=== PATIENT | female | born 1965 | race African-American/Black ===

== ENCOUNTER 2016-06-12 20:24 | Inpatient (IN) | payer MEDICARE, OTHER ==
[~2016-06-12] VITALS: Ht 162.6 cm; Wt 74.3 kg
[~2016-06-12 20:24] MED LIST: APIX5TAB PO; Aspirin Chew PO; CARV6.252 PO; DIGO0.12 PO; FERR325T PO; FOLI1TAB4 PO; FURO1TAB62 PO; LACO100 PO; LIPI80TA PO; NOVORP2 SQ; PANT40TA3 PO; PHEN-414 PO; SPIR25TA PO; THERTAB15 PO
--- NOTE | 2016-06-12 20:38 | PD ---
HPI Chief Complaint: difficulty speaking Time Seen by Provider: 20:29 Travel History International Travel<30 days: No Contact w/Intl Traveler<30days: No Traveled to known affect area: No History of Present Illness HPI The patient is 51 year old female who presents to the [facility] emergency department with a history of mentation that began sometime earlier today, suspected to be around 7 AM with difficulty talkin and slurred speech at her long term. Ambulance services were not called regarding the patient until in the evening. The patient is currently a resident at [facility] for rehabilitation related to a recent cerebrovascular accident with residual weakness of the left upper and left lower extremity. According to the record, the patient is on a baby aspirin daily. The patient on examination has difficulty providing history. The patient has slurred speech and difficulty finding words. The patient denies having any fevers, cough or congestion, chest pain, chest pressure, shortness of breath, vomiting, abdominal pain, or diarrhea. According to the patient's long term record, the patient is currently on a baby aspirin daily as well as Apixaban. [facility] Past Medical History Narrative Medical The patient's past medical history is significant for a cardiomyopathy, generalized muscle weakness, history of atrial fibrillation, hypertension, cerebrovascular accident with residual left upper and left lower extremity weakness, insomnia, history of prior TIAs, history of diabetes mellitus, history of seizure disorder, anemia, dysphagia, history of a right bundle branch block. Hx Anticoagulant Therapy: Yes (ELIQUIS) Asthma: No Anxiety: Yes Depression: Yes (complicated grief) Heart Rhythm Problems: Yes (DEFIBRILLATOR PLACED 2 YRS AGO) Cancer: No Cardiovascular Problems: Yes (CHF, A-FIB) High Cholesterol: No Chemotherapy: No Chest Pain: No Congestive Heart Failure: Yes COPD: No Cerebrovascular Accident: Yes Diabetes: Yes Diminished Hearing: No Endocrine: Yes (BORDERLINE DIABETIC, DIET CONTROLLED) Gastrointestinal Disorders: Yes (ACID REFLUX) GERD: Yes Genitourinary: No Hepatitis: No Hypertension: Yes Immune Disorder: No Implanted Vascular Access Dvce: Yes Neurologic: Yes Psychiatric: Yes (ANXIETY ) Reproductive: No Respiratory: Yes Immunizations Current: Yes Radiation Therapy: No Seizures: Yes Thyroid Disease: Yes : 1 Para: 1 Past Surgical History Narrative Surgical The patient's past surgical history is significant for a defibrillator placement , history of craniotomy, history of . AICD: Yes ([employer]) Body Medical Devices: DEBRILLATOR, MARKER IN BILATERAL BREAST Cardiac Surgery: Yes (DEFIBRILATOR 2002, DEFIBRILATOR REPLACED 03/2010) Section: Yes (1984) Gynecologic Surgery: Yes (C SECTION ) Neurologic Surgery: Yes (CRANIOTOMY) Thoracic Surgery: Yes (MARKERS PLACED BILATERAL BREAST) Other Surgery: Yes Social History Alcohol Use: No Tobacco Use: No Substance Use: No Allergies-Medications (Allergen,Severity, Reaction): Coded Allergies: Dilantin (Verified Allergy, Severe, 06/12/16) Lemon (Verified Allergy, Severe, EDEMA, 06/12/16) Sulfa (Verified Allergy, Severe, ANYYHING WITH IT IN IT AND I FALL OUT AND GET THE SHAKES, 06/12/16) AMARIS Inhibitors (Verified Allergy, Intermediate, ANGIOEDEMA, 06/12/16) CONFIRMED OF 01/03/2010 MRI PRECAUTION (Verified Adverse Reaction, Severe, AICD PRESENT, 06/12/16) AICD PRESENT 11/23/13 JLA *MDRO Multi-Drug Resistant Organism (Verified Adverse Reaction, Unknown, ) MRSA (urine & sputum) - 2013 MRSA PCR Screen POSITIVE - 04/08/16 Uncoded Allergies: MUCINEX (Allergy, Severe, CARDIAC INCIDENT, 09/18/13) Reported Meds & Prescriptions Reported Meds & Active Scripts Active Digoxin 0.125 Mg Tab 0.125 Mg PO DAILY 30 Days [Aspirin Chew] 81 MG Chew 81 Mg PO DAILY 30 Days Novolin R Inj (Insulin Human Regular) 1,000 Unit/10 Ml Vial 1 Units SQ ACHS 30 Days accu-check AC/HS with regular insulin coverage; 150-200 one unit 201-250 three units 251-300 five units 301-350 seven units 351-400 nine units inform PCP if < 70 or > 400. Phenobarbital 32.4 Mg Tab 32.4 Mg PO Q12HR 30 Days Thera/Beta-Carotene (Multiple Vitamin) 1 Tab Tab 1 Tab PO DAILY 30 Days Vimpat (Lacosamide) 100 Mg Tab 200 Mg PO BID 30 Days Reported Lasix (Furosemide) 20 Mg Tab 20 Mg PO HS Duloxetine DR (Duloxetine HCl) 60 Mg Capdr 60 Mg PO DAILY Dulcolax Supp (Bisacodyl) 10 Mg Supp 10 Mg RECTAL DAILY PRN Milk of Magnesia Liq (Magnesium Hydroxide) 400 Mg/5 Ml Susp 30 Ml PO DAILY PRN Lipitor (Atorvastatin Calcium) 80 Mg Tab 80 Mg PO HS Eliquis (Apixaban) 5 Mg Tab 5 Mg PO BID Folate (Folic Acid) 1 Mg Tab 1 Mg PO DAILY Ferrous Sulfate 325 Mg Tab 325 Mg PO BID Pantoprazole (Pantoprazole Sodium) 40 Mg Tab 40 Mg PO DAILY Carvedilol 6.25 Mg Tab 6.25 Mg PO BID Lasix (Furosemide) 20 Mg Tab 40 Mg PO DAILY Spironolactone 25 Mg Tab 25 Mg PO DAILY Review of Systems Except as stated in HPI: all other systems reviewed are Neg General / Constitutional: No: Fever Eyes: No: Visual changes HENT: No: Headaches Cardiovascular: No: Chest Pain or Discomfort Respiratory: No: Shortness of Breath Gastrointestinal: No: Abdominal Pain Genitourinary: No: Dysuria Musculoskeletal: No: Pain Skin: No Rash Neurologic: Positive: Focal Abnormalities (left upper and left lower extremity weakness), Change in Mentation, Slurred Speech, Other (difficulty with word finding ability), No: Weakness, Headache Psychiatric: No: Depression Endocrine: No: Polydipsia Hematologic/Lymphatic: No: Easy Bruising Physical Exam Narrative General: The patient is a well-developed, well-nourished female who arrives by ambulance services with a reported blood sugar prior to arrival of 125. Head and Neck exam: Head is normocephalic atraumatic. Eyes: Pupils are equal round and reactive to light. Nose: Midline septum with pink mucous membranes Mouth: Dentition unremarkable. Moist mucus membranes. Posterior oropharynx is not erythematous. No tonsillar hypertrophy. Uvula midline. Airway patent. Neck: No palpable lymphadenopathy. No nuchal rigidity. No thyromegaly. Cardiovascular: Regular rate and rhythm without murmurs, gallops, or rubs. No pulse deficit to the extremities and simultaneous auscultation and palpation of her radial artery. Lungs: Clear to auscultation bilaterally. No wheezes, rhonchi, or rales. Abdomen: Soft, without tenderness to palpation in all 4 quadrants of the abdomen. No guarding, rebound, or rigidity. Normal bowel sounds are audible. Extremities: No clubbing, cyanosis, or edema. 2+ pulses in all 4 extremities. Neurologic Exam: The patient is oriented to person, however not place, time, or situation. The patient is able to follow commands. The patient has a very subtle left facial droop with flattening of the nasolabial fold. Otherwise cranial nerves II through XII are intact. The patient's strength in the left upper and left lower extremity are decreased at 4 over 5 in the left upper extremity, 5 over 5 in the left lower extremity with contracture of the left hand noted related to her prior cerebrovascular accident. The patient reports having diminished sensation on the left side of her body on sensory testing. The patient has 5 over 5 strength in the right upper extremity. The patient has 4 over 5 strength in the right lower extremity. Skin Exam: No rash noted. Intact skin that is warm and dry. Data Data Last Documented VS Vital Signs Date Time Temp Pulse Resp B/P Pulse Ox O2 Delivery O2 Flow Rate FiO2 06/12/16 22:00 81 16 120/78 99 Room Air 06/12/16 20:41 98.4 Orders Electrocardiogram (06/12/16 20:35) Complete Blood Count With Diff (06/12/16 20:35) Comprehensive Metabolic Panel (06/12/16 20:35) Creatine Kinase (Cpk) (06/12/16 20:35) Ckmb (Isoenzyme) Profile (06/12/16 20:35) Troponin I (06/12/16 20:35) B-Type Natriuretic Peptide (06/12/16 20:35) Prothrombin Time / Inr (Pt) (06/12/16 20:35) Act Partial Throm Time (Ptt) (06/12/16 20:35) Lipase (06/12/16 20:35) Urinalysis - C+S If Indicated (06/12/16 20:35) Magnesium (Mg) (06/12/16 20:35) Alcohol (Ethanol) (06/12/16 20:35) Drug Screen, Random Urine (06/12/16 20:35) Salicylates (Aspirin) (06/12/16 20:35) Tylenol (Acetaminophen) (06/12/16 20:35) Ammonia (06/12/16 20:35) Chest, Single Ap (06/12/16 20:35) Ct Brain W/O Iv Contrast(Rout) (06/12/16 20:35) Iv Access Insert/Monitor (06/12/16 20:35) Ecg Monitoring (06/12/16 20:35) Oximetry (06/12/16 20:35) Ed Urine Pregnancytest Poc (06/12/16 20:35) Cath For Specimen (06/12/16 20:35) Sodium Chlor 0.9% 250 Ml Inj (Ns 250 Ml (06/12/16 21:00) Sodium Chlor 0.9% 1000 Ml Inj (Ns 1000 M (06/12/16 21:00) [place] (06/12/16 20:49) Phenobarbital (06/12/16 20:35) Admit Order (Ed Use Only) (06/12/16 22:05) Labs Laboratory Tests Test 06/12/16 06/12/16 06/12/16 20:35 20:50 20:55 White Blood Count 4.9 TH/MM3 Red Blood Count 4.49 MIL/MM3 Hemoglobin 11.3 GM/DL Hematocrit 34.8 % Mean Corpuscular Volume 77.5 FL Mean Corpuscular Hemoglobin 25.1 PG Mean Corpuscular Hemoglobin 32.4 % Concent Red Cell Distribution Width 19.7 % Platelet Count 188 TH/MM3 Mean Platelet Volume 9.2 FL Neutrophils (%) (Auto) 57.6 % Lymphocytes (%) (Auto) 29.2 % Monocytes (%) (Auto) 10.0 % Eosinophils (%) (Auto) 2.3 % Basophils (%) (Auto) 0.9 % Neutrophils # (Auto) 2.8 TH/MM3 Lymphocytes # (Auto) 1.4 TH/MM3 Monocytes # (Auto) 0.5 TH/MM3 Eosinophils # (Auto) 0.1 TH/MM3 Basophils # (Auto) 0.0 TH/MM3 CBC Comment AUTO DIFF Differential Comment AUTO DIFF CONFIRMED Platelet Estimate NORMAL Platelet Morphology Comment NORMAL Ovalocytes 1+ Prothrombin Time 18.8 SEC Prothromb Time International 1.7 RATIO Ratio Activated Partial 29.9 SEC Thromboplast Time Sodium Level 139 MEQ/L Potassium Level 4.3 MEQ/L Chloride Level 104 MEQ/L Carbon Dioxide Level 27.0 MEQ/L Anion Gap 8 MEQ/L Blood Urea Nitrogen 20 MG/DL Creatinine 0.55 MG/DL Estimat Glomerular Filtration 142 ML/MIN Rate Random Glucose 117 MG/DL Calcium Level 7.9 MG/DL Magnesium Level 1.6 MG/DL Total Bilirubin 0.4 MG/DL Aspartate Amino Transf 48 U/L (AST/SGOT) Alanine Aminotransferase 47 U/L (ALT/SGPT) Alkaline Phosphatase 202 U/L Total Creatine Kinase 83 U/L Troponin I 0.08 NG/ML B-Type Natriuretic Peptide 1863 PG/ML Total Protein 6.6 GM/DL Albumin 2.3 GM/DL Lipase 385 U/L Salicylates Level LESS THAN 1.7 MG/DL Acetaminophen Level LESS THAN 2.0 MCG/ML Phenobarbital Level 15.3 MCG/ML Ethyl Alcohol Level LESS THAN 3 MG/DL Urine Color YELLOW Urine Turbidity CLEAR Urine pH 5.5 Urine Specific [place] 1.020 Urine Protein 30 mg/dL Urine Glucose (UA) NEG mg/dL Urine Ketones NEG mg/dL Urine Occult Blood NEG Urine Nitrite NEG Urine Bilirubin NEG Urine Urobilinogen 2.0 MG/DL Urine Leukocyte Esterase SMALL Urine RBC LESS THAN 1 /hpf Urine WBC 3 /hpf Urine Squamous Epithelial <1 /hpf Cells Urine Bacteria OCC /hpf Urine Mucus FEW /lpf Microscopic Urinalysis Comment CULT NOT INDICATED Urine Opiates Screen NEG Urine Barbiturates Screen POS Urine Amphetamines Screen NEG Urine Benzodiazepines Screen NEG Urine Cocaine Screen NEG Urine Cannabinoids Screen NEG Ammonia 49 MCMOL/L MDM Medical Decision Making Medical Screen Exam Complete: Yes Emergency Medical Condition: Yes Medical Record Reviewed: Yes Interpretation(s) Last Impressions Head CT 06/12/162034 Signed Impressions: Service Date/Time: Sunday, June 12, 2016 21:09 - CONCLUSION: Stable appearance as described. Angel Cuevas MD Chest X-Ray 06/12/162034 Signed Impressions: Service Date/Time: Sunday, June 12, 2016 20:36 - CONCLUSION: 1. Interval removal of nasogastric tube. 2. Mildly rotated study with abnormal opacity remaining at the left lung base. Angel Cuevas MD Differential Diagnosis Cerebrovascular accident, versus TIA, versus encephalopathy, versus electrolyte abnormality, versus weakness related to an acute coronary syndrome, versus infectious processes just pneumonia or urinary tract infection Narrative Course During the course of the patients emergency department visit, the patients history, examination, and differential diagnosis were reviewed with the patient. The patient had IV access obtained and blood work sent for analysis. The patient was placed on a signal tester with oximetry and blood pressure monitoring. An EKG was done on arrival. The patient's EKG shows a sinus rhythm with what appears to be a first-degree AV block, marked right axis deviation, intraventricular conduction delay with a QRS duration of 166 ms. This will be compared to prior EKGs on record for this patient. The patient's initial blood pressure on arrival is a systolic in the 1 teens. After reviewing the patient's long term record and electronic medical record , the patient has a history of a right bundle branch block noted on her prior EKG, somewhat similar appearance her EKG compared to today's ECG. The patient was provided normal saline at 250 mL bolus 1 due to suspected poor by mouth intake today. The patient was given normal saline 75 mL/h to follow. The patient was placed with the head of the bed flat due to his suspicion for TIA versus CVA. The patient is seen to be out of the window for administration of thrombolytics due to the timeframe of onset of symptoms, as well as the fact that the patient is on blood thinners, baby aspirin and Apixaban daily. The patients laboratory studies were reviewed and remarkable for a white count of 4.9, hemoglobin 11.3, platelets 188 with monocytes at 10, CMP is remarkable for BUN of 20, glucose 117, calcium 7.9, AST 48, alkaline phosphatase 202, CPK 83, troponin I 0.08, BNP 1863, lipase 385, PT 18.8, INR 1.7, urine drug screen was positive for barbiturates, salicylate less than 1.7, acetaminophen less than 2, phenobarbital level XV.3, alcohol less than 3. The patient's ammonia level is noted to be 49. Radiology studies were reviewed and remarkable for a CT scan of the brain that showed a stable brain, no acute abnormality. Chest x-ray shows an interval removal of nasogastric tube, mildly rotated study with abnormal opacity remaining at the left lung base that was seen previously. The patient will be admitted to the hospital for continued evaluation and treatment. The patient's symptoms could be related to a hepatic encephalopathy. The patients results were discussed with the patient, including the plan of care. I explained that further testing and/ or monitoring is indicated based on the patients history, examination, and/ or laboratory findings. Therefore, I recommended admission for additional evaluation. The patient expressed understanding and was agreeable with this plan. The patient was admitted to the hospital in stable condition and sent to a bed under the care of Dr. Martines. Physician Communication Physician Communication I spoke to Dr. Glez regarding this patient's case. He did agree to admit the patient for further evaluation and treatment at this time. Diagnosis Primary Impression: Slurred speech Additional Impressions: Mild aphasia Altered mental status Qualified Code: R41.0 - Disorientation Hepatic encephalopathy Admitting Information Admitting Physician Requests: Admit Emma Rios MD Jun 12, 2016 20:38
[2016-06-12 20:40] VITALS: O2SAT 98
[2016-06-12 20:41] VITALS: BP 116/80; PULSE 83; RESP 16; TEMP 98.4; O2SAT 98
[2016-06-12] MEDS ORDERED: SODIUM CHLOR 0.9% 250 ML INJ 250 ML IV ONE (21:00)
--- NOTE | 2016-06-12 21:01 | RADRPT ---
EXAM DATE/TIME: 06/12/2016 20:36 [facility] COMPARISON: CHEST SINGLE AP, April 27, 2016, 3:59. INDICATIONS : Short of breath. MEDICAL HISTORY : Stroke. SURGICAL HISTORY : Defibrillator. ENCOUNTER: Initial ACUITY: 1 day PAIN SCORE: Non-responsive. LOCATION: Bilateral chest FINDINGS: A single AP semierect view of the chest was obtained and demonstrates interval removal of the previou sly noted nasogastric tube. The left subclavian AV sequential transvenous pacer remains in place ther e is moderate cardiomegaly. Patient is rotated to the left. There is mild hazy opacity at the left daryl ng base. The left costophrenic angle appears blunted. The bony thorax is intact. There are multiple o verlying electrocardiogram leads. CONCLUSION: 1. Interval removal of nasogastric tube. 2. Mildly rotated study with abnormal opacity remaining at the left lung base. Angel Cuevas MD on June 12, 2016 at 20:59 Board Certified Radiologist. This report was verified electronically.
[2016-06-12 21:10] LABS: AUTOMATED NEUTROPHIL # 2.8 TH/MM3 (1.8-7.7); BASOPHIL % 0.9 % (0.0-2.0); EOSINOPHIL # 0.1 TH/MM3 (0-0.4); EOSINOPHIL % 2.3 % (0.0-4.0); HEMATOCRIT 34.8 % (35.0-46.0); LYMPH % 29.2 % (9.0-44.0); LYMPHOCYTE # 1.4 TH/MM3 (1.0-4.8); MEAN CELL VOLUME 77.5 FL (80.0-100.0); MEAN CORPUSCULAR HEMOGLOBIN 25.1 PG (27.0-34.0); MEAN CORPUSCULAR HGB CONC 32.4 % (32.0-36.0); NEUT % 57.6 % (16.0-70.0); PLATELET COUNT 188 TH/MM3 (150-450); RED BLOOD COUNT 4.49 MIL/MM3 (4.00-5.30); RED CELL DISTRIBUTION WIDTH 19.7 % (11.6-17.2); WHITE BLOOD COUNT 4.9 TH/MM3 (4.0-11.0)
[2016-06-12 21:17] LABS: BACTERIA, URINE OCC /hpf; BLOOD, URINE NEG (NEG); COMMENT (UR) CULT NOT INDICATED; CULTURE IF INDICATED CULT NOT INDICATED; GLUCOSE,URINE NEG (NEG); KETONE, URINE NEG (NEG); MUCUS URINE FEW /lpf (OCC); NITRITE,URINE NEG (NEG); PH, URINE 5.5 (5.0-8.5); SQUAMOUS EPITHELIAL CELL URINE <1 /hpf (0-5); URINE COLOR YELLOW (YELLW/STRAW)
--- NOTE | 2016-06-12 21:20 | RADRPT ---
EXAM DATE/TIME: 06/12/2016 21:09 [facility] COMPARISON: CT BRAIN W/O CONTRAST, April 22, 2016, 11:03. INDICATIONS : Altered mental status today. RADIATION DOSE: 43.02 CTDIvol (mGy) MEDICAL HISTORY : Stroke. Seizures. SURGICAL HISTORY : Craniotomy. ENCOUNTER: Initial ACUITY: 1 day PAIN SCALE: Non-responsive LOCATION: Bilateral head TECHNIQUE: Multiple contiguous axial images were obtained of the head. Using automated exposure control and adj ustment of the mA and/or kV according to patient size, radiation dose was kept as low as reasonably a chievable to obtain optimal diagnostic quality images. FINDINGS: The patient is status post remote right frontoparietal craniotomy with encephalomalacia and ex v acuo change involving the right lateral ventricle. There is no acute hemorrhage, mass effect or midli ne shift. No extra-axial fluid collections are identified. The posterior fossa and brainstem remain i ntact. There is no evidence of acute infarction. Partial visualization of the previously noted retent ion cyst is noted in the right maxillary sinus. CONCLUSION: Stable appearance as described. Angel Cuevas MD on June 12, 2016 at 21:16 Board Certified Radiologist. This report was verified electronically.
[2016-06-12 21:22] LABS: AMPHETAMINE, URINE NEG (NEG); BARBITURATES, URINE POS (NEG); COCAINE, URINE NEG (NEG)
[2016-06-12 21:23] LABS: HEMO FLAGS AUTO DIFF
[2016-06-12 21:24] LABS: APTT (PATIENT) 29.9 SEC (24.3-30.1); INTERNATIONAL NORMALIZED RATIO 1.7 RATIO; PROTHROMBIN TIME - PATIENT 18.8 SEC (9.8-11.6)
[2016-06-12 21:37] LABS: ANION GAP 8 MEQ/L (5-15)
[2016-06-12 21:40] LABS: ACETAMINOPHEN LESS THAN 2.0 MCG/ML (10.0-30.0); ALKALINE PHOSPHATASE 202 U/L (45-117); ALT (GPT) 47 U/L (10-53); AST (GOT) 48 U/L (15-37); BLOOD UREA NITROGEN 20 MG/DL (7-18); CHLORIDE 104 MEQ/L (98-107); GLOMERULAR FILTRATION RATE 142 ML/MIN (>89); MAGNESIUM 1.6 MG/DL (1.5-2.5); PHENOBARBITAL 15.3 MCG/ML (15.0-40.0); POTASSIUM 4.3 MEQ/L (3.5-5.1); SODIUM (NA) 139 MEQ/L (136-145); TOTAL BILIRUBIN ADULT 0.4 MG/DL (0.2-1.0)
[2016-06-12 21:47] LABS: CREATINE KINASE 83 U/L (26-192)
[2016-06-12 22:00] VITALS: BP 120/78; PULSE 81; RESP 16; O2SAT 99
[2016-06-12 22:07] LABS: OVALOCYTES 1+ (NORMAL); PLATELET ESTIMATE SMEAR NORMAL (NORMAL); PLATELET MORPHOLOGY NORMAL (NORMAL); SCAN/DIFF AUTO DIFF CONFIRMED
[2016-06-12] MEDS: SODIUM CHLOR 0.9% 1000 ML INJ 1,000 ML IV SCH (22:12)
[2016-06-12] MEDS ORDERED: FURO1TAB62 PO (22:43)
[2016-06-12] MEDS ORDERED: MILKSUS PO (22:43)
[2016-06-12] MEDS ORDERED: DULO1CAP3 PO (22:43)
[2016-06-12] MEDS ORDERED: DULC10SU3 RECTAL (22:43)
[2016-06-12 23:00] VITALS: BP 123/80; PULSE 80; RESP 16; O2SAT 98
[2016-06-12] MEDS ORDERED: NALOXONE HCL 0.4 MG/ML AMP IV PRN (23:00)
[2016-06-12] MEDS ORDERED: SODIUM CHLORIDE 0.9% FLUSH 5 ML FLUSH FLUSH PRN (23:00)
[2016-06-13] VITALS (12 sets, daily range): BP systolic 108–133; BP diastolic 70–87; PULSE 75–93; RESP 16–20; TEMP 95.6–97.1; O2SAT 94–98
[2016-06-13 04:07] LABS: AUTOMATED NEUTROPHIL # 2.3 TH/MM3 (1.8-7.7); BASOPHIL # 0.1 TH/MM3 (0-0.2); BASOPHIL % 1.3 % (0.0-2.0); EOSINOPHIL # 0.1 TH/MM3 (0-0.4); EOSINOPHIL % 1.8 % (0.0-4.0); HEMATOCRIT 34.8 % (35.0-46.0); LYMPH % 33.5 % (9.0-44.0); LYMPHOCYTE # 1.4 TH/MM3 (1.0-4.8); MEAN CELL VOLUME 77.9 FL (80.0-100.0); MEAN CORPUSCULAR HEMOGLOBIN 24.6 PG (27.0-34.0); MEAN CORPUSCULAR HGB CONC 31.5 % (32.0-36.0); MONO % 9.9 % (0.0-8.0); NEUT % 53.5 % (16.0-70.0); PLATELET COUNT 169 TH/MM3 (150-450); RED BLOOD COUNT 4.47 MIL/MM3 (4.00-5.30); RED CELL DISTRIBUTION WIDTH 19.5 % (11.6-17.2); WHITE BLOOD COUNT 4.2 TH/MM3 (4.0-11.0)
[2016-06-13 04:09] LABS: HEMO FLAGS AUTO DIFF
[2016-06-13 04:35] LABS: ALT (GPT) 45 U/L (10-53); ANION GAP 8 MEQ/L (5-15); AST (GOT) 42 U/L (15-37); BICARBONATE 27.7 MEQ/L (21.0-32.0); BLOOD UREA NITROGEN 19 MG/DL (7-18); CHLORIDE 104 MEQ/L (98-107); GLOMERULAR FILTRATION RATE 142 ML/MIN (>89); POTASSIUM 3.8 MEQ/L (3.5-5.1); SODIUM (NA) 140 MEQ/L (136-145)
[2016-06-13 04:37] LABS: ALKALINE PHOSPHATASE 176 U/L (45-117); TOTAL BILIRUBIN ADULT 0.5 MG/DL (0.2-1.0)
[2016-06-13 04:57] LABS: OVALOCYTES 2+ (NORMAL); TEARDROP RBCS 1+ (NORMAL)
[2016-06-13 04:58] LABS: SCAN/DIFF AUTO DIFF CONFIRMED
[2016-06-13] MEDS: SODIUM CHLORIDE 0.9% FLUSH 5 ML FLUSH FLUSH SCH ×2 (07:12→10:08)
[2016-06-13] MEDS: SODIUM CHLOR 0.9% 1000 ML INJ 1,000 ML IV SCH ×2 (10:17→23:40)
[2016-06-13] MEDS ORDERED: BISACODYL 10 MG SUPP RECTAL PRN (12:00)
[2016-06-13] MEDS ORDERED: MAGNESIUM HYDROXIDE SUSP 30 ML CUP PO PRN (12:00)
--- NOTE | 2016-06-13 12:17 | HHI.HP ---
History of Present Illness Service Family practice Primary Care Physician Dr Martines Admission Diagnosis AMS, elevated ammonia level, dysphasia Diagnoses: History of Present Illness The patient is 51 year old female who is admitted to hospital for changes in mentation. She is a patient of [facility] and is followed by Dr. Martines while there. Yesterday morning she had difficulty taking and slurred speech. Ambulance services were not called regarding the patient until in the evening. The patient has had recent cerebrovascular accident with residual weakness of the left upper and left lower extremity. According to the record, the patient is on a baby aspirin and apixaban. Patient is alert and oriented on exam but has trouble choosing words. The patient denies having any fevers, cough or congestion, chest pain, chest pressure, shortness of breath, vomiting, abdominal pain, or diarrhea. Review of Systems Constitutional: COMPLAINS OF: Fatigue Ears, nose, mouth, throat: DENIES: Throat pain, Sinus Pain Respiratory: DENIES: Cough, Sputum production, Shortness of breath Cardiovascular: DENIES: Chest pain, Palpitations Gastrointestinal: DENIES: Bloody stools, Constipation, Diarrhea, Nausea Genitourinary: DENIES: Dysuria Musculoskeletal: DENIES: Muscle aches, Stiffness Integumentary: DENIES: Rash Neurologic: COMPLAINS OF: Speech Problems Psychiatric: DENIES: Anxiety, Confusion, Depression Past Family Social History Allergies: Coded Allergies: Dilantin (Verified Allergy, Severe, 06/12/16) Lemon (Verified Allergy, Severe, EDEMA, 06/12/16) Sulfa (Verified Allergy, Severe, ANYYHING WITH IT IN IT AND I FALL OUT AND GET THE SHAKES, 06/12/16) AMARIS Inhibitors (Verified Allergy, Intermediate, ANGIOEDEMA, 06/12/16) CONFIRMED OF 01/03/2010 MRI PRECAUTION (Verified Adverse Reaction, Severe, AICD PRESENT, 06/12/16) AICD PRESENT 11/23/13 JLA *MDRO Multi-Drug Resistant Organism (Verified Adverse Reaction, Unknown, ) MRSA (urine & sputum) - 2013 MRSA PCR Screen POSITIVE - 04/08/16 Uncoded Allergies: MUCINEX (Allergy, Severe, CARDIAC INCIDENT, 09/18/13) Past Medical History The patient's past medical history is significant for a cardiomyopathy, generalized muscle weakness, history of atrial fibrillation, hypertension, cerebrovascular accident with residual left upper and left lower extremity weakness, insomnia, history of prior TIAs, history of seizure disorder, anemia, dysphagia, history of a right bundle branch block Past Surgical History The patient's past surgical history is significant for a defibrillator placement , history of craniotomy, history of . AICD: Yes ([employer]) Body Medical Devices: DEBRILLATOR, MARKER IN BILATERAL BREAST Cardiac Surgery: Yes (DEFIBRILATOR 2002, DEFIBRILATOR REPLACED 03/2010) Section: Yes (1984) Gynecologic Surgery: Yes (C SECTION ) Neurologic Surgery: Yes (CRANIOTOMY) Thoracic Surgery: Yes (MARKERS PLACED BILATERAL BREAST) Reported Medications Reported Meds & Active Scripts Active Digoxin 0.125 Mg Tab 0.125 Mg PO DAILY 30 Days [Aspirin Chew] 81 MG Chew 81 Mg PO DAILY 30 Days Novolin R Inj (Insulin Human Regular) 1,000 Unit/10 Ml Vial 1 Units SQ ACHS 30 Days accu-check AC/HS with regular insulin coverage; 150-200 one unit 201-250 three units 251-300 five units 301-350 seven units 351-400 nine units inform PCP if < 70 or > 400. Phenobarbital 32.4 Mg Tab 32.4 Mg PO Q12HR 30 Days Thera/Beta-Carotene (Multiple Vitamin) 1 Tab Tab 1 Tab PO DAILY 30 Days Vimpat (Lacosamide) 100 Mg Tab 200 Mg PO BID 30 Days Reported Lasix (Furosemide) 20 Mg Tab 20 Mg PO HS Dul[address] (Duloxetine HCl) 60 Mg Capdr 60 Mg PO DAILY Dulcolax Supp (Bisacodyl) 10 Mg Supp 10 Mg RECTAL DAILY PRN Milk of Magnesia Liq (Magnesium Hydroxide) 400 Mg/5 Ml Susp 30 Ml PO DAILY PRN Lipitor (Atorvastatin Calcium) 80 Mg Tab 80 Mg PO HS Eliquis (Apixaban) 5 Mg Tab 5 Mg PO BID Folate (Folic Acid) 1 Mg Tab 1 Mg PO DAILY Ferrous Sulfate 325 Mg Tab 325 Mg PO BID Pantoprazole (Pantoprazole Sodium) 40 Mg Tab 40 Mg PO DAILY Carvedilol 6.25 Mg Tab 6.25 Mg PO BID Lasix (Furosemide) 20 Mg Tab 40 Mg PO DAILY Spironolactone 25 Mg Tab 25 Mg PO DAILY Active Ordered Medications Current Medications Medications (Trade) Dose Ordered Sig/Curtis Route Start Time Stop Time Status Last Admin (NS 1000 ml Inj) 1,000 ml @ 75 mls/hr [id number] IV 06/12/16 21:00 06/13/16 10:17 (NS Flush) 2 ml UNSCH PRN FLUSH 06/12/16 23:00 (NS Flush) 2 ml BID FLUSH 06/13/16 09:00 (Narcan Inj) 0.4 mg UNSCH PRN IV 06/12/16 23:00 Family History Mother at 40 throat cancer Social History Denies and smoking or ETOH use Currently at [facility] and has also lived with daughter Physical Exam Vital Signs Vital Signs Date Time Temp Pulse Resp B/P Pulse Ox O2 Delivery O2 Flow Rate FiO2 06/13/16 10:00 87 20 119/79 95 Room Air 06/13/16 09:00 93 19 133/87 96 Room Air 06/13/16 08:00 89 18 130/82 96 Room Air 06/13/16 07:45 96 Room Air 06/13/16 06:00 90 16 123/82 96 Room Air 06/13/16 05:00 83 16 108/75 96 Room Air 06/13/16 04:00 83 16 108/75 96 Room Air 06/13/16 03:00 84 16 119/80 96 Room Air 06/13/16 02:00 78 16 128/81 96 Room Air 06/13/16 01:00 79 16 126/85 96 Room Air 06/13/16 00:00 75 16 111/70 98 Room Air 06/12/16 23:00 80 16 123/80 98 Room Air 06/12/16 22:00 81 16 120/78 99 Room Air 06/12/16 20:41 98.4 83 16 116/80 98 06/12/16 20:40 98 Room Air Physical Exam GENERAL: This is a well-nourished, well-developed patient, in no apparent distress. SKIN: No rashes, ecchymoses. Cool and dry. Stage 2 on buttocks HEAD: Atraumatic. Normocephalic. No temporal or scalp tenderness. EYES: Pupils equal round and reactive.. NECK: Trachea midline. . Supple and nontender. CARDIOVASCULAR: Regular rate and rhythm without murmurs, gallops, or rubs. RESPIRATORY: Clear to auscultation. Breath sounds equal bilaterally. No wheezes , rales, or rhonchi. GASTROINTESTINAL: Abdomen soft, non-tender, nondistended. No guarding. MUSCULOSKELETAL: Extremities without clubbing or cyanosis. 2 + edema in lower extremity. No joint tenderness, effusion, or edema noted. No calf tenderness. Negative Homans sign bilaterally. Left sided weakness NEUROLOGICAL: Awake and alert. Speech delayed. Laboratory Laboratory Tests Test 06/12/16 06/12/16 06/12/16 06/13/16 20:35 20:50 20:55 03:54 White Blood Count 4.9 4.2 Red Blood Count 4.49 4.47 Hemoglobin 11.3 11.0 Hematocrit 34.8 34.8 Mean Corpuscular Volume 77.5 77.9 Mean Corpuscular Hemoglobin 25.1 24.6 Mean Corpuscular Hemoglobin 32.4 31.5 Concent Red Cell Distribution Width 19.7 19.5 Platelet Count 188 169 Mean Platelet Volume 9.2 8.7 Neutrophils (%) (Auto) 57.6 53.5 Lymphocytes (%) (Auto) 29.2 33.5 Monocytes (%) (Auto) 10.0 9.9 Eosinophils (%) (Auto) 2.3 1.8 Basophils (%) (Auto) 0.9 1.3 Neutrophils # (Auto) 2.8 2.3 Lymphocytes # (Auto) 1.4 1.4 Monocytes # (Auto) 0.5 0.4 Eosinophils # (Auto) 0.1 0.1 Basophils # (Auto) 0.0 0.1 CBC Comment AUTO DIFF AUTO DIFF Differential Comment AUTO DIFF AUTO DIFF CONFIRMED CONFIRMED Platelet Estimate NORMAL Platelet Morphology Comment NORMAL Ovalocytes 1+ 2+ Prothrombin Time 18.8 Prothromb Time International 1.7 Ratio Activated Partial 29.9 Thromboplast Time Sodium Level 139 140 Potassium Level 4.3 3.8 Chloride Level 104 104 Carbon Dioxide Level 27.0 27.7 Anion Gap 8 8 Blood Urea Nitrogen 20 19 Creatinine 0.55 0.55 Estimat Glomerular Filtration 142 142 Rate Random Glucose 117 101 Calcium Level 7.9 8.1 Magnesium Level 1.6 Total Bilirubin 0.4 0.5 Aspartate Amino Transf 48 42 (AST/SGOT) Alanine Aminotransferase 47 45 (ALT/SGPT) Alkaline Phosphatase 202 176 Total Creatine Kinase 83 Troponin I 0.08 B-Type Natriuretic Peptide 1863 Total Protein 6.6 6.1 Albumin 2.3 2.2 Lipase 385 Salicylates Level LESS THAN 1.7 Acetaminophen Level LESS THAN 2.0 Phenobarbital Level 15.3 Ethyl Alcohol Level LESS THAN 3 Urine Color YELLOW Urine Turbidity CLEAR Urine pH 5.5 Urine Specific Deport 1.020 Urine Protein 30 Urine Glucose (UA) NEG Urine Ketones NEG Urine Occult Blood NEG Urine Nitrite NEG Urine Bilirubin NEG Urine Urobilinogen 2.0 Urine Leukocyte Esterase SMALL Urine RBC LESS THAN 1 Urine WBC 3 Urine Squamous Epithelial <1 Cells Urine Bacteria OCC Urine Mucus FEW Microscopic Urinalysis Comment CULT NOT INDICATED Urine Opiates Screen NEG Urine Barbiturates Screen POS Urine Amphetamines Screen NEG Urine Benzodiazepines Screen NEG Urine Cocaine Screen NEG Urine Cannabinoids Screen NEG Ammonia 49 43 Tear Drop Cells 1+ Result Diagram: 06/13/1635306/13/16353 Imaging Last [address] 06/12/162034 Signed Impressions: Service Date/Time: Sunday, June 12, 2016 21:09 - CONCLUSION: Stable appearance as described. Angel Cuevas MD Chest X-Ray 06/12/162034 Signed Impressions: Service Date/Time: Sunday, June 12, 2016 20:36 - CONCLUSION: 1. Interval removal of nasogastric tube. 2. Mildly rotated study with abnormal opacity remaining at the left lung base. Angel Cuevas MD Assessment and Plan Problem List: (1) Hyperlipidemia Status: Chronic Plan: Statin on hold (2) Atrial fibrillation Status: Chronic Plan: On telemetry. Continue ASA and Eliquis (3) Seizure disorder Status: Chronic Plan: Patient takes Vimpat and phenobarbital will need to be ordered. Discussed with Dr. Martines (4) Nutrition, metabolism, and development symptoms Status: Acute Plan: Speech consulted and nutrition consult. (5) Diabetes Status: Chronic Plan: HAIC ordered. Continue insulin and monitor (6) Altered mental status Status: Acute Plan: Patient with history of CVA with craniotomy. Patient admitted with AMS and speech alteration. Alert and oriented at visit. Speech delayed. Neuro consulted. (7) elevated ammonia Status: Acute Plan: Ammonia level 45. 1 dose of lactulose ordered. Repeat ordered in AM (8) CHF (congestive heart failure) Status: Chronic Plan: Patient with 2+ lower extremity edema. Furosemide and spirolactone resumed Discussed Condition With Assessment and plan discussed with Dr. Martines. Discharge Planning Plan to discharge to SNF Problem Qualifiers (1) Altered mental status: Qualified Code: R41.0 - Disorientation Domitila Odell Jun 13, 2016 12:17
[2016-06-13] MEDS: MULTIVITAMIN TAB PO SCH (13:33)
[2016-06-13] MEDS: FUROSEMIDE 40 MG TAB PO SCH (13:33)
[2016-06-13] MEDS: ASPIRIN 81 MG CHEW TAB PO SCH (13:34)
[2016-06-13 13:49] LABS: ANION GAP 5 MEQ/L (5-15); BICARBONATE 26.3 MEQ/L (21.0-32.0); BLOOD UREA NITROGEN 19 MG/DL (7-18); CHLORIDE 107 MEQ/L (98-107); GLOMERULAR FILTRATION RATE 154 ML/MIN (>89); POTASSIUM 4.1 MEQ/L (3.5-5.1); SODIUM (NA) 138 MEQ/L (136-145)
[2016-06-13 13:51] LABS: HDL CHOLESTEROL 50.2 MG/DL (40.0-60.0); LDL CHOLESTEROL 69 MG/DL (0-99)
[2016-06-13 14:15] LABS: DIGOXIN 0.7 NG/ML (0.8-2.0)
--- NOTE | 2016-06-13 17:17 | EKG ---
Date Performed: 06/12/2016 Time Performed: 20:28:25 PTAGE: 51 years EKG: Sinus rhythm WITH FIRST DEGREE AV BLOCK POSSIBLE LEFT ATRIAL ENLARGEMENT MARKED RIGHT AXIS DEVIATION INTRAVENTRIC ULAR CONDUCTION DELAY Poor R wave progression. When compared to previous tracing, patient is now in s inus Rhythm. Prolonged corrected QT interval ABNORMAL ECG PREVIOUS TRACING : 04/29/2016 08.52 DOCTOR: Herminio Gautam Interpretating Date/Time 06/13/2016 17:16:38
[2016-06-13 17:36] LABS: HEMOGLOBIN A1a 1.2 %; HEMOGLOBIN A1b 0.9 %; HEMOGLOBIN Ao 83.3 %; HEMOGLOBIN F 1.3 %; HEMOGLOBIN LA1C 2.6 %; HEMOGLOBIN P3 5.6 %
--- NOTE | 2016-06-13 17:41 | MB ---
cc: JAYDEN ROSE M.D. DATE OF CONSULTATION 06/13/16 She is a 51-year-old with a chief complaint of neurologic change. She is a resident of the nursing facility [facility]. Yesterday, she developed neurologic change characterized by decreased responsiveness. It appeared that it took hours before she was brought to the hospital. She had improved significantly. According to be report I was able to gather, she is about 75-80% improved. Her daughter was in the hospital before I came to see her. She has a history of prior stroke. The patient tells me that she had a minor stroke and then last year she had a major one. She had surgery. I saw the CT scan which shows a large area of encephalomalacia involving the right middle cerebral artery distribution and she had a craniotomy. PAST MEDICAL HISTORY She has a history of atrial fibrillation, defibrillator, cardiomyopathy, diabetes, hypertension and seizures. MEDICATIONS She apparently takes aspirin and Eliquis. She takes phenobarbital and Vimpat as well. PHYSICAL EXAMINATION The exam the patient to be alert, pleasant and partially oriented. She has aphasia, predominantly expressive. She answered and insisted that she is 49 years old. She has some orientation and insight to the medical problems and was able to provide some history. She expressed herself somewhat slowly and with simple words. She follows commands and moves the right-sided limbs well. She has much difficulty moving the left-sided limbs which is about 1/5. There is some contracture and spasticity on the left, especially involving the left hand. Reflexes were diminished throughout, nearly absent. Plantar extensor response on the left and plantar flexor response on the right. LABORATORY DATA WBC today 4.2, hemoglobin 11.0, platelets 169. Sodium and potassium normal. Glucose 190, calcium 7.9, BUN 19, creatinine 0.51, LDL 69. Phenobarbital level yesterday 15.3 and today 16.0. ASSESSMENT TIA versus seizures. Continue phenobarbital 32.4 b.i.d., continue Vimpat 200 mg b.i.d. Eliquis 5 mg twice a day. Baby aspirin. I am going to request carotid ultrasound if not done yet. We will request an EEG. She is nearly back to baseline. I will follow the neurological course. Thank you for asking us to assist in her care. MD JONES Thompson /3:07 PM /5:10 PM
[2016-06-13] MEDS: APIXABAN 5 MG TABLET PO SCH ×2 (17:48→22:19)
[2016-06-13] MEDS: INSULIN HUMAN REGULAR 1,000 UNITS/10 ML VIAL SQ SCH ×2 (17:58→21:00)
[2016-06-13] MEDS: PHENobarbital 32.4 MG TAB PO SCH (22:18)
[2016-06-13] MEDS: LACOSAMIDE 100 MG TAB PO SCH (22:18)
[2016-06-13] MEDS: CARVEDILOL 6.25 MG TAB PO SCH (22:18)
[2016-06-14] VITALS (8 sets, daily range): BP systolic 104–127; BP diastolic 75–84; PULSE 68–89; RESP 16–20; TEMP 95.3–98.3; O2SAT 96–100
[2016-06-14] MEDS: INSULIN HUMAN REGULAR 1,000 UNITS/10 ML VIAL SQ SCH ×4 (06:37→22:40)
[2016-06-14 06:50] LABS: AUTOMATED NEUTROPHIL # 2.4 TH/MM3 (1.8-7.7); BASOPHIL % 0.7 % (0.0-2.0); EOSINOPHIL # 0.1 TH/MM3 (0-0.4); EOSINOPHIL % 1.8 % (0.0-4.0); HEMATOCRIT 35.2 % (35.0-46.0); LYMPH % 27.9 % (9.0-44.0); LYMPHOCYTE # 1.1 TH/MM3 (1.0-4.8); MEAN CELL VOLUME 78.4 FL (80.0-100.0); MEAN CORPUSCULAR HEMOGLOBIN 24.6 PG (27.0-34.0); MEAN CORPUSCULAR HGB CONC 31.4 % (32.0-36.0); MONO % 9.9 % (0.0-8.0); NEUT % 59.7 % (16.0-70.0); PLATELET COUNT 162 TH/MM3 (150-450); RED BLOOD COUNT 4.49 MIL/MM3 (4.00-5.30); WHITE BLOOD COUNT 3.9 TH/MM3 (4.0-11.0)
[2016-06-14 07:21] LABS: HEMO FLAGS AUTO DIFF
[2016-06-14 07:25] LABS: ANION GAP 7 MEQ/L (5-15); BICARBONATE 24.6 MEQ/L (21.0-32.0); BLOOD UREA NITROGEN 16 MG/DL (7-18); CHLORIDE 107 MEQ/L (98-107); GLOMERULAR FILTRATION RATE 170 ML/MIN (>89); POTASSIUM 3.8 MEQ/L (3.5-5.1); SODIUM (NA) 139 MEQ/L (136-145)
[2016-06-14] MEDS: SODIUM CHLORIDE 0.9% FLUSH 5 ML FLUSH FLUSH SCH ×2 (09:00→22:40)
[2016-06-14] MEDS: FUROSEMIDE 40 MG TAB PO SCH (09:46)
[2016-06-14] MEDS: PHENobarbital 32.4 MG TAB PO SCH ×2 (09:46→22:39)
[2016-06-14] MEDS: PANTOPRAZOLE SOD 40 MG DELAYED RELEASE TAB PO SCH (09:46)
[2016-06-14] MEDS: ASPIRIN 81 MG CHEW TAB PO SCH (09:46)
[2016-06-14] MEDS: MULTIVITAMIN TAB PO SCH (09:46)
[2016-06-14] MEDS: DULoxetine HCl DR 60 MG CAP PO SCH (09:46)
[2016-06-14] MEDS: CARVEDILOL 6.25 MG TAB PO SCH ×2 (09:46→22:39)
[2016-06-14] MEDS: LACOSAMIDE 100 MG TAB PO SCH ×2 (09:46→22:40)
[2016-06-14] MEDS: FOLIC ACID 1 MG TAB PO SCH (09:47)
[2016-06-14] MEDS: APIXABAN 5 MG TABLET PO SCH ×2 (09:47→22:40)
[2016-06-14] MEDS: DIGOXIN 0.125 MG TAB PO SCH (09:47)
[2016-06-14] MEDS: SPIRONOLACTONE 25 MG TAB PO SCH (09:47)
[2016-06-14 10:05] LABS: OVALOCYTES 2+ (NORMAL)
[2016-06-14 10:06] LABS: BURR CELLS 1+ (NORMAL); SCAN/DIFF AUTO DIFF CONFIRMED
[2016-06-14] MEDS: SODIUM CHLOR 0.9% 1000 ML INJ 1,000 ML IV SCH (12:18)
--- NOTE | 2016-06-14 12:20 | HHI.PR ---
Subjective Remarks Patient seen at bedside. Alert to self and time. Denies and SOB or Chest pain. In good spirits. Objective Vital Signs Date Time Temp Pulse Resp B/P Pulse Ox O2 Delivery O2 Flow Rate FiO2 06/14/16 08:25 95.3 68 16 109/75 96 06/14/16 04:03 96.3 80 18 104/75 100 06/14/16 00:03 96.6 72 18 106/77 98 06/13/16 20:03 97.1 86 20 118/73 98 06/13/16 14:20 95.6 89 18 116/84 94 I/O 06/13/16 06/13/16 06/13/16 06/14/16 06/14/16 06/14/16 07:00 15:00 23:00 07:00 15:00 23:00 Intake Total 240 ml 800 ml Output Total 300 ml Balance -300 ml 240 ml 800 ml Intake Oral 240 ml IV Total 800 ml Output Urine Total 300 ml # Voids 1 2 # Bowel Movements 1 2 Result Diagram: 06/14/1662606/14/16626 Other Results GENERAL: This is a well-nourished, well-developed patient, in no apparent distress. SKIN: No rashes, ecchymoses. Cool and dry. Stage 2 on buttocks HEAD: Atraumatic. Normocephalic. No temporal or scalp tenderness. EYES: Pupils equal round and reactive.. NECK: Trachea midline. . Supple and nontender. CARDIOVASCULAR: Regular rate and rhythm without murmurs, gallops, or rubs. RESPIRATORY: Clear to auscultation. Breath sounds equal bilaterally. No wheezes , rales, or rhonchi. GASTROINTESTINAL: Abdomen soft, non-tender, nondistended. No guarding. MUSCULOSKELETAL: Extremities without clubbing or cyanosis. 2 + edema in lower extremity. No joint tenderness, effusion, or edema noted. No calf tenderness. Negative Homans sign bilaterally. Left sided weakness NEUROLOGICAL: Awake and alert. Speech delayed. Objective Remarks Last [address] 06/12/162034 Signed Impressions: Service Date/Time: Sunday, June 12, 2016 21:09 - CONCLUSION: Stable appearance as described. Angel Cuevas MD Chest X-Ray 06/12/162034 Signed Impressions: Service Date/Time: Sunday, June 12, 2016 20:36 - CONCLUSION: 1. Interval removal of nasogastric tube. 2. Mildly rotated study with abnormal opacity remaining at the left lung base. Angel Cuevas MD Medications and IVs Current Medications Medications (Trade) Dose Ordered Sig/Curtis Route Start Time Stop Time Status Last Admin (NS 1000 ml Inj) 1,000 ml @ 75 mls/hr [id number] IV 06/12/16 21:00 06/13/16 23:40 (NS Flush) 2 ml UNSCH PRN FLUSH 06/12/16 23:00 (NS Flush) 2 ml BID FLUSH 06/13/16 09:00 (Narcan Inj) 0.4 mg UNSCH PRN IV 06/12/16 23:00 (Eliquis) 5 mg BID PO 06/13/16 12:00 06/14/16 09:47 (Dulcolax Supp) 10 mg DAILY PRN RECTAL 06/13/16 12:00 (Coreg) 6.25 mg BID PO 06/13/16 21:00 06/14/16 09:46 (Lanoxin) 0.125 mg DAILY PO 06/14/16 09:00 06/14/16 09:47 (Cymbalta Dr) 60 mg DAILY PO 06/14/16 09:00 06/14/16 09:46 (Folate) 1 mg DAILY PO 06/14/16 09:00 06/14/16 09:47 (Lasix) 40 mg DAILY PO 06/13/16 12:00 06/14/16 09:46 (NovoLIN R INJ) 1 units ACHS SQ 06/13/16 16:00 06/14/16 06:37 (Milk Of Magnesia Liq) 30 ml DAILY PRN PO 06/13/16 12:00 (Theragran) 1 tab DAILY PO 06/13/16 12:00 06/14/16 09:46 (Protonix) 40 mg DAILY PO 06/14/16 09:00 06/14/16 09:46 (Aldactone) 25 mg DAILY PO 06/14/16 09:00 06/14/16 09:47 (Aspirin Chew) 81 mg DAILY PO 06/13/16 12:00 06/14/16 09:46 (Vimpat) 200 mg BID PO 06/13/16 21:00 06/14/16 09:46 (PHENobarbital) 32.4 mg Q12HR PO 06/13/16 21:00 06/14/16 09:46 Assessment and Plan Problem List: (1) Hyperlipidemia Status: Chronic Plan: Statin on hold (2) Atrial fibrillation Status: Chronic Plan: On telemetry. Continue ASA and Eliquis (3) Seizure disorder Status: Acute Plan: Patient takes Vimpat and phenobarbital will need to be ordered. Discussed with Dr. Martines. EEG ordered (4) Nutrition, metabolism, and development symptoms Status: Acute Plan: Speech consulted and nutrition consult. No dysphagia noted. (5) Diabetes Status: Chronic Plan: [facility] 6.1. Continue insulin and monitor (6) Altered mental status Status: Acute Plan: Patient with history of CVA with craniotomy. Patient admitted with AMS and speech alteration. Improving. Alert and oriented to self and time. Speech delayed. Neuro following EEG and carotid ultrasound ordered. (7) elevated ammonia Status: Acute Plan: Ammonia level increased. lactulose ordered. Repeat ordered in AM (8) CHF (congestive heart failure) Status: Chronic Plan: Patient with 2+ lower extremity edema. Furosemide and spirolactone resumed. IVF discontinue Discussed Condition With Assessment and plan discussed with Dr. Martines Discharge Planning Discharge to SNF Problem Qualifiers (1) Altered mental status: Qualified Code: R41.0 - Disorientation Domitila Odell Jun 14, 2016 12:20
[2016-06-14] MEDS ORDERED: LACTULOSE SYRUP 20 GM/30 ML CUP PO ONE (12:30)
--- NOTE | 2016-06-14 12:51 | MG ---
cc: FIDENCIO BROOKE M.D. Lab No: 17-48 Date: 06/14/2016 Age: 51 Sex: F Race: [address] Chino. Room 1513 with photic stimulation. EEG is awake, drowsy. CT shows stability, does not describe what stability is. EEG 04/22/16 showed phase reversal sharp waves mid temporal right side, admitted with slurred speech, difficulty finding words. History of CHF, defibrillator, seizures, on anticoagulation currently on Lanoxin, Vimpat Coreg, phenobarbital, Theragran, Aspirin. DESCRIPTION OF RECORD There appears to be some mild slowing predominately of 5 Hz, 20-40 microvolts. Some phase reversals are noted over the right hemisphere, F8-T4, T4-T6 frontotemporal region. EKG looks fairly sinus, some occasional PVCs. Phase reversals continue as stated in F8-T4, T4-T6, paroxysmally. Photic stimulation shows a driving response. IMPRESSION Abnormal EEG due to phase reversals over the right frontal temporal region, likely focus for epileptogenicity in this patient. Clinical correlation. MD VERN Johnson/SEAMUS /12:31 PM /12:37 PM
[2016-06-14 16:45] LABS: HEMOGLOBIN A1a 1.1 %; HEMOGLOBIN A1b 0.9 %; HEMOGLOBIN Ao 83.9 %; HEMOGLOBIN F 1.4 %; HEMOGLOBIN P3 5.6 %
--- NOTE | 2016-06-14 19:25 | HHI.PR ---
Review/Management Daily Summary she had carotid us and ct angio a couple of months ago/unremarkable eeg right frontal epileptiform per dr Alvarado continue anticonvulsants and blood thinners as is appears back to baseline if stable in am, back to nursing facility Subjective Subjective Comments No acute events reported No headache No chest pain No dyspnea Active Medications Current Medications Medications (Trade) Dose Ordered Sig/Curtis Route Start Time Stop Time Status Last Admin (NS Flush) 2 ml UNSCH PRN FLUSH 06/12/16 23:00 (NS Flush) 2 ml BID FLUSH 06/13/16 09:00 (Narcan Inj) 0.4 mg UNSCH PRN IV 06/12/16 23:00 (Eliquis) 5 mg BID PO 06/13/16 12:00 06/14/16 09:47 (Dulcolax Supp) 10 mg DAILY PRN RECTAL 06/13/16 12:00 (Coreg) 6.25 mg BID PO 06/13/16 21:00 06/14/16 09:46 (Lanoxin) 0.125 mg DAILY PO 06/14/16 09:00 06/14/16 09:47 (Cymbalta Dr) 60 mg DAILY PO 06/14/16 09:00 06/14/16 09:46 (Folate) 1 mg DAILY PO 06/14/16 09:00 06/14/16 09:47 (Lasix) 40 mg DAILY PO 06/13/16 12:00 06/14/16 09:46 (NovoLIN R INJ) 1 units ACHS SQ 06/13/16 16:00 06/14/16 18:18 (Milk Of Magnesia Liq) 30 ml DAILY PRN PO 06/13/16 12:00 (Theragran) 1 tab DAILY PO 06/13/16 12:00 06/14/16 09:46 (Protonix) 40 mg DAILY PO 06/14/16 09:00 06/14/16 09:46 (Aldactone) 25 mg DAILY PO 06/14/16 09:00 06/14/16 09:47 (Aspirin Chew) 81 mg DAILY PO 06/13/16 12:00 06/14/16 09:46 (Vimpat) 200 mg BID PO 06/13/16 21:00 06/14/16 09:46 (PHENobarbital) 32.4 mg Q12HR PO 06/13/16 21:00 06/14/16 09:46 Allergies Allergies Coded Allergies Dilantin (Verified Allergy, Severe, 06/12/16) Lemon (Verified Allergy, Severe, EDEMA, 06/12/16) Sulfa (Verified Allergy, Severe, ANYYHING WITH IT IN IT AND I FALL OUT AND GET THE SHAKES, 06/12/16) AMARIS Inhibitors (Verified Allergy, Intermediate, ANGIOEDEMA, 06/12/16) MRI PRECAUTION (Verified Adverse Reaction, Severe, AICD PRESENT, 06/12/16) *MDRO Multi-Drug Resistant Organism (Verified Adverse Reaction, Unknown, ) Uncoded Allergies MUCINEX ( Allergy, Severe, CARDIAC INCIDENT, 09/18/13) Review of Systems All other ROS: ROS reviewed as documented in chart Exam I&O / VS 06/13/16 06/13/16 06/14/16 15:00 23:00 07:00 Intake Total 240 ml 800 ml Balance 240 ml 800 ml Intake Oral 240 ml IV Total 800 ml # Voids 1 2 # Bowel Movements 1 2 Vital Signs Date Time Temp Pulse Resp B/P Pulse Ox O2 Delivery O2 Flow Rate FiO2 06/14/16 16:23 96.7 89 16 127/84 98 06/14/16 12:00 95.3 88 17 109/79 97 06/14/16 08:25 95.3 68 16 109/75 96 06/14/16 04:03 96.3 80 18 104/75 100 06/14/16 00:03 96.6 72 18 106/77 98 06/13/16 20:03 97.1 86 20 118/73 98 General: Alert and Oriented, No acute distress Eye: PERRL, EOMI Respiratory: Lungs CTA, BS equal, Symmetrical expansion Cardiology: Normal rate, Regular Rhythm Neurologic: Alert, Oriented Psychiatric: Cooperative, Appropriate mood & affect Objective Micro and Labs Laboratory Tests Test 06/14/16 06:27 White Blood Count 3.9 Red Blood Count 4.49 Hemoglobin 11.1 Hematocrit 35.2 Mean Corpuscular Volume 78.4 Mean Corpuscular Hemoglobin 24.6 Mean Corpuscular Hemoglobin 31.4 Concent Red Cell Distribution Width 20.0 Platelet Count 162 Mean Platelet Volume 8.9 Neutrophils (%) (Auto) 59.7 Lymphocytes (%) (Auto) 27.9 Monocytes (%) (Auto) 9.9 Eosinophils (%) (Auto) 1.8 Basophils (%) (Auto) 0.7 Neutrophils # (Auto) 2.4 Lymphocytes # (Auto) 1.1 Monocytes # (Auto) 0.4 Eosinophils # (Auto) 0.1 Basophils # (Auto) 0.0 CBC Comment AUTO DIFF Differential Comment AUTO DIFF CONFIRMED Ovalocytes 2+ Stomatocytes [place] Cells 1+ Sodium Level 139 Potassium Level 3.8 Chloride Level 107 Carbon Dioxide Level 24.6 Anion Gap 7 Blood Urea Nitrogen 16 Creatinine 0.47 Estimat Glomerular Filtration 170 Rate Random Glucose 119 Hemoglobin A1c 6.2 Calcium Level 7.8 Ammonia 53 Natacha Chino MD Jun 14, 2016 19:25
[2016-06-15] VITALS: BP 115/79; PULSE 90; RESP 20; TEMP 97.1; O2SAT 99
[2016-06-15 04:00] VITALS: BP 109/72; PULSE 82; RESP 20; TEMP 96.2; O2SAT 95
[2016-06-15] MEDS: INSULIN HUMAN REGULAR 1,000 UNITS/10 ML VIAL SQ SCH ×2 (05:34→12:17)
[2016-06-15 06:27] LABS: HEMATOCRIT 34.8 % (35.0-46.0); MEAN CELL VOLUME 78.2 FL (80.0-100.0); PLATELET COUNT 157 TH/MM3 (150-450); RED BLOOD COUNT 4.45 MIL/MM3 (4.00-5.30); RED CELL DISTRIBUTION WIDTH 19.6 % (11.6-17.2); REVIEW FLAG FINAL; WHITE BLOOD COUNT 4.8 TH/MM3 (4.0-11.0)
[2016-06-15 06:51] LABS: BICARBONATE 26.7 MEQ/L (21.0-32.0); POTASSIUM 3.9 MEQ/L (3.5-5.1)
[2016-06-15 06:52] LABS: CALCIUM-PROTEIN CORRECTED 8.6 MG/DL (8.5-10.1)
[2016-06-15 07:05] VITALS: BP 118/82; PULSE 85; RESP 20; TEMP 97.7; O2SAT 98
[2016-06-15] MEDS: SODIUM CHLORIDE 0.9% FLUSH 5 ML FLUSH FLUSH SCH (08:23)
[2016-06-15] MEDS: CARVEDILOL 6.25 MG TAB PO SCH (08:24)
[2016-06-15] MEDS: DULoxetine HCl DR 60 MG CAP PO SCH (08:24)
[2016-06-15] MEDS: DIGOXIN 0.125 MG TAB PO SCH (08:24)
[2016-06-15] MEDS: PANTOPRAZOLE SOD 40 MG DELAYED RELEASE TAB PO SCH (08:24)
[2016-06-15] MEDS: MULTIVITAMIN TAB PO SCH (08:24)
[2016-06-15] MEDS: PHENobarbital 32.4 MG TAB PO SCH (08:24)
[2016-06-15] MEDS: LACOSAMIDE 100 MG TAB PO SCH (08:24)
[2016-06-15] MEDS: SPIRONOLACTONE 25 MG TAB PO SCH (08:25)
[2016-06-15] MEDS: APIXABAN 5 MG TABLET PO SCH (08:25)
[2016-06-15] MEDS: FUROSEMIDE 40 MG TAB PO SCH (08:25)
[2016-06-15] MEDS: ASPIRIN 81 MG CHEW TAB PO SCH (08:25)
[2016-06-15] MEDS: FOLIC ACID 1 MG TAB PO SCH (08:25)
[2016-06-15 10:09] VITALS: PULSE 87
[2016-06-15 11:15] VITALS: BP 116/82; PULSE 85; RESP 20; TEMP 96.8; O2SAT 96
[2016-06-15] MEDS ORDERED: LACT10SO PO (11:58)
--- NOTE | 2016-06-15 12:04 | HHI.DS ---
Discharge Summary Admission Date Jun 12, 2016 at 22:07 Admitting Diagnosis AMS, elevated ammonia level, dysphasia Brief History The patient is 51 year old female who is admitted to hospital for changes in mentation. She is a patient of [facility] and is followed by Dr. Martines while there. Yesterday morning she had difficulty taking and slurred speech. Ambulance services were not called regarding the patient until in the evening. The patient has had recent cerebrovascular accident with residual weakness of the left upper and left lower extremity. According to the record, the patient is on a baby aspirin and apixaban. Patient is alert and oriented on exam but has trouble choosing words. The patient denies having any fevers, cough or congestion, chest pain, chest pressure, shortness of breath, vomiting, abdominal pain, or diarrhea. CBC/BMP: 06/15/16 0614 06/15/16 0614 Significant Findings Laboratory Tests Test 06/12/16 06/12/16 06/12/16 06/13/16 20:35 20:50 20:55 03:54 Hemoglobin 11.3 GM/DL 11.0 GM/DL (11.6-15.3) (11.6-15.3) Hematocrit 34.8 % 34.8 % (35.0-46.0) (35.0-46.0) Mean Corpuscular Volume 77.5 FL 77.9 FL (80.0-100.0) (80.0-100.0) Mean Corpuscular Hemoglobin 25.1 PG 24.6 PG (27.0-34.0) (27.0-34.0) Red Cell Distribution Width 19.7 % 19.5 % (11.6-17.2) (11.6-17.2) Monocytes (%) (Auto) 10.0 % 9.9 % (0.0-8.0) (0.0-8.0) Ovalocytes 1+ (NORMAL) 2+ (NORMAL) Prothrombin Time 18.8 SEC (9.8-11.6) Blood Urea Nitrogen 20 MG/DL (7-18) 19 MG/DL (7-18) Random Glucose 117 MG/DL (74-106) Calcium Level 7.9 MG/DL 8.1 MG/DL (8.5-10.1) (8.5-10.1) Aspartate Amino Transf 48 U/L (15-37) 42 U/L (15-37) (AST/SGOT) Alkaline Phosphatase 202 U/L 176 U/L (45-117) (45-117) Troponin I 0.08 NG/ML (0.02-0.05) B-Type Natriuretic Peptide 1863 PG/ML (0-100) Albumin 2.3 GM/DL 2.2 GM/DL (3.4-5.0) (3.4-5.0) Salicylates Level LESS THAN 1.7 MG/DL (2.8-20.0) Acetaminophen Level LESS THAN 2.0 MCG/ML (10.0-30.0) Urine Protein 30 mg/dL (NEG-TRACE) Urine Leukocyte Esterase SMALL (NEG) Urine Bacteria OCC /hpf (NONE) Urine Mucus FEW /lpf (OCC) Urine Barbiturates Screen POS (NEG) Ammonia 49 MCMOL/L 43 MCMOL/L (11-32) (11-32) Mean Corpuscular Hemoglobin 31.5 % Concent (32.0-36.0) Tear Drop Cells 1+ (NORMAL) Total Protein 6.1 GM/DL (6.4-8.2) Test 06/13/16 06/14/16 06/15/16 12:57 06:27 06:14 Blood Urea Nitrogen 19 MG/DL (7-18) Random Glucose 190 MG/DL 119 MG/DL 130 MG/DL (74-106) (74-106) (74-106) Hemoglobin A1c 6.1 % (4.3-6.0) 6.2 % (4.3-6.0) Calcium Level 7.9 MG/DL 7.8 MG/DL 8.0 MG/DL (8.5-10.1) (8.5-10.1) (8.5-10.1) Digoxin Level 0.7 NG/ML (0.8-2.0) Carbamazepine (Tegretol) Level LESS THAN 0.5 MCG/ML (4.0-12.0) White Blood Count 3.9 TH/MM3 (4.0-11.0) Hemoglobin 11.1 GM/DL 11.1 GM/DL (11.6-15.3) (11.6-15.3) Mean Corpuscular Volume 78.4 FL 78.2 FL (80.0-100.0) (80.0-100.0) Mean Corpuscular Hemoglobin 24.6 PG 25.0 PG (27.0-34.0) (27.0-34.0) Mean Corpuscular Hemoglobin 31.4 % Concent (32.0-36.0) Red Cell Distribution Width 20.0 % 19.6 % (11.6-17.2) (11.6-17.2) Monocytes (%) (Auto) 9.9 % (0.0-8.0) Ovalocytes 2+ (NORMAL) Jennifer Cells 1+ (NORMAL) Creatinine 0.47 MG/DL 0.47 MG/DL (0.50-1.00) (0.50-1.00) Ammonia 53 MCMOL/L 57 MCMOL/L (11-32) (11-32) Hematocrit 34.8 % (35.0-46.0) Total Protein 6.0 GM/DL (6.4-8.2) PE at Discharge Last [address] 06/12/162034 Signed Impressions: Service Date/Time: Sunday, June 12, 2016 21:09 - CONCLUSION: Stable appearance as described. Angel Cuevas MD Chest X-Ray 06/12/162034 Signed Impressions: Service Date/Time: Sunday, June 12, 2016 20:36 - CONCLUSION: 1. Interval removal of nasogastric tube. 2. Mildly rotated study with abnormal opacity remaining at the left lung base. Angel Cuevas MD Transfer Summary The patient is 51 year old female who is admitted to hospital for changes in mentation. She is a patient of [facility] and is followed by Dr. Martines while there. Yesterday morning she had difficulty taking and slurred speech. Ambulance services were not called regarding the patient until in the evening. The patient has had recent cerebrovascular accident with residual weakness of the left upper and left lower extremity. According to the record, the patient is on a baby aspirin and apixaban. Patient is alert and oriented on exam but had trouble choosing words. The patient denies having any fevers, cough or congestion, chest pain, chest pressure, shortness of breath, vomiting, abdominal pain, or diarrhea. Patient was followed by neurology and was cleared for discharge. EEG done which did show activity. Patient has also had PT while she was here. Plan is to discharge to SNF. Pt Condition on Discharge: Fair Discharge Disposition: Discharge to SNF Discharge Instructions DIET: Follow Instructions for: Heart Healthy Diet Speech Therapy-Diet Recommenda: Regular Activities you can perform: See Additionl Instruction Additional Activity Instructio: Activity with assistance only. Additional Information Patient will be followed by Dr. Martines at [facility]. A ammonia level will need to drawn weekly and patient will need to be on a no branch chain diet. Domitila Odell Jun 15, 2016 12:04
[2016-06-15] MEDS ORDERED: LACTULOSE SYRUP 20 GM/30 ML CUP PO SCH (13:00)
[2016-06-15 15:15] VITALS: BP 123/81; PULSE 83; RESP 20; TEMP 95.9; O2SAT 97
[2016-08-02] MEDS ORDERED: DULO1CAP3 PO (10:53)
[2016-08-02] MEDS ORDERED: VIMP200T PO (10:53)
[2016-08-02] MEDS ORDERED: ASPI1TAB69 PO (10:58)
[2016-08-02] MEDS ORDERED: FURO1TAB60 PO (10:58)
[2016-08-02] MEDS ORDERED: NAME5TAB2 PO (10:58)
[2016-08-02] MEDS ORDERED: LIPI80TA PO (10:58)
[2016-08-02] MEDS ORDERED: FERR325T PO (10:58)
[2016-08-02] MEDS ORDERED: DIGO0.12 PO (10:58)
[2016-08-02] MEDS ORDERED: PHEN-414 PO (10:58)
[2016-08-02] MEDS ORDERED: CARV6.25 PO (10:58)
[2016-08-02] MEDS ORDERED: SPIR25TA PO (10:58)
[2016-08-02] MEDS ORDERED: IPRASOL INH (10:58)
[2016-08-02] MEDS ORDERED: FOLI1TAB4 PO (10:58)
[2016-08-02] MEDS ORDERED: APIX5TAB PO (10:58)
[2016-08-23] MEDS ORDERED: METF500T PO (10:24)
[2016-08-23] MEDS ORDERED: MEMA1TAB2 PO (10:34)
[2016-08-30] MEDS ORDERED: PANT40TA3 PO (08:58)
== END 2016-06-15 17:07 | DRG 948 ==
LOC: NEPC 20:24 → NEDA 22:07 → NEDH 06-13 02:07 → N05B 06-13 14:05
PROVIDERS: ADMIT Family Medicine; ATTEND Family Medicine
DX: R41.82 Altered mental status, unspecified (principal); I42.9 Cardiomyopathy, unspecified; I50.9 Heart failure, unspecified; G93.89 Other specified disorders of brain; R13.10 Dysphagia, unspecified; R47.01 Aphasia; I48.91 Unspecified atrial fibrillation; I10 Essential (primary) hypertension; I69.354 Hemiplegia and hemiparesis following cerebral infarction affecting left non-dominant side; G40.909 Epilepsy, unspecified, not intractable, without status epilepticus; E11.9 Type 2 diabetes mellitus without complications; G47.00 Insomnia, unspecified; M62.81 Muscle weakness (generalized); I45.10 Unspecified right bundle-branch block; D64.9 Anemia, unspecified; F41.9 Anxiety disorder, unspecified; K21.9 Gastro-esophageal reflux disease without esophagitis; Z95.810 Presence of automatic (implantable) cardiac defibrillator; R47.02 Dysphasia; E78.5 Hyperlipidemia, unspecified
CPT/HCPCS: 70450; 71010; 80048; 80053; 80061; 80156; 80162; 80184; 80307; 80320; 80329; 81001; 82140; 82550; 83036; 83690; 83735; 83880; 84155; 84484; 85025; 85027; 85610; 85730; 93005; 95819; 96360; G0480; G0481; J1815; J7030; J7050; P9612

== ENCOUNTER 2016-06-19 20:13 | Inpatient (IN) | payer MEDICARE, OTHER ==
[~2016-06-19] VITALS: Ht 160 cm; Wt 55.2 kg
[~2016-06-19 20:13] MED LIST changes: +DULC10SU3 RECTAL; +DULO1CAP3 PO; +LACT10SO PO; +MILKSUS PO
[2016-06-19] MEDS ORDERED: AZITHROMYCIN INJ 500 MG in SODIUM CHLOR 0.9% 250 ML INJ 250 ML IV STA (20:17)
[2016-06-19] MEDS ORDERED: SODIUM CHLOR 0.9% 1000 ML INJ 1,000 ML IV ONE ×2 (20:17)
[2016-06-19] MEDS ORDERED: PIPERACIL-TAZO 4.5 GM PREMIX 100 ML IV STA (20:17)
[2016-06-19 20:20] VITALS: O2SAT 100
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
[2016-06-19 20:25] VITALS: BP 114/81; PULSE 89; RESP 14; TEMP 95.5; O2SAT 99
[2016-06-19] MEDS ORDERED: methylPREDNISolone SOD SUCC 125 MG/2 ML VIAL IV ONE (20:30)
[2016-06-19] MEDS ORDERED: FUROSEMIDE 40 MG/4 ML VIAL IV PUSH ONE (20:30)
[2016-06-19 21:05] VITALS: O2SAT 94
[2016-06-19 21:11] LABS: BACTERIA, URINE OCC /hpf; BLOOD, URINE MOD (NEG); GLUCOSE,URINE TRACE mg/dL (NEG); HYALINE CAST, URINE 6 /lpf (RARE); KETONE, URINE NEG (NEG); MUCUS URINE MANY /lpf (OCC); NITRITE,URINE NEG (NEG); SQUAMOUS EPITHELIAL CELL URINE 4 /hpf (0-5); URINE COLOR DARK-YELLOW (YELLW/STRAW)
--- NOTE | 2016-06-19 21:11 | RADRPT ---
EXAM DATE/TIME: 06/19/2016 20:48 [place] COMPARISON: No previous studies available for comparison. INDICATIONS : Short of breath. MEDICAL HISTORY : None. SURGICAL HISTORY : None. ENCOUNTER: Initial ACUITY: 1 day PAIN SCORE: Non-responsive. LOCATION: Bilateral chest FINDINGS: Mild cardiomegaly is unchanged. A small left pleural effusion and mild left base consolidation. No in filtrate on the right. No pneumothorax on either side. Left subclavian transvenous cardiac pacer/defibrillator again noted. CONCLUSION: Consolidation and small pleural fluid of the left lung base. Mild cardiomegaly unchanged. Stevan English MD on June 19, 2016 at 21:09 Board Certified Radiologist. This report was verified electronically.
[2016-06-19 21:12] LABS: AUTOMATED NEUTROPHIL # 5.7 TH/MM3 (1.8-7.7); BASOPHIL # 0.1 TH/MM3 (0-0.2); EOSINOPHIL % 0.4 % (0.0-4.0); HEMATOCRIT 41.5 % (35.0-46.0); LYMPH % 14.1 % (9.0-44.0); LYMPHOCYTE # 1.1 TH/MM3 (1.0-4.8); MEAN CELL VOLUME 80.9 FL (80.0-100.0); MEAN CORPUSCULAR HEMOGLOBIN 25.2 PG (27.0-34.0); MEAN CORPUSCULAR HGB CONC 31.1 % (32.0-36.0); MONO % 7.6 % (0.0-8.0); NEUT % 76.9 % (16.0-70.0); PLATELET COUNT 228 TH/MM3 (150-450); RED BLOOD COUNT 5.13 MIL/MM3 (4.00-5.30); RED CELL DISTRIBUTION WIDTH 18.8 % (11.6-17.2); WHITE BLOOD COUNT 7.5 TH/MM3 (4.0-11.0)
[2016-06-19 21:17] LABS: COMMENT (UR) CATH-CULTURE IND; CULTURE IF INDICATED CATH CULTURE IND
[2016-06-19 21:22] VITALS: BP 119/89; PULSE 67; RESP 14; TEMP 96.1; TEMP 97.9; O2SAT 98; O2SAT 99
[2016-06-19 21:26] LABS: HEMO FLAGS AUTO DIFF
[2016-06-19 21:28] LABS: BLOOD GAS BASE EXCESS -4.9 mmol/L (-2-2); BLOOD GAS CARBOXYHEMOGLOBIN 2.9 % (0-4); BLOOD GAS HCO3 19 mmol/L (22-26); BLOOD GAS METHEMOGLOBIN 1.8 % (0-2); BLOOD GAS O2 HGB SATURATION 94 % (90-100); BLOOD GAS OXYGEN CONTENT 17.3 Vol % (12.0-20.0); BLOOD GAS PCO2 32 mmHg (38-42); BLOOD GAS PO2 127 mmHG (61-120); TEMP CORR TO 98.6
[2016-06-19 21:29] VITALS: TEMP 98.5
[2016-06-19 21:29] LABS: CRITICAL VALUE NO; DRAW SITE RT RADIAL; FIO2 28 %; NUMBER OF ARTERIAL PUNCTURES 1; STAT NO; ULNAR PULSE PRESENT; VENT SETTINGS NPPV 10PS/5PEEP
[2016-06-19 21:29] LABS: APTT (PATIENT) 27.6 SEC (24.3-30.1); INTERNATIONAL NORMALIZED RATIO 2.1 RATIO; PROTHROMBIN TIME - PATIENT 23.5 SEC (9.8-11.6)
[2016-06-19 21:34] LABS: ANION GAP 15 MEQ/L (5-15); AST (GOT) 50 U/L (15-37); BICARBONATE 20.4 MEQ/L (21.0-32.0); BLOOD UREA NITROGEN 19 MG/DL (7-18); CHLORIDE 102 MEQ/L (98-107); GLOMERULAR FILTRATION RATE 64 ML/MIN (>89); MAGNESIUM 1.7 MG/DL (1.5-2.5); POTASSIUM 4.6 MEQ/L (3.5-5.1); SODIUM (NA) 137 MEQ/L (136-145)
[2016-06-19 21:41] LABS: ALKALINE PHOSPHATASE 209 U/L (45-117); ALT (GPT) 48 U/L (10-53); TOTAL BILIRUBIN ADULT 0.9 MG/DL (0.2-1.0)
[2016-06-19 21:42] LABS: CREATINE KINASE 92 U/L (26-192)
[2016-06-19 22:08] LABS: BASOPHILS 2 % (0-2); CORRECTED NUCLEATED RBC 4 /100 WBC (0-0); NEUTROPHIL # MANUAL DIFF 5.4 TH/MM3 (1.8-7.7); POLYS (SEG NEUTROPHILS) 72 % (16-70); WBC DIFF SAMPLE 100
[2016-06-19 22:09] LABS: ACANTHOCYTES 1+ (NORMAL); BURR CELLS 1+ (NORMAL); OVALOCYTES 2+ (NORMAL); PLATELET ESTIMATE SMEAR NORMAL (NORMAL); PLATELET MORPHOLOGY NORMAL (NORMAL); SCAN/DIFF FINAL DIFF MANUAL
[2016-06-19] MEDS ORDERED: ASPI1TAB69 PO (22:18)
[2016-06-19] MEDS ORDERED: CARV6.25 PO (22:19)
[2016-06-19] MEDS ORDERED: VIMP200T PO (22:21)
[2016-06-19] MEDS ORDERED: SPIR25 PO (22:23)
[2016-06-19] MEDS ORDERED: LACT10SO PO (22:25)
[2016-06-19] MEDS ORDERED: APLI5INJ2 (22:25)
[2016-06-19] MEDS ORDERED: IPRASOL INH (22:26)
--- NOTE | 2016-06-19 22:26 | PD ---
Data Data Last Documented VS Vital Signs Date Time Temp Pulse Resp B/P Pulse Ox O2 Delivery O2 Flow Rate FiO2 06/19/16 21:29 98.5 06/19/16 21:22 67 14 119/89 99 BiPAP 35 Orders Electrocardiogram (06/19/16 20:17) Complete Blood Count With Diff (06/19/16 20:17) Comprehensive Metabolic Panel (06/19/16 20:17) Prothrombin Time / Inr (Pt) (06/19/16 20:17) Act Partial Throm Time (Ptt) (06/19/16 20:17) Lactic Acid Sepsis Protocol (06/19/16 20:17) Magnesium (Mg) (06/19/16 20:17) Lipase (06/19/16 20:17) Ckmb (Isoenzyme) Profile (06/19/16 20:17) Troponin I (06/19/16 20:17) Urinalysis - C+S If Indicated (06/19/16 20:17) Influenzae A/B Antigen (06/19/16 20:17) Blood Culture (06/19/16 20:17) Chest, Single Ap (06/19/16 20:17) Blood Glucose (06/19/16 20:17) Ecg Monitoring (06/19/16 20:17) Iv Access Insert/Monitor (06/19/16 20:17) Oximetry (06/19/16 20:17) Oxygen Administration (06/19/16 20:17) Urinary Catheter Insert/Apply (06/19/16 20:17) Piperacil-Tazo 4.5 Gm Premix (Zosyn 4.5 (06/19/16 20:17) Azithromycin Inj (Zithromax Inj) (06/19/16 20:17) Methylprednisolone So Succ Inj (Solumedr (06/19/16 20:30) Sodium Chlor 0.9% 1000 Ml Inj (Ns 1000 M (06/19/16 20:17) Sodium Chlor 0.9% 1000 Ml Inj (Ns 1000 M (06/19/16 20:17) Resp Bipap / Cpap Non Invas Vt (06/19/16 ) Ammonia (06/19/16 20:24) Furosemide Inj (Lasix Inj) (06/19/16 20:30) Arterial Blood Gas (Abg) (06/19/16 ) B-Type Natriuretic Peptide (06/19/16 20:40) Warming [place] / Warming Syst PRN (06/19/16 20:41) Urine Culture (06/19/16 20:40) Labs Laboratory Tests Test 06/19/16 06/19/16 06/19/16 20:40 20:45 21:17 White Blood Count 7.5 TH/MM3 Red Blood Count 5.13 MIL/MM3 Hemoglobin 12.9 GM/DL Hematocrit 41.5 % Mean Corpuscular Volume 80.9 FL Mean Corpuscular Hemoglobin 25.2 PG Mean Corpuscular Hemoglobin 31.1 % Concent Red Cell Distribution Width 18.8 % Platelet Count 228 TH/MM3 Mean Platelet Volume 9.3 FL Neutrophils (%) (Auto) 76.9 % Lymphocytes (%) (Auto) 14.1 % Monocytes (%) (Auto) 7.6 % Eosinophils (%) (Auto) 0.4 % Basophils (%) (Auto) 1.0 % Neutrophils # (Auto) 5.7 TH/MM3 Lymphocytes # (Auto) 1.1 TH/MM3 Monocytes # (Auto) 0.6 TH/MM3 Eosinophils # (Auto) 0.0 TH/MM3 Basophils # (Auto) 0.1 TH/MM3 CBC Comment AUTO DIFF Differential Total Cells 100 Counted Neutrophils % (Manual) 72 % Lymphocytes % 19 % Monocytes % 7 % Basophils % 2 % Neutrophils # (Manual) 5.4 TH/MM3 Nucleated Red Blood Cells 4 /100 WBC Differential Comment FINAL DIFF MANUAL Platelet Estimate NORMAL Platelet Morphology Comment NORMAL Ovalocytes 2+ [place] Cells 1+ Acanthocytes 1+ Prothrombin Time 23.5 SEC Prothromb Time International 2.1 RATIO Ratio Activated Partial 27.6 SEC Thromboplast Time Urine Color DARK-YELLOW Urine Turbidity HAZY Urine pH 6.0 Urine Specific [place] 1.030 Urine Protein 300 mg/dL Urine Glucose (UA) TRACE mg/dL Urine Ketones NEG mg/dL Urine Occult Blood MOD Urine Nitrite NEG Urine Bilirubin NEG Urine Urobilinogen 4.0 MG/DL Urine Leukocyte Esterase SMALL Urine RBC 4 /hpf Urine WBC 24 /hpf Urine Squamous Epithelial 4 /hpf Cells Urine Bacteria OCC /hpf Urine Hyaline Casts 6 /lpf Urine Mucus MANY /lpf Microscopic Urinalysis Comment CATH-CULTURE IND Sodium Level 137 MEQ/L Potassium Level 4.6 MEQ/L Chloride Level 102 MEQ/L Carbon Dioxide Level 20.4 MEQ/L Anion Gap 15 MEQ/L Blood Urea Nitrogen 19 MG/DL Creatinine 1.10 MG/DL Estimat Glomerular Filtration 64 ML/MIN Rate Random Glucose 176 MG/DL Lactic Acid Level 7.1 mmol/L Calcium Level 8.3 MG/DL Magnesium Level 1.7 MG/DL Total Bilirubin 0.9 MG/DL Aspartate Amino Transf 50 U/L (AST/SGOT) Alanine Aminotransferase 48 U/L (ALT/SGPT) Alkaline Phosphatase 209 U/L Ammonia 42 MCMOL/L Total Creatine Kinase 92 U/L Troponin I 0.03 NG/ML Total Protein 7.3 GM/DL Albumin 2.4 GM/DL Lipase 50 U/L B-Type Natriuretic Peptide 1980 PG/ML Blood Gas Puncture Site RT RADIAL Blood Gas Patient Temperature 98.6 Blood Gas HCO3 19 mmol/L Blood Gas Base Excess -4.9 mmol/L Blood Gas Oxygen Saturation 94 % Arterial Blood pH 7.40 Arterial Blood Partial 32 mmHg Pressure CO2 Arterial Blood Partial 127 mmHG Pressure O2 Arterial Blood Oxygen Content 17.3 Vol % Arterial Blood 2.9 % Carboxyhemoglobin Arterial Blood Methemoglobin 1.8 % Blood Gas Hemoglobin 13.0 G/DL Oxygen Delivery Device VENTILATOR Blood Gas Ventilator Setting NPPV 10PS/5PEEP Blood Gas Inspired Oxygen 28 % MDM Medical Record Reviewed: Yes Supervised Visit with ARTUR: Yes Narrative Course I, Dr. Bunch, have reviewed the advance practice practitioner's documentation and am in agreement, met with the patient face to face, made the diagnosis, and the medical decision making was done by me. *My assessment and Findings: Patient will be admitted for management of multiple medical problems including septic shock. BiPAP started along with Zosyn and azithromycin in the ER. Active rewarming initiated with the bear hugger blanket. Case d/w Dr Doyle for data compiler service. CBC & BMP Diagram 06/19/16 20:40 Lactic acid 7.1 Ammonia 42 BNP 1980 Alk phos 209 AST 50 Lipase 50 Albumin 2.4 CXR: L lung PNA Sepsis Criteria SIRS Criteria (2 or more): Temp > 100.9 or < 96.8, RR > 20 or PaCO2 < 32 Sepsis Criteria (SIRS+source): Infect source susp/known Severe Sepsis (+one): Lactate >2 Septic Shock Criteria: Lactic acid >=4 Diagnosis Primary Impression: Septic shock Additional Impressions: Hypoxemia UTI (urinary tract infection) Qualified Code: N30.00 - Acute cystitis without hematuria CHF exacerbation Qualified Code: I50.9 - Acute on chronic congestive heart failure, unspecified congestive heart failure type Admitting Information Admitting Physician Requests: Admit Condition: Warner De La Vega MD Jun 19, 2016 22:26
[2016-06-19] MEDS ORDERED: CEFT500T3 PO (22:27)
[2016-06-19] MEDS ORDERED: ZITH250T PO (22:28)
--- NOTE | 2016-06-19 22:44 | HHI.HP ---
HPI Service Critical Care Medicine Primary Care Physician Unknown Admission Diagnosis Septic Shock (PNA), CHF, AMS Diagnosis: Chief Complaint: altered mental status Travel History International Travel<30 Days: No Contact w/Intl Traveler <30 Da: No Traveled to Known Affected Are: No History of Present Illness This is a 51-year-old female who is very well-known to the critical care team who was initially admitted months ago for seizure like activity, likely diagnosis of pseudoseizures at that time, with known severe biventricular dysfunction and EF around 10%, who has multiple prior admissions for heart failure exacerbations including hepatic failure secondary to CHF, as well as a number of cardiac arrest secondary to CHF exacerbation. She was in her nursing facility when she was noted to be less responsive and altered. At that time she was noted to be hypoxic with SPO2 on room air of 70%. She was transferred to the [place] emergency department. She was placed on BiPAP at that time. Initial laboratory values were notable for a BNP of 1980, lactate of 7.1, ammonia of 42. Chest x-ray demonstrated a possible left lower lobe consolidation. Critical Care medicine has been consulted for evaluation and management of her altered mental status and shock state. Review of Systems ROS Limitations: Clinical Condition, Altered Mental Status Past Family Social History Allergies: Coded Allergies: Dilantin (Verified Allergy, Severe, 06/19/16) Lemon (Verified Allergy, Severe, EDEMA, 06/19/16) Sulfa (Verified Allergy, Severe, ANYYHING WITH IT IN IT AND I FALL OUT AND GET THE SHAKES, 06/19/16) AMARIS Inhibitors (Verified Allergy, Intermediate, ANGIOEDEMA, 06/19/16) CONFIRMED OF 01/03/2010 MRI PRECAUTION (Verified Adverse Reaction, Severe, AICD PRESENT, 06/19/16) AICD PRESENT 11/23/13 JLA *MDRO Multi-Drug Resistant Organism (Verified Adverse Reaction, Unknown, ) MRSA (urine & sputum) - 2013 MRSA PCR Screen POSITIVE - 04/08/16 Uncoded Allergies: MUCINEX (Allergy, Severe, CARDIAC INCIDENT, 09/18/13) Past Medical History Patient cannot provide this history. Per chart review: Echo regulation with Elocon as Atrial fibrillation Anxiety Depression Pseudoseizures AICD placement Severe biventricular systolic failure, baseline EF around 10% CVA with residual weakness Type 2 diabetes GERD Hypertension Past Surgical History Patient cannot provide an accurate past surgical history. Per chart review: [facility] delivery 1984 Reported Medications Digoxin 0.125 Mg Tab 0.125 Mg PO DAILY 30 Days Zithromax (Azithromycin) 250 Mg Tab 250 Mg PO DAILY Ceftin (Cefuroxime Axetil) 500 Mg Tab 500 Mg PO BID Duoneb (Ipratropium-Albuterol Neb) 0.5-2.5 Mg/3 Ml Neb 1 Nebule INH Q4HR NEB Aplisol (Tuberculin Ppd) 5 Unit/0.1 Ml Inj Lactulose Liq (Lactulose) 10 Gm/15 Ml Soln 15 Ml PO Q6H PRN Aldactone (Spironolactone) 25 Mg Tab 25 Mg PO DAILY Vimpat (Lacosamide) 200 Mg Tab 200 Mg PO BID Coreg (Carvedilol) 6.25 Mg Tab 6.25 Mg PO BID Aspirin 81 Mg Tabdr 81 Mg PO DAILY Duloxetine DR (Duloxetine HCl) 60 Mg Capdr 60 Mg PO DAILY Dulcolax Supp (Bisacodyl) 10 Mg Supp 10 Mg RECTAL DAILY PRN Milk of Magnesia Liq (Magnesium Hydroxide) 400 Mg/5 Ml Susp 30 Ml PO DAILY PRN Lipitor (Atorvastatin Calcium) 80 Mg Tab 80 Mg PO HS Eliquis (Apixaban) 5 Mg Tab 5 Mg PO BID Folate (Folic Acid) 1 Mg Tab 1 Mg PO DAILY Ferrous Sulfate 325 Mg Tab 325 Mg PO BID Pantoprazole (Pantoprazole Sodium) 40 Mg Tab 40 Mg PO DAILY Lasix (Furosemide) 20 Mg Tab 40 Mg PO DAILY Spironolactone 25 Mg Tab 25 Mg PO DAILY Active Ordered Medications See MAR Family History Unobtainable secondary to patient's clinical condition, however it is unlikely that it is contributory to her acute illness. Social History Patient cannot provide this history. Per chart review: Denied EtOH, tobacco, drugs of abuse Physical Exam Vital Signs Vital Signs Date Time Temp Pulse Resp B/P Pulse Ox O2 Delivery O2 Flow Rate FiO2 06/19/16 21:29 98.5 06/19/16 21:22 97.9 67 14 119/89 99 BiPAP 35 06/19/16 21:22 96.1 06/19/16 21:22 98 BiPAP 35 06/19/16 21:05 94 28 06/19/16 20:31 98 BiPAP 25 06/19/16 20:25 95.5 89 14 114/81 99 Physical Exam GENERAL: Middle-aged female, lying in bed, critically ill, moderate distress due to dyspnea HEENT: Pupils equal, round, reactive, conjugate. Mucous membranes are moist. NECK: Trachea is midline. JVD difficult to assess secondary to body habitus CHEST: BiPAP in place. Equal chest rise. Diminished bilaterally. Scant wheezes. CARDIOVASCULAR: Normal rate, irregularly irregular rhythm. No appreciable murmurs. ABDOMEN: Obese, soft, nontender, nondistended. No guarding. MUSCULOSKELETAL: 3+ pitting edema up above the level of the knee to the mid thigh. Distal pulses 1+. Extremities are cool to touch. NEUROLOGICAL: RASS -2. Somnolent but arousable. Protecting her airway. Follows commands. Laboratory Laboratory Tests Test 06/19/16 06/19/16 06/19/16 20:40 20:45 21:17 White Blood Count 7.5 Red Blood Count 5.13 Hemoglobin 12.9 Hematocrit 41.5 Mean Corpuscular Volume 80.9 Mean Corpuscular Hemoglobin 25.2 Mean Corpuscular Hemoglobin 31.1 Concent Red Cell Distribution Width 18.8 Platelet Count 228 Mean Platelet Volume 9.3 Neutrophils (%) (Auto) 76.9 Lymphocytes (%) (Auto) 14.1 Monocytes (%) (Auto) 7.6 Eosinophils (%) (Auto) 0.4 Basophils (%) (Auto) 1.0 Neutrophils # (Auto) 5.7 Lymphocytes # (Auto) 1.1 Monocytes # (Auto) 0.6 Eosinophils # (Auto) 0.0 Basophils # (Auto) 0.1 CBC Comment AUTO DIFF Differential Total Cells 100 Counted Neutrophils % (Manual) 72 Lymphocytes % 19 Monocytes % 7 Basophils % 2 Neutrophils # (Manual) 5.4 Nucleated Red Blood Cells 4 Differential Comment FINAL DIFF MANUAL Platelet Estimate NORMAL Platelet Morphology Comment NORMAL Ovalocytes 2+ [place] Cells 1+ Acanthocytes 1+ Prothrombin Time 23.5 Prothromb Time International 2.1 Ratio Activated Partial 27.6 Thromboplast Time Urine Color DARK-YELLOW Urine Turbidity HAZY Urine pH 6.0 Urine Specific [place] 1.030 Urine Protein 300 Urine Glucose (UA) TRACE Urine Ketones NEG Urine Occult Blood MOD Urine Nitrite NEG Urine Bilirubin NEG Urine Urobilinogen 4.0 Urine Leukocyte Esterase SMALL Urine RBC 4 Urine WBC 24 Urine Squamous Epithelial 4 Cells Urine Bacteria OCC Urine Hyaline Casts 6 Urine Mucus MANY Microscopic Urinalysis Comment CATH-CULTURE IND Sodium Level 137 Potassium Level 4.6 Chloride Level 102 Carbon Dioxide Level 20.4 Anion Gap 15 Blood Urea Nitrogen 19 Creatinine 1.10 Estimat Glomerular Filtration 64 Rate Random Glucose 176 Lactic Acid Level 7.1 Calcium Level 8.3 Magnesium Level 1.7 Total Bilirubin 0.9 Aspartate Amino Transf 50 (AST/SGOT) Alanine Aminotransferase 48 (ALT/SGPT) Alkaline Phosphatase 209 Ammonia 42 Total Creatine Kinase 92 Troponin I 0.03 Total Protein 7.3 Albumin 2.4 Lipase 50 B-Type Natriuretic Peptide 1980 Blood Gas Puncture Site RT RADIAL Blood Gas Patient Temperature 98.6 Blood Gas HCO3 19 Blood Gas Base Excess -4.9 Blood Gas Oxygen Saturation 94 Arterial Blood pH 7.40 Arterial Blood Partial 32 Pressure CO2 Arterial Blood Partial 127 Pressure O2 Arterial Blood Oxygen Content 17.3 Arterial Blood 2.9 Carboxyhemoglobin Arterial Blood Methemoglobin 1.8 Blood Gas Hemoglobin 13.0 Oxygen Delivery Device VENTILATOR Blood Gas Ventilator Setting NPPV 10PS/5PEEP Blood Gas Inspired Oxygen 28 Date/Time Procedure Status Source Growth 06/19/16 20:45 Aerobic Blood Culture Received Blood Peripheral Pending 06/19/16 20:45 Anaerobic Blood Culture Received Blood Peripheral Pending 06/19/16 20:40 Urine Culture Received Urine Catheterized Urine Pending Result Diagram: 06/19/16203906/19/162039 Imaging Critical care bedside ultrasound 06/19: Severe biventricular failure, stable when compared to prior echoes. RVSP estimated the 50s. Dilated IVC at 2.5 cm without any respiratory variation. Assessment and Plan Assessment and Plan Assessment: This is a 51-year-old female with a complex past medical history and recently along history of critical illnesses, which include severe biventricular dysfunction and severe congestive heart failure, both LV systolic dysfunction as well as RV failure. She presents with altered mental status, lactic acidosis, cardiogenic shock, severe RV failure with cor pulmonale and volume overload. Certainly there could be a component of healthcare associated versus aspiration pneumonia given her decreased mentation. Her decrease in mentation is likely due to elevated ammonia from her congestive hepatopathy, although septic shock related liver failure or encephalopathy cannot be ruled out at this point. She needs to be admitted to the ICU and observed. I agree with BiPAP. Despite sepsis being a consideration, I think overwhelmingly the largest problem she has to overcome is her heart failure exacerbation and congestive biventricular failure. We will start patient on Lasix 100 mg IV every 6 hours. We will trend her lactic acidosis. She is very critically ill, and she has a history of cardiac arrest when she goes into congestive heart failure. Active problems: Metabolic encephalopathy Hepatic encephalopathy Acute hypoxic respiratory failure Right ventricular failure Cor pulmonale Left ventricular systolic congestive heart failure Congestive hepatopathy Acute intravascular volume overload Plan: Admit to the ICU Continue BiPAP Nothing by mouth Wean FiO2 for goal SPO2 greater than 90% Lasix 100 mg IV every [address] Hinson. Goal diuresis 2-3 L of the next 24 hours Every hour urine output Strict I's and O's Total fluid restriction 500 mL's Trend LFTs daily, BMP daily, CBC daily Recheck lactate. Follow-up AM lactate. She is recently been admitted to the ICU with multiple echoes. I do not see a reason at this point to repeat her echocardiogram. Her biventricular function is terrible and appears to be unchanged. Lactulose every 6 hours for elevated ammonia level May need nasogastric tube given altered mental status to administer lactulose Heparin 5000 every 8, SCDs Follow-up blood, urine, sputum cultures Vancomycin and Zosyn with pharmacy dosing empirically for possible left lower lobe healthcare associated versus aspiration pneumonia I have had a discussion with her daughter, with whom I'm very well acquainted given her prior ICU admissions. I discussed the fact that her heart failure will never get better, and will likely continue to worsen in the future. At some point I urged the daughter to consider the fact that may be her quality of life is poor at this point and we should consider at some point a transition to hospice care, given the fact that the patient has been in the ICU multiple times in the last 6 months, and it appears that her overall health continues to decline and not improved. For now, our goals remain aggressive, and she does not want to consider hospice. This patient remains critically ill with one or more organ systems which are or may become a threat to life. I have spent in excess of 39 minutes discontinuously in the care and management of this patient. This time is exclusive of procedures, and includes, but is not limited to, evaluation of the patient, review of the medical record, discussions with family, consultants, nursing staff, or respiratory therapy, and documentation in the medical record. Code Status Full Code Discussed Condition With daughter at bedside, RN, ER physician. Ramesh Castorena MD Jun 19, 2016 22:43
[2016-06-19] MEDS ORDERED: ONDANSETRON HCL 4 MG/2 ML VIAL IV PRN (22:45)
[2016-06-19] MEDS ORDERED: SODIUM PHOSPHATE INJ 30 MMOL in SODIUM CHLOR 0.9% 250 ML INJ 240 ML IV PRN (22:45)
[2016-06-19] MEDS ORDERED: POTASSIUM PHOSPHATE MONOBASIC 500 MG TAB PO/TUBE PRN (22:45)
[2016-06-19] MEDS ORDERED: Vancomycin Consult Pharmacy 1 EA OTHER SCH (22:45)
[2016-06-19] MEDS ORDERED: MAGNESIUM SULFATE INJ 2 GM in SODIUM CHLORIDE 0.9% INJ 96 ML IV PRN (22:45)
[2016-06-19] MEDS ORDERED: POTASSIUM PHOSPHATE MONOBASIC 500 MG TAB PO PRN (22:45)
[2016-06-19] MEDS ORDERED: MISCELLANEOUS NURSING INFORMATION XX SCH (22:45)
[2016-06-19] MEDS ORDERED: SODIUM CHLORIDE 0.9% FLUSH 5 ML FLUSH IV FLUSH PRN (22:45)
[2016-06-19] MEDS ORDERED: POTASSIUM PHOSPHATE INJ 30 MMOL in SODIUM CHLOR 0.9% 250 ML INJ 250 ML IV PRN (22:45)
[2016-06-19] MEDS ORDERED: POTASSIUM CHLOR 20 MEQ PREMIX 100 ML IV PRN ×2 (22:45)
[2016-06-19] MEDS ORDERED: POTASSIUM CL 40 MEQ/30 ML LIQ UDC PO/TUBE PRN (22:45)
[2016-06-19] MEDS ORDERED: DEXTROSE 50% IN WATER 50 ML VIAL(D50) IV PUSH PRN (22:45)
[2016-06-19] MEDS ORDERED: MAGNESIUM OXIDE 400 MG TAB PO PRN (22:45)
[2016-06-19] MEDS ORDERED: RESP: ALBUTEROL 2.5 MG/IPRATROPIUM 0.5 MG NEB (PRN) INH (22:45)
[2016-06-19] MEDS ORDERED: MAGNESIUM SULFATE INJ 4 GM in SODIUM CHLORIDE 0.9% INJ 92 ML IV PRN (22:45)
[2016-06-19] MEDS ORDERED: CHLORHEXIDINE GLUCONATE 2 % 1 PACK (2 CLOTHS) TOP PRN (22:45)
[2016-06-19] MEDS ORDERED: POTASSIUM CHLOR 40 MEQ PREMIX 100 ML IV PRN ×2 (22:45)
[2016-06-19 22:57] LABS: LACTIC ACID GHOST NOT REPORTABLE
[2016-06-19 23:00] VITALS: BP 115/85; PULSE 90; RESP 14; O2SAT 97
[2016-06-19] MEDS ORDERED: VANCOMYCIN INJ 1,750 MG in SODIUM CHLORID 0.9% 500 ML INJ 500 ML IV ONE (23:00)
[2016-06-19 23:17] LABS: OXYGEN DEVICE BIPAP
[2016-06-20] VITALS (17 sets, daily range): BP systolic 104–118; BP diastolic 64–88; PULSE 80–96; RESP 16–22; TEMP 97.2–98.2; O2SAT 97–100
[2016-06-20] MEDS: HEPARIN SODIUM - SQ 10,000 UNITS/ML VIAL SQ SCH ×4 (00:45→23:38)
[2016-06-20] MEDS: FUROSEMIDE 100 MG/10 ML VIAL IV PUSH SCH ×5 (00:45→23:39)
[2016-06-20] MEDS: RESP: ALBUTEROL 2.5 MG/IPRATROPIUM 0.5 MG NEB (SCH) INH ×4 (03:42→20:53)
[2016-06-20] MEDS: CHLORHEXIDINE GLUCONATE 2 % 1 PACK (2 CLOTHS) TOP SCH (04:00)
[2016-06-20 04:15] LABS: HEMATOCRIT 41.4 % (35.0-46.0); MEAN CELL VOLUME 79.1 FL (80.0-100.0); MEAN CORPUSCULAR HEMOGLOBIN 25.5 PG (27.0-34.0); MEAN CORPUSCULAR HGB CONC 32.2 % (32.0-36.0); PLATELET COUNT 187 TH/MM3 (150-450); RED BLOOD COUNT 5.24 MIL/MM3 (4.00-5.30); REVIEW FLAG FINAL; WHITE BLOOD COUNT 4.7 TH/MM3 (4.0-11.0)
[2016-06-20 04:21] LABS: BICARBONATE 24.3 MEQ/L (21.0-32.0); POTASSIUM 4.2 MEQ/L (3.5-5.1)
[2016-06-20 04:23] LABS: INDIRECT BILIRUBIN 0.3 MG/DL (0.0-0.8); TOTAL BILIRUBIN ADULT 0.8 MG/DL (0.2-1.0)
[2016-06-20] MEDS: PIPERACIL-TAZO 4.5 GM PREMIX 100 ML IV SCH ×4 (05:07→20:55)
[2016-06-20] MEDS: LACTULOSE SYRUP 20 GM/30 ML CUP PO SCH ×5 (05:07→23:38)
[2016-06-20] MEDS: INSULIN NovoLIN REGULAR SUPPLEMENTAL SCALE SQ SCH ×4 (06:30→17:47)
--- NOTE | 2016-06-20 06:57 | HHI.CCPN ---
Subjective Remarks/Hospital Course This is a 51-year-old female who is very well-known to the critical care team who was initially admitted months ago for seizure like activity, likely diagnosis of pseudoseizures at that time, with known severe biventricular dysfunction and EF around 10%, who has multiple prior admissions for heart failure exacerbations including hepatic failure secondary to CHF, as well as a number of cardiac arrest secondary to CHF exacerbation. She was in her nursing facility when she was noted to be less responsive and altered. At that time she was noted to be hypoxic with SPO2 on room air of 70%. She was transferred to the [place] emergency department. She was placed on BiPAP at that time. Initial laboratory values were notable for a BNP of 1980, lactate of 7.1, ammonia of 42. Chest x-ray demonstrated a possible left lower lobe consolidation. Critical Care medicine has been consulted for evaluation and management of her altered mental status and shock state. 06/20: End-stage systolic heart failure. Will attempt diuresis first, try to avoid inotrope. Fluid mostly backing up pre-cardiac, biventricular failure. Objective Vital Signs Date Time Temp Pulse Resp B/P Pulse Ox O2 Delivery O2 Flow Rate FiO2 06/20/16 04:00 97.2 82 22 118/65 100 06/20/16 01:25 4.00 06/20/16 01:00 28 06/20/16 00:57 BiPAP Result Diagram: 06/20/16 0334 06/20/16 0334 Other Results Laboratory Tests Test 06/19/16 21:17 Blood Gas Puncture Site RT RADIAL Blood Gas Patient Temperature 98.6 Blood Gas HCO3 19 mmol/L (22-26) Blood Gas Base Excess -4.9 mmol/L (-2-2) Blood Gas Oxygen Saturation 94 % (90-100) Arterial Blood pH 7.40 (7.380-7.420) Arterial Blood Partial 32 mmHg (38-42) Pressure CO2 Arterial Blood Partial 127 mmHG Pressure O2 (61-120) Arterial Blood Oxygen Content 17.3 Vol % (12.0-20.0) Arterial Blood 2.9 % (0-4) Carboxyhemoglobin Arterial Blood Methemoglobin 1.8 % (0-2) Blood Gas Hemoglobin 13.0 G/DL (12.0-16.0) Oxygen Delivery Device BIPAP Blood Gas Ventilator Setting NPPV 10PS/5PEEP Blood Gas Inspired Oxygen 28 % Imaging Critical care bedside ultrasound 06/19: Severe biventricular failure, stable when compared to prior echoes. RVSP estimated the 50s. Dilated IVC at 2.5 cm without any respiratory variation. Objective Remarks GENERAL: Middle-aged female, lying in bed, critically ill, remains moderate distress due to dyspnea HEENT: Normal. Mucous membranes are moist. NECK: Trachea is midline. JVD difficult to assess secondary to body habitus CHEST: BiPAP in place. Equal chest rise. Diminished bases bilaterally. Few wheezes. CARDIOVASCULAR: Normal rate, irregularly irregular rhythm. No appreciable murmurs. ++JVD. ABDOMEN: Obese, soft, nontender, nondistended. No guarding. BS active. MUSCULOSKELETAL: 3+ pitting edema up above the level of the mid thigh. Distal pulses 1+. Extremities are cool, poorly perfused. NEUROLOGICAL: Somnolent but arousable. Protecting airway. Follows commands. Moves 4 limbs. A/P Assessment and Plan Active problems: Metabolic encephalopathy Hepatic encephalopathy Acute hypoxic respiratory failure Right ventricular failure Cor pulmonale Left ventricular systolic congestive heart failure Congestive hepatopathy Acute intravascular volume overload Plan: Continue BiPAP Nothing by mouth Wean FiO2 for goal SPO2 greater than 90% Lasix 100 mg IV every 6 hours Hinson to CBD. Every hour urine output Strict I's and O's Total fluid restriction 500 mL's Trend LFTs daily, BMP daily, CBC daily Recheck lactate. Follow-up AM lactate. She is recently been admitted to the ICU with multiple echoes. I do not see a reason at this point to repeat her echocardiogram. Her biventricular function is terrible and appears to be unchanged. Lactulose every 6 hours for elevated ammonia level May need nasogastric tube given altered mental status to administer lactulose Heparin 5000 every 8, SCDs Follow-up blood, urine, sputum cultures Vancomycin and Zosyn with pharmacy dosing empirically for possible left lower lobe healthcare associated versus aspiration pneumonia Overall impression: Critically ill woman with end-stage systolic heart failure; terminal pump failure. She continues to deteriorate despite maximum medical therapy. Critically Care 35 mins Harish Mora MD Jun 20, 2016 06:57
[2016-06-20] MEDS: SODIUM CHLORIDE 0.9% FLUSH 5 ML FLUSH IV FLUSH SCH ×2 (08:34→20:55)
[2016-06-20] MEDS: PANTOPRAZOLE SODIUM 40 MG VIAL IV SCH (08:36)
--- NOTE | 2016-06-20 10:44 | EKG ---
Date Performed: 06/19/2016 Time Performed: 20:27:06 PTAGE: 51 years EKG: Sinus rhythm WITH FIRST DEGREE AV BLOCK LEFT ATRIAL ENLARGEMENT INDETERMINATE AXIS INTRAVENTRICULAR CONDUCTION DE LAY ABNORMAL ECG Compared to prior tracing no significant change PREVIOUS TRACING : 06/12/2016 20.28 DOCTOR: Espinoza Rios Interpretating Date/Time 06/20/2016 10:42:04
[2016-06-20 22:14] LABS: POTASSIUM 3.6 MEQ/L (3.5-5.1)
[2016-06-20 22:39] LABS: MAGNESIUM 1.4 MG/DL (1.5-2.5)
[2016-06-20] MEDS: POTASSIUM CL 40 MEQ/30 ML LIQ UDC PO/TUBE PRN (23:39)
[2016-06-21] VITALS (14 sets, daily range): BP systolic 98–112; BP diastolic 60–78; PULSE 80–92; RESP 16–27; TEMP 97.7–99; O2SAT 96–100
[2016-06-21 03:32] LABS: HEMATOCRIT 38.6 % (35.0-46.0); MEAN CELL VOLUME 77.3 FL (80.0-100.0); MEAN CORPUSCULAR HEMOGLOBIN 25.3 PG (27.0-34.0); MEAN CORPUSCULAR HGB CONC 32.7 % (32.0-36.0); PLATELET COUNT 199 TH/MM3 (150-450); RED BLOOD COUNT 4.99 MIL/MM3 (4.00-5.30); RED CELL DISTRIBUTION WIDTH 18.6 % (11.6-17.2); REVIEW FLAG FINAL; WHITE BLOOD COUNT 6.3 TH/MM3 (4.0-11.0)
[2016-06-21] MEDS: RESP: ALBUTEROL 2.5 MG/IPRATROPIUM 0.5 MG NEB (SCH) INH ×4 (03:34→22:23)
[2016-06-21 03:44] LABS: BICARBONATE 31.1 MEQ/L (21.0-32.0); POTASSIUM 3.7 MEQ/L (3.5-5.1)
[2016-06-21 03:47] LABS: INDIRECT BILIRUBIN 0.4 MG/DL (0.0-0.8); TOTAL BILIRUBIN ADULT 0.8 MG/DL (0.2-1.0)
[2016-06-21] MEDS: PIPERACIL-TAZO 4.5 GM PREMIX 100 ML IV SCH ×4 (04:41→22:51)
[2016-06-21] MEDS: FUROSEMIDE 100 MG/10 ML VIAL IV PUSH SCH ×3 (04:41→21:36)
[2016-06-21] MEDS: CHLORHEXIDINE GLUCONATE 2 % 1 PACK (2 CLOTHS) TOP SCH (04:55)
[2016-06-21] MEDS: LACTULOSE SYRUP 20 GM/30 ML CUP PO SCH ×3 (05:52→17:27)
[2016-06-21] MEDS: HEPARIN SODIUM - SQ 10,000 UNITS/ML VIAL SQ SCH ×3 (05:53→23:14)
[2016-06-21] MEDS: POTASSIUM CL 40 MEQ/30 ML LIQ UDC PO/TUBE PRN (05:53)
[2016-06-21] MEDS: INSULIN NovoLIN REGULAR SUPPLEMENTAL SCALE SQ SCH ×4 (06:00→17:26)
--- NOTE | 2016-06-21 07:05 | HHI.CCPN ---
Subjective Remarks/Hospital Course This is a 51-year-old female who is very well-known to the critical care team who was initially admitted months ago for seizure like activity, likely diagnosis of pseudoseizures at that time, with known severe biventricular dysfunction and EF around 10%, who has multiple prior admissions for heart failure exacerbations including hepatic failure secondary to CHF, as well as a number of cardiac arrest secondary to CHF exacerbation. She was in her nursing facility when she was noted to be less responsive and altered. At that time she was noted to be hypoxic with SPO2 on room air of 70%. She was transferred to the [place] emergency department. She was placed on BiPAP at that time. Initial laboratory values were notable for a BNP of 1980, lactate of 7.1, ammonia of 42. Chest x-ray demonstrated a possible left lower lobe consolidation. Critical Care medicine has been consulted for evaluation and management of her altered mental status and shock state. 06/20: End-stage systolic heart failure. Will attempt diuresis first, try to avoid inotrope. Fluid mostly backing up pre-cardiac, biventricular failure. 06/21: Four liter diuresis, breathing improved. Reduce lasix to 60 tid for a few days. Replace lytes. Objective Vital Signs Date Time Temp Pulse Resp B/P Pulse Ox O2 Delivery O2 Flow Rate FiO2 06/21/16 04:00 89 06/21/16 04:00 97.7 20 100/60 98 06/20/16 20:46 21 06/20/16 19:00 Room Air 06/20/16 08:00 2.00 Intake and Output 06/20/16 06/20/16 06/21/16 08:00 16:00 00:00 Intake Total 602 ml 125 ml 333 ml Output Total 2550 ml 2325 ml 2100 ml Balance -1948 ml -2200 ml -1767 ml Result Diagram: 06/21/167 06/21/16316 Imaging Critical care bedside ultrasound 06/19: Severe biventricular failure, stable when compared to prior echoes. RVSP estimated the 50s. Dilated IVC at 2.5 cm without any respiratory variation. Objective Remarks GENERAL: Middle-aged female, lying in bed HEENT: Normal. Mucous membranes are moist. NECK: Trachea is midline. Airway patent, no obstruction. CHEST: Diminished bases bilaterally. Few crackles. Good air movement. CARDIOVASCULAR: Normal rate, irregularly irregular rhythm. No appreciable murmurs. ++JVD. ABDOMEN: Obese, soft, nontender, nondistended. No guarding. BS active. MUSCULOSKELETAL: 3+ pitting edema up above the level of the mid thigh. Distal pulses 1+. Extremities are tepid, marginally perfused. NEUROLOGICAL: Somnolent but arousable. Protecting airway. Follows commands. Moves 4 limbs. A/P Assessment and Plan Active problems: Metabolic encephalopathy Hepatic encephalopathy Acute hypoxic respiratory failure Right ventricular failure Cor pulmonale Left ventricular systolic congestive heart failure Congestive hepatopathy Acute intravascular volume overload Plan: Continue BiPAP/NRBM Nothing by mouth Wean FiO2 for goal SPO2 greater than 90% Lasix 60 mg IV every 8 hours Hinson to CBD. Every hour urine output Strict I's and O's Total fluid restriction 500 mL's Trend LFTs daily, BMP daily, CBC daily Recheck lactate. She is recently been admitted to the ICU with multiple echoes. I do not see a reason at this point to repeat her echocardiogram. Her biventricular function is terrible and appears to be unchanged. Lactulose every 6 hours for elevated ammonia level May need nasogastric tube given altered mental status to administer lactulose Heparin 5000 every 8, SCDs Follow-up blood, urine, sputum cultures Vancomycin and Zosyn with pharmacy dosing empirically for possible left lower lobe healthcare associated versus aspiration pneumonia Overall impression: Critically ill woman with end-stage systolic heart failure; terminal pump failure. Response to lasix is encouraging; long-term prognosis is poor. Critically Care 35 mins Harish Mora MD Jun 21, 2016 07:04
[2016-06-21 07:35] LABS: MAGNESIUM 1.9 MG/DL (1.5-2.5)
[2016-06-21] MEDS: PANTOPRAZOLE SODIUM 40 MG VIAL IV SCH (09:22)
[2016-06-21] MEDS: SODIUM CHLORIDE 0.9% FLUSH 5 ML FLUSH IV FLUSH SCH ×2 (09:22→21:00)
[2016-06-21] MEDS ORDERED: LORazepam 0.5 MG TAB PO PRN (19:00)
[2016-06-21] MEDS: risperiDONE 0.25 MG TAB PO SCH ×2 (21:00→21:36)
[2016-06-21] MEDS: VANCOMYCIN 1,000 MG/NS 250 ML IV SCH ×2 (21:39)
[2016-06-22] VITALS (7 sets, daily range): BP systolic 101–107; BP diastolic 68–72; PULSE 84–91; RESP 17–18; TEMP 96.1–98.4; O2SAT 94–100
--- NOTE | 2016-06-22 00:07 | PD.CONS ---
History of Present Illness Consult Requested By icu intensivest dr disla Reason for Consult primary care Primary Care Physician maria eugenia martines DO Diagnoses: History of Present Illness long hx CHF and EF 10% with dementia Review of Systems Constitutional: COMPLAINS OF: Fatigue Cardiovascular: COMPLAINS OF: Dyspnea on Exertion Psychiatric: COMPLAINS OF: Confusion Past Family Social History Allergies: Coded Allergies: Dilantin (Verified Allergy, Severe, 06/19/16) Lemon (Verified Allergy, Severe, EDEMA, 06/19/16) Sulfa (Verified Allergy, Severe, ANYYHING WITH IT IN IT AND I FALL OUT AND GET THE SHAKES, 06/19/16) AMARIS Inhibitors (Verified Allergy, Intermediate, ANGIOEDEMA, 06/19/16) CONFIRMED OF 01/03/2010 MRI PRECAUTION (Verified Adverse Reaction, Severe, AICD PRESENT, 06/19/16) AICD PRESENT 11/23/13 JLA *MDRO Multi-Drug Resistant Organism (Verified Adverse Reaction, Unknown, ) MRSA (urine & sputum) - 2013 MRSA PCR Screen POSITIVE - 04/08/16 Uncoded Allergies: MUCINEX (Allergy, Severe, CARDIAC INCIDENT, 09/18/13) Past Medical History chf biventricular failure sepsis confusion Active Ordered Medications Current Medications Medications (Trade) Dose Ordered Sig/Curtis Route PRN Reason Start Time Stop Time Status Last Admin Dose Admin Magnesium Oxide 800 mg 800 mg UNSCH PRN PO For Magnesium 1.2 - 1.6 mg/dL 06/19/16 22:45 Magnesium Sulfate 4 gm/Sodium Chloride 100 ml @ 50 mls/hr UNSCH PRN IV For Magnesium 0.9 - 1.1 mg/dL 06/19/16 22:45 Magnesium Sulfate 2 gm/Sodium Chloride 100 ml @ 50 mls/hr UNSCH PRN IV For Magnesium 1.2 - 1.6 mg/dL 06/19/16 22:45 06/20/16 23:38 Potassium Chloride 100 ml @ 50 mls/hr Q2H PRN IV For Potassium 2.8 - 3.2 mEq/L 06/19/16 22:45 Potassium Chloride 100 ml @ 50 mls/hr Q2H PRN IV For Potassium 3.3 - 3.5 mEq/L 06/19/16 22:45 Potassium Chloride 100 ml @ 50 mls/hr Q2H PRN IV For Potassium 2.8 - 3.2 mEq/L 06/19/16 22:45 Potassium Chloride (KCl 40 Meq Premix Inj) 100 ml @ 25 mls/hr UNSCH PRN IV For Potassium 3.3 - 3.5 mEq/L 06/19/16 22:45 Potassium Chloride (KCl 40 Meq/30 ml Liq) 40 meq UNSCH PRN PO/TUBE For Potassium 3.3 - 3.5 mEq/L 06/19/16 22:45 06/20/16 23:39 Potassium Chloride (KCl 40 Meq/30 ml Liq) 40 meq UNSCH PRN PO/TUBE SEE LABEL COMMENTS 06/19/16 22:45 Potassium Phosphate (K-Phos) 2,000 mg Q4H PRN PO For Phosphorus < 2.5 mg/dL 06/19/16 22:45 Potassium Phosphate 2000 mg 2,000 mg UNSCH PRN PO/TUBE SEE LABEL COMMENTS 06/19/16 22:45 Potassium Phosphate 30 mmol/ Sodium Chloride 260 ml @ 42 mls/hr UNSCH PRN IV SEE LABEL COMMENTS 06/19/16 22:45 Sodium Phosphate/ Sodium Chloride (Sodium Phosphate Inj/NS 250 ml Inj) 250 ml @ 42 mls/hr UNSCH PRN IV For Phosphorus < 2.5 mg/dL 06/19/16 22:45 Dextrose (D50w (Vial) Inj) 25 ml UNSCH PRN IV PUSH HYPOGLYCEMIA-SEE COMMENTS 06/19/16 22:45 Insulin Human Regular (NovoLIN R SUPPLEMENTAL SCALE) 1 Q6HR SQ 06/20/16 00:00 06/20/16 12:12 IV Flush (NS Flush) 2 ml UNSCH PRN IV FLUSH FLUSH AFTER USING IV ACCESS 06/19/16 22:45 IV Flush (NS Flush) 2 ml BID IV FLUSH 06/20/16 09:00 06/21/16 21:00 Pantoprazole Sodium (Protonix Inj) 40 mg DAILY IV 06/20/16 09:00 06/21/16 09:22 Ondansetron HCl (Zofran Inj) 4 mg Q6H PRN IV NAUSEA OR VOMITING 06/19/16 22:45 Lactulose (Lactulose Liq) 30 ml Q6HR PO 06/20/16 00:00 06/21/16 17:27 Heparin Sodium (Porcine) (Heparin Inj) 5,000 units Q8H SQ 06/19/16 23:00 06/21/16 23:14 Miscellaneous Information 1 Q361D XX 06/19/16 22:45 Chlorhexidine Gluconate (Chlorhexidine 2% Cloth) 3 pack Taper DAILY@04 TOP 06/20/16 04:00 06/16/17 03:59 06/21/16 04:55 Chlorhexidine Gluconate 3 pack 3 pack UNSCH PRN TOP HYGIENIC CARE 06/19/16 22:45 Pharmacy Profile Note 0 ml @ 0 mls/hr UNSCH OTHER 06/19/16 22:45 Piperacillin Sod/ Tazobactam Sod (Zosyn 4.5 Gm Premix) 100 ml @ 200 mls/hr Q6H IV 06/20/16 04:00 06/21/16 22:51 Miscellaneous Information SPECIFIC LAB TO BE DRAWN:VANCO TROUGH DATE TO BE DRMarvin.. ONCE ONCE XX 06/23/16 08:45 06/23/16 08:46 Furosemide 60 mg 60 mg Q8H IV PUSH 06/21/16 13:00 06/21/16 21:36 Vancomycin HCl/ Sodium Chloride (Vancomycin Inj/ NS 250 ml Inj) 250 ml @ 250 mls/hr Q12H IV 06/21/16 21:00 06/21/16 21:39 Risperidone (risperDAL) 0.25 mg Q12HR PO 06/21/16 21:00 Lorazepam (Ativan) 0.5 mg Q6H PRN PO AGITATION 06/21/16 19:00 Social History non smoker non drinker Physical Exam Vital Signs Vital Signs Date Time Temp Pulse Resp B/P Pulse Ox O2 Delivery O2 Flow Rate FiO2 06/21/16 22:24 96 21 06/21/16 22:00 87 06/21/16 20:00 98.8 90 16 98/63 100 06/21/16 20:00 90 06/21/16 19:00 99 Room Air 06/21/16 18:00 85 06/21/16 16:00 85 06/21/16 16:00 99.0 88 27 112/74 100 06/21/16 14:00 90 06/21/16 12:00 98.4 84 19 105/63 100 06/21/16 12:00 84 06/21/16 10:00 80 06/21/16 08:00 90 06/21/16 08:00 98.4 90 22 101/75 100 06/21/16 07:24 100 21 06/21/16 07:00 99 Room Air 06/21/16 06:00 92 06/21/16 04:00 89 06/21/16 04:00 97.7 89 20 100/60 98 06/21/16 02:00 88 06/21/16 00:00 97.7 89 19 110/78 98 06/21/16 00:00 89 Physical Exam GENERAL: This is a frail black female in no apparent distress. SKIN: No rashes, ecchymoses or lesions. Cool and dry. HEAD: Atraumatic. Normocephalic. No temporal or scalp tenderness. EYES: Pupils equal round and reactive. Extraocular motions intact. No scleral icterus. No injection or drainage. ENT: Nose without bleeding, purulent drainage or septal hematoma. Throat without erythema, tonsillar hypertrophy or exudate. Uvula midline. Airway patent. NECK: Trachea midline. No JVD or lymphadenopathy. Supple, nontender, no meningeal signs. CARDIOVASCULAR: Regular rate and rhythm without murmurs, gallops, or rubs. RESPIRATORY: diminished sounds left lower lobe GASTROINTESTINAL: Abdomen soft, non-tender, nondistended. No hepato-splenomegaly , or palpable masses. No guarding. MUSCULOSKELETAL: Extremities without clubbing, cyanosis, or edema. No joint tenderness, effusion, or edema noted. No calf tenderness. Negative Homans sign bilaterally. NEUROLOGICAL: Awake and alert. Cranial nerves II through XII intact. generalized weakness present Normal speech. Laboratory Laboratory Tests Test 06/21/16 03:17 White Blood Count 6.3 Red Blood Count 4.99 Hemoglobin 12.6 Hematocrit 38.6 Mean Corpuscular Volume 77.3 Mean Corpuscular Hemoglobin 25.3 Mean Corpuscular Hemoglobin 32.7 Concent Red Cell Distribution Width 18.6 Platelet Count 199 Mean Platelet Volume 8.5 Sodium Level 142 Potassium Level 3.7 Chloride Level 103 Carbon Dioxide Level 31.1 Anion Gap 8 Blood Urea Nitrogen 12 Creatinine 0.81 Estimat Glomerular Filtration 91 Rate Random Glucose 108 Calcium Level 8.2 Phosphorus Level 4.0 Magnesium Level 1.9 Total Bilirubin 0.8 Direct Bilirubin 0.4 Indirect Bilirubin 0.4 Aspartate Amino Transf 37 (AST/SGOT) Alanine Aminotransferase 39 (ALT/SGPT) Alkaline Phosphatase 156 Ammonia 36 Total Protein 6.5 Albumin 2.3 Date/Time Procedure Status Source Growth 06/19/16 20:45 Aerobic Blood Culture - Preliminary Resulted Blood Peripheral NO GROWTH IN 2 DAYS 06/19/16 20:45 Anaerobic Blood Culture - Preliminary Resulted Blood Peripheral NO GROWTH IN 2 DAYS 06/19/16 20:40 Urine Culture - Final Complete Urine Catheterized Urine Staphylococcus Simulans 06/19/16 07:56 Influenza Types A,B Antigen ([facility]) - Final Complete Nasal Washing NEGATIVE FOR FLU A AND B ANTIGEN.... Result Diagram: 06/21/1631606/21/16316 Imaging Last Impressions Chest X-Ray 06/19/162016 Signed Impressions: Service Date/Time: Sunday, June 19, 2016 20:48 - CONCLUSION: Consolidation and small pleural fluid of the left lung base. Mild cardiomegaly unchanged. Stevan English MD Assessment and Plan Problem List: (1) Hypotension Status: Acute (2) Neurological deficit present Status: Acute (3) Generalized weakness Status: Acute (4) Slurred speech Status: Acute (5) Altered mental status Status: Acute Assessment and Plan cxr shows probable LLLpneumoniae will continue abx and nebulizers Roberto Martines DO Jun 22, 2016 00:07
[2016-06-22] MEDS: RESP: ALBUTEROL 2.5 MG/IPRATROPIUM 0.5 MG NEB (SCH) INH ×5 (03:57→21:08)
[2016-06-22] MEDS: PIPERACIL-TAZO 4.5 GM PREMIX 100 ML IV SCH ×4 (05:14→23:07)
[2016-06-22] MEDS: FUROSEMIDE 100 MG/10 ML VIAL IV PUSH SCH ×2 (05:15→16:33)
[2016-06-22 07:07] LABS: HEMATOCRIT 44.3 % (35.0-46.0); MEAN CORPUSCULAR HEMOGLOBIN 25.1 PG (27.0-34.0); MEAN CORPUSCULAR HGB CONC 31.8 % (32.0-36.0); PLATELET COUNT 176 TH/MM3 (150-450); RED BLOOD COUNT 5.61 MIL/MM3 (4.00-5.30); RED CELL DISTRIBUTION WIDTH 18.4 % (11.6-17.2); REVIEW FLAG FINAL; WHITE BLOOD COUNT 6.1 TH/MM3 (4.0-11.0)
[2016-06-22 07:51] LABS: BICARBONATE 29.5 MEQ/L (21.0-32.0); INDIRECT BILIRUBIN 0.6 MG/DL (0.0-0.8); POTASSIUM 3.2 MEQ/L (3.5-5.1); TOTAL BILIRUBIN ADULT 0.9 MG/DL (0.2-1.0)
[2016-06-22] MEDS: SODIUM CHLORIDE 0.9% FLUSH 5 ML FLUSH IV FLUSH SCH ×2 (09:00→23:04)
[2016-06-22] MEDS: risperiDONE 0.25 MG TAB PO SCH ×3 (09:00→23:03)
[2016-06-22] MEDS: PANTOPRAZOLE SODIUM 40 MG VIAL IV SCH (10:01)
[2016-06-22] MEDS: VANCOMYCIN 1,000 MG/NS 250 ML IV SCH ×4 (10:01→23:06)
[2016-06-22] MEDS: LACTULOSE SYRUP 20 GM/30 ML CUP PO SCH ×4 (12:00→23:05)
[2016-06-22] MEDS: INSULIN NovoLIN REGULAR SUPPLEMENTAL SCALE SQ SCH ×4 (12:00→23:53)
--- NOTE | 2016-06-22 12:34 | HHI.PR ---
Subjective Remarks Patient seen at bedside. Speech is delayed but answering questions. Denies any CP or SOB. Patient agitated yesterday and needed to be restrained. Also refusing medication. Objective Vital Signs Date Time Temp Pulse Resp B/P Pulse Ox O2 Delivery O2 Flow Rate FiO2 06/22/16 08:14 96.1 88 18 101/69 99 06/22/16 05:22 Room Air 06/22/16 04:54 98.4 87 18 107/68 100 06/22/16 00:02 98.2 91 18 104/70 100 06/21/16 22:24 96 21 06/21/16 22:00 87 06/21/16 20:00 98.8 90 16 98/63 100 06/21/16 20:00 90 06/21/16 19:00 99 Room Air 06/21/16 18:00 85 06/21/16 16:00 85 06/21/16 16:00 99.0 88 27 112/74 100 06/21/16 14:00 90 I/O 06/21/16 06/21/16 06/21/16 06/22/16 06/22/16 06/22/16 07:00 15:00 23:00 07:00 15:00 23:00 Intake Total 320 ml 220 ml 186 ml Output Total 3950 ml 3800 ml 1900 ml 2000 ml Balance -3630 ml -3580 ml -1714 ml -2000 ml Intake Oral 120 ml 120 ml IV Total 200 ml 100 ml 186 ml Output Urine Total 3950 ml 3800 ml 1900 ml 2000 ml # Bowel Movements 1 0 Result Diagram: 06/22/16 0640 06/22/16 0640 Other Results GENERAL: This is a frail black female in no apparent distress. SKIN: No rashes, ecchymoses or lesions. Cool and dry. HEAD: Atraumatic. Normocephalic. No temporal or scalp tenderness. EYES: Pupils equal round and reactive. Extraocular motions intact. No scleral icterus. No injection or drainage. ENT: Nose without bleeding, purulent drainage or septal hematoma. Throat without erythema, tonsillar hypertrophy or exudate. Uvula midline. Airway patent. NECK: Trachea midline. No JVD or lymphadenopathy. Supple, nontender, no meningeal signs. CARDIOVASCULAR: Regular rate and rhythm without murmurs, gallops, or rubs. RESPIRATORY: diminished sounds left lower lobe GASTROINTESTINAL: Abdomen soft, non-tender, nondistended. No guarding. MUSCULOSKELETAL: Extremities without clubbing, cyanosis, or edema. No calf tenderness. Negative Homans sign bilaterally. NEUROLOGICAL: Awake and alert. generalized weakness present Normal speech Medications and IVs Current Medications Medications (Trade) Dose Ordered Sig/Curtis Route Start Time Stop Time Status Last Admin (D50w (Vial) Inj) 25 ml UNSCH PRN IV PUSH 06/19/16 22:45 (NovoLIN R SUPPLEMENTAL SCALE) 1 Q6HR SQ 06/20/16 00:00 06/20/16 12:12 (NS Flush) 2 ml UNSCH PRN IV FLUSH 06/19/16 22:45 (NS Flush) 2 ml BID IV FLUSH 06/20/16 09:00 06/21/16 21:00 (Protonix Inj) 40 mg DAILY IV 06/20/16 09:00 06/22/16 10:01 (Zofran Inj) 4 mg Q6H PRN IV 06/19/16 22:45 (Lactulose Liq) 30 ml Q6HR PO 06/20/16 00:00 06/21/16 17:27 (Heparin Inj) 5,000 units Q8H SQ 06/19/16 23:00 06/21/16 23:14 Miscellaneous Information 1 Q361D XX 06/19/16 22:45 (Chlorhexidine 2% Cloth) 3 pack Taper DAILY@04 TOP 06/20/16 04:00 06/16/17 03:59 06/21/16 04:55 Chlorhexidine Gluconate 3 pack 3 pack UNSCH PRN TOP 06/19/16 22:45 Pharmacy Profile Note 0 ml @ 0 mls/hr UNSCH OTHER 06/19/16 22:45 (Zosyn 4.5 Gm Premix) 100 ml @ 200 mls/hr Q6H IV 06/20/16 04:00 06/22/16 11:25 Miscellaneous Information SPECIFIC LAB TO BE DRAWN:VANCO TROUGH DATE TO BE DRMarvin.. ONCE ONCE XX 06/23/16 08:45 06/23/16 08:46 Furosemide 60 mg 60 mg Q8H IV PUSH 06/21/16 13:00 06/22/16 05:15 (Vancomycin Inj/ NS 250 ml Inj) 250 ml @ 250 mls/hr Q12H IV 06/21/16 21:00 06/22/16 10:01 (risperDAL) 0.25 mg Q12HR PO 06/21/16 21:00 (Ativan) 0.5 mg Q6H PRN PO 06/21/16 19:00 Assessment and Plan Problem List: (1) CHF (congestive heart failure) Status: Acute Plan: Patient on RA. Usually takes coreg on hold with blood pressure being low at 100/59. Lasix 60 mg PO TID. Good urine output (2) Seizure disorder Status: Acute Plan: Seizure medication on hold will discuss with Dr. Martines about ordering (3) Pneumonia Status: Acute Plan: On room air. On vancomycin and Zosyn. Nebs (4) Altered mental status Status: Acute Plan: Patient very agitated yesterday. Needed to be restrained. On Risperdal and lorazepam. Will order Head CT (5) UTI (lower urinary tract infection) Status: Acute Plan: Cultures sensitive to vancomycin. Discussed Condition With Assessment and plan discussed with Dr. Martines Discharge Planning Plan to discharge [facility] Domitila Odell Jun 22, 2016 12:34
[2016-06-22] MEDS ORDERED: POTASSIUM CL 40 MEQ/30 ML LIQ UDC PO ONE (12:45)
[2016-06-22] MEDS: HEPARIN SODIUM - SQ 10,000 UNITS/ML VIAL SQ SCH ×3 (15:05→23:03)
[2016-06-22] MEDS: POTASSIUM CHLOR 20 MEQ PREMIX 100 ML IV SCH ×2 (18:43→19:30)
--- NOTE | 2016-06-22 20:49 | RADRPT ---
EXAM DATE/TIME: 06/22/2016 19:55 [place] COMPARISON: CT BRAIN W/O CONTRAST, June 12, 2016, 21:09. INDICATIONS : Patient became agitated yesterday had to be restrained,altered mental status. RADIATION DOSE: 56.35 CTDIvol (mGy) MEDICAL HISTORY : Cerebrovascular disease. Seizures. SURGICAL HISTORY : Craniotomy. ENCOUNTER: Initial ACUITY: 1 day PAIN SCALE: 0/10 LOCATION: cranial TECHNIQUE: Multiple contiguous axial images were obtained of the head. Using automated exposure control and adj ustment of the mA and/or kV according to patient size, radiation dose was kept as low as reasonably a chievable to obtain optimal diagnostic quality images. FINDINGS: CEREBRUM: No evidence of midline shift, mass lesion, hemorrhage or acute infarction. No extra-axial fluid odessa ections are seen. Large, old infarct again seen of the right frontal, parietal and temporal lobes and with associated extraocular dilatation of the right lateral ventricle. POSTERIOR FOSSA: The cerebellum and brainstem are intact. The 4th ventricle is midline. The cerebellopontine angle i s unremarkable. EXTRACRANIAL: The visualized portion of the orbits is intact. SKULL: Right craniotomy changes are again noted. No acute skull fracture. CONCLUSION: No acute intracranial abnormality demonstrated. Large, old right middle cerebral artery distribution infarct. Stevan English MD on June 22, 2016 at 20:45 Board Certified Radiologist. This report was verified electronically.
[2016-06-23] VITALS (11 sets, daily range): BP systolic 99–115; BP diastolic 67–77; PULSE 80–108; RESP 17–18; TEMP 96.4–98.2; O2SAT 90–100
[2016-06-23] MEDS ORDERED: POTASSIUM CHLOR 20 MEQ PREMIX 100 ML IV SCH (03:00)
[2016-06-23] MEDS: CHLORHEXIDINE GLUCONATE 2 % 1 PACK (2 CLOTHS) TOP SCH (03:14)
[2016-06-23] MEDS: PIPERACIL-TAZO 4.5 GM PREMIX 100 ML IV SCH ×4 (04:55→22:38)
[2016-06-23] MEDS ORDERED: FUROSEMIDE 100 MG/10 ML VIAL IV PUSH SCH (05:00)
[2016-06-23] MEDS: RESP: ALBUTEROL 2.5 MG/IPRATROPIUM 0.5 MG NEB (SCH) INH ×4 (05:20→20:40)
[2016-06-23 05:59] LABS: AUTOMATED NEUTROPHIL # 4.3 TH/MM3 (1.8-7.7); BASOPHIL # 0.1 TH/MM3 (0-0.2); BASOPHIL % 1.3 % (0.0-2.0); EOSINOPHIL # 0.1 TH/MM3 (0-0.4); EOSINOPHIL % 1.9 % (0.0-4.0); HEMATOCRIT 43.7 % (35.0-46.0); HEMO FLAGS DIFF FINAL; LYMPH % 17.5 % (9.0-44.0); LYMPHOCYTE # 1.1 TH/MM3 (1.0-4.8); MEAN CELL VOLUME 78.7 FL (80.0-100.0); MEAN CORPUSCULAR HEMOGLOBIN 25.4 PG (27.0-34.0); MEAN CORPUSCULAR HGB CONC 32.3 % (32.0-36.0); NEUT % 69.3 % (16.0-70.0); PLATELET COUNT 218 TH/MM3 (150-450); RED BLOOD COUNT 5.55 MIL/MM3 (4.00-5.30); RED CELL DISTRIBUTION WIDTH 17.9 % (11.6-17.2); WHITE BLOOD COUNT 6.2 TH/MM3 (4.0-11.0)
[2016-06-23] MEDS: INSULIN NovoLIN REGULAR SUPPLEMENTAL SCALE SQ SCH ×4 (06:00→17:19)
[2016-06-23] MEDS: LACTULOSE SYRUP 20 GM/30 ML CUP PO SCH ×4 (06:22→22:39)
[2016-06-23] MEDS: HEPARIN SODIUM - SQ 10,000 UNITS/ML VIAL SQ SCH ×3 (06:22→22:38)
[2016-06-23 06:31] LABS: ALKALINE PHOSPHATASE 155 U/L (45-117); ALT (GPT) 32 U/L (10-53); ANION GAP 6 MEQ/L (5-15); AST (GOT) 28 U/L (15-37); BLOOD UREA NITROGEN 9 MG/DL (7-18); CHLORIDE 100 MEQ/L (98-107); GLOMERULAR FILTRATION RATE 136 ML/MIN (>89); POTASSIUM 4.3 MEQ/L (3.5-5.1); SODIUM (NA) 136 MEQ/L (136-145); TOTAL BILIRUBIN ADULT 0.9 MG/DL (0.2-1.0)
[2016-06-23] MEDS ORDERED: PHARMACY ORDERED LAB XX ONE (08:45)
[2016-06-23] MEDS: SODIUM CHLORIDE 0.9% FLUSH 5 ML FLUSH IV FLUSH SCH ×2 (09:39→20:20)
[2016-06-23] MEDS: risperiDONE 0.25 MG TAB PO SCH ×2 (09:39→20:19)
[2016-06-23] MEDS: PANTOPRAZOLE SODIUM 40 MG VIAL IV SCH (09:39)
[2016-06-23] MEDS: VANCOMYCIN 1,000 MG/NS 250 ML IV SCH ×4 (09:40→20:20)
--- NOTE | 2016-06-23 12:08 | HHI.PR ---
Subjective Remarks Patient seen at bedside. Speech is delayed but answering questions. Patient is more lethargic this am. Denies any CP or SOB. Patient agitated yesterday and needed to be restrained. Also refusing medication. Objective Vital Signs Date Time Temp Pulse Resp B/P Pulse Ox O2 Delivery O2 Flow Rate FiO2 06/23/16 09:20 98 21 06/23/16 09:00 96.4 90 18 110/77 90 06/23/16 08:00 93 06/23/16 05:30 98.1 80 17 106/67 95 06/23/16 05:21 98 Nasal Cannula 06/23/16 04:40 98.1 80 17 106/67 95 06/23/16 01:00 97.7 88 17 105/69 94 06/22/16 23:00 98.0 84 17 105/69 94 06/22/16 16:00 98.2 88 18 106/72 100 06/22/16 12:52 96.7 87 18 104/70 98 I/O 06/22/16 06/22/16 06/22/16 06/23/16 06/23/16 06/23/16 07:00 15:00 23:00 07:00 15:00 23:00 Intake Total 240 ml 400 ml 565 ml Output Total 2000 ml 1350 ml 600 ml 1350 ml Balance -2000 ml -1110 ml -200 ml -785 ml Intake Oral 240 ml 400 ml 300 ml IV Total 265 ml Output Urine Total 2000 ml 1350 ml 600 ml 1350 ml # Bowel Movements 0 0 Result Diagram: 06/23/16 0532 06/23/16 0532 Other Results GENERAL: This is a frail black female in no apparent distress. SKIN: No rashes, ecchymoses or lesions. Cool and dry. HEAD: Atraumatic. Normocephalic. No temporal or scalp tenderness. EYES: Pupils equal round and reactive. Extraocular motions intact. No scleral icterus. No injection or drainage. ENT: Nose without bleeding, purulent drainage or septal hematoma. Throat without erythema, tonsillar hypertrophy or exudate. Uvula midline. Airway patent. NECK: Trachea midline. No JVD or lymphadenopathy. Supple, nontender, no meningeal signs. CARDIOVASCULAR: Regular rate and rhythm without murmurs, gallops, or rubs. RESPIRATORY: diminished sounds left lower lobe GASTROINTESTINAL: Abdomen soft, non-tender, nondistended. No guarding. MUSCULOSKELETAL: Extremities without clubbing, cyanosis, or edema. No calf tenderness. Negative Homans sign bilaterally. NEUROLOGICAL: Awake and alert. generalized weakness present Normal speech Objective Remarks Current Medications Medications (Trade) Dose Ordered Sig/Curtis Route Start Time Stop Time Status Last Admin (D50w (Vial) Inj) 25 ml UNSCH PRN IV PUSH 06/19/16 22:45 (NovoLIN R SUPPLEMENTAL SCALE) 1 Q6HR SQ 06/20/16 00:00 06/22/16 23:53 (NS Flush) 2 ml UNSCH PRN IV FLUSH 06/19/16 22:45 (NS Flush) 2 ml BID IV FLUSH 06/20/16 09:00 06/23/16 09:39 (Protonix Inj) 40 mg DAILY IV 06/20/16 09:00 06/23/16 09:39 (Zofran Inj) 4 mg Q6H PRN IV 06/19/16 22:45 (Lactulose Liq) 30 ml Q6HR PO 06/20/16 00:00 06/23/16 06:22 (Heparin Inj) 5,000 units Q8H SQ 06/19/16 23:00 06/23/16 06:22 Miscellaneous Information 1 Q361D XX 06/19/16 22:45 (Chlorhexidine 2% Cloth) 3 pack Taper DAILY@04 TOP 06/20/16 04:00 06/16/17 03:59 06/21/16 04:55 Chlorhexidine Gluconate 3 pack 3 pack UNSCH PRN TOP 06/19/16 22:45 Pharmacy Profile Note 0 ml @ 0 mls/hr UNSCH OTHER 06/19/16 22:45 Piperacillin Sod/ Tazobactam Sod 100 ml @ 200 mls/hr Q6H IV 06/20/16 04:00 06/23/16 04:55 (Vancomycin Inj/ NS 250 ml Inj) 250 ml @ 250 mls/hr Q12H IV 06/21/16 21:00 06/23/16 09:40 (risperDAL) 0.25 mg Q12HR PO 06/21/16 21:00 06/23/16 09:39 (Ativan) 0.5 mg Q6H PRN PO 06/21/16 19:00 06/22/16 23:03 (Lasix Inj) 60 mg Q12H IV PUSH 06/23/16 05:00 06/23/16 11:25 Medications and IVs Current Medications Medications (Trade) Dose Ordered Sig/Curtis Route Start Time Stop Time Status Last Admin (D50w (Vial) Inj) 25 ml UNSCH PRN IV PUSH 06/19/16 22:45 (NovoLIN R SUPPLEMENTAL SCALE) 1 Q6HR SQ 06/20/16 00:00 06/22/16 23:53 (NS Flush) 2 ml UNSCH PRN IV FLUSH 06/19/16 22:45 (NS Flush) 2 ml BID IV FLUSH 06/20/16 09:00 06/23/16 09:39 (Protonix Inj) 40 mg DAILY IV 06/20/16 09:00 06/23/16 09:39 (Zofran Inj) 4 mg Q6H PRN IV 06/19/16 22:45 (Lactulose Liq) 30 ml Q6HR PO 06/20/16 00:00 06/23/16 06:22 (Heparin Inj) 5,000 units Q8H SQ 06/19/16 23:00 06/23/16 06:22 Miscellaneous Information 1 Q361D XX 06/19/16 22:45 (Chlorhexidine 2% Cloth) 3 pack Taper DAILY@04 TOP 06/20/16 04:00 06/16/17 03:59 06/21/16 04:55 Chlorhexidine Gluconate 3 pack 3 pack UNSCH PRN TOP 06/19/16 22:45 Pharmacy Profile Note 0 ml @ 0 mls/hr UNSCH OTHER 06/19/16 22:45 Piperacillin Sod/ Tazobactam Sod 100 ml @ 200 mls/hr Q6H IV 06/20/16 04:00 06/23/16 04:55 (Vancomycin Inj/ NS 250 ml Inj) 250 ml @ 250 mls/hr Q12H IV 06/21/16 21:00 06/23/16 09:40 (risperDAL) 0.25 mg Q12HR PO 06/21/16 21:00 06/23/16 09:39 (Ativan) 0.5 mg Q6H PRN PO 06/21/16 19:00 1/19/17 23:03 (Lasix Inj) 60 mg Q12H IV PUSH 06/23/16 05:00 06/23/16 11:25 Assessment and Plan Problem List: (1) CHF (congestive heart failure) Status: Acute Plan: Patient on RA. Usually takes coreg on hold with blood pressure being low at 106/57 Lasix 60 mg PO decreased to BID. Good urine output (2) Seizure disorder Status: Acute Plan: Seizure medication on hold will discuss with Dr. Martines about ordering (3) Pneumonia Status: Acute Plan: On room air. On vancomycin and Zosyn. Nebs (4) Altered mental status Status: Acute Plan: Patient agitated yesterday. Needed to be restrained. On Risperdal and lorazepam. Refusing most medications. Head CT with no acute findings. Neurology consulted (5) UTI (lower urinary tract infection) Status: Acute Plan: Cultures sensitive to vancomycin. Discussed Condition With Assessment and plan discussed with Dr. Martines Discharge Planning Plan to [facility] Domitila Odell Jun 23, 2016 12:08
[2016-06-23] MEDS: FUROSEMIDE 100 MG/10 ML VIAL IV PUSH SCH (22:38)
[2016-06-24] VITALS (8 sets, daily range): BP systolic 105–120; BP diastolic 69–76; PULSE 90–126; RESP 16–18; TEMP 95.8–98.1; O2SAT 97–100
[2016-06-24] MEDS: INSULIN NovoLIN REGULAR SUPPLEMENTAL SCALE SQ SCH ×5 (00:06→23:46)
[2016-06-24] MEDS: PIPERACIL-TAZO 4.5 GM PREMIX 100 ML IV SCH ×4 (03:58→23:42)
[2016-06-24] MEDS: CHLORHEXIDINE GLUCONATE 2 % 1 PACK (2 CLOTHS) TOP SCH (03:59)
[2016-06-24] MEDS: LACTULOSE SYRUP 20 GM/30 ML CUP PO SCH ×4 (04:47→23:37)
[2016-06-24] MEDS: HEPARIN SODIUM - SQ 10,000 UNITS/ML VIAL SQ SCH ×3 (06:03→23:36)
[2016-06-24 07:07] LABS: AUTOMATED NEUTROPHIL # 4.5 TH/MM3 (1.8-7.7); BASOPHIL # 0.1 TH/MM3 (0-0.2); BASOPHIL % 1.2 % (0.0-2.0); EOSINOPHIL # 0.2 TH/MM3 (0-0.4); EOSINOPHIL % 2.4 % (0.0-4.0); HEMATOCRIT 42.4 % (35.0-46.0); LYMPHOCYTE # 1.3 TH/MM3 (1.0-4.8); MEAN CELL VOLUME 78.4 FL (80.0-100.0); MEAN CORPUSCULAR HEMOGLOBIN 25.4 PG (27.0-34.0); MEAN CORPUSCULAR HGB CONC 32.4 % (32.0-36.0); NEUT % 66.4 % (16.0-70.0); PLATELET COUNT 201 TH/MM3 (150-450); WHITE BLOOD COUNT 6.8 TH/MM3 (4.0-11.0)
[2016-06-24 07:34] LABS: HEMO FLAGS AUTO DIFF
[2016-06-24 07:42] LABS: ALKALINE PHOSPHATASE 161 U/L (45-117); ALT (GPT) 32 U/L (10-53); ANION GAP 8 MEQ/L (5-15); AST (GOT) 31 U/L (15-37); BICARBONATE 30.2 MEQ/L (21.0-32.0); BLOOD UREA NITROGEN 13 MG/DL (7-18); CHLORIDE 101 MEQ/L (98-107); GLOMERULAR FILTRATION RATE 123 ML/MIN (>89); SODIUM (NA) 139 MEQ/L (136-145); TOTAL BILIRUBIN ADULT 1.1 MG/DL (0.2-1.0)
[2016-06-24] MEDS ORDERED: PHARMACY ORDERED LAB XX ONE (08:45)
[2016-06-24 09:15] LABS: KERATOCYTES OCC (NORMAL)
[2016-06-24 09:16] LABS: OVALOCYTES 1+ (NORMAL); PLATELET ESTIMATE SMEAR NORMAL (NORMAL); PLATELET MORPHOLOGY NORMAL (NORMAL); SCAN/DIFF AUTO DIFF CONFIRMED
[2016-06-24] MEDS: PANTOPRAZOLE SODIUM 40 MG VIAL IV SCH (09:44)
[2016-06-24] MEDS: VANCOMYCIN 1,000 MG/NS 250 ML IV SCH ×4 (09:45→23:35)
[2016-06-24] MEDS: risperiDONE 0.25 MG TAB PO SCH ×2 (09:45→23:36)
[2016-06-24] MEDS: SODIUM CHLORIDE 0.9% FLUSH 5 ML FLUSH IV FLUSH SCH ×2 (09:46→23:35)
--- NOTE | 2016-06-24 10:15 | PD.CONS ---
History of Present Illness Service Neurology Consult Requested By medical Reason for Consult stroke Primary Care Physician Unknown History of Present Illness 50 year old AA female admitted for confusion, dyspnea. seen by critical care and dx'd with heart failure, metabolic encephalopathy. she states "i feel fine now". hx of rt hemispheric sz's in the past. is supposed to be on phb. had breakthrough sz's on keppra. chronic left ue paresis. hx of previous rt mca stroke. on eliquis and aspirin. followed by neuro in [facility]. Past Family Social History Allergies: Coded Allergies: Dilantin (Verified Allergy, Severe, 07/20/15) Lemon (Verified Allergy, Severe, EDEMA, 07/20/15) Sulfa (Verified Allergy, Severe, ANYYHING WITH IT IN IT AND I FALL OUT AND GET THE SHAKES, 07/20/15) AMARIS Inhibitors (Verified Allergy, Intermediate, ANGIOEDEMA, 07/20/15) CONFIRMED OF 01/03/2010 *MDRO Multi-Drug Resistant Organism (Verified Allergy, Unknown, 07/20/15) MRSA MRSA PCR Screen negative 10/12/14. MRI PRECAUTION (Verified Adverse Reaction, Severe, AICD PRESENT, 07/20/15) AICD PRESENT 11/23/13 JLA Uncoded Allergies: MUCINEX (Allergy, Severe, CARDIAC INCIDENT, 09/18/13) Social History tobaco: denies etoh: denies illicit: denies Review of Systems All other ROS: ROS reviewed as documented in chart Review of Systems All other ROS: ROS reviewed as documented in chart Past Family Social History Allergies: Coded Allergies: Dilantin (Verified Allergy, Severe, 06/19/16) Lemon (Verified Allergy, Severe, EDEMA, 06/19/16) Sulfa (Verified Allergy, Severe, ANYYHING WITH IT IN IT AND I FALL OUT AND GET THE SHAKES, 06/19/16) AMARIS Inhibitors (Verified Allergy, Intermediate, ANGIOEDEMA, 06/19/16) CONFIRMED OF 01/03/2010 MRI PRECAUTION (Verified Adverse Reaction, Severe, AICD PRESENT, 06/19/16) AICD PRESENT 11/23/13 JLA *MDRO Multi-Drug Resistant Organism (Verified Adverse Reaction, Unknown, ) MRSA (urine & sputum) - 2013 MRSA PCR Screen POSITIVE - 04/08/16 Uncoded Allergies: MUCINEX (Allergy, Severe, CARDIAC INCIDENT, 09/18/13) Active Ordered Medications Current Medications Medications (Trade) Dose Ordered Sig/Curtis Route Start Time Stop Time Status Last Admin (D50w (Vial) Inj) 25 ml UNSCH PRN IV PUSH 06/19/16 22:45 (NovoLIN R SUPPLEMENTAL SCALE) 1 Q6HR SQ 06/20/16 00:00 06/24/16 00:06 (NS Flush) 2 ml UNSCH PRN IV FLUSH 06/19/16 22:45 (NS Flush) 2 ml BID IV FLUSH 06/20/16 09:00 06/24/16 09:46 (Protonix Inj) 40 mg DAILY IV 06/20/16 09:00 06/24/16 09:44 (Zofran Inj) 4 mg Q6H PRN IV 06/19/16 22:45 (Lactulose Liq) 30 ml Q6HR PO 06/20/16 00:00 06/23/16 22:39 (Heparin Inj) 5,000 units Q8H SQ 06/19/16 23:00 06/24/16 06:03 Miscellaneous Information 1 Q361D XX 06/19/16 22:45 (Chlorhexidine 2% Cloth) 3 pack Taper DAILY@04 TOP 06/20/16 04:00 06/16/17 03:59 06/21/16 04:55 Chlorhexidine Gluconate 3 pack 3 pack UNSCH PRN TOP 06/19/16 22:45 Pharmacy Profile Note 0 ml @ 0 mls/hr UNSCH OTHER 06/19/16 22:45 Piperacillin Sod/ Tazobactam Sod 100 ml @ 200 mls/hr Q6H IV 06/20/16 04:00 06/24/16 03:58 (Vancomycin Inj/ NS 250 ml Inj) 250 ml @ 250 mls/hr Q12H IV 06/21/16 21:00 06/24/16 09:45 (Ativan) 0.5 mg Q6H PRN PO 06/21/16 19:00 06/22/16 23:03 (Lasix Inj) 60 mg Q12H IV PUSH 06/23/16 23:00 06/23/16 22:38 (risperDAL) 0.5 mg Q12HR PO 06/23/16 21:00 06/24/16 09:45 Exam I&O / VS 06/23/16 06/23/16 06/24/16 15:00 23:00 07:00 Intake Total 240 ml 600 ml 600 ml Output Total 1100 ml 500 ml 2000 ml Balance -860 ml 100 ml -1400 ml Intake Oral 240 ml 600 ml 600 ml Output Urine Total 1100 ml 500 ml 2000 ml # Bowel Movements 0 0 Vital Signs Date Time Temp Pulse Resp B/P Pulse Ox O2 Delivery O2 Flow Rate FiO2 06/24/16 07:20 96.2 90 18 105/71 98 06/24/16 04:50 97.9 101 18 110/70 100 06/24/16 00:45 98.1 100 18 106/69 99 06/23/16 21:30 98.1 108 17 115/72 100 06/23/16 20:22 98 21 06/23/16 16:04 98.2 95 18 99/73 99 06/23/16 12:33 98.2 90 18 112/75 97 General: Alert and Oriented, No acute distress Eye: PERRL, EOMI Respiratory: Lungs CTA, BS equal, Symmetrical expansion Cardiology: Normal rate, Regular Rhythm Neurologic: Alert, Oriented Psychiatric: Cooperative, Appropriate mood & affect Exam Comments ox 2. pres: Trump, follows, eating breakfast, eomi, ou 3-2mm, left spastic hemiparesis ue>le Review/Management Diagnosis/Plan: (1) Metabolic encephalopathy Plan: resolved (2) Seizures Plan: resume phb needs sz med long-term (3) Vascular dementia Plan: start namenda; could help memory and behavior (4) Central sleep apnea due to [place] respiration Plan: ef 15-20% echo -2015 (5) Central sleep apnea associated with atrial fibrillation (6) History of CVA with residual deficit Plan: rt mca Problem Qualifiers (1) Vascular dementia: Qualified Code: F01.50 - Vascular dementia without behavioral disturbance Otis Whiting MD Jun 24, 2016 10:15
--- NOTE | 2016-06-24 10:59 | HHI.PR ---
Subjective Remarks a bit more oriented and animatted with less fear Objective Vital Signs Date Time Temp Pulse Resp B/P Pulse Ox O2 Delivery O2 Flow Rate FiO2 06/24/16 07:20 96.2 90 18 105/71 98 06/24/16 04:50 97.9 101 18 110/70 100 06/24/16 00:45 98.1 100 18 106/69 99 06/23/16 21:30 98.1 108 17 115/72 100 06/23/16 20:22 98 21 06/23/16 16:04 98.2 95 18 99/73 99 06/23/16 12:33 98.2 90 18 112/75 97 I/O 06/23/16 06/23/16 06/23/16 06/24/16 06/24/16 06/24/16 07:00 15:00 23:00 07:00 15:00 23:00 Intake Total 565 ml 240 ml 600 ml 600 ml Output Total 1350 ml 1100 ml 500 ml 2000 ml Balance -785 ml -860 ml 100 ml -1400 ml Intake Oral 300 ml 240 ml 600 ml 600 ml IV Total 265 ml Output Urine Total 1350 ml 1100 ml 500 ml 2000 ml # Bowel Movements 0 0 0 Result Diagram: 06/24/16 0640 06/24/16 0640 Objective Remarks GENERAL: SKIN: Warm and dry. HEAD: Atraumatic. Normocephalic. EYES: Pupils equal and round. No scleral icterus. No injection or drainage. ENT: No nasal bleeding or discharge. Mucous membranes pink and moist. NECK: Trachea midline. No JVD. CARDIOVASCULAR: Regular rate and rhythm. RESPIRATORY: No accessory muscle use. Clear to auscultation. Breath sounds equal bilaterally. GASTROINTESTINAL: Abdomen soft, non-tender, nondistended. Hepatic and splenic margins not palpable. MUSCULOSKELETAL: Extremities without clubbing, cyanosis, or edema. No obvious deformities. NEUROLOGICAL: Awake and alert. No obvious cranial nerve deficits. Motor grossly within normal limits. Five out of 5 muscle strength in the arms and legs. Normal speech. PSYCHIATRIC: less fearfull more appropriate paxil started Medications and IVs Current Medications Medications (Trade) Dose Ordered Sig/Curtis Route PRN Reason Start Time Stop Time Status Last Admin Dose Admin Dextrose (D50w (Vial) Inj) 25 ml UNSCH PRN IV PUSH HYPOGLYCEMIA-SEE COMMENTS 06/19/16 22:45 Insulin Human Regular (NovoLIN R SUPPLEMENTAL SCALE) 1 Q6HR SQ 06/20/16 00:00 06/24/16 00:06 IV Flush (NS Flush) 2 ml UNSCH PRN IV FLUSH FLUSH AFTER USING IV ACCESS 06/19/16 22:45 IV Flush (NS Flush) 2 ml BID IV FLUSH 06/20/16 09:00 06/24/16 09:46 Pantoprazole Sodium (Protonix Inj) 40 mg DAILY IV 06/20/16 09:00 06/24/16 09:44 Ondansetron HCl (Zofran Inj) 4 mg Q6H PRN IV NAUSEA OR VOMITING 06/19/16 22:45 Lactulose (Lactulose Liq) 30 ml Q6HR PO 06/20/16 00:00 06/23/16 22:39 Heparin Sodium (Porcine) (Heparin Inj) 5,000 units Q8H SQ 06/19/16 23:00 06/24/16 06:03 Miscellaneous Information 1 Q361D XX 06/19/16 22:45 Chlorhexidine Gluconate (Chlorhexidine 2% Cloth) 3 pack Taper DAILY@04 TOP 06/20/16 04:00 06/16/17 03:59 06/21/16 04:55 Chlorhexidine Gluconate 3 pack 3 pack UNSCH PRN [facility] 06/19/16 22:45 Pharmacy Profile Note 0 ml @ 0 mls/hr UNSCH OTHER 06/19/16 22:45 Piperacillin Sod/ Tazobactam Sod 100 ml @ 200 mls/hr Q6H IV 06/20/16 04:00 06/24/16 03:58 Vancomycin HCl/ Sodium Chloride (Vancomycin Inj/ NS 250 ml Inj) 250 ml @ 250 mls/hr Q12H IV 06/21/16 21:00 06/24/16 09:45 Lorazepam (Ativan) 0.5 mg Q6H PRN PO AGITATION 06/21/16 19:00 06/22/16 23:03 Furosemide (Lasix Inj) 60 mg Q12H IV PUSH 06/23/16 23:00 06/23/16 22:38 Risperidone (risperDAL) 0.5 mg Q12HR PO 06/23/16 21:00 06/24/16 09:45 Phenobarbital (PHENobarbital) 60 mg Q8HR PO 06/24/16 10:00 Memantine (Namenda) 5 mg Q12HR PO 06/24/16 10:00 Assessment and Plan Problem List: (1) Hypotension Status: Resolved (2) Neurological deficit present Status: Chronic (3) Generalized weakness Status: Chronic (4) Slurred speech Status: Resolved (5) Altered mental status Status: Chronic Assessment and Plan breathing better will repeat cxr add paxil for anxiety Roberto Martines DO Jun 24, 2016 10:59
[2016-06-24] MEDS: MEMANTINE HCL 5 MG TAB PO SCH ×2 (11:24→23:35)
[2016-06-24] MEDS: FUROSEMIDE 100 MG/10 ML VIAL IV PUSH SCH ×2 (11:26→23:41)
--- NOTE | 2016-06-24 16:56 | RADRPT ---
EXAM DATE/TIME: 06/24/2016 16:10 [facility] COMPARISON: No previous studies available for comparison. INDICATIONS : Short of Breath, Evaluate for Pneumonia. MEDICAL HISTORY : Cerebrovascular disease. Seizures. SURGICAL HISTORY : Craniotomy. Pacemaker. ENCOUNTER: Initial ACUITY: 1 day PAIN SCORE: Non-responsive. LOCATION: Bilateral chest FINDINGS: The patient has a pacing/AICD device in place from the left subclavian approach. The heart size does appear enlarged. It may be somewhat accentuated secondary to the patient being rotated towards the left. There is increased density at the left base with silhouetting of the left hemidiaphragm. The right lung is grossly clear. CONCLUSION: 1. Cardiomegaly. 2. Increased density at the left base representing some degree of consolidation or atelectasis. Stevan Martínez MD on June 24, 2016 at 16:36 Board Certified Radiologist. This report was verified electronically.
[2016-06-24 22:19] LABS: BASOPHIL # 0.1 TH/MM3 (0-0.2); EOSINOPHIL # 0.2 TH/MM3 (0-0.4); EOSINOPHIL % 2.2 % (0.0-4.0); HEMATOCRIT 45.5 % (35.0-46.0); HEMO FLAGS DIFF FINAL; LYMPH % 10.8 % (9.0-44.0); MEAN CELL VOLUME 78.1 FL (80.0-100.0); MEAN CORPUSCULAR HEMOGLOBIN 25.3 PG (27.0-34.0); MEAN CORPUSCULAR HGB CONC 32.3 % (32.0-36.0); MONO % 11.3 % (0.0-8.0); NEUT % 74.7 % (16.0-70.0); PLATELET COUNT 205 TH/MM3 (150-450); RED BLOOD COUNT 5.82 MIL/MM3 (4.00-5.30); RED CELL DISTRIBUTION WIDTH 18.1 % (11.6-17.2); WHITE BLOOD COUNT 9.4 TH/MM3 (4.0-11.0)
[2016-06-24 22:46] LABS: ALKALINE PHOSPHATASE 182 U/L (45-117); ALT (GPT) 34 U/L (10-53); ANION GAP 9 MEQ/L (5-15); AST (GOT) 47 U/L (15-37); BICARBONATE 29.6 MEQ/L (21.0-32.0); BLOOD UREA NITROGEN 17 MG/DL (7-18); CHLORIDE 101 MEQ/L (98-107); GLOMERULAR FILTRATION RATE 74 ML/MIN (>89); POTASSIUM 3.1 MEQ/L (3.5-5.1); SODIUM (NA) 140 MEQ/L (136-145); TOTAL BILIRUBIN ADULT 0.9 MG/DL (0.2-1.0)
--- NOTE | 2016-06-24 23:44 | MG ---
cc: RAMIRO ENG MD Lab No: [id number] Date: 06/24/2016 Age: 51 Sex: F Race: DATE OF 1965 A 51-year-old, history of confusion, dyspnea, history of seizures, right hemispheric stroke. Mild asymmetric right hemispheric slowing noted. Theta and delta activity, 20-50 microvolts on the right, left hemisphere 6 to 8 Hz activity. Limited driving with photic stimulation on the right posterior hemisphere. No active seizures. No significant sharp waves. Single EKG showing sinus rhythm. INTERPRETATION Asymmetric right hemispheric slowing. No seizure activity. Clinical correlation. Ramiro Eng MD MG/EO /9:30 PM /11:37 PM
[2016-06-25] VITALS (10 sets, daily range): BP systolic 97–109; BP diastolic 60–74; PULSE 98–119; RESP 17–22; TEMP 96.1–98.9; O2SAT 93–100
[2016-06-25 01:41] LABS: BLOOD, URINE NEG (NEG); COMMENT (UR) CATH-CULTURE IND; CULTURE IF INDICATED CATH CULTURE IND; GLUCOSE,URINE NEG (NEG); HYALINE CAST, URINE 1 /lpf (RARE); KETONE, URINE NEG (NEG); NITRITE,URINE NEG (NEG); PH, URINE 7.5 (5.0-8.5); URINE COLOR LIGHT-YELLOW (YELLW/STRAW)
[2016-06-25] MEDS ORDERED: SODIUM CHLOR 0.9% 1000 ML INJ 1,000 ML IV SCH (01:45)
[2016-06-25] MEDS: CHLORHEXIDINE GLUCONATE 2 % 1 PACK (2 CLOTHS) TOP SCH (04:00)
[2016-06-25] MEDS: PIPERACIL-TAZO 4.5 GM PREMIX 100 ML IV SCH ×4 (04:17→22:05)
[2016-06-25 05:07] LABS: BLOOD GAS BASE EXCESS 3.1 mmol/L (-2-2); BLOOD GAS CARBOXYHEMOGLOBIN 2.4 % (0-4); BLOOD GAS HCO3 27 mmol/L (22-26); BLOOD GAS METHEMOGLOBIN 0.6 % (0-2); BLOOD GAS O2 HGB SATURATION 95 % (90-100); BLOOD GAS OXYGEN CONTENT 18.7 Vol % (12.0-20.0); BLOOD GAS PCO2 36 mmHg (38-42); BLOOD GAS PO2 94 mmHg (61-120); TEMP CORR TO 98.6
[2016-06-25 05:08] LABS: CRITICAL VALUE NO; DRAW SITE RT RADIAL; FIO2 21 %; NUMBER OF ARTERIAL PUNCTURES 1; OXYGEN DEVICE ROOM AIR; STAT YES; ULNAR PULSE PRESENT
[2016-06-25] MEDS: INSULIN NovoLIN REGULAR SUPPLEMENTAL SCALE SQ SCH ×4 (06:00→23:49)
--- NOTE | 2016-06-25 06:24 | RADRPT ---
EXAM DATE/TIME: 06/25/2016 05:08 [facility] COMPARISON: CT BRAIN W/O CONTRAST, April 22, 2016, 11:03. CT BRAIN W/O CONTRAST, June 22, 2016, 19:55. INDICATIONS : Altered mental status. RADIATION DOSE: 56.35 CTDIvol (mGy) MEDICAL HISTORY : Seizures. Cardiovascular disease Congestive heart failure. SURGICAL HISTORY : Craniotomy. Defibrillator. ENCOUNTER: Subsequent ACUITY: 2 weeks PAIN SCALE: Non-responsive LOCATION: cranial TECHNIQUE: Multiple contiguous axial images were obtained of the head. Using automated exposure control and adj ustment of the mA and/or kV according to patient size, radiation dose was kept as low as reasonably a chievable to obtain optimal diagnostic quality images. FINDINGS: CEREBRUM: Prior surgery to right parietal region with large area of encephalomalacia involving the MCA distribu tion. There is prominent ex vacuo enlargement of the occipital horn. These findings are unchanged w hen compared to 06/22/16. No acute findings. No evidence of midline shift. There is good valdez-white matter differentiation in the left hemisphere. No evidence of acute blood products. POSTERIOR FOSSA: The cerebellum and brainstem are intact. The 4th ventricle is midline. The cerebellopontine angle i s unremarkable. EXTRACRANIAL: The visualized portion of the orbits is intact. There is an oval soft tissue opacity in the inferior right maxillary sinus measuring 3 cm suggesting retention cyst or polyp, unchanged from April. SKULL: Good approximation and stable configuration of the right craniotomy site.. No evidence of skull frac ture. CONCLUSION: No acute findings. Stable appearance to the right hemispheric encephalomalacia and atrophy. Stable right maxillary sinus disease. Vazquez Medel MD on June 25, 2016 at 6:18 Board Certified Radiologist. This report was verified electronically.
--- NOTE | 2016-06-25 06:26 | RADRPT ---
EXAM DATE/TIME: 06/25/2016 05:17 [facility] COMPARISON: CHEST PA & LAT, June 24, 2016, 16:10. INDICATIONS : Shortness of breath. MEDICAL HISTORY : Cerebrovascular disease. Seizures. SURGICAL HISTORY : Pacemaker. ENCOUNTER: Subsequent ACUITY: 1 week PAIN SCORE: Non-responsive. LOCATION: Bilateral chest FINDINGS: There is persistent consolidation in the lateral left lower lung, slightly improved when compared to 06/24/16. The right lung is clear. The heart is mildly enlarged, stable configuration. Cardiac lead s stable in position. CONCLUSION: Persistent, but improved, consolidation left lower lung. Vazquez Medel MD on June 25, 2016 at 6:23 Board Certified Radiologist. This report was verified electronically.
[2016-06-25] MEDS: LACTULOSE SYRUP 20 GM/30 ML CUP PO SCH ×4 (07:28→23:44)
[2016-06-25] MEDS: HEPARIN SODIUM - SQ 10,000 UNITS/ML VIAL SQ SCH ×3 (07:29→23:44)
[2016-06-25 07:53] LABS: HEMATOCRIT 44.1 % (35.0-46.0); MEAN CELL VOLUME 77.4 FL (80.0-100.0); MEAN CORPUSCULAR HEMOGLOBIN 25.4 PG (27.0-34.0); MEAN CORPUSCULAR HGB CONC 32.9 % (32.0-36.0); PLATELET COUNT 194 TH/MM3 (150-450); RED CELL DISTRIBUTION WIDTH 17.8 % (11.6-17.2); REVIEW FLAG FINAL; WHITE BLOOD COUNT 8.9 TH/MM3 (4.0-11.0)
[2016-06-25 08:16] LABS: BICARBONATE 28.4 MEQ/L (21.0-32.0); MAGNESIUM 1.7 MG/DL (1.5-2.5)
[2016-06-25] MEDS: risperiDONE 0.25 MG TAB PO SCH ×2 (08:59→20:55)
[2016-06-25] MEDS: PARoxetine 25 MG CONTROLLED RELEASE TAB PO SCH (08:59)
[2016-06-25] MEDS: MEMANTINE HCL 5 MG TAB PO SCH ×2 (09:00→20:54)
[2016-06-25] MEDS: SODIUM CHLORIDE 0.9% FLUSH 5 ML FLUSH IV FLUSH SCH ×2 (09:00→20:53)
[2016-06-25] MEDS: PANTOPRAZOLE SODIUM 40 MG VIAL IV SCH (09:00)
[2016-06-25] MEDS: VANCOMYCIN 1,000 MG/NS 250 ML IV SCH ×4 (09:01→20:52)
--- NOTE | 2016-06-25 09:54 | HHI.PR ---
Subjective Remarks pt had runs of Drivr last pm fluids increased and cardiology consulted Objective Vital Signs Date Time Temp Pulse Resp B/P Pulse Ox O2 Delivery O2 Flow Rate FiO2 06/25/16 08:23 96.7 98 20 109/74 100 06/25/16 04:48 98.2 102 22 98/67 99 06/25/16 04:04 98.9 108 18 102/60 98 06/25/16 01:52 98.1 100 17 99/70 97 06/25/16 00:20 98.2 98 18 106/74 98 06/24/16 22:05 126 06/24/16 20:00 98.1 99 16 110/74 97 06/24/16 16:30 97.0 115 18 117/76 98 06/24/16 12:02 95.8 102 17 120/71 98 I/O 06/24/16 06/24/16 06/24/16 06/25/16 06/25/16 06/25/16 07:00 15:00 23:00 07:00 15:00 23:00 Intake Total 600 ml 341 ml 577 ml Output Total 2000 ml 1625 ml Balance -1400 ml 341 ml -1048 ml Intake Oral 600 ml 477 ml IV Total 341 ml 100 ml Output Urine Total 2000 ml 1625 ml # Bowel Movements 0 Result Diagram: 06/25/1671706/25/16717 Objective Remarks GENERAL: SKIN: Warm and dry. HEAD: Atraumatic. Normocephalic. EYES: Pupils equal and round. No scleral icterus. No injection or drainage. ENT: No nasal bleeding or discharge. Mucous membranes pink and moist. NECK: Trachea midline. No JVD. CARDIOVASCULAR: Regular rate and rhythm. RESPIRATORY: No accessory muscle use. Clear to auscultation. Breath sounds equal bilaterally. GASTROINTESTINAL: Abdomen soft, non-tender, nondistended. Hepatic and splenic margins not palpable. MUSCULOSKELETAL: Extremities without clubbing, cyanosis, or edema. No obvious deformities. NEUROLOGICAL: Awake and alert. No obvious cranial nerve deficits. Motor grossly within normal limits. Five out of 5 muscle strength in the arms and legs. Normal speech. PSYCHIATRIC: less fearfull more appropriate paxil started Medications and IVs Current Medications Medications (Trade) Dose Ordered Sig/Curtis Route PRN Reason Start Time Stop Time Status Last Admin Dose Admin Dextrose (D50w (Vial) Inj) 25 ml UNSCH PRN IV PUSH HYPOGLYCEMIA-SEE COMMENTS 06/19/16 22:45 Insulin Human Regular (NovoLIN R SUPPLEMENTAL SCALE) 1 Q6HR SQ 06/20/16 00:00 06/25/16 06:00 IV Flush (NS Flush) 2 ml UNSCH PRN IV FLUSH FLUSH AFTER USING IV ACCESS 06/19/16 22:45 IV Flush (NS Flush) 2 ml BID IV FLUSH 06/20/16 09:00 06/25/16 09:00 Pantoprazole Sodium (Protonix Inj) 40 mg DAILY IV 06/20/16 09:00 06/25/16 09:00 Ondansetron HCl (Zofran Inj) 4 mg Q6H PRN IV NAUSEA OR VOMITING 06/19/16 22:45 Lactulose (Lactulose Liq) 30 ml Q6HR PO 06/20/16 00:00 06/25/16 07:28 Heparin Sodium (Porcine) (Heparin Inj) 5,000 units Q8H SQ 06/19/16 23:00 06/25/16 07:29 Miscellaneous Information 1 Q361D XX 06/19/16 22:45 Chlorhexidine Gluconate (Chlorhexidine 2% Cloth) Taper DAILY@04 TOP 06/20/16 04:00 06/16/17 03:59 06/21/16 04:55 Chlorhexidine Gluconate 3 pack 3 pack UNSCH PRN [facility] 06/19/16 22:45 Pharmacy Profile Note 0 ml @ 0 mls/hr UNSCH OTHER 06/19/16 22:45 Piperacillin Sod/ Tazobactam Sod 100 ml @ 200 mls/hr Q6H IV 06/20/16 04:00 06/25/16 04:17 Vancomycin HCl/ Sodium Chloride (Vancomycin Inj/ NS 250 ml Inj) 250 ml @ 250 mls/hr Q12H IV 06/21/16 21:00 06/25/16 09:01 Lorazepam (Ativan) 0.5 mg Q6H PRN PO AGITATION 06/21/16 19:00 06/22/16 23:03 Furosemide (Lasix Inj) 60 mg Q12H IV PUSH 06/23/16 23:00 06/24/16 23:41 Risperidone (risperDAL) 0.5 mg Q12HR PO 06/23/16 21:00 06/25/16 08:59 Memantine (Namenda) 5 mg Q12HR PO 06/24/16 10:00 06/25/16 09:00 Paroxetine HCl (Paxil Cr) 25 mg DAILY PO 06/25/16 09:00 06/25/16 08:59 Phenobarbital 60 mg 60 mg Q8H PO 06/24/16 20:00 06/24/16 23:41 Sodium Chloride (NS 1000 ml Inj) 1,000 ml @ 100 mls/hr Q10H IV 06/25/16 01:45 06/25/16 11:44 06/25/16 01:45 Assessment and Plan Problem List: (1) Hypotension Status: Acute (2) Neurological deficit present Status: Chronic (3) Generalized weakness Status: Chronic (4) Slurred speech Status: Resolved (5) Altered mental status Status: Chronic Assessment and Plan heart rate improved will continue fluids await cardiology consult Discussed Condition With patient and nursing Roberto Martines DO Jun 25, 2016 09:54
[2016-06-25] MEDS: FUROSEMIDE 100 MG/10 ML VIAL IV PUSH SCH ×2 (11:00→23:45)
--- NOTE | 2016-06-25 11:31 | PD.CONS ---
HPI Service Cardiology Consult Requested By Bobbi Reason for Consult abnormal telemetry Primary Care Physician Bobbi History of Present Illness Patient of Dr Martines and Dr Booth admitted with septic shock. She has an ICD implanted. I was called for runs of VT. Her potassium was 3.0 and is still below normal. I called her daughter because the patient is a poor historian. She is followed by Dr Booth. Past Family Social History Allergies: Coded Allergies: Dilantin (Verified Allergy, Severe, 06/19/16) Lemon (Verified Allergy, Severe, EDEMA, 06/19/16) Sulfa (Verified Allergy, Severe, ANYYHING WITH IT IN IT AND I FALL OUT AND GET THE SHAKES, 06/19/16) AMARIS Inhibitors (Verified Allergy, Intermediate, ANGIOEDEMA, 06/19/16) CONFIRMED OF 01/03/2010 MRI PRECAUTION (Verified Adverse Reaction, Severe, AICD PRESENT, 06/19/16) AICD PRESENT 11/23/13 JLA *MDRO Multi-Drug Resistant Organism (Verified Adverse Reaction, Unknown, ) MRSA (urine & sputum) - 2013 MRSA PCR Screen POSITIVE - 04/08/16 Uncoded Allergies: MUCINEX (Allergy, Severe, CARDIAC INCIDENT, 09/18/13) Physical Exam Vital Signs Vital Signs Date Time Temp Pulse Resp B/P Pulse Ox O2 Delivery O2 Flow Rate FiO2 06/25/16 08:23 96.7 98 20 109/74 100 06/25/16 04:48 98.2 102 22 98/67 99 06/25/16 04:04 98.9 108 18 102/60 98 06/25/16 01:52 98.1 100 17 99/70 97 06/25/16 00:20 98.2 98 18 106/74 98 06/24/16 22:05 126 06/24/16 20:00 98.1 99 16 110/74 97 06/24/16 16:30 97.0 115 18 117/76 98 06/24/16 12:02 95.8 102 17 120/71 98 Physical Exam No JVD Lungs clear faint systolic murmur at apex no edema Laboratory Laboratory Tests Test 06/24/16 06/24/16 06/25/16 06/25/16 21:42 21:47 01:10 04:58 White Blood Count 9.4 Red Blood Count 5.82 Hemoglobin 14.7 Hematocrit 45.5 Mean Corpuscular Volume 78.1 Mean Corpuscular Hemoglobin 25.3 Mean Corpuscular Hemoglobin 32.3 Concent Red Cell Distribution Width 18.1 Platelet Count 205 Mean Platelet Volume 8.5 Neutrophils (%) (Auto) 74.7 Lymphocytes (%) (Auto) 10.8 Monocytes (%) (Auto) 11.3 Eosinophils (%) (Auto) 2.2 Basophils (%) (Auto) 1.0 Neutrophils # (Auto) 7.0 Lymphocytes # (Auto) 1.0 Monocytes # (Auto) 1.1 Eosinophils # (Auto) 0.2 Basophils # (Auto) 0.1 CBC Comment DIFF FINAL Differential Comment Sodium Level 140 Potassium Level 3.1 Chloride Level 101 Carbon Dioxide Level 29.6 Anion Gap 9 Blood Urea Nitrogen 17 Creatinine 0.97 Estimat Glomerular Filtration 74 Rate Random Glucose 136 Calcium Level 8.3 Total Bilirubin 0.9 Aspartate Amino Transf 47 (AST/SGOT) Alanine Aminotransferase 34 (ALT/SGPT) Alkaline Phosphatase 182 Total Protein 7.6 Albumin 2.4 Urine Color LIGHT-YELLOW Urine Turbidity CLEAR Urine pH 7.5 Urine Specific [place] 1.008 Urine Protein TRACE Urine Glucose (UA) NEG Urine Ketones NEG Urine Occult Blood NEG Urine Nitrite NEG Urine Bilirubin NEG Urine Urobilinogen LESS THAN 2.0 Urine Leukocyte Esterase SMALL Urine RBC 1 Urine WBC 13 Urine Hyaline Casts 1 Microscopic Urinalysis Comment CATH-CULTURE IND Blood Gas Puncture Site RT RADIAL Blood Gas Patient Temperature 98.6 Blood Gas HCO3 27 Blood Gas Base Excess 3.1 Blood Gas Oxygen Saturation 95 Arterial Blood pH 7.48 Arterial Blood Partial 36 Pressure CO2 Arterial Blood Partial 94 Pressure O2 Arterial Blood Oxygen Content 18.7 Arterial Blood 2.4 Carboxyhemoglobin Arterial Blood Methemoglobin 0.6 Blood Gas Hemoglobin 14.0 Oxygen Delivery Device ROOM AIR Blood Gas Inspired Oxygen 21 Test 06/25/16 07:18 White Blood Count 8.9 Red Blood Count 5.70 Hemoglobin 14.5 Hematocrit 44.1 Mean Corpuscular Volume 77.4 Mean Corpuscular Hemoglobin 25.4 Mean Corpuscular Hemoglobin 32.9 Concent Red Cell Distribution Width 17.8 Platelet Count 194 Mean Platelet Volume 8.9 Sodium Level 142 Potassium Level 3.0 Chloride Level 104 Carbon Dioxide Level 28.4 Anion Gap 10 Blood Urea Nitrogen 17 Creatinine 0.88 Estimat Glomerular Filtration 82 Rate Random Glucose 136 Calcium Level 8.3 Magnesium Level 1.7 Date/Time Procedure Status Source Growth 06/25/16 01:10 Urine Culture Received Urine Catheterized Urine Pending Result Diagram: 06/25/16 0718 06/25/16 0718 Assessment and Plan Assessment and Plan VT with hypokalemia Recommend correcting K and callling Dr Booth Discussed Condition With Nurse and Georges Freitas MD Jun 25, 2016 11:31
[2016-06-25 13:45] LABS: AUTOMATED NEUTROPHIL # 6.2 TH/MM3 (1.8-7.7); BASOPHIL # 0.1 TH/MM3 (0-0.2); BASOPHIL % 1.6 % (0.0-2.0); EOSINOPHIL # 0.2 TH/MM3 (0-0.4); EOSINOPHIL % 2.6 % (0.0-4.0); HEMATOCRIT 40.5 % (35.0-46.0); HEMO FLAGS DIFF FINAL; LYMPH % 13.8 % (9.0-44.0); LYMPHOCYTE # 1.2 TH/MM3 (1.0-4.8); MEAN CELL VOLUME 78.7 FL (80.0-100.0); MEAN CORPUSCULAR HEMOGLOBIN 25.8 PG (27.0-34.0); MEAN CORPUSCULAR HGB CONC 32.8 % (32.0-36.0); MONO % 10.1 % (0.0-8.0); NEUT % 71.9 % (16.0-70.0); PLATELET COUNT 189 TH/MM3 (150-450); RED BLOOD COUNT 5.14 MIL/MM3 (4.00-5.30); RED CELL DISTRIBUTION WIDTH 17.7 % (11.6-17.2); WHITE BLOOD COUNT 8.6 TH/MM3 (4.0-11.0)
--- NOTE | 2016-06-25 16:33 | HHI.PR ---
Review/Management Diagnosis/Plan: (1) Metabolic encephalopathy Plan: resolved repeat ct brain stable pt likely to have ebbs and flows in mentation 2/2 cardiac dz, heart failure and vascular dementia d/w daughter at bedside (2) Seizures Plan: resume phb needs sz med long-term (3) Vascular dementia Plan: start namenda; could help memory and behavior (4) Central sleep apnea due to [place] respiration Plan: ef 15-20% echo -2015 (5) Central sleep apnea associated with atrial fibrillation (6) History of CVA with residual deficit Plan: rt mca resume eliquis Subjective Subjective Comments more lethargic early am but nothing focal, glucose nml doing well, now No headache No chest pain No dyspnea Active Medications Current Medications Medications (Trade) Dose Ordered Sig/Curtis Route Start Time Stop Time Status Last Admin (D50w (Vial) Inj) 25 ml UNSCH PRN IV PUSH 06/19/16 22:45 (NovoLIN R SUPPLEMENTAL SCALE) 1 Q6HR SQ 06/20/16 00:00 06/25/16 11:44 (NS Flush) 2 ml UNSCH PRN IV FLUSH 06/19/16 22:45 (NS Flush) 2 ml BID IV FLUSH 06/20/16 09:00 06/25/16 09:00 (Protonix Inj) 40 mg DAILY IV 06/20/16 09:00 06/25/16 09:00 (Zofran Inj) 4 mg Q6H PRN IV 06/19/16 22:45 (Lactulose Liq) 30 ml Q6HR PO 06/20/16 00:00 06/25/16 11:45 (Heparin Inj) 5,000 units Q8H SQ 06/19/16 23:00 06/25/16 07:29 Miscellaneous Information 1 Q361D XX 06/19/16 22:45 (Chlorhexidine 2% Cloth) Taper DAILY@04 TOP 06/20/16 04:00 06/16/17 03:59 06/21/16 04:55 Chlorhexidine Gluconate 3 pack 3 pack UNSCH PRN TOP 06/19/16 22:45 Pharmacy Profile Note 0 ml @ 0 mls/hr UNSCH OTHER 06/19/16 22:45 Piperacillin Sod/ Tazobactam Sod 100 ml @ 200 mls/hr Q6H IV 06/20/16 04:00 06/25/16 10:00 (Vancomycin Inj/ NS 250 ml Inj) 250 ml @ 250 mls/hr Q12H IV 06/21/16 21:00 06/25/16 09:01 (Ativan) 0.5 mg Q6H PRN PO 06/21/16 19:00 06/22/16 23:03 (Lasix Inj) 60 mg Q12H IV PUSH 06/23/16 23:00 06/24/16 23:41 (risperDAL) 0.5 mg Q12HR PO 06/23/16 21:00 06/25/16 08:59 (Namenda) 5 mg Q12HR PO 06/24/16 10:00 06/25/16 09:00 (Paxil Cr) 25 mg DAILY PO 06/25/16 09:00 06/25/16 08:59 (PHENobarbital) 60 mg Q8H PO 06/24/16 20:00 06/25/16 11:44 (KCl) 20 meq BID PO 06/25/16 21:00 Allergies Allergies Coded Allergies Dilantin (Verified Allergy, Severe, 06/19/16) Lemon (Verified Allergy, Severe, EDEMA, 06/19/16) Sulfa (Verified Allergy, Severe, ANYYHING WITH IT IN IT AND I FALL OUT AND GET THE SHAKES, 06/19/16) AMARIS Inhibitors (Verified Allergy, Intermediate, ANGIOEDEMA, 06/19/16) MRI PRECAUTION (Verified Adverse Reaction, Severe, AICD PRESENT, 06/19/16) *MDRO Multi-Drug Resistant Organism (Verified Adverse Reaction, Unknown, ) Uncoded Allergies MUCINEX ( Allergy, Severe, CARDIAC INCIDENT, 09/18/13) Review of Systems All other ROS: ROS reviewed as documented in chart Exam I&O / VS 06/24/16 06/24/16 06/25/16 15:00 23:00 07:00 Intake Total 341 ml 577 ml Output Total 1625 ml Balance 341 ml -1048 ml Intake Oral 477 ml IV Total 341 ml 100 ml Output Urine Total 1625 ml Vital Signs Date Time Temp Pulse Resp B/P Pulse Ox O2 Delivery O2 Flow Rate FiO2 06/25/16 14:18 100 06/25/16 11:52 96.1 100 20 97/66 99 06/25/16 08:23 96.7 98 20 109/74 100 06/25/16 04:48 98.2 102 22 98/67 99 06/25/16 04:04 98.9 108 18 102/60 98 06/25/16 01:52 98.1 100 17 99/70 97 06/25/16 00:20 98.2 98 18 106/74 98 06/24/16 22:05 126 06/24/16 20:00 98.1 99 16 110/74 97 06/24/16 16:30 97.0 115 18 117/76 98 General: Alert and Oriented, No acute distress Eye: PERRL, EOMI Respiratory: Lungs CTA, BS equal, Symmetrical expansion Cardiology: Normal rate, Regular Rhythm Neurologic: Alert, Oriented Psychiatric: Cooperative, Appropriate mood & affect Exam Comments alert, ox 2. , follows, eomi, ou 3-2mm, left spastic hemiparesis ue>le Objective Micro and Labs Laboratory Tests Test 06/24/16 06/24/16 06/25/16 06/25/16 21:42 21:47 01:10 04:58 White Blood Count 9.4 Red Blood Count 5.82 Hemoglobin 14.7 Hematocrit 45.5 Mean Corpuscular Volume 78.1 Mean Corpuscular Hemoglobin 25.3 Mean Corpuscular Hemoglobin 32.3 Concent Red Cell Distribution Width 18.1 Platelet Count 205 Mean Platelet Volume 8.5 Neutrophils (%) (Auto) 74.7 Lymphocytes (%) (Auto) 10.8 Monocytes (%) (Auto) 11.3 Eosinophils (%) (Auto) 2.2 Basophils (%) (Auto) 1.0 Neutrophils # (Auto) 7.0 Lymphocytes # (Auto) 1.0 Monocytes # (Auto) 1.1 Eosinophils # (Auto) 0.2 Basophils # (Auto) 0.1 CBC Comment DIFF FINAL Differential Comment Sodium Level 140 Potassium Level 3.1 Chloride Level 101 Carbon Dioxide Level 29.6 Anion Gap 9 Blood Urea Nitrogen 17 Creatinine 0.97 Estimat Glomerular Filtration 74 Rate Random Glucose 136 Calcium Level 8.3 Total Bilirubin 0.9 Aspartate Amino Transf 47 (AST/SGOT) Alanine Aminotransferase 34 (ALT/SGPT) Alkaline Phosphatase 182 Total Protein 7.6 Albumin 2.4 Urine Color LIGHT-YELLOW Urine Turbidity CLEAR Urine pH 7.5 Urine Specific [place] 1.008 Urine Protein TRACE Urine Glucose (UA) NEG Urine Ketones NEG Urine Occult Blood NEG Urine Nitrite NEG Urine Bilirubin NEG Urine Urobilinogen LESS THAN 2.0 Urine Leukocyte Esterase SMALL Urine RBC 1 Urine WBC 13 Urine Hyaline Casts 1 Microscopic Urinalysis Comment CATH-CULTURE IND Blood Gas Puncture Site RT RADIAL Blood Gas Patient Temperature 98.6 Blood Gas HCO3 27 Blood Gas Base Excess 3.1 Blood Gas Oxygen Saturation 95 Arterial Blood pH 7.48 Arterial Blood Partial 36 Pressure CO2 Arterial Blood Partial 94 Pressure O2 Arterial Blood Oxygen Content 18.7 Arterial Blood 2.4 Carboxyhemoglobin Arterial Blood Methemoglobin 0.6 Blood Gas Hemoglobin 14.0 Oxygen Delivery Device ROOM AIR Blood Gas Inspired Oxygen 21 Test 06/25/16 06/25/16 07:18 13:30 White Blood Count 8.9 8.6 Red Blood Count 5.70 5.14 Hemoglobin 14.5 13.3 Hematocrit 44.1 40.5 Mean Corpuscular Volume 77.4 78.7 Mean Corpuscular Hemoglobin 25.4 25.8 Mean Corpuscular Hemoglobin 32.9 32.8 Concent Red Cell Distribution Width 17.8 17.7 Platelet Count 194 189 Mean Platelet Volume 8.9 8.3 Sodium Level 142 Potassium Level 3.0 Chloride Level 104 Carbon Dioxide Level 28.4 Anion Gap 10 Blood Urea Nitrogen 17 Creatinine 0.88 Estimat Glomerular Filtration 82 Rate Random Glucose 136 Calcium Level 8.3 Magnesium Level 1.7 Neutrophils (%) (Auto) 71.9 Lymphocytes (%) (Auto) 13.8 Monocytes (%) (Auto) 10.1 Eosinophils (%) (Auto) 2.6 Basophils (%) (Auto) 1.6 Neutrophils # (Auto) 6.2 Lymphocytes # (Auto) 1.2 Monocytes # (Auto) 0.9 Eosinophils # (Auto) 0.2 Basophils # (Auto) 0.1 CBC Comment DIFF FINAL Differential Comment Date/Time Procedure Status Source Growth 06/25/16 01:10 Urine Culture Received Urine Catheterized Urine Pending Problem Qualifiers (1) Vascular dementia: Qualified Code: F01.50 - Vascular dementia without behavioral disturbance Otis Whiting MD Jun 25, 2016 16:33
[2016-06-25] MEDS: APIXABAN 5 MG TABLET PO SCH (20:54)
[2016-06-25] MEDS: POTASSIUM CHLORIDE 20 MEQ CONTROLLED RELEASE TAB PO SCH (20:54)
--- NOTE | 2016-06-25 23:34 | EKG ---
Date Performed: 06/24/2016 Time Performed: 22:40:35 PTAGE: 51 years EKG: SINUS TACHYCARDIA WITH OCCASIONAL VENTRICULAR PREMATURE COMPLEXES POSSIBLE RIGHT ATRIAL ENL ARGEMENT POSSIBLE LEFT ATRIAL ENLARGEMENT MARKED LEFT AXIS DEVIATION INTRAVENTRICULAR CONDUCTION ASHLEY Y ABNORMAL ECG PREVIOUS TRACING : 06/19/2016 20.27 Compared to the previous tracing, rate has increased DOCTOR: Chuck Bunch Interpretating Date/Time 06/25/2016 23:32:48
[2016-06-26 02:00] VITALS: PULSE 119
[2016-06-26] MEDS: CHLORHEXIDINE GLUCONATE 2 % 1 PACK (2 CLOTHS) TOP SCH (03:18)
[2016-06-26] MEDS: PIPERACIL-TAZO 4.5 GM PREMIX 100 ML IV SCH ×4 (03:36→22:01)
[2016-06-26 04:00] VITALS: BP 101/68; PULSE 108; RESP 20; TEMP 97.5; O2SAT 95
[2016-06-26] MEDS: INSULIN NovoLIN REGULAR SUPPLEMENTAL SCALE SQ SCH ×3 (06:00→18:00)
[2016-06-26] MEDS: HEPARIN SODIUM - SQ 10,000 UNITS/ML VIAL SQ SCH ×3 (06:19→23:00)
[2016-06-26] MEDS: LACTULOSE SYRUP 20 GM/30 ML CUP PO SCH ×3 (06:19→18:14)
[2016-06-26 07:05] VITALS: BP 92/69; PULSE 103; RESP 20; TEMP 96.6; O2SAT 97
[2016-06-26 07:15] VITALS: PULSE 99
--- NOTE | 2016-06-26 08:33 | HHI.PR ---
Review/Management Diagnosis/Plan: (1) Metabolic encephalopathy Plan: resolved repeat ct brain stable pt likely to have ebbs and flows in mentation 2/2 cardiac dz, heart failure, central sleep apnea and vascular dementia replace K d/c planning from neuro (2) Central sleep apnea due to [place] respiration Plan: ef 15-20% echo reviewed with rn this am (3) Seizures Plan: on phb needs sz med long-term f/u phb levels (4) Vascular dementia Plan: started namenda; could help memory and behavior (5) Central sleep apnea associated with atrial fibrillation (6) History of CVA with residual deficit Plan: rt mca resume eliquis (7) Atrial fibrillation Subjective Subjective Comments No acute events reported No headache No chest pain No dyspnea Active Medications Current Medications Medications (Trade) Dose Ordered Sig/Curtis Route Start Time Stop Time Status Last Admin (D50w (Vial) Inj) 25 ml UNSCH PRN IV PUSH 06/19/16 22:45 (NovoLIN R SUPPLEMENTAL SCALE) 1 Q6HR SQ 06/20/16 00:00 06/25/16 11:44 (NS Flush) 2 ml UNSCH PRN IV FLUSH 06/19/16 22:45 (NS Flush) 2 ml BID IV FLUSH 06/20/16 09:00 06/25/16 20:53 (Protonix Inj) 40 mg DAILY IV 06/20/16 09:00 06/25/16 09:00 (Zofran Inj) 4 mg Q6H PRN IV 06/19/16 22:45 (Lactulose Liq) 30 ml Q6HR PO 06/20/16 00:00 06/26/16 06:19 (Heparin Inj) 5,000 units Q8H SQ 06/19/16 23:00 06/26/16 06:19 Miscellaneous Information 1 Q361D XX 06/19/16 22:45 (Chlorhexidine 2% Cloth) Taper DAILY@04 TOP 06/20/16 04:00 06/16/17 03:59 06/21/16 04:55 Chlorhexidine Gluconate 3 pack 3 pack UNSCH PRN TOP 06/19/16 22:45 Pharmacy Profile Note 0 ml @ 0 mls/hr UNSCH OTHER 06/19/16 22:45 Piperacillin Sod/ Tazobactam Sod 100 ml @ 200 mls/hr Q6H IV 06/20/16 04:00 06/26/16 03:36 (Vancomycin Inj/ NS 250 ml Inj) 250 ml @ 250 mls/hr Q12H IV 06/21/16 21:00 06/25/16 20:52 (Ativan) 0.5 mg Q6H PRN PO 06/21/16 19:00 06/22/16 23:03 (risperDAL) 0.5 mg Q12HR PO 06/23/16 21:00 06/25/16 20:55 (Namenda) 5 mg Q12HR PO 06/24/16 10:00 06/25/16 20:54 (Paxil Cr) 25 mg DAILY PO 06/25/16 09:00 06/25/16 08:59 (PHENobarbital) 60 mg Q8H PO 06/24/16 20:00 06/26/16 03:37 (KCl) 20 meq BID PO 06/25/16 21:00 06/25/16 20:54 (Eliquis) 5 mg BID PO 06/25/16 21:00 06/25/16 20:54 Allergies Allergies Coded Allergies Dilantin (Verified Allergy, Severe, 06/19/16) Lemon (Verified Allergy, Severe, EDEMA, 06/19/16) Sulfa (Verified Allergy, Severe, ANYYHING WITH IT IN IT AND I FALL OUT AND GET THE SHAKES, 06/19/16) AMARIS Inhibitors (Verified Allergy, Intermediate, ANGIOEDEMA, 06/19/16) MRI PRECAUTION (Verified Adverse Reaction, Severe, AICD PRESENT, 06/19/16) *MDRO Multi-Drug Resistant Organism (Verified Adverse Reaction, Unknown, ) Uncoded Allergies MUCINEX ( Allergy, Severe, CARDIAC INCIDENT, 09/18/13) Review of Systems All other ROS: ROS reviewed as documented in chart Exam I&O / VS 06/25/16 06/25/16 06/26/16 15:00 23:00 07:00 Intake Total 240 ml Output Total 300 ml 1850 ml Balance -300 ml -1610 ml Intake Oral 240 ml Output Urine Total 300 ml 1850 ml # Bowel Movements 0 Vital Signs Date Time Temp Pulse Resp B/P Pulse Ox O2 Delivery O2 Flow Rate FiO2 06/26/16 07:05 96.6 103 20 92/69 97 06/26/16 04:00 97.5 108 20 101/68 95 06/26/16 02:00 119 06/25/16 23:44 97.9 119 20 99/60 93 06/25/16 21:05 112 06/25/16 20:00 97.7 117 20 103/71 98 06/25/16 14:18 100 06/25/16 11:52 96.1 100 20 97/66 99 General: Alert and Oriented, No acute distress Eye: PERRL, EOMI Respiratory: Lungs CTA, BS equal, Symmetrical expansion Cardiology: Normal rate, Regular Rhythm Neurologic: Alert, Oriented Psychiatric: Cooperative, Appropriate mood & affect Exam Comments sleeping, appeared to be having central apneas when i came, arousable ox 2. not to date, follows, eomi, ou 3-2mm, left spastic hemiparesis ue>le Objective Micro and Labs Laboratory Tests Test 06/25/16 13:30 White Blood Count 8.6 Red Blood Count 5.14 Hemoglobin 13.3 Hematocrit 40.5 Mean Corpuscular Volume 78.7 Mean Corpuscular Hemoglobin 25.8 Mean Corpuscular Hemoglobin 32.8 Concent Red Cell Distribution Width 17.7 Platelet Count 189 Mean Platelet Volume 8.3 Neutrophils (%) (Auto) 71.9 Lymphocytes (%) (Auto) 13.8 Monocytes (%) (Auto) 10.1 Eosinophils (%) (Auto) 2.6 Basophils (%) (Auto) 1.6 Neutrophils # (Auto) 6.2 Lymphocytes # (Auto) 1.2 Monocytes # (Auto) 0.9 Eosinophils # (Auto) 0.2 Basophils # (Auto) 0.1 CBC Comment DIFF FINAL Differential Comment Date/Time Procedure Status Source Growth 06/25/16 01:10 Urine Culture Received Urine Catheterized Urine Pending Problem Qualifiers (1) Vascular dementia: Qualified Code: F01.50 - Vascular dementia without behavioral disturbance (2) Atrial fibrillation: Qualified Code: I48.91 - Atrial fibrillation, unspecified type Otis Whiting MD Jun 26, 2016 08:33
[2016-06-26 08:45] LABS: HEMATOCRIT 41.2 % (35.0-46.0); MEAN CELL VOLUME 79.1 FL (80.0-100.0); MEAN CORPUSCULAR HEMOGLOBIN 25.2 PG (27.0-34.0); MEAN CORPUSCULAR HGB CONC 31.8 % (32.0-36.0); PLATELET COUNT 200 TH/MM3 (150-450); RED BLOOD COUNT 5.21 MIL/MM3 (4.00-5.30); RED CELL DISTRIBUTION WIDTH 17.4 % (11.6-17.2); REVIEW FLAG FINAL; WHITE BLOOD COUNT 7.7 TH/MM3 (4.0-11.0)
[2016-06-26] MEDS ORDERED: POTASSIUM CHLORIDE 10 MEQ CONTROLLED RELEASE TAB PO ONE (09:00)
[2016-06-26 09:07] LABS: BICARBONATE 28.5 MEQ/L (21.0-32.0); PHENOBARBITAL 17.9 MCG/ML (15.0-40.0); POTASSIUM 3.2 MEQ/L (3.5-5.1)
[2016-06-26] MEDS: POTASSIUM CHLORIDE 20 MEQ CONTROLLED RELEASE TAB PO SCH (10:49)
[2016-06-26] MEDS: PANTOPRAZOLE SODIUM 40 MG VIAL IV SCH (10:49)
[2016-06-26] MEDS: VANCOMYCIN 1,000 MG/NS 250 ML IV SCH ×2 (10:50)
[2016-06-26] MEDS: risperiDONE 0.25 MG TAB PO SCH ×2 (10:54→21:36)
[2016-06-26] MEDS: MEMANTINE HCL 5 MG TAB PO SCH ×2 (10:54→21:36)
[2016-06-26] MEDS: APIXABAN 5 MG TABLET PO SCH ×2 (10:54→21:36)
[2016-06-26] MEDS: SODIUM CHLORIDE 0.9% FLUSH 5 ML FLUSH IV FLUSH SCH ×2 (10:55→21:37)
[2016-06-26] MEDS: PARoxetine 25 MG CONTROLLED RELEASE TAB PO SCH (10:59)
[2016-06-26 11:00] VITALS: BP 97/75; PULSE 102; RESP 20; TEMP 97.3; O2SAT 97
--- NOTE | 2016-06-26 14:42 | HHI.PR ---
Subjective Remarks Lethargic, mumbles.No complaints. Objective Vital Signs Date Time Temp Pulse Resp B/P Pulse Ox O2 Delivery O2 Flow Rate FiO2 06/26/16 11:00 97.3 102 20 97/75 97 06/26/16 07:15 99 06/26/16 07:05 96.6 103 20 92/69 97 06/26/16 04:00 97.5 108 20 101/68 95 06/26/16 02:00 119 06/25/16 23:44 97.9 119 20 99/60 93 06/25/16 21:05 112 06/25/16 20:00 97.7 117 20 103/71 98 I/O 06/25/16 06/25/16 06/25/16 06/26/16 06/26/16 06/26/16 07:00 15:00 23:00 07:00 15:00 23:00 Intake Total 240 ml 374 ml Output Total 300 ml 1850 ml Balance -300 ml -1610 ml 374 ml Intake Oral 240 ml IV Total 374 ml Output Urine Total 300 ml 1850 ml # Bowel Movements 0 Result Diagram: 06/26/16 0755 06/26/16 0755 Imaging Last [address] 06/25/16 0000 Signed Impressions: Service Date/Time: Saturday, June 25, 2016 05:08 - CONCLUSION: No acute findings. Stable appearance to the right hemispheric encephalomalacia and atrophy. Stable right maxillary sinus disease. Vazquez Medel MD Chest X-Ray 06/25/16 0000 Signed Impressions: Service Date/Time: Saturday, June 25, 2016 05:17 - CONCLUSION: Persistent, but improved, consolidation left lower lung. Vazquez Medel MD Objective Remarks GENERAL: Thin, well developed pt. SKIN: Warm and dry. HEAD: Normocephalic. EYES: No scleral icterus. No injection or drainage. NECK: Supple, trachea midline. No JVD or lymphadenopathy. CARDIOVASCULAR: Regular rate and rhythm with 1/6 murmur, no gallops, or rubs. RESPIRATORY: Breath sounds diminished bilaterally. No accessory muscle use. GASTROINTESTINAL: Abdomen soft, non-tender, nondistended. EXTREMITIES: No cyanosis, or edema. NEUROLOGICAL: Sleepy, arousable. Medications and IVs Current Medications Medications (Trade) Dose Ordered Sig/Curtis Route Start Time Stop Time Status Last Admin (D50w (Vial) Inj) 25 ml UNSCH PRN IV PUSH 06/19/16 22:45 (NovoLIN R SUPPLEMENTAL SCALE) 1 Q6HR SQ 06/20/16 00:00 06/25/16 11:44 (NS Flush) 2 ml UNSCH PRN IV FLUSH 06/19/16 22:45 (NS Flush) 2 ml BID IV FLUSH 06/20/16 09:00 06/26/16 10:55 (Protonix Inj) 40 mg DAILY IV 06/20/16 09:00 06/26/16 10:49 (Zofran Inj) 4 mg Q6H PRN IV 06/19/16 22:45 (Lactulose Liq) 30 ml Q6HR PO 06/20/16 00:00 06/26/16 11:00 (Heparin Inj) 5,000 units Q8H SQ 06/19/16 23:00 06/26/16 06:19 Miscellaneous Information 1 Q361D XX 06/19/16 22:45 (Chlorhexidine 2% Cloth) Taper DAILY@04 TOP 06/20/16 04:00 06/16/17 03:59 06/21/16 04:55 Chlorhexidine Gluconate 3 pack 3 pack UNSCH PRN TOP 06/19/16 22:45 Pharmacy Profile Note 0 ml @ 0 mls/hr UNSCH OTHER 06/19/16 22:45 Piperacillin Sod/ Tazobactam Sod 100 ml @ 200 mls/hr Q6H IV 06/20/16 04:00 06/26/16 10:50 (Vancomycin Inj/ NS 250 ml Inj) 250 ml @ 250 mls/hr Q12H IV 06/21/16 21:00 06/26/16 10:50 (Ativan) 0.5 mg Q6H PRN PO 06/21/16 19:00 06/22/16 23:03 (risperDAL) 0.5 mg Q12HR PO 06/23/16 21:00 06/26/16 10:54 (Namenda) 5 mg Q12HR PO 06/24/16 10:00 06/26/16 10:54 (Paxil Cr) 25 mg DAILY PO 06/25/16 09:00 06/26/16 10:59 (PHENobarbital) 60 mg Q8H PO 06/24/16 20:00 06/26/16 11:00 (KCl) 20 meq BID PO 06/25/16 21:00 06/26/16 10:49 (Eliquis) 5 mg BID PO 06/25/16 21:00 06/26/16 10:54 Miscellaneous Information SPECIFIC LAB TO BE LUCÍA... ONCE ONCE XX 06/26/16 20:45 06/26/16 20:46 Assessment and Plan Problem List: (1) Focal seizure Status: Acute Plan: Neuro following, anti-sx meds uptitrated. (2) Hypokalemia Status: Acute Plan: Remains hypokalemic despite replacement protocol. Increased daily supplement, decreasing IV lasix. (3) Altered mental status Status: Chronic Plan: History of vascular dementia. No longer agitated. (4) Pneumonia Status: Acute Plan: Improving on therapy. CXR showing improvement. (5) UTI (lower urinary tract infection) Status: Acute Plan: Repeat culture so far negative. Monitor. Assessment and Plan D/W RN, Dr. Martines. Problem Qualifiers (1) Altered mental status: Qualified Code: R41.0 - Disorientation (2) Pneumonia: Zoya Justin Jun 26, 2016 14:42
[2016-06-26 15:20] VITALS: BP 99/70; PULSE 104; RESP 20; TEMP 95.4; O2SAT 99
[2016-06-26] MEDS ORDERED: PHARMACY ORDERED LAB XX ONE (20:45)
[2016-06-26] MEDS: POTASSIUM CHLORIDE 10 MEQ CONTROLLED RELEASE TAB PO SCH (21:37)
[2016-06-27] VITALS (10 sets, daily range): BP systolic 93–109; BP diastolic 65–77; PULSE 93–153; RESP 16–20; TEMP 96.4–97.6; O2SAT 93–100
[2016-06-27] MEDS: INSULIN NovoLIN REGULAR SUPPLEMENTAL SCALE SQ SCH ×5 (00:08→23:42)
[2016-06-27] MEDS: LACTULOSE SYRUP 20 GM/30 ML CUP PO SCH ×5 (00:30→23:47)
[2016-06-27] MEDS: CHLORHEXIDINE GLUCONATE 2 % 1 PACK (2 CLOTHS) TOP SCH (04:00)
[2016-06-27] MEDS: PIPERACIL-TAZO 4.5 GM PREMIX 100 ML IV SCH ×3 (04:44→17:48)
[2016-06-27] MEDS: HEPARIN SODIUM - SQ 10,000 UNITS/ML VIAL SQ SCH ×3 (05:45→23:48)
--- NOTE | 2016-06-27 08:42 | HHI.PR ---
Review/Management Diagnosis/Plan: (1) Metabolic encephalopathy Plan: resolved repeat ct brain stable phb level stable pt likely to have ebbs and flows in mentation 2/2 cardiac dz, heart failure, central sleep apnea and vascular dementia f/u phb levels qweekly d/c planning from neuro outpatient f/u (2) Central sleep apnea due to [place] respiration Plan: ef 15-20% echo reviewed with rn this am (3) Seizures Plan: on phb needs sz med long-term f/u phb levels (4) Vascular dementia Plan: started namenda; could help memory and behavior (5) Central sleep apnea associated with atrial fibrillation (6) History of CVA with residual deficit Plan: rt mca resume eliquis (7) Atrial fibrillation Subjective Subjective Comments No acute events reported No headache No chest pain No dyspnea Active Medications Current Medications Medications (Trade) Dose Ordered Sig/Curtis Route Start Time Stop Time Status Last Admin (D50w (Vial) Inj) 25 ml UNSCH PRN IV PUSH 06/19/16 22:45 (NovoLIN R SUPPLEMENTAL SCALE) 1 Q6HR SQ 06/20/16 00:00 06/27/16 00:08 (NS Flush) 2 ml UNSCH PRN IV FLUSH 06/19/16 22:45 (NS Flush) 2 ml BID IV FLUSH 06/20/16 09:00 06/26/16 21:37 (Zofran Inj) 4 mg Q6H PRN IV 06/19/16 22:45 (Lactulose Liq) 30 ml Q6HR PO 06/20/16 00:00 06/27/16 04:44 (Heparin Inj) 5,000 units Q8H SQ 06/19/16 23:00 06/27/16 05:45 Miscellaneous Information 1 Q361D XX 06/19/16 22:45 (Chlorhexidine 2% Cloth) Taper DAILY@04 TOP 06/20/16 04:00 06/16/17 03:59 06/21/16 04:55 Chlorhexidine Gluconate 3 pack 3 pack UNSCH PRN TOP 06/19/16 22:45 Pharmacy Profile Note 0 ml @ 0 mls/hr UNSCH OTHER 06/19/16 22:45 Piperacillin Sod/ Tazobactam Sod 100 ml @ 200 mls/hr Q6H IV 06/20/16 04:00 06/27/16 04:44 (Vancomycin Inj/ NS 250 ml Inj) 250 ml @ 250 mls/hr Q12H IV 06/21/16 21:00 Hold 06/26/16 10:50 (Ativan) 0.5 mg Q6H PRN PO 06/21/16 19:00 06/22/16 23:03 (risperDAL) 0.5 mg Q12HR PO 06/23/16 21:00 06/26/16 21:36 (Namenda) 5 mg Q12HR PO 06/24/16 10:00 06/26/16 21:36 (Paxil Cr) 25 mg DAILY PO 06/25/16 09:00 06/26/16 10:59 (PHENobarbital) 60 mg Q8H PO 06/24/16 20:00 06/27/16 04:44 (Eliquis) 5 mg BID PO 06/25/16 21:00 06/26/16 21:36 (KCl) 30 meq BID PO 06/26/16 21:00 06/26/16 21:37 (Protonix) 40 mg DAILY PO 06/27/16 09:00 Allergies Allergies Coded Allergies Dilantin (Verified Allergy, Severe, 06/19/16) Lemon (Verified Allergy, Severe, EDEMA, 06/19/16) Sulfa (Verified Allergy, Severe, ANYYHING WITH IT IN IT AND I FALL OUT AND GET THE SHAKES, 06/19/16) AMARIS Inhibitors (Verified Allergy, Intermediate, ANGIOEDEMA, 06/19/16) MRI PRECAUTION (Verified Adverse Reaction, Severe, AICD PRESENT, 06/19/16) *MDRO Multi-Drug Resistant Organism (Verified Adverse Reaction, Unknown, ) Uncoded Allergies MUCINEX ( Allergy, Severe, CARDIAC INCIDENT, 09/18/13) Review of Systems All other ROS: ROS reviewed as documented in chart Exam I&O / VS 06/26/16 06/26/16 06/27/16 15:00 23:00 07:00 Intake Total 374 ml Output Total 200 ml 200 ml Balance 374 ml -200 ml -200 ml IV Total 374 ml Output Urine Total 200 ml 200 ml Vital Signs Date Time Temp Pulse Resp B/P Pulse Ox O2 Delivery O2 Flow Rate FiO2 06/27/16 07:30 96.4 103 20 103/69 100 06/27/16 04:00 97.5 105 20 104/72 93 06/27/16 00:19 100 06/27/16 00:00 97.6 107 16 93/65 97 06/26/16 15:20 95.4 104 20 99/70 99 06/26/16 11:00 97.3 102 20 97/75 97 General: Alert and Oriented, No acute distress Eye: PERRL, EOMI Respiratory: Lungs CTA, BS equal, Symmetrical expansion Cardiology: Normal rate, Regular Rhythm Neurologic: Alert, Oriented Psychiatric: Cooperative, Appropriate mood & affect Exam Comments alert ox 2. not to date, follows, slow speech, eomi, ou 3-2mm, left spastic hemiparesis ue>le Objective Micro and Labs Laboratory Tests Test 06/26/16 21:00 Vancomycin Level Trough 22.8 Date/Time Procedure Status Source Growth 06/25/16 01:10 Urine Culture - Preliminary Resulted Urine Catheterized Urine NO GROWTH IN 24 HOURS. Problem Qualifiers (1) Vascular dementia: Qualified Code: F01.50 - Vascular dementia without behavioral disturbance (2) Atrial fibrillation: Qualified Code: I48.91 - Atrial fibrillation, unspecified type Otis Whiting MD Jun 27, 2016 08:42
[2016-06-27 08:46] LABS: BICARBONATE 26.1 MEQ/L (21.0-32.0); POTASSIUM 3.7 MEQ/L (3.5-5.1)
[2016-06-27] MEDS: PARoxetine 25 MG CONTROLLED RELEASE TAB PO SCH (09:00)
[2016-06-27] MEDS: risperiDONE 0.25 MG TAB PO SCH ×2 (10:14→22:41)
[2016-06-27] MEDS: MEMANTINE HCL 5 MG TAB PO SCH ×2 (10:14→22:39)
[2016-06-27] MEDS: PANTOPRAZOLE SOD 40 MG DELAYED RELEASE TAB PO SCH (10:14)
[2016-06-27] MEDS: APIXABAN 5 MG TABLET PO SCH ×2 (10:14→22:40)
[2016-06-27] MEDS: POTASSIUM CHLORIDE 10 MEQ CONTROLLED RELEASE TAB PO SCH ×2 (10:15→22:40)
[2016-06-27] MEDS: VANCOMYCIN 1,000 MG/NS 250 ML IV SCH ×2 (10:15)
[2016-06-27] MEDS: SODIUM CHLORIDE 0.9% FLUSH 5 ML FLUSH IV FLUSH SCH ×2 (10:15→22:43)
--- NOTE | 2016-06-27 10:45 | HHI.PR ---
Subjective Remarks Awake, alert this a.m. Mildly confused. Objective Vital Signs Date Time Temp Pulse Resp B/P Pulse Ox O2 Delivery O2 Flow Rate FiO2 06/27/16 07:30 96.4 103 20 103/69 100 06/27/16 04:00 97.5 105 20 104/72 93 06/27/16 00:19 100 06/27/16 00:00 97.6 107 16 93/65 97 06/26/16 15:20 95.4 104 20 99/70 99 06/26/16 11:00 97.3 102 20 97/75 97 I/O 06/26/16 06/26/16 06/26/16 06/27/16 06/27/16 06/27/16 07:00 15:00 23:00 07:00 15:00 23:00 Intake Total 240 ml 374 ml Output Total 1850 ml 200 ml 200 ml Balance -1610 ml 374 ml -200 ml -200 ml Intake Oral 240 ml IV Total 374 ml Output Urine Total 1850 ml 200 ml 200 ml # Bowel Movements 0 Result Diagram: 06/26/16 0755 06/27/16 0730 Objective Remarks GENERAL: Thin, well developed pt. SKIN: Warm and dry. HEAD: Normocephalic. EYES: No scleral icterus. No injection or drainage. NECK: Supple, trachea midline. No JVD or lymphadenopathy. CARDIOVASCULAR: Regular rate and rhythm with 1/6 murmur, no gallops, or rubs. RESPIRATORY: Breath sounds diminished bilaterally. No accessory muscle use. GASTROINTESTINAL: Abdomen soft, non-tender, nondistended. EXTREMITIES: No cyanosis, or edema. NEUROLOGICAL: Awake, talkative, not oriented to place, purpose, time Medications and IVs Current Medications Medications (Trade) Dose Ordered Sig/Curtis Route Start Time Stop Time Status Last Admin (D50w (Vial) Inj) 25 ml UNSCH PRN IV PUSH 06/19/16 22:45 (NovoLIN R SUPPLEMENTAL SCALE) 1 Q6HR SQ 06/20/16 00:00 06/27/16 00:08 (NS Flush) 2 ml UNSCH PRN IV FLUSH 06/19/16 22:45 (NS Flush) 2 ml BID IV FLUSH 06/20/16 09:00 06/27/16 10:15 (Zofran Inj) 4 mg Q6H PRN IV 06/19/16 22:45 (Lactulose Liq) 30 ml Q6HR PO 06/20/16 00:00 06/27/16 04:44 (Heparin Inj) 5,000 units Q8H SQ 06/19/16 23:00 06/27/16 05:45 Miscellaneous Information 1 Q361D XX 06/19/16 22:45 (Chlorhexidine 2% Cloth) Taper DAILY@04 TOP 06/20/16 04:00 06/16/17 03:59 06/21/16 04:55 Chlorhexidine Gluconate 3 pack 3 pack UNSCH PRN TOP 06/19/16 22:45 Pharmacy Profile Note 0 ml @ 0 mls/hr UNSCH OTHER 06/19/16 22:45 Piperacillin Sod/ Tazobactam Sod 100 ml @ 200 mls/hr Q6H IV 06/20/16 04:00 06/27/16 10:16 (Vancomycin Inj/ NS 250 ml Inj) 250 ml @ 250 mls/hr Q12H IV 06/21/16 21:00 Hold 06/26/16 10:50 (Ativan) 0.5 mg Q6H PRN PO 06/21/16 19:00 06/22/16 23:03 (risperDAL) 0.5 mg Q12HR PO 06/23/16 21:00 06/27/16 10:14 (Namenda) 5 mg Q12HR PO 06/24/16 10:00 06/27/16 10:14 (Paxil Cr) 25 mg DAILY PO 06/25/16 09:00 06/27/16 09:00 (PHENobarbital) 60 mg Q8H PO 06/24/16 20:00 06/27/16 04:44 (Eliquis) 5 mg BID PO 06/25/16 21:00 06/27/16 10:14 (KCl) 30 meq BID PO 06/26/16 21:00 06/27/16 10:15 (Protonix) 40 mg DAILY PO 06/27/16 09:00 06/27/16 10:14 Assessment and Plan Problem List: (1) Focal seizure Status: Acute Plan: Neuro following, anti-sx meds uptitrated. Phb level stable. Stable for DC from Dr. Whiting's standpoint. (2) Hypokalemia Status: Acute Plan: K= 3.7 today on 30 meq BID. (3) Altered mental status Status: Chronic Plan: History of vascular dementia. No longer agitated. (4) Pneumonia Status: Acute Plan: Improving on therapy. CXR in a.m. Has been on broad spectrum abx since . D/C Zosyn, Vanco today. Start Ceftin in a.m. in prep for d/c. (5) UTI (lower urinary tract infection) Status: Acute Plan: Repeat culture negative. D/C abx.. (6) CHF exacerbation Status: Acute Plan: Stable improving. No edema. Converted Lasix to PO dosing BID in prep for d/c Assessment and Plan D/W RN, Dr. Martines. Problem Qualifiers (1) Altered mental status: Qualified Code: R41.0 - Disorientation (2) Pneumonia: Qualified Code: J18.1 - Pneumonia of left lower lobe due to infectious organism (3) CHF exacerbation: Qualified Code: I50.9 - Acute on chronic congestive heart failure, unspecified congestive heart failure type Zoya Justin Jun 27, 2016 10:44
[2016-06-27] MEDS: FUROSEMIDE 40 MG TAB PO SCH ×2 (12:31→17:49)
[2016-06-28 01:00] VITALS: BP 100/51; PULSE 95; RESP 18; TEMP 97.6; O2SAT 99
[2016-06-28] MEDS: CHLORHEXIDINE GLUCONATE 2 % 1 PACK (2 CLOTHS) TOP SCH (03:34)
[2016-06-28 04:00] VITALS: BP 98/73; PULSE 96; RESP 18; TEMP 97.2; O2SAT 98
[2016-06-28] MEDS: INSULIN NovoLIN REGULAR SUPPLEMENTAL SCALE SQ SCH (06:31)
[2016-06-28] MEDS: LACTULOSE SYRUP 20 GM/30 ML CUP PO SCH (06:31)
--- NOTE | 2016-06-28 07:13 | RADRPT ---
EXAM DATE/TIME: 06/28/2016 06:49 [facility] COMPARISON: CHEST PA & LAT, June 25, 2016, 5:17. INDICATIONS : Short of breath MEDICAL HISTORY : Congestive heart failure. SURGICAL HISTORY : Unknown ENCOUNTER: Subsequent ACUITY: 4 - 6 days PAIN SCORE: Non-responsive. LOCATION: Bilateral chest FINDINGS: PA and lateral views of the chest demonstrate density in the left lower lobe. Right lung clear. Heart enlarged. Left-sided defibrillator unchanged. The cardiomediastinal contours are unremarkable. Osse ous structures are intact. CONCLUSION: Left lower lobe density, stable. Cardiomegaly and left-sided defibrillator. Norberto Griggs MD on June 28, 2016 at 7:10 Board Certified Radiologist. This report was verified electronically.
[2016-06-28] MEDS: HEPARIN SODIUM - SQ 10,000 UNITS/ML VIAL SQ SCH (07:17)
--- NOTE | 2016-06-28 07:40 | HHI.PR ---
Review/Management Diagnosis/Plan: (1) Metabolic encephalopathy Plan: acute on chronic; has vascular dementia repeat ct brain stable exam stable phb level 20 pt likely to have ebbs and flows in mentation 2/2 cardiac dz, heart failure, central sleep apnea and vascular dementia f/u phb levels qweekly d/c planning from neuro outpatient f/u (2) Vascular dementia Plan: started namenda; could help memory and behavior (3) Central sleep apnea due to [place] respiration Plan: ef 15-20% echo reviewed with rn this am (4) Seizures Plan: on phb needs sz med long-term f/u phb levels (5) Central sleep apnea associated with atrial fibrillation (6) History of CVA with residual deficit Plan: rt mca resume eliquis (7) Atrial fibrillation Subjective Subjective Comments No acute events reported No headache No chest pain No dyspnea Active Medications Current Medications Medications (Trade) Dose Ordered Sig/Curtis Route Start Time Stop Time Status Last Admin (D50w (Vial) Inj) 25 ml UNSCH PRN IV PUSH 06/19/16 22:45 (NovoLIN R SUPPLEMENTAL SCALE) 1 Q6HR SQ 06/20/16 00:00 06/28/16 06:31 (NS Flush) 2 ml UNSCH PRN IV FLUSH 06/19/16 22:45 (NS Flush) 2 ml BID IV FLUSH 06/20/16 09:00 06/27/16 22:43 (Zofran Inj) 4 mg Q6H PRN IV 06/19/16 22:45 (Lactulose Liq) 30 ml Q6HR PO 06/20/16 00:00 06/28/16 06:31 (Heparin Inj) 5,000 units Q8H SQ 06/19/16 23:00 06/28/16 07:17 Miscellaneous Information 1 Q361D XX 06/19/16 22:45 (Chlorhexidine 2% Cloth) Taper DAILY@04 TOP 06/20/16 04:00 06/16/17 03:59 06/21/16 04:55 (Chlorhexidine 2% Cloth) 3 pack UNSCH PRN TOP 06/19/16 22:45 (Ativan) 0.5 mg Q6H PRN PO 06/21/16 19:00 06/22/16 23:03 (risperDAL) 0.5 mg Q12HR PO 06/23/16 21:00 06/27/16 22:41 (Namenda) 5 mg Q12HR PO 06/24/16 10:00 06/27/16 22:39 (Paxil Cr) 25 mg DAILY PO 06/25/16 09:00 06/27/16 09:00 (PHENobarbital) 60 mg Q8H PO 06/24/16 20:00 06/27/16 22:40 (Eliquis) 5 mg BID PO 06/25/16 21:00 06/27/16 22:40 (KCl) 30 meq BID PO 06/26/16 21:00 06/27/16 22:40 (Protonix) 40 mg DAILY PO 06/27/16 09:00 06/27/16 10:14 (Lasix) 40 mg BID@09,18 PO 06/27/16 12:00 06/27/16 17:49 (Ceftin) 500 mg Q12HR PO 06/28/16 09:00 07/04/16 21:00 Allergies Allergies Coded Allergies Dilantin (Verified Allergy, Severe, 06/19/16) Lemon (Verified Allergy, Severe, EDEMA, 06/19/16) Sulfa (Verified Allergy, Severe, ANYYHING WITH IT IN IT AND I FALL OUT AND GET THE SHAKES, 06/19/16) AMARIS Inhibitors (Verified Allergy, Intermediate, ANGIOEDEMA, 06/19/16) MRI PRECAUTION (Verified Adverse Reaction, Severe, AICD PRESENT, 06/19/16) *MDRO Multi-Drug Resistant Organism (Verified Adverse Reaction, Unknown, ) Uncoded Allergies MUCINEX ( Allergy, Severe, CARDIAC INCIDENT, 09/18/13) Review of Systems All other ROS: ROS reviewed as documented in chart Exam I&O / VS 06/27/16 06/27/16 06/28/16 15:00 23:00 07:00 Intake Total 60 ml Output Total 400 ml 900 ml Balance 60 ml -400 ml -900 ml Intake Oral 60 ml Output Urine Total 400 ml 900 ml Vital Signs Date Time Temp Pulse Resp B/P Pulse Ox O2 Delivery O2 Flow Rate FiO2 06/28/16 04:00 97.2 96 18 98/73 98 06/28/16 01:00 97.6 95 18 100/51 99 06/27/16 22:46 153 06/27/16 20:00 97.4 106 20 106/72 98 06/27/16 18:06 103 06/27/16 15:35 96.7 107 20 109/69 100 06/27/16 11:35 96.7 106 20 107/77 100 06/27/16 08:45 93 General: Alert and Oriented, No acute distress Eye: PERRL, EOMI Respiratory: Lungs CTA, BS equal, Symmetrical expansion Cardiology: Normal rate, Regular Rhythm Neurologic: Alert, Oriented Psychiatric: Cooperative, Appropriate mood & affect Exam Comments alert ox 2. not to date, follows, speech better, eomi, ou 3-2mm, left spastic hemiparesis ue>le Objective Micro and Labs Date/Time Procedure Status Source Growth 06/25/16 01:10 Urine Culture - Final Complete Urine Catheterized Urine NO GROWTH IN 48 HOURS. Problem Qualifiers (1) Vascular dementia: Qualified Code: F01.50 - Vascular dementia without behavioral disturbance (2) Atrial fibrillation: Qualified Code: I48.91 - Atrial fibrillation, unspecified type Otis Whiting MD Jun 28, 2016 07:40
[2016-06-28 08:00] VITALS: BP 107/76; PULSE 102; RESP 16; TEMP 95.8; O2SAT 98
[2016-06-28] MEDS: SODIUM CHLORIDE 0.9% FLUSH 5 ML FLUSH IV FLUSH SCH (09:00)
[2016-06-28] MEDS ORDERED: CEFUROXIME AXETIL 500 MG TAB PO SCH (09:00)
[2016-06-28] MEDS: risperiDONE 0.25 MG TAB PO SCH (09:43)
[2016-06-28] MEDS: POTASSIUM CHLORIDE 10 MEQ CONTROLLED RELEASE TAB PO SCH (09:43)
[2016-06-28] MEDS: PANTOPRAZOLE SOD 40 MG DELAYED RELEASE TAB PO SCH (09:43)
[2016-06-28] MEDS: PARoxetine 25 MG CONTROLLED RELEASE TAB PO SCH (09:43)
[2016-06-28] MEDS: MEMANTINE HCL 5 MG TAB PO SCH (09:44)
[2016-06-28] MEDS: APIXABAN 5 MG TABLET PO SCH (09:44)
[2016-06-28] MEDS: FUROSEMIDE 40 MG TAB PO SCH (09:44)
[2016-06-28] MEDS ORDERED: NAME5TAB2 PO (09:54)
[2016-06-28] MEDS ORDERED: FURO1TAB60 PO (09:54)
[2016-06-28] MEDS ORDERED: PAXI25TA5 PO (09:54)
--- NOTE | 2016-06-28 09:58 | HHI.DS ---
Discharge Summary Admission Date Jun 19, 2016 at 22:28 Admitting Diagnosis Septic Shock (PNA), CHF, AMS (1) Generalized weakness (2) Seizure disorder Brief History Admitted with septic shock, PNA, CHF and AMS she was treated by critical care medicine, neurology and stabilized. CBC/BMP: 06/26/16 0755 06/27/16 0730 Significant Findings Laboratory Tests Test 06/25/16 06/26/16 06/26/16 06/27/16 13:30 07:55 21:00 07:30 Mean Corpuscular Volume 78.7 FL 79.1 FL (80.0-100.0) (80.0-100.0) Mean Corpuscular Hemoglobin 25.8 PG 25.2 PG (27.0-34.0) (27.0-34.0) Red Cell Distribution Width 17.7 % 17.4 % (11.6-17.2) (11.6-17.2) Neutrophils (%) (Auto) 71.9 % (16.0-70.0) Monocytes (%) (Auto) 10.1 % (0.0-8.0) Mean Corpuscular Hemoglobin 31.8 % Concent (32.0-36.0) Potassium Level 3.2 MEQ/L (3.5-5.1) Estimat Glomerular Filtration 86 ML/MIN (>89) Rate Random Glucose 149 MG/DL 142 MG/DL (74-106) (74-106) Calcium Level 8.3 MG/DL 8.0 MG/DL (8.5-10.1) (8.5-10.1) Vancomycin Level Trough 22.8 MCG/ML (5.0-10.0) PE at Discharge GENERAL: Thin, well developed pt. SKIN: Warm and dry. HEAD: Normocephalic. EYES: No scleral icterus. No injection or drainage. NECK: Supple, trachea midline. No JVD or lymphadenopathy. CARDIOVASCULAR: Regular rate and rhythm with 1/6 murmur, no gallops, or rubs. RESPIRATORY: Breath sounds diminished bilaterally. No accessory muscle use. GASTROINTESTINAL: Abdomen soft, non-tender, nondistended. EXTREMITIES: No cyanosis, or edema. NEUROLOGICAL: Awake, talkative, not oriented to place, purpose, time Hospital Course Admitted with septic shock, PNA, CHF and AMS she was treated by critical care medicine, neurology and stabilized. She was given antibiotics and seizure medicine was titrated. On 06/28 she was tolerating PO antibiotics and was deemed stable for discharge back to [facility] to continue therapy in stable condition where she will be followed by Dr. Martines. Pt Condition on Discharge: Stable Discharge Disposition: Discharge to SNF Discharge Instructions DIET: Follow Instructions for: Heart Healthy Diet Speech Therapy-Diet Recommenda: Pureed Activities you can perform: Regular-No Restrictions New Medications: Furosemide (Lasix) 40 Mg Tab 40 MG PO BID@,18 Dyspnea #60 TAB Memantine (Namenda) 5 Mg Tab 5 MG PO Q12HR dementia #60 TAB Paroxetine ER (Paxil CR) 25 Mg Tab 25 MG PO DAILY Depression Control #30 TAB Continued Medications: Apixaban (Eliquis) 5 Mg Tab 5 MG PO BID Blood Clot Prevention #60 Ref 0 TAB Aspirin (Aspirin) 81 Mg Tabdr 81 MG PO DAILY TAB Atorvastatin (Lipitor) 80 Mg Tab 80 MG PO HS Cholesterol Management #30 Ref 0 TAB Azithromycin (Zithromax) 250 Mg Tab 250 MG PO DAILY Infection Ref 0 TAB Bisacodyl Supp (Dulcolax Supp) 10 Mg Supp 10 MG RECTAL DAILY PRN CONSTIPATION #12 Ref 0 SUPP Carvedilol (Coreg) 6.25 Mg Tab 6.25 MG PO BID #60 Ref 0 TAB Cefuroxime (Ceftin) 500 Mg Tab 500 MG PO BID Infection Ref 0 TAB Digoxin (Digoxin) 0.125 Mg Tab 0.125 MG PO DAILY cardiomyopathy Days 30 Ref 0 TAB Ferrous Sulfate (Ferrous Sulfate) 325 Mg Tab 325 MG PO BID Nutritional Supplement #30 Ref 0 TAB Folic Acid (Folate) 1 Mg Tab 1 MG PO DAILY Nutritional Supplement Ref 0 TAB Insulin Human Regular Inj (Novolin R Inj) 1,000 Unit/10 Ml Vial 1 UNITS SQ ACHS accu-check AC/HS with regular insulin coverage; 150-200 one unit 201-250 three units 251-300 five units 301-350 seven units 351-400 nine units inform PCP if < 70 or > 400. diabetes Days 30 Ref 0 INJECTION Ipratropium-Albuterol Neb (Duoneb) 0.5-2.5 Mg/3 Ml Neb 1 NEBULE INH Q4HR NEB SHORTNESS OF BREATH #120 Ref 0 NEBULE Lactulose Liq (Lactulose Liq) 10 Gm/15 Ml Soln 15 ML PO Q6H PRN CONSTIPATION Ref 0 ML Magnesium Hydroxide Liq (Milk of Magnesia Liq) 400 Mg/5 Ml Susp 30 ML PO DAILY PRN INDIGESTION OR UPSET STOMACH #1 Ref 0 BOTTLE Multiple Vitamin (Thera/Beta-Carotene) 1 Tab Tab 1 TAB PO DAILY vitamin supplement Days 30 Ref 0 TAB Pantoprazole (Pantoprazole) 40 Mg Tab 40 MG PO DAILY Reflux #30 Ref 0 TAB Spironolactone (Spironolactone) 25 Mg Tab 25 MG PO DAILY #30 Ref 0 TAB Discontinued Medications: Duloxetine DR (Duloxetine DR) 60 Mg Capdr 60 MG PO DAILY #30 Ref 0 CAP Furosemide (Lasix) 20 Mg Tab 40 MG PO DAILY #30 Ref 0 TAB Lacosamide (Vimpat) 200 Mg Tab 200 MG PO BID Control Seizures #60 Ref 0 TAB Phenobarbital (Phenobarbital) 32.4 Mg Tab 32.4 MG PO Q12HR seizure Days 30 Ref 0 TAB Spironolactone (Aldactone) 25 Mg Tab 25 MG PO DAILY #30 Ref 0 TAB Tuberculin Ppd (Aplisol) 5 Unit/0.1 Ml Inj Zoya Justin Jun 28, 2016 09:58
[2016-08-02] MEDS ORDERED: VIMP200T PO (10:53)
[2016-08-02] MEDS ORDERED: DULO1CAP3 PO (10:53)
[2016-08-02] MEDS ORDERED: PHEN-414 PO (10:58)
[2016-08-02] MEDS ORDERED: FOLI1TAB4 PO (10:58)
[2016-08-02] MEDS ORDERED: IPRASOL INH (10:58)
[2016-08-02] MEDS ORDERED: APIX5TAB PO (10:58)
[2016-08-02] MEDS ORDERED: DIGO0.12 PO (10:58)
[2016-08-02] MEDS ORDERED: NAME5TAB2 PO (10:58)
[2016-08-02] MEDS ORDERED: FURO1TAB60 PO (10:58)
[2016-08-02] MEDS ORDERED: FERR325T PO (10:58)
[2016-08-02] MEDS ORDERED: SPIR25TA PO (10:58)
[2016-08-02] MEDS ORDERED: ASPI1TAB69 PO (10:58)
[2016-08-02] MEDS ORDERED: LIPI80TA PO (10:58)
[2016-08-02] MEDS ORDERED: CARV6.25 PO (10:58)
[2016-08-23] MEDS ORDERED: METF500T PO (10:24)
[2016-08-23] MEDS ORDERED: MEMA1TAB2 PO (10:34)
[2016-08-30] MEDS ORDERED: PANT40TA3 PO (08:58)
[2016-11-30] MEDS ORDERED: PANT40TA3 PO (08:42)
== END 2016-06-28 12:02 | DRG 871 ==
LOC: NEPE 20:13 → NEDA 22:28 → N03A 06-20 01:30 → N05B 06-21 23:55
PROVIDERS: ADMIT Internal Medicine Critical Care Medicine; ATTEND Internal Medicine Critical Care Medicine
PROC: 5A09357 Assistance with Respiratory Ventilation, Less than 24 Consecutive Hours, Continuous Positive Airway Pressure (ICD-10-PCS; principal; 2016-06-19)
DX: A41.9 Sepsis, unspecified organism (principal); J96.01 Acute respiratory failure with hypoxia; R65.21 Severe sepsis with septic shock; G93.41 Metabolic encephalopathy; I50.23 Acute on chronic systolic (congestive) heart failure; I11.0 Hypertensive heart disease with heart failure; J18.9 Pneumonia, unspecified organism; I47.2 Ventricular tachycardia; E87.2 Acidosis; N39.0 Urinary tract infection, site not specified; I69.354 Hemiplegia and hemiparesis following cerebral infarction affecting left non-dominant side; K72.90 Hepatic failure, unspecified without coma; K76.1 Chronic passive congestion of liver; I48.91 Unspecified atrial fibrillation; I27.81 Cor pulmonale (chronic); G40.909 Epilepsy, unspecified, not intractable, without status epilepticus; F01.50 Vascular dementia, unspecified severity, without behavioral disturbance, psychotic disturbance, mood disturbance, and anxiety; G47.31 Primary central sleep apnea; E87.6 Hypokalemia; E11.9 Type 2 diabetes mellitus without complications; K21.9 Gastro-esophageal reflux disease without esophagitis; R47.81 Slurred speech; I44.0 Atrioventricular block, first degree; F32.9 Major depressive disorder, single episode, unspecified; F41.9 Anxiety disorder, unspecified; Z79.01 Long term (current) use of anticoagulants; Z79.4 Long term (current) use of insulin; Z86.14 Personal history of Methicillin resistant Staphylococcus aureus infection; Z86.74 Personal history of sudden cardiac arrest; Z88.2 Allergy status to sulfonamides; Z95.810 Presence of automatic (implantable) cardiac defibrillator; Z78.1 Physical restraint status
CPT/HCPCS: 36600; 51702; 70450; 71010; 71020; 76937; 80048; 80053; 80076; 80184; 80202; 81001; 82140; 82550; 82805; 82948; 83605; 83690; 83735; 83880; 84100; 84484; 85007; 85025; 85027; 85610; 85730; 86403; 87040; 87077; 87086; 87186; 87641; 87804; 93005; 94002; 94003; 94150; 94640; 94664; 94667; 94668; 95819; 96365; 96375; C9113; J0456; J1644; J1940; J2543; J2930; J3370; J3475; J3480; J7030; J7040; J7050

== ENCOUNTER 2016-08-25 11:16 | Emergency (ER) | payer MEDICARE, OTHER ==
[~2016-08-25] VITALS: Ht 162.6 cm; Wt 63.0 kg
[~2016-08-25 11:16] MED LIST changes: +ASPI1TAB69 PO; -Aspirin Chew PO; +CARV6.25 PO; -CARV6.252 PO; +FURO1TAB60 PO; -FURO1TAB62 PO; +IPRASOL INH; -LACO100 PO; -LACT10SO PO; +MEMA1TAB2 PO; +METF500T PO; -MILKSUS PO; -NOVORP2 SQ; +VIMP200T PO
[2016-08-25 11:28] VITALS: BP 120/81; PULSE 94; RESP 12; TEMP 97.7; O2SAT 97
[2016-08-25 11:31] VITALS: BP 111/65; PULSE 94; RESP 16; O2SAT 97
--- NOTE | 2016-08-25 11:52 | PD ---
HPI Chief Complaint: Seizure Time Seen by Provider: 11:45 Travel History International Travel<30 days: No Contact w/Intl Traveler<30days: No Traveled to known affect area: No History of Present Illness HPI 51-year-old female that presents to the ED for evaluation of possible seizure. Patient came here by ambulance for evaluation of this. Patient has a chronic history of seizures and takes Phenergan about for this. Per patient she is compliant with his medication. Apparently one hour before coming patient had a seizure that lasted about 3 minutes. Patient had an hour before this happened. No head injury or loss of consciousness. Patient has a chronic history of CVA and has left-sided deficits which is chronic for her. She is for the most part bedridden. She denies any pain of any kind. She appears to be alert and oriented to person place and time as well as illness. She answers questions of properly. She does have history of heart disease and liver cirrhosis taking lactulose, digoxin, phenobarbital and other medications. Again she states that she is compliant. She denies any other medical problems. She did throw up. On examination patient appears to be back to herself. Again she denies any pain or any complaints of any kind. No obvious sign of trauma noted. PFSH Past Medical History Hx Anticoagulant Therapy: Yes (ELIQUIS) Asthma: No Atrial Fibrillation: Yes Anxiety: Yes Depression: Yes (COMPLICATED GRIEF ) Heart Rhythm Problems: Yes (DEFIBRILLATOR PLACED 2 YRS AGO) Cancer: No Cardiovascular Problems: Yes (CHF / CARDIOMYOPATHY) High Cholesterol: No Chemotherapy: No Chest Pain: No Congestive Heart Failure: Yes COPD: No Cerebrovascular Accident: Yes Diabetes: Yes (TYPE II) Diminished Hearing: No Endocrine: Yes Gastrointestinal Disorders: Yes (ACID REFLUX) GERD: Yes Genitourinary: No Hepatitis: No Hypertension: Yes Immune Disorder: No Implanted Vascular Access Dvce: Yes Neurologic: Yes Psychiatric: Yes (ANXIETY ) Reproductive: No Respiratory: Yes Immunizations Current: Yes Radiation Therapy: No Seizures: Yes Thyroid Disease: Yes ?: Not : 1 Para: 1 Past Surgical History AICD: Yes (MailTime) Body Medical Devices: DEBRILLATOR, MARKER IN BILATERAL BREAST Cardiac Surgery: Yes (DEFIBRILATOR 2002, DEFIBRILATOR REPLACED 03/2010) Section: Yes (1984) Gynecologic Surgery: Yes ( ) Neurologic Surgery: Yes (CRANIOTOMY) Thoracic Surgery: Yes (MARKERS PLACED BILATERAL BREAST) Other Surgery: Yes Social History Alcohol Use: No Tobacco Use: No Substance Use: No Allergies-Medications (Allergen,Severity, Reaction): Coded Allergies: Dilantin (Verified Allergy, Severe, 08/25/16) Lemon (Verified Allergy, Severe, EDEMA, 08/25/16) Sulfa (Verified Allergy, Severe, ANYYHING WITH IT IN IT AND I FALL OUT AND GET THE SHAKES, 08/25/16) AMARIS Inhibitors (Verified Allergy, Intermediate, ANGIOEDEMA, 08/25/16) CONFIRMED OF 01/03/2010 MRI PRECAUTION (Verified Adverse Reaction, Severe, AICD PRESENT, 08/25/16) AICD PRESENT 11/23/13 JLA *MDRO Multi-Drug Resistant Organism (Verified Adverse Reaction, Unknown, ) MRSA (urine & sputum) - 2013 MRSA PCR Screen POSITIVE - 04/08/16 Uncoded Allergies: MUCINEX (Allergy, Severe, CARDIAC INCIDENT, 09/18/13) Reported Meds & Prescriptions Reported Meds & Active Scripts Active Memantine 10 Mg Tab 10 Mg PO BID Metformin (Metformin HCl) 500 Mg Tab 500 Mg PO BIDPC With meals Phenobarbital 32.4 Mg Tab 32.4 Mg PO BID Lasix (Furosemide) 40 Mg Tab 40 Mg PO BID@ Duoneb (Ipratropium-Albuterol Neb) 0.5-2.5 Mg/3 Ml Neb 1 Nebule INH Q4HR NEB Coreg (Carvedilol) 6.25 Mg Tab 6.25 Mg PO BID Aspirin 81 Mg Tabdr 81 Mg PO DAILY Digoxin 0.125 Mg Tab 0.125 Mg PO DAILY Lipitor (Atorvastatin Calcium) 80 Mg Tab 80 Mg PO HS Eliquis (Apixaban) 5 Mg Tab 5 Mg PO BID Folate (Folic Acid) 1 Mg Tab 1 Mg PO DAILY Ferrous Sulfate 325 Mg Tab 325 Mg PO BID Spironolactone 25 Mg Tab 25 Mg PO DAILY Vimpat (Lacosamide) 200 Mg Tab 200 Mg PO BID Duloxetine DR (Duloxetine HCl) 60 Mg Capdr 60 Mg PO DAILY Thera/Beta-Carotene (Multiple Vitamin) 1 Tab Tab 1 Tab PO DAILY 30 Days Reported Dulcolax Supp (Bisacodyl) 10 Mg Supp 10 Mg RECTAL DAILY PRN Pantoprazole (Pantoprazole Sodium) 40 Mg Tab 40 Mg PO DAILY Review of Systems General / Constitutional: No: Fever, Chills, Weight Gain, Weight Loss, Other Eyes: No: Diploplia, Blurred Vision, Photophobia, Drainage, Redness, Foreign Body Sensation, Pain, Tearing, Blind Spots, Visual changes, Blindness, Other HENT: No: Headaches, Vertigo, Lightheadedness, Sore Throat, Rhinitis, Rhinorrhea, Congestion, Nosebleed, Neck Stiffness, Neck Pain, Masses, Gingival Bleeding, Dental Difficulties, Ear Discharge, Earache, Other Cardiovascular: No: Chest Pain or Discomfort, Palpitations, Irregular Rhythm, Tachycardia, Diaphoresis, Syncope, Dyspnea on exertion, Varicosities, Edema, Cyanosis, Varicosities, Phlebitis, Claudication, Other Respiratory: No: Cough, Shortness of Breath, Wheezing, Sneezing, Orthopnea, Hemoptysis, Stridor, Night Sweats, Pleuritic Pain, Other Gastrointestinal: No: Nausea, Vomiting, Diarrhea, Abdominal Pain, Hematemesis, Hematochezia, Constipation, Changes in Bowel Habits, Indigestion, Dysphagia, Loss of Appetite, Other Genitourinary: No: Urgency, Frequency, Dysuria, Nocturia, Hematuria, Decreased Urinary Output, Oliguria, Hesitancy, Dribbling, Incontinence, Pelvic Pain, Flank Pain, Dyspareunia, Discharge, Dysmenorrhea, Menorrhagia, Metorrhagia, Vaginal Bleeding, Other Musculoskeletal: Positive: Weakness, No: Myalgias, Arthralgias, Limited ROM, Cramping, Edema, Pain, Atrophy, Other Skin: No Rash, No Itching, No Dryness, No Lumps, No Hives, No Change in Pigmentation, No Change in nails, No Alopecia, No Lesions, No Breast Lumps, No Breast Tenderness, No Breast Swelling, No Other Neurologic: Positive: Weakness, Focal Abnormalities (chronic), Seizures, No: Dizziness, Syncope, Coordination Problem, Tremor, Ataxia, Headache, Change in Mentation, Slurred Speech, Paresthesia, Incontinence, Sensory Disturbance, Other Psychiatric: No: Anxiety, Depression, Suicidal Ideations, Disorder of Thought, Mood Disorder, Substance Abuse, Homicidal Ideation, Other Endocrine: No: Heat Intolerance, Cold Intolerance, Polyuria, Polydipsia, Other Hematologic/Lymphatic: No: Easy Bruising, Lymph Node Enlargement, Other Physical Exam Narrative GENERAL: SKIN: Warm and dry. HEAD: Atraumatic. Normocephalic. EYES: Pupils equal and round 4 mm reactive to light and accommodation. No scleral icterus. No injection or drainage. ENT: No nasal bleeding or discharge. Mucous membranes pink and moist. Tongue is midline. No uvula deviation. NECK: Trachea midline. No JVD. CARDIOVASCULAR: Regular rate and rhythm. No murmurs, S3, S4. RESPIRATORY: No accessory muscle use. Clear to auscultation. Breath sounds equal bilaterally. GASTROINTESTINAL: Abdomen soft, non-tender, nondistended. Hepatic and splenic margins not palpable. MUSCULOSKELETAL: Extremities without clubbing, cyanosis, or edema. No obvious deformities. Full range of motion of the right upper and right lower extremity. Patient has obvious neurological deficit on the left side on the left arm and left leg which is chronic. Patient does not have as much control. Weakness noted in this side. She does have 2+ pulses bilaterally. No sign of trauma. NEUROLOGICAL: Awake and alert. No obvious cranial nerve deficits. Motor grossly within normal limits. Five out of 5 muscle strength in the arms and legs. Normal speech. PSYCHIATRIC: Appropriate mood and affect; insight and judgment normal. Data Data Last Documented VS Vital Signs Date Time Temp Pulse Resp B/P Pulse Ox O2 Delivery O2 Flow Rate FiO2 08/25/16 11:31 94 16 111/65 97 Room Air 08/25/16 11:28 97.7 Orders Complete Blood Count With Diff (08/25/16 11:30) Comprehensive Metabolic Panel (08/25/16 11:30) Ckmb (Isoenzyme) Profile (08/25/16 11:30) Troponin I (08/25/16 11:30) Prothrombin Time / Inr (Pt) (08/25/16 11:30) Act Partial Throm Time (Ptt) (08/25/16 11:30) Blood Culture (08/25/16 11:30) Urinalysis - C+S If Indicated (08/25/16 11:30) Magnesium (Mg) (08/25/16 11:30) Digoxin (08/25/16 11:30) Phenobarbital (08/25/16 11:30) Ammonia (08/25/16 11:30) Thyroid Stimulating Hormone (08/25/16 11:30) Chest, Single Ap (08/25/16 11:30) Ct Brain W/O Iv Contrast(Rout) (08/25/16 11:30) Iv Access Insert/Monitor (08/25/16 11:30) Ecg Monitoring (08/25/16 11:30) Oximetry (08/25/16 11:30) Salicylates (Aspirin) (08/25/16 11:30) Tylenol (Acetaminophen) (08/25/16 11:30) Urine Culture (08/25/16 12:45) Electrocardiogram (08/25/16 ) Labs Laboratory Tests Test 08/25/16 08/25/16 08/25/16 08/25/16 11:55 12:10 12:45 12:55 Prothrombin Time 16.1 SEC Prothromb Time International 1.4 RATIO Ratio Activated Partial 28.5 SEC Thromboplast Time Sodium Level 139 MEQ/L Potassium Level 4.3 MEQ/L Chloride Level 105 MEQ/L Carbon Dioxide Level 24.7 MEQ/L Anion Gap 9 MEQ/L Blood Urea Nitrogen 16 MG/DL Creatinine 0.56 MG/DL Estimat Glomerular Filtration 139 ML/MIN Rate Random Glucose 169 MG/DL Calcium Level 8.5 MG/DL Magnesium Level 1.4 MG/DL Total Bilirubin 0.4 MG/DL Aspartate Amino Transf 58 U/L (AST/SGOT) Alanine Aminotransferase 50 U/L (ALT/SGPT) Alkaline Phosphatase 166 U/L Ammonia 40 MCMOL/L Total Creatine Kinase 60 U/L Troponin I 0.02 NG/ML Total Protein 7.3 GM/DL Albumin 2.6 GM/DL Thyroid Stimulating Hormone 1.520 uIU/ML 3rd Gen Digoxin Level 1.3 NG/ML Salicylates Level LESS THAN 1.7 MG/DL Acetaminophen Level LESS THAN 2.0 MCG/ML Phenobarbital Level 22.3 MCG/ML Urine Color YELLOW Urine Turbidity CLEAR Urine pH 6.0 Urine Specific [place] 1.020 Urine Protein 100 mg/dL Urine Glucose (UA) NEG mg/dL Urine Ketones NEG mg/dL Urine Occult Blood NEG Urine Nitrite NEG Urine Bilirubin NEG Urine Urobilinogen 2.0 MG/DL Urine Leukocyte Esterase SMALL Urine RBC 1 /hpf Urine WBC 12 /hpf Urine Squamous Epithelial 1 /hpf Cells Urine Hyaline Casts 6 /lpf Urine Mucus FEW /lpf Microscopic Urinalysis Comment CULTURE INDICATED White Blood Count 6.7 TH/MM3 Red Blood Count 5.34 MIL/MM3 Hemoglobin 13.4 GM/DL Hematocrit 41.4 % Mean Corpuscular Volume 77.6 FL Mean Corpuscular Hemoglobin 25.2 PG Mean Corpuscular Hemoglobin 32.4 % Concent Red Cell Distribution Width 14.6 % Platelet Count 169 TH/MM3 Mean Platelet Volume 9.7 FL Neutrophils (%) (Auto) 75.6 % Lymphocytes (%) (Auto) 16.3 % Monocytes (%) (Auto) 6.0 % Eosinophils (%) (Auto) 1.5 % Basophils (%) (Auto) 0.6 % Neutrophils # (Auto) 5.0 TH/MM3 Lymphocytes # (Auto) 1.1 TH/MM3 Monocytes # (Auto) 0.4 TH/MM3 Eosinophils # (Auto) 0.1 TH/MM3 Basophils # (Auto) 0.0 TH/MM3 CBC Comment DIFF FINAL Differential Comment MDM Medical Decision Making Medical Screen Exam Complete: Yes Emergency Medical Condition: Yes Medical Record Reviewed: Yes Interpretation(s) Last Impressions Head CT 08/25/16 1130 Signed Impressions: Service Date/Time: Thursday, August 25, 2016 11:45 - CONCLUSION: 1. Old, large area of infarct involving the right MCA distribution stable compared to prior exam. 2. Postsurgical changes within the skull. 3. No acute intracranial hemorrhage. Warner Pritchard MD Chest X-Ray 08/25/16 1130 Signed Impressions: Service Date/Time: Thursday, August 25, 2016 11:40 - CONCLUSION: 1. Left basilar consolidation/effusion. This may be slightly improved when compared to the prior, however. 2. Right lung remains clear. 3. Compensated cardiomegaly.. Radames Scott MD CBC & BMP Diagram 08/25/16 12:10 08/25/16 12:55 [place] of 40 salycilates, tylenol and phenobarbitals WNL LFTs WNL troponin and CKMB negative UA showed possible UTI Differential Diagnosis Seizure versus seizure disorder versus electrolyte abnormality versus medication side effect versus sepsis versus pneumonia versus CVA versus normal exam Narrative Course 51-year-old female that presents to the ED for evaluation of seizure. Patient was properly examined and was found to have signs and symptoms very consistent what appears to be seizure. I did review patient's medical records and she does have multiple chronic medical illnesses which could precipitate her seizure disorder. At this time I do recommend labs and imaging. My attending agrees with this. Labs and imaging showed possible consolidation on the left side of the lung. Possible UTI as well until from urinalysis does not appear to be UTI to me. Case was discussed in my attending who recommends speaking with family and seen with her family feel comfortable having the patient back home. I spoke with both patient and the family member and they both are agreeable to send him home. Patient will given prescription for Cipro to cover for UTI and possible consolidation which could be pneumonia. Per the x-ray this appears to be improved from prior. Patient does not really have WBC count. My attending recommends starting patient on antibiotic to cover for both the UTI and possible pneumonia although less likely again. Patient is agreeable with this. Patient was told to follow closely with PCP. See ED worsening symptoms. Patient has home health at home. Case management will be consulted to have patient transferred to home. Diagnosis Primary Impression: Seizure disorder Additional Impressions: Cystitis Lung consolidation Patient Instructions: General Instructions Additional Instructions: Take medications as prescribed. Follow-up with PCP. See ED for any worsening symptoms. Med/Other Pt SpecificInfo: Prescription(s) given Disposition: 01 DISCHARGE HOME Condition: Stable [place] Aug 25, 2016 11:51
--- NOTE | 2016-08-25 12:14 | RADRPT ---
EXAM DATE/TIME: 08/25/2016 11:40 [facility] COMPARISON: CHEST SINGLE AP, June 19, 2016, 20:48. INDICATIONS : Rib pain. MEDICAL HISTORY : Seizures. Cardiovascular disease Congestive heart failure, stroke. SURGICAL HISTORY : Pacemaker. Craniotomy. ENCOUNTER: Initial ACUITY: 1 day PAIN SCORE: 0/10 LOCATION: Bilateral chest FINDINGS: A single view of the chest demonstrates the lungs left basilar atelectasis with possible small effusi on. This actually show some improvement from the prior, however. Right lung is clear. Heart size is p rominent accounting for low lung volumes. Left subclavian bipolar pacer is radiographically intact. O sseous structures are intact. CONCLUSION: 1. Left basilar consolidation/effusion. This may be slightly improved when compared to the prior, how ever. 2. Right lung remains clear. 3. Compensated cardiomegaly.. Radames Scott MD on August 25, 2016 at 12:11 Board Certified Radiologist. This report was verified electronically.
[2016-08-25 12:48] LABS: INTERNATIONAL NORMALIZED RATIO 1.4 RATIO; PROTHROMBIN TIME - PATIENT 16.1 SEC (9.8-11.6)
[2016-08-25 12:49] LABS: APTT (PATIENT) 28.5 SEC (24.3-30.1)
--- NOTE | 2016-08-25 13:07 | RADRPT ---
EXAM DATE/TIME: 08/25/2016 11:45 [facility] COMPARISON: CT BRAIN W/O CONTRAST, June 25, 2016, 5:08. INDICATIONS : Seizure. RADIATION DOSE: 56.35 CTDIvol (mGy) MEDICAL HISTORY : Stroke. Seizures. Cardiovascular diseaseDiabetes. SURGICAL HISTORY : Craniotomy. ENCOUNTER: Initial ACUITY: 1 day PAIN SCALE: 0/10 LOCATION: cranial TECHNIQUE: Multiple contiguous axial images were obtained of the head. Using automated exposure control and adj ustment of the mA and/or kV according to patient size, radiation dose was kept as low as reasonably a chievable to obtain optimal diagnostic quality images. FINDINGS: The exam demonstrates an old area of infarct involving the right parietal cortex. There is colpocepha lic dilation of the posterior horn of the right lateral ventricle. These changes are stable compared to previous dated 06/25/16. There is no acute intercranial hemorrhage. No midline shift or other findings to indicate mass effect are present. The appearance of the posterior fossa is unremarkable. There are postsurgical changes within the skull. CONCLUSION: 1. Old, large area of infarct involving the right MCA distribution stable compared to prior exam. 2. Postsurgical changes within the skull. 3. No acute intracranial hemorrhage. Warner Pritchard MD on August 25, 2016 at 13:04 Board Certified Radiologist. This report was verified electronically.
[2016-08-25 13:08] LABS: BASOPHIL % 0.6 % (0.0-2.0); EOSINOPHIL # 0.1 TH/MM3 (0-0.4); EOSINOPHIL % 1.5 % (0.0-4.0); HEMATOCRIT 41.4 % (35.0-46.0); HEMO FLAGS DIFF FINAL; LYMPH % 16.3 % (9.0-44.0); LYMPHOCYTE # 1.1 TH/MM3 (1.0-4.8); MEAN CELL VOLUME 77.6 FL (80.0-100.0); MEAN CORPUSCULAR HEMOGLOBIN 25.2 PG (27.0-34.0); MEAN CORPUSCULAR HGB CONC 32.4 % (32.0-36.0); NEUT % 75.6 % (16.0-70.0); PLATELET COUNT 169 TH/MM3 (150-450); RED BLOOD COUNT 5.34 MIL/MM3 (4.00-5.30); RED CELL DISTRIBUTION WIDTH 14.6 % (11.6-17.2); WHITE BLOOD COUNT 6.7 TH/MM3 (4.0-11.0)
[2016-08-25 13:11] LABS: ACETAMINOPHEN LESS THAN 2.0 MCG/ML (10.0-30.0); ALKALINE PHOSPHATASE 166 U/L (45-117); ALT (GPT) 50 U/L (10-53); ANION GAP 9 MEQ/L (5-15); AST (GOT) 58 U/L (15-37); BICARBONATE 24.7 MEQ/L (21.0-32.0); BLOOD UREA NITROGEN 16 MG/DL (7-18); CHLORIDE 105 MEQ/L (98-107); DIGOXIN 1.3 NG/ML (0.8-2.0); GLOMERULAR FILTRATION RATE 139 ML/MIN (>89); MAGNESIUM 1.4 MG/DL (1.5-2.5); PHENOBARBITAL 22.3 MCG/ML (15.0-40.0); SODIUM (NA) 139 MEQ/L (136-145); TOTAL BILIRUBIN ADULT 0.4 MG/DL (0.2-1.0)
[2016-08-25 13:11] LABS: BLOOD, URINE NEG (NEG); COMMENT (UR) CULTURE INDICATED; CULTURE IF INDICATED CULTURE INDICATED; GLUCOSE,URINE NEG (NEG); HYALINE CAST, URINE 6 /lpf (RARE); KETONE, URINE NEG (NEG); MUCUS URINE FEW /lpf (OCC); NITRITE,URINE NEG (NEG); SQUAMOUS EPITHELIAL CELL URINE 1 /hpf (0-5); URINE COLOR YELLOW (YELLW/STRAW)
[2016-08-25 13:13] LABS: CREATINE KINASE 60 U/L (26-192); POTASSIUM 4.3 MEQ/L (3.5-5.1)
[2016-08-25] MEDS ORDERED: CIPR-9 PO (13:29)
--- NOTE | 2016-08-25 15:07 | PD ---
Physical Exam Date Seen by Provider: Aug 25, 2016 Time Seen by Provider: 11:30 Narrative I, Dr. Rodriguez, have reviewed the advance practice practitioner's documentation and am in agreement, met with the patient face to face, made the diagnosis, and the medical decision making was done by me. *My assessment and Findings: Patient seen and evaluated with PA, please see pain over further information. Patient has history of seizures, previous stroke with left-sided weakness, here because of seizure-like activity, followed by a post ictal period, and was observed in the ER for several hours with awakening and going back to normal mental status according to her daughter. Laboratory Tests Test 08/25/16 08/25/16 08/25/16 08/25/16 11:55 12:10 12:45 12:55 Prothrombin Time 16.1 SEC (9.8-11.6) Random Glucose 169 MG/DL (74-106) Magnesium Level 1.4 MG/DL (1.5-2.5) Aspartate Amino Transf 58 U/L (15-37) (AST/SGOT) Alkaline Phosphatase 166 U/L (45-117) Ammonia 40 MCMOL/L (11-32) Albumin 2.6 GM/DL (3.4-5.0) Salicylates Level LESS THAN 1.7 MG/DL (2.8-20.0) Acetaminophen Level LESS THAN 2.0 MCG/ML (10.0-30.0) Urine Protein 100 mg/dL (NEG-TRACE) Urine Leukocyte Esterase SMALL (NEG) Urine WBC 12 /hpf (0-5) Urine Mucus FEW /lpf (OCC) Red Blood Count 5.34 MIL/MM3 (4.00-5.30) Mean Corpuscular Volume 77.6 FL (80.0-100.0) Mean Corpuscular Hemoglobin 25.2 PG (27.0-34.0) Neutrophils (%) (Auto) 75.6 % (16.0-70.0) Last [address] 08/25/16 1130 Signed Impressions: Service Date/Time: Thursday, August 25, 2016 11:45 - CONCLUSION: 1. Old, large area of infarct involving the right MCA distribution stable compared to prior exam. 2. Postsurgical changes within the skull. 3. No acute intracranial hemorrhage. Warner Pritchard MD Chest X-Ray 08/25/16 1130 Signed Impressions: Service Date/Time: Thursday, August 25, 2016 11:40 - CONCLUSION: 1. Left basilar consolidation/effusion. This may be slightly improved when compared to the prior, however. 2. Right lung remains clear. 3. Compensated cardiomegaly.. Radames Scott MD CT of the brain did not show any signs of acute processes. Vital signs are stable in the ER. Lab work did not indicate significant metabolic issues. Considering patient is back to mental status which is baseline for her, I suspect a underlying seizure, has history of seizures. She may have a breakthrough. At this point, my plan would be to release the patient with follow-up to primary care physician and neurology. Return for any worsening in symptoms as necessary. The plan was discussed with patient and daughter and they stated understanding. Data Data Last Documented VS Vital Signs Date Time Temp Pulse Resp B/P Pulse Ox O2 Delivery O2 Flow Rate FiO2 08/25/16 11:31 94 16 111/65 97 Room Air 08/25/16 11:28 97.7 Orders Complete Blood Count With Diff (08/25/16 11:30) Comprehensive Metabolic Panel (08/25/16 11:30) Ckmb (Isoenzyme) Profile (08/25/16 11:30) Troponin I (08/25/16 11:30) Prothrombin Time / Inr (Pt) (08/25/16 11:30) Act Partial Throm Time (Ptt) (08/25/16 11:30) Blood Culture (08/25/16 11:30) Urinalysis - C+S If Indicated (08/25/16 11:30) Magnesium (Mg) (08/25/16 11:30) Digoxin (08/25/16 11:30) Phenobarbital (08/25/16 11:30) Ammonia (08/25/16 11:30) Thyroid Stimulating Hormone (08/25/16 11:30) Chest, Single Ap (08/25/16 11:30) Ct Brain W/O Iv Contrast(Rout) (08/25/16 11:30) Iv Access Insert/Monitor (08/25/16 11:30) Ecg Monitoring (08/25/16 11:30) Oximetry (08/25/16 11:30) Salicylates (Aspirin) (08/25/16 11:30) Tylenol (Acetaminophen) (08/25/16 11:30) Urine Culture (08/25/16 12:45) Electrocardiogram (08/25/16 ) Labs Laboratory Tests Test 08/25/16 08/25/16 08/25/16 08/25/16 11:55 12:10 12:45 12:55 Prothrombin Time 16.1 SEC Prothromb Time International 1.4 RATIO Ratio Activated Partial 28.5 SEC Thromboplast Time Sodium Level 139 MEQ/L Potassium Level 4.3 MEQ/L Chloride Level 105 MEQ/L Carbon Dioxide Level 24.7 MEQ/L Anion Gap 9 MEQ/L Blood Urea Nitrogen 16 MG/DL Creatinine 0.56 MG/DL Estimat Glomerular Filtration 139 ML/MIN Rate Random Glucose 169 MG/DL Calcium Level 8.5 MG/DL Magnesium Level 1.4 MG/DL Total Bilirubin 0.4 MG/DL Aspartate Amino Transf 58 U/L (AST/SGOT) Alanine Aminotransferase 50 U/L (ALT/SGPT) Alkaline Phosphatase 166 U/L Ammonia 40 MCMOL/L Total Creatine Kinase 60 U/L Troponin I 0.02 NG/ML Total Protein 7.3 GM/DL Albumin 2.6 GM/DL Thyroid Stimulating Hormone 1.520 uIU/ML 3rd Gen Digoxin Level 1.3 NG/ML Salicylates Level LESS THAN 1.7 MG/DL Acetaminophen Level LESS THAN 2.0 MCG/ML Phenobarbital Level 22.3 MCG/ML Urine Color YELLOW Urine Turbidity CLEAR Urine pH 6.0 Urine Specific [place] 1.020 Urine Protein 100 mg/dL Urine Glucose (UA) NEG mg/dL Urine Ketones NEG mg/dL Urine Occult Blood NEG Urine Nitrite NEG Urine Bilirubin NEG Urine Urobilinogen 2.0 MG/DL Urine Leukocyte Esterase SMALL Urine RBC 1 /hpf Urine WBC 12 /hpf Urine Squamous Epithelial 1 /hpf Cells Urine Hyaline Casts 6 /lpf Urine Mucus FEW /lpf Microscopic Urinalysis Comment CULTURE INDICATED White Blood Count 6.7 TH/MM3 Red Blood Count 5.34 MIL/MM3 Hemoglobin 13.4 GM/DL Hematocrit 41.4 % Mean Corpuscular Volume 77.6 FL Mean Corpuscular Hemoglobin 25.2 PG Mean Corpuscular Hemoglobin 32.4 % Concent Red Cell Distribution Width 14.6 % Platelet Count 169 TH/MM3 Mean Platelet Volume 9.7 FL Neutrophils (%) (Auto) 75.6 % Lymphocytes (%) (Auto) 16.3 % Monocytes (%) (Auto) 6.0 % Eosinophils (%) (Auto) 1.5 % Basophils (%) (Auto) 0.6 % Neutrophils # (Auto) 5.0 TH/MM3 Lymphocytes # (Auto) 1.1 TH/MM3 Monocytes # (Auto) 0.4 TH/MM3 Eosinophils # (Auto) 0.1 TH/MM3 Basophils # (Auto) 0.0 TH/MM3 CBC Comment DIFF FINAL Differential Comment MDM Medical Record Reviewed: Yes Supervised Visit with ARTUR: Yes Diagnosis Primary Impression: Seizure disorder Additional Impressions: Lung consolidation Cystitis Patient Instructions: General Instructions, Recurrent Seizures in Adults (ED) Departure Forms: Tests/Procedures Additional Instruction: Take medications as prescribed. Follow-up with PCP. See ED for any worsening symptoms. Scripts Ciprofloxacin (Cipro)500 Mg [id number] Mg PO BID 7 Days Prov:Clemente Rodriguez MD 08/25/16 Disposition: 01 DISCHARGE HOME Condition: Stable Clemente Rodriguez MD Aug 25, 2016 15:07
--- NOTE | 2016-08-26 17:26 | EKG ---
Date Performed: 08/25/2016 Time Performed: 13:45:54 PTAGE: 51 years EKG: Sinus rhythm WITH FIRST DEGREE AV BLOCK POSSIBLE LEFT ATRIAL ENLARGEMENT MARKED RIGHT AXIS DEVIATION INTRAVENTRIC ULAR CONDUCTION DELAY HI Interval is much longer Compared to previous tracing ABNORMAL ECG PREVIOUS TRACING : 06/24/2016 22.40 DOCTOR: Espinoza Rios Interpretating Date/Time 08/26/2016 17:25:50
[2016-08-30] MEDS ORDERED: PANT40TA3 PO (08:58)
[2016-11-30] MEDS ORDERED: PANT40TA3 PO (08:42)
== END 2016-08-25 14:06 | disposition home or self-care (01) ==
LOC: NEPE 11:16
DX: R56.9 Unspecified convulsions (principal); N30.90 Cystitis, unspecified without hematuria; J98.4 Other disorders of lung; K74.60 Unspecified cirrhosis of liver; Z79.01 Long term (current) use of anticoagulants; I48.91 Unspecified atrial fibrillation; I50.9 Heart failure, unspecified; E11.9 Type 2 diabetes mellitus without complications; I10 Essential (primary) hypertension; Z86.73 Personal history of transient ischemic attack (TIA), and cerebral infarction without residual deficits
CPT/HCPCS: 70450; 71010; 80053; 80162; 80184; 80307; 81001; 82140; 82550; 83735; 84443; 84484; 85025; 85610; 85730; 87040; 87086; 93005

== ENCOUNTER 2016-09-05 12:58 | Emergency (ER) | payer MEDICARE, OTHER ==
[~2016-09-05] VITALS: Ht 160 cm; Wt 65.0 kg
[~2016-09-05 12:58] MED LIST changes: +CIPR-9 PO
[2016-09-05 13:12] VITALS: BP 133/79; PULSE 94; O2SAT 98
[2016-09-05] MEDS ORDERED: SODIUM CHLORIDE 0.9% FLUSH 10 ML FLUSH IVF PRN (13:15)
--- NOTE | 2016-09-05 13:22 | PD ---
HPI Chief Complaint: Altered Mental Status Time Seen by Provider: 13:13 Travel History International Travel<30 days: No Contact w/Intl Traveler<30days: No Traveled to known affect area: No History of Present Illness HPI The patient was seen and examined in the presence of the nurse. This patient is ambulance to in for evaluation of mental status. Reportedly for couple of days she's had decrease from her baseline poor mental status. History of CVA with chronic left-sided paresis. Lives at home with her daughter. 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 No reported head injury. No witnessed seizure today. Symptoms severity is moderate. No alleviating factors. Patient herself is a poor story and he cannot provide any history or review of systems. PFSH Past Medical History Hx Anticoagulant Therapy: Yes (ELIQUIS) Asthma: No Atrial Fibrillation: Yes Anxiety: Yes Depression: Yes (COMPLICATED GRIEF ) Heart Rhythm Problems: Yes (DEFIBRILLATOR PLACED 2 YRS AGO) Cancer: No Cardiovascular Problems: Yes (CHF / CARDIOMYOPATHY) High Cholesterol: No Chemotherapy: No Chest Pain: No Congestive Heart Failure: Yes COPD: No Cerebrovascular Accident: Yes Diabetes: Yes (TYPE II) Diminished Hearing: No Endocrine: Yes Gastrointestinal Disorders: Yes (ACID REFLUX) GERD: Yes Genitourinary: No Hepatitis: No Hypertension: Yes Immune Disorder: No Implanted Vascular Access Dvce: Yes Neurologic: Yes Psychiatric: Yes (ANXIETY ) Reproductive: No Respiratory: Yes Immunizations Current: Yes Radiation Therapy: No Seizures: Yes Thyroid Disease: Yes : 1 Para: 1 Past Surgical History AICD: Yes ([employer]) Body Medical Devices: DEBRILLATOR, MARKER IN BILATERAL BREAST Cardiac Surgery: Yes (DEFIBRILATOR 2002, DEFIBRILATOR REPLACED 03/2010) Section: Yes (1984) Gynecologic Surgery: Yes ( ) Neurologic Surgery: Yes (CRANIOTOMY) Thoracic Surgery: Yes (MARKERS PLACED BILATERAL BREAST) Other Surgery: Yes Social History Alcohol Use: No Tobacco Use: No Substance Use: No Allergies-Medications (Allergen,Severity, Reaction): Coded Allergies: Dilantin (Verified Allergy, Severe, 08/25/16) Lemon (Verified Allergy, Severe, EDEMA, 08/25/16) Sulfa (Verified Allergy, Severe, ANYYHING WITH IT IN IT AND I FALL OUT AND GET THE SHAKES, 08/25/16) AMARIS Inhibitors (Verified Allergy, Intermediate, ANGIOEDEMA, 08/25/16) CONFIRMED OF 01/03/2010 MRI PRECAUTION (Verified Adverse Reaction, Severe, AICD PRESENT, 08/25/16) AICD PRESENT 11/23/13 JLA *MDRO Multi-Drug Resistant Organism (Verified Adverse Reaction, Unknown, ) MRSA (urine & sputum) - 2013 MRSA PCR Screen POSITIVE - 04/08/16 Uncoded Allergies: MUCINEX (Allergy, Severe, CARDIAC INCIDENT, 09/18/13) Reported Meds & Prescriptions Reported Meds & Active Scripts Active Memantine 10 Mg Tab 10 Mg PO BID Metformin (Metformin HCl) 500 Mg Tab 500 Mg PO BIDPC With meals Phenobarbital 32.4 Mg Tab 32.4 Mg PO BID Lasix (Furosemide) 40 Mg Tab 40 Mg PO BID@,18 Coreg (Carvedilol) 6.25 Mg Tab 6.25 Mg PO BID Aspirin 81 Mg Tabdr 81 Mg PO DAILY Digoxin 0.125 Mg Tab 0.125 Mg PO DAILY Lipitor (Atorvastatin Calcium) 80 Mg Tab 80 Mg PO HS Eliquis (Apixaban) 5 Mg Tab 5 Mg PO BID Folate (Folic Acid) 1 Mg Tab 1 Mg PO DAILY Ferrous Sulfate 325 Mg Tab 325 Mg PO BID Spironolactone 25 Mg Tab 25 Mg PO DAILY Vimpat (Lacosamide) 200 Mg Tab 200 Mg PO BID Duloxetine DR (Duloxetine HCl) 60 Mg Capdr 60 Mg PO DAILY Thera/Beta-Carotene (Multiple Vitamin) 1 Tab Tab 1 Tab PO DAILY 30 Days Reported Pantoprazole (Pantoprazole Sodium) 40 Mg Tab 40 Mg PO EVERY OTHER DAY Review of Systems ROS Limitations: Altered Mental Status, Poor Historian Physical Exam Narrative GENERAL: Thin lethargic appearing patient in no apparent distress. SKIN: Focused skin assessment reveals no rash and nodules. Skin is Warm and dry. HEAD: Atraumatic. Normocephalic. EYES: Pupils equal and round. No scleral icterus. No injection or drainage. ENT: No nasal bleeding or discharge. Mucous membranes pink and moist. NECK: Trachea midline. No JVD. CARDIOVASCULAR: Regular rate and rhythm. No murmur appreciated. RESPIRATORY: No accessory muscle use. Clear to auscultation. Breath sounds equal bilaterally. GASTROINTESTINAL: Abdomen soft, non-tender, nondistended. Hepatic and splenic margins not palpable. MUSCULOSKELETAL: Contraction of left arm and leg. No clubbing. No cyanosis. No edema. NEUROLOGICAL: Awake and alert. No obvious cranial nerve deficits. Motor exam shows paresis of the left common leg. Good coding educator strength in the right arm. Mostly nonverbal PSYCHIATRIC: Appropriate mood and affect; insight and judgment poor. Data Data Last Documented VS Vital Signs Date Time Temp Pulse Resp B/P Pulse Ox O2 Delivery O2 Flow Rate FiO2 09/05/16 16:56 90 16 116/81 97 Room Air Orders Basic Metabolic Panel (Bmp) (09/05/16 13:15) Complete Blood Count With Diff (09/05/16 13:15) Ct Brain W/O Iv Contrast(Rout) (09/05/16 13:15) Ecg Monitoring (09/05/16 13:15) Iv Access Insert/Monitor (09/05/16 13:15) Oximetry (09/05/16 13:15) Sodium Chloride 0.9% Flush (Ns Flush) (09/05/16 13:15) Digoxin (09/05/16 13:15) Phenobarbital (09/05/16 13:15) Labs Laboratory Tests Test 09/05/16 13:32 White Blood Count 7.0 TH/MM3 Red Blood Count 5.83 MIL/MM3 Hemoglobin 14.4 GM/DL Hematocrit 44.6 % Mean Corpuscular Volume 76.6 FL Mean Corpuscular Hemoglobin 24.6 PG Mean Corpuscular Hemoglobin 32.2 % Concent Red Cell Distribution Width 14.5 % Platelet Count 169 TH/MM3 Mean Platelet Volume 10.0 FL Neutrophils (%) (Auto) 72.2 % Lymphocytes (%) (Auto) 16.9 % Monocytes (%) (Auto) 6.8 % Eosinophils (%) (Auto) 2.8 % Basophils (%) (Auto) 1.3 % Neutrophils # (Auto) 5.1 TH/MM3 Lymphocytes # (Auto) 1.2 TH/MM3 Monocytes # (Auto) 0.5 TH/MM3 Eosinophils # (Auto) 0.2 TH/MM3 Basophils # (Auto) 0.1 TH/MM3 CBC Comment AUTO DIFF Differential Comment AUTO DIFF CONFIRMED Platelet Estimate LOW Platelet Morphology Comment NORMAL Ovalocytes 2+ Acanthocytes OCC Keratocytes OCC Sodium Level 141 MEQ/L Potassium Level 4.5 MEQ/L Chloride Level 106 MEQ/L Carbon Dioxide Level 25.0 MEQ/L Anion Gap 10 MEQ/L Blood Urea Nitrogen 19 MG/DL Creatinine 0.55 MG/DL Estimat Glomerular Filtration 142 ML/MIN Rate Random Glucose 112 MG/DL Calcium Level 8.8 MG/DL Digoxin Level 1.3 NG/ML Phenobarbital Level 19.8 MCG/ML [facility] Medical Decision Making Medical Screen Exam Complete: Yes Emergency Medical Condition: Yes Medical Record Reviewed: Yes Differential Diagnosis Postictal state, exacerbation of vascular dementia, TIA Narrative Course I have reviewed the patient's electronic medical record. Reviewed her August workup which was extensive. And essentially all negative IV placed CBC is normal Metabolic profile is normal Digoxin level is 1.3, normal Phenobarbital level is 19.8, normal Brain CT shows old stroke but nothing new or acute On reassessment she has improved. She is gradually improved throughout her stay. Her daughter is at bedside who likes the improvement Her daughter will call primary physician for follow-up Etiology of her altered mental status is unclear but it is certainly not a new thing as we've seen her multiple times for the same complaint and it has resolved on its own as in prior times. Diagnosis Primary Impression: Altered mental status Qualified Code: R40.4 - Transient alteration of awareness Additional Impressions: History of CVA with residual deficit Impaired mobility and activities of daily living Additional Instructions: The patient was advised to follow up with their physician and return if they worsen. Med/Other Pt SpecificInfo: Other Disposition: 01 DISCHARGE HOME Condition: Stable Anshul Álvarez MD Sep 05, 2016 13:22
[2016-09-05 13:36] VITALS: O2SAT 98
[2016-09-05 13:55] LABS: AUTOMATED NEUTROPHIL # 5.1 TH/MM3 (1.8-7.7); BASOPHIL # 0.1 TH/MM3 (0-0.2); BASOPHIL % 1.3 % (0.0-2.0); EOSINOPHIL # 0.2 TH/MM3 (0-0.4); EOSINOPHIL % 2.8 % (0.0-4.0); HEMATOCRIT 44.6 % (35.0-46.0); LYMPH % 16.9 % (9.0-44.0); LYMPHOCYTE # 1.2 TH/MM3 (1.0-4.8); MEAN CELL VOLUME 76.6 FL (80.0-100.0); MEAN CORPUSCULAR HEMOGLOBIN 24.6 PG (27.0-34.0); MEAN CORPUSCULAR HGB CONC 32.2 % (32.0-36.0); MONO % 6.8 % (0.0-8.0); NEUT % 72.2 % (16.0-70.0); PLATELET COUNT 169 TH/MM3 (150-450); RED BLOOD COUNT 5.83 MIL/MM3 (4.00-5.30); RED CELL DISTRIBUTION WIDTH 14.5 % (11.6-17.2)
[2016-09-05 14:00] LABS: HEMO FLAGS AUTO DIFF
[2016-09-05 14:25] LABS: POTASSIUM 4.5 MEQ/L (3.5-5.1)
[2016-09-05] MEDS ORDERED: PANT40TA3 PO (14:27)
[2016-09-05 14:28] VITALS: BP 133/79; PULSE 89; O2SAT 99
[2016-09-05 14:32] LABS: ACANTHOCYTES OCC (NORMAL); KERATOCYTES OCC (NORMAL); OVALOCYTES 2+ (NORMAL)
[2016-09-05 14:33] LABS: PLATELET ESTIMATE SMEAR LOW (NORMAL); PLATELET MORPHOLOGY NORMAL (NORMAL); SCAN/DIFF AUTO DIFF CONFIRMED
[2016-09-05 14:48] LABS: DIGOXIN 1.3 NG/ML (0.8-2.0)
--- NOTE | 2016-09-05 16:10 | RADRPT ---
EXAM DATE/TIME: 09/05/2016 15:23 [place] COMPARISON: CT BRAIN W/O CONTRAST, August 25, 2016, 11:45. INDICATIONS : Decreased mental status. History of stroke. RADIATION DOSE: 40.62 CTDIvol (mGy) MEDICAL HISTORY : Cardiovascular disease. Seizures. Cardiovascular disease SURGICAL HISTORY : Craniotomy. ENCOUNTER: Initial ACUITY: 3 days PAIN SCALE: 0/10 LOCATION: cranial TECHNIQUE: Multiple contiguous axial images were obtained of the head. Using automated exposure control and adj ustment of the mA and/or kV according to patient size, radiation dose was kept as low as reasonably a chievable to obtain optimal diagnostic quality images. FINDINGS: The examination demonstrates a sizable area of encephalomalacia involving the right posterior parieta l cortex. There is colpocephalic dilation of the posterior horn of the right lateral ventricle. These changes are stable compared to previous dated 08/25/16. There is no acute intracranial hemorrhage. No acute cortical infarct is evident. The appearance of the posterior fossa is unremarkable. Bone window images demonstrate postcraniotomy changes within the right parietal skull. The remainder of the skull is grossly intact. CONCLUSION: 1. Old area of encephalomalacic infarct involving the right posterior parietal cortex with colpocepha lic dilation of the right lateral ventricle. Stable compared to previous exam. Warner Pritchard MD on September 05, 2016 at 16:07 Board Certified Radiologist. This report was verified electronically.
[2016-09-05 16:56] VITALS: BP 116/81; PULSE 90; RESP 16; O2SAT 97
[2016-09-05 17:12] VITALS: BP 119/56
--- NOTE | 2016-09-06 10:56 | EKG ---
Date Performed: 09/05/2016 Time Performed: 13:58:14 PTAGE: 51 years EKG: Sinus rhythm WITH FIRST DEGREE AV BLOCK MARKED LEFT AXIS DEVIATION INTRAVENTRICULAR CONDUCTION DELAY ABNORMAL ECG INTERPRETATION BASED ON A DEFAULT AGE OF 41 YEARS NO PREVIOUS TRACING DOCTOR: Sae Sandy Interpretating Date/Time 09/06/2016 10:55:28
[2016-11-30] MEDS ORDERED: PANT40TA3 PO (08:42)
== END 2016-09-05 17:30 | disposition home or self-care (01) ==
LOC: NEPA 12:58
DX: R40.4 Transient alteration of awareness (principal); I69.859 Hemiplegia and hemiparesis following other cerebrovascular disease affecting unspecified side; Z74.09 Other reduced mobility; R94.31 Abnormal electrocardiogram [ECG] [EKG]; E11.9 Type 2 diabetes mellitus without complications; I10 Essential (primary) hypertension; E07.9 Disorder of thyroid, unspecified; Z79.01 Long term (current) use of anticoagulants; Z79.899 Other long term (current) drug therapy; Z86.69 Personal history of other diseases of the nervous system and sense organs; Z86.79 Personal history of other diseases of the circulatory system; Z86.59 Personal history of other mental and behavioral disorders; Z87.19 Personal history of other diseases of the digestive system; Z87.09 Personal history of other diseases of the respiratory system
CPT/HCPCS: 70450; 80048; 80162; 80184; 85025; 93005

== ENCOUNTER 2016-10-23 09:52 | Emergency (ER) | payer MEDICARE, OTHER ==
[~2016-10-23 09:52] MED LIST changes: -CIPR-9 PO; -DULC10SU3 RECTAL; -IPRASOL INH
--- NOTE | 2016-10-23 10:00 | PD ---
HPI Chief Complaint: seizure Time Seen by Provider: 10:00 Travel History International Travel<30 days: No Contact w/Intl Traveler<30days: No Traveled to known affect area: No History of Present Illness HPI 51-year-old female came to the emergency room brought by EMS after having a seizure that was described by her daughter is generalized tonic-clonic. This happened at 9 AM. Daughter went to see her mother and take care of her morning meds as she routinely does and noticed that she started having her left arm shaking. This was followed by her face twitching and patient becoming unresponsive. As per the daughter this went on for 2-3 minutes. She started foaming at her mouth a little but no tongue bite or incontinence. After that her speech was stuttering but now it slowly clearing up. Patient is answering questions and said that she does have seizure disorder. She takes seizure medications like she is supposed to. Usually her seizures are focal but this time it was a new kind of seizure. Vital signs are otherwise stable. Patient is complaining of some headache currently. PFSH Past Medical History Narrative Medical List of her past medical, surgical, social and family history was reviewed from the nursing note. Hx Anticoagulant Therapy: Yes (ELIQUIS) Asthma: No Atrial Fibrillation: Yes Anxiety: Yes Depression: Yes (COMPLICATED GRIEF ) Heart Rhythm Problems: Yes (DEFIBRILLATOR PLACED 2 YRS AGO) Cancer: No Cardiovascular Problems: Yes (CHF / CARDIOMYOPATHY) High Cholesterol: No Chemotherapy: No Chest Pain: No Congestive Heart Failure: Yes COPD: No Cerebrovascular Accident: Yes Diabetes: Yes (TYPE II) Diminished Hearing: No Endocrine: Yes Gastrointestinal Disorders: Yes (ACID REFLUX) GERD: Yes Genitourinary: No Hepatitis: No Hypertension: Yes Immune Disorder: No Implanted Vascular Access Dvce: Yes Neurologic: Yes Psychiatric: Yes (ANXIETY ) Reproductive: No Respiratory: Yes Immunizations Current: Yes Radiation Therapy: No Seizures: Yes Thyroid Disease: Yes : 1 Para: 1 Past Surgical History AICD: Yes ([employer]) Body Medical Devices: DEBRILLATOR, MARKER IN BILATERAL BREAST Cardiac Surgery: Yes (DEFIBRILATOR 2002, DEFIBRILATOR REPLACED 03/2010) Section: Yes (1984) Gynecologic Surgery: Yes ( ) Neurologic Surgery: Yes (CRANIOTOMY) Thoracic Surgery: Yes (MARKERS PLACED BILATERAL BREAST) Other Surgery: Yes Social History Alcohol Use: No Tobacco Use: No Substance Use: No Allergies-Medications (Allergen,Severity, Reaction): Coded Allergies: Dilantin (Verified Allergy, Severe, 10/23/16) Lemon (Verified Allergy, Severe, EDEMA, 10/23/16) Sulfa (Verified Allergy, Severe, ANYYHING WITH IT IN IT AND I FALL OUT AND GET THE SHAKES, 10/23/16) AMARIS Inhibitors (Verified Allergy, Intermediate, ANGIOEDEMA, 10/23/16) CONFIRMED OF 01/03/2010 MRI PRECAUTION (Verified Adverse Reaction, Severe, AICD PRESENT, 10/23/16) AICD PRESENT 11/23/13 JLA *MDRO Multi-Drug Resistant Organism (Verified Adverse Reaction, Unknown, ) MRSA (urine & sputum) - 2013 MRSA PCR Screen POSITIVE - 04/08/16 Uncoded Allergies: MUCINEX (Allergy, Severe, CARDIAC INCIDENT, 09/18/13) Comments List of her allergies reviewed from the nursing note. Reported Meds & Prescriptions Reported Meds & Active Scripts Active Vimpat (Lacosamide) 200 Mg Tab 200 Mg PO BID Memantine 10 Mg Tab 10 Mg PO BID Metformin (Metformin HCl) 500 Mg Tab 500 Mg PO BIDPC With meals Phenobarbital 32.4 Mg Tab 32.4 Mg PO BID Lasix (Furosemide) 40 Mg Tab 40 Mg PO BID@,18 Coreg (Carvedilol) 6.25 Mg Tab 6.25 Mg PO BID Aspirin 81 Mg Tabdr 81 Mg PO DAILY Digoxin 0.125 Mg Tab 0.125 Mg PO DAILY Lipitor (Atorvastatin Calcium) 80 Mg Tab 80 Mg PO HS Eliquis (Apixaban) 5 Mg Tab 5 Mg PO BID Folate (Folic Acid) 1 Mg Tab 1 Mg PO DAILY Ferrous Sulfate 325 Mg Tab 325 Mg PO BID Spironolactone 25 Mg Tab 25 Mg PO DAILY Duloxetine DR (Duloxetine HCl) 60 Mg Capdr 60 Mg PO DAILY Thera/Beta-Carotene (Multiple Vitamin) 1 Tab Tab 1 Tab PO DAILY 30 Days Narrative Medication List of her home medications reviewed from the nurse's note. Review of Systems Except as stated in HPI: all other systems reviewed are Neg Physical Exam Narrative GENERAL: Awake, alert, no obvious distress SKIN: Focused skin assessment warm/dry. HEAD: Atraumatic. Normocephalic. EYES: Pupils equal and round. No scleral icterus. No injection or drainage. ENT: No nasal bleeding or discharge. Mucous membranes pink and moist. NECK: Trachea midline. No JVD. CARDIOVASCULAR: Regular rate and rhythm. No murmur appreciated. RESPIRATORY: No accessory muscle use. Clear to auscultation. Breath sounds equal bilaterally. GASTROINTESTINAL: Abdomen soft, non-tender, nondistended. Hepatic and splenic margins not palpable. MUSCULOSKELETAL: No obvious deformities. No clubbing. No cyanosis. No edema. NEUROLOGICAL: Awake and alert. No obvious cranial nerve deficits. Left upper and lower extremity weakness/hemiparesis from previous stroke. Normal speech. PSYCHIATRIC: Appropriate mood and affect; insight and judgment normal. Data Data Last Documented VS Vital Signs Date Time Temp Pulse Resp B/P Pulse Ox O2 Delivery O2 Flow Rate FiO2 10/23/16 12:28 89 15 132/90 97 10/23/16 11:17 Room Air Orders Electrocardiogram (10/23/16 10:33) Prothrombin Time / Inr (Pt) (10/23/16 10:33) Complete Blood Count With Diff (10/23/16 10:33) Basic Metabolic Panel (Bmp) (10/23/16 10:33) Creatine Kinase (Cpk) (10/23/16 10:33) Troponin I (10/23/16 10:33) Ct Brain W/O Iv Contrast(Rout) (10/23/16 10:33) Chest, Single Ap (10/23/16 10:33) Ecg Monitoring (10/23/16 10:33) Iv Access Insert/Monitor (10/23/16 10:33) Oximetry (10/23/16 10:33) Sodium Chloride 0.9% Flush (Ns Flush) (10/23/16 10:45) Phenobarbital (10/23/16 10:33) Digoxin (10/23/16 10:33) Sodium Chlorid 0.9% 500 Ml Inj (Ns 500 M (10/23/16 10:45) Acetaminophen (Tylenol) (10/23/16 10:45) Labs Laboratory Tests Test 10/23/16 10:45 White Blood Count 5.5 TH/MM3 Red Blood Count 4.93 MIL/MM3 Hemoglobin 12.3 GM/DL Hematocrit 37.3 % Mean Corpuscular Volume 75.5 FL Mean Corpuscular Hemoglobin 24.9 PG Mean Corpuscular Hemoglobin 33.0 % Concent Red Cell Distribution Width 16.7 % Platelet Count 228 TH/MM3 Mean Platelet Volume 9.8 FL Neutrophils (%) (Auto) 69.6 % Lymphocytes (%) (Auto) 21.9 % Monocytes (%) (Auto) 6.0 % Eosinophils (%) (Auto) 1.7 % Basophils (%) (Auto) 0.8 % Neutrophils # (Auto) 3.8 TH/MM3 Lymphocytes # (Auto) 1.2 TH/MM3 Monocytes # (Auto) 0.3 TH/MM3 Eosinophils # (Auto) 0.1 TH/MM3 Basophils # (Auto) 0.0 TH/MM3 CBC Comment DIFF FINAL Differential Comment Prothrombin Time 14.0 SEC Prothromb Time International 1.3 RATIO Ratio Sodium Level 144 MEQ/L Potassium Level 4.1 MEQ/L Chloride Level 109 MEQ/L Carbon Dioxide Level 25.4 MEQ/L Anion Gap 10 MEQ/L Blood Urea Nitrogen 18 MG/DL Creatinine 0.57 MG/DL Estimat Glomerular Filtration 136 ML/MIN Rate Random Glucose 211 MG/DL Calcium Level 8.4 MG/DL Total Creatine Kinase 99 U/L Troponin I 0.02 NG/ML Digoxin Level 0.9 NG/ML Phenobarbital Level 20.6 MCG/ML MDM Medical Decision Making Medical Screen Exam Complete: Yes Emergency Medical Condition: Yes Medical Record Reviewed: Yes Interpretation(s) Twelve-lead EKG was reviewed by me. Normal sinus rhythm, left axis deviation, multiple PVCs, interventricular conduction delay, first-degree AV block. Heart rate of 86 bpm Differential Diagnosis Seizure disorder, intracranial bleed, electrolyte abnormality Narrative Course 12:08 PM blood test results of back and within normal limits. Phenobarbital level is within normal limit as well. CT he does not show any acute changes. I 'm comfortable discharging her home this point. Procedures EKG Prior to Arrival: No Diagnosis Primary Impression: Seizure Additional Impression: Seizure disorder Referrals: Natacha Chino MD 2 days Primary Care Physician 2 days Additional Instructions: Please return to the ER if the condition worsens or any other new concerns. Otherwise follow-up with your primary care in couple days. Disposition: 01 DISCHARGE HOME Condition: Stable Shay Armstrong MD October 23, 2016 10:00 Shay Armstrong MD October 23, 2016 10:00 Shay Armstrong MD October 23, 2016 10:00
[2016-10-23 10:16] VITALS: BP 127/80; PULSE 80; RESP 15; O2SAT 99
[2016-10-23] MEDS ORDERED: SODIUM CHLORID 0.9% 500 ML INJ 500 ML IV ONE (10:45)
[2016-10-23] MEDS ORDERED: SODIUM CHLORIDE 0.9% FLUSH 10 ML FLUSH IVF PRN (10:45)
[2016-10-23] MEDS ORDERED: ACETAMINOPHEN 325 MG TAB PO ONE (10:45)
[2016-10-23 11:09] LABS: AUTOMATED NEUTROPHIL # 3.8 TH/MM3 (1.8-7.7); BASOPHIL % 0.8 % (0.0-2.0); EOSINOPHIL # 0.1 TH/MM3 (0-0.4); EOSINOPHIL % 1.7 % (0.0-4.0); HEMATOCRIT 37.3 % (35.0-46.0); HEMO FLAGS DIFF FINAL; LYMPH % 21.9 % (9.0-44.0); LYMPHOCYTE # 1.2 TH/MM3 (1.0-4.8); MEAN CELL VOLUME 75.5 FL (80.0-100.0); MEAN CORPUSCULAR HEMOGLOBIN 24.9 PG (27.0-34.0); NEUT % 69.6 % (16.0-70.0); PLATELET COUNT 228 TH/MM3 (150-450); RED BLOOD COUNT 4.93 MIL/MM3 (4.00-5.30); RED CELL DISTRIBUTION WIDTH 16.7 % (11.6-17.2); WHITE BLOOD COUNT 5.5 TH/MM3 (4.0-11.0)
[2016-10-23 11:17] VITALS: BP 127/80; PULSE 87; RESP 15; O2SAT 98
--- NOTE | 2016-10-23 11:17 | RADRPT ---
EXAM DATE/TIME: 10/23/2016 10:42 [facility] COMPARISON: CHEST SINGLE AP, August 25, 2016, 11:40. INDICATIONS : Seizure, short of breath MEDICAL HISTORY : Diabetes mellitus type II. stroke, seizures, cardiovascular disease, CHF SURGICAL HISTORY : Craniotomy. Pacemaker. ENCOUNTER: Initial ACUITY: 1 day PAIN SCORE: 0/10 LOCATION: Bilateral chest FINDINGS: Pacemaker device is noted with control pack over the left chest. Lungs are grossly clear. No pleural effusions suspected. Cardiac contours are stable. Thoracic skeleton is grossly intact. CONCLUSION: No acute disease. Stevan Perez MD on October 23, 2016 at 11:14 Board Certified Radiologist. This report was verified electronically.
[2016-10-23 11:28] LABS: INTERNATIONAL NORMALIZED RATIO 1.3 RATIO
[2016-10-23 11:31] LABS: BICARBONATE 25.4 MEQ/L (21.0-32.0); POTASSIUM 4.1 MEQ/L (3.5-5.1)
--- NOTE | 2016-10-23 11:39 | RADRPT ---
EXAM DATE/TIME: 10/23/2016 11:25 [facility] COMPARISON: CT BRAIN W/O CONTRAST, September 05, 2016, 15:23. INDICATIONS : Patient had witnessed seizure in AM.. RADIATION DOSE: 56.77 CTDIvol (mGy) MEDICAL HISTORY : Seizures. Cerebrovascular disease. Diabetes mellitus type 1.Afib,CHF SURGICAL HISTORY : Craniotomy. ENCOUNTER: Initial ACUITY: 1 day PAIN SCALE: 0/10 LOCATION: cranial TECHNIQUE: Multiple contiguous axial images were obtained of the head. Using automated exposure control and adj ustment of the mA and/or kV according to patient size, radiation dose was kept as low as reasonably a chievable to obtain optimal diagnostic quality images. FINDINGS: CEREBRUM: There is diffuse moderate atrophic change. Large areas of encephalomalacia are again noted involving the right middle cerebral artery territory. There is line loss and extraocular change involving the r ight lateral ventricle. This is stable. No evidence of new midline shift, mass lesion, hemorrhage or acute infarction. No extra-axial fluid collections are seen. POSTERIOR FOSSA: The cerebellum and brainstem are intact. The 4th ventricle is midline. The cerebellopontine angle i s unremarkable. EXTRACRANIAL: The visualized portion of the orbits is intact. SKULL: The calvaria is intact. No evidence of skull fracture. Remote postsurgical changes are present statu s post right frontal and parietal craniotomy. CONCLUSION: Stable appearance status post remote right middle cerebral artery territory infarct w ith encephalomalacia and ventricular dilatation. There is no acute hemorrhage or mass effect. Angel Cuevas MD on October 23, 2016 at 11:34 Board Certified Radiologist. This report was verified electronically.
[2016-10-23 11:45] LABS: DIGOXIN 0.9 NG/ML (0.8-2.0); PHENOBARBITAL 20.6 MCG/ML (15.0-40.0)
[2016-10-23 12:28] VITALS: BP 132/90
[2016-10-23] MEDS ORDERED: VIMP200T PO (16:37)
--- NOTE | 2016-10-24 15:16 | EKG ---
Date Performed: 10/23/2016 Time Performed: 11:12:49 PTAGE: 51 years EKG: Sinus rhythm WITH FIRST DEGREE AV BLOCK WITH OCCASIONAL VENTRICULAR PREMATURE COMPLEXES POSSIBLE LEFT ATRIAL ENLA RGEMENT MARKED LEFT AXIS DEVIATION INTRAVENTRICULAR CONDUCTION DELAY ABNORMAL ECG Compared to prior t racing no significant change PREVIOUS TRACING : 09/05/2016 13.58 DOCTOR: Guadalupe Romero Interpretating Date/Time 10/24/2016 15:15:10
[2016-11-30] MEDS ORDERED: PANT40TA3 PO (08:42)
== END 2016-10-23 12:50 | disposition home or self-care (01) ==
LOC: NEPC 09:52
DX: G40.909 Epilepsy, unspecified, not intractable, without status epilepticus (principal); R51 Headache; R94.31 Abnormal electrocardiogram [ECG] [EKG]; E11.9 Type 2 diabetes mellitus without complications; I10 Essential (primary) hypertension; E07.9 Disorder of thyroid, unspecified; Z79.01 Long term (current) use of anticoagulants; Z79.84 Long term (current) use of oral hypoglycemic drugs; Z86.79 Personal history of other diseases of the circulatory system; Z86.59 Personal history of other mental and behavioral disorders; Z87.19 Personal history of other diseases of the digestive system; Z86.69 Personal history of other diseases of the nervous system and sense organs; Z87.09 Personal history of other diseases of the respiratory system
CPT/HCPCS: 70450; 71010; 80048; 80162; 80184; 82550; 84484; 85025; 85610; 93005; 99285; J7040

== ENCOUNTER 2016-11-26 23:47 | Emergency (ER) | payer MEDICARE, OTHER ==
[~2016-11-26 23:47] MED LIST changes: -PANT40TA3 PO
[2016-11-26 23:59] VITALS: BP 118/71; PULSE 100; RESP 16; TEMP 97.4; O2SAT 100
[2016-11-27] MEDS ORDERED: SODIUM CHLORIDE 0.9% FLUSH 10 ML FLUSH IVF PRN (00:15)
--- NOTE | 2016-11-27 00:16 | PD ---
HPI Chief Complaint: Seizure Time Seen by Provider: 00:00 Travel History International Travel<30 days: No Contact w/Intl Traveler<30days: No Traveled to known affect area: No History of Present Illness HPI The patient is a 51-year-old Teresa female who presents emergency department for seizure. The patient had a witnessed seizure at home by her daughter the last approximately 1 minute. The patient had mild shaking, closed her eyes, then when she opened her eyes and was a blank stare. The patient has a history of seizures this started after previous CVA which left her with left- sided deficits. The patient currently takes phenobarbital and Vimpat for her seizures and is followed by her neurologist in [place], [place], Dr. Jarrett. However, the daughters looking for a closer neurologist since the patient received Medicare. The patient has been taking her he denies seizure medications as directed. The patient denies any tongue trauma, but did have mild urinary, according to the daughter. The daughter states the patient is back at baseline neurologically. The patient was laying down which she had a seizure, did not fall or strike her head. The patient does have a history of cardiomyopathy for which she takes Eliquis. The patient is followed by the family practice residents. The patient denies any acute focal deficits upon returning to baseline. She denies any current headache or neck pain. PFSH Past Medical History Hx Anticoagulant Therapy: Yes (ELIQUIS) Asthma: No Atrial Fibrillation: Yes Anxiety: Yes Depression: Yes Heart Rhythm Problems: Yes (DEFIBRILLATOR PLACED 2 YRS AGO) Cancer: No Cardiovascular Problems: Yes (CHF / CARDIOMYOPATHY) High Cholesterol: No Chemotherapy: No Chest Pain: No Congestive Heart Failure: Yes COPD: No Cerebrovascular Accident: Yes (hx of stroke 2014) Diabetes: Yes (TYPE II) Patient Takes Glucophage: Yes Diminished Hearing: No Endocrine: Yes Gastrointestinal Disorders: Yes (ACID REFLUX) GERD: Yes Genitourinary: No Hepatitis: No Hypertension: Yes Immune Disorder: No Implanted Vascular Access Dvce: Yes Neurologic: Yes Psychiatric: Yes (ANXIETY ) Reproductive: No Respiratory: Yes Immunizations Current: Yes Radiation Therapy: No Seizures: Yes Thyroid Disease: Yes Influenza Vaccination: Yes ?: Not : 1 Para: 1 Past Surgical History AICD: Yes ([employer] Body Medical Devices: DEBRILLATOR, MARKER IN BILATERAL BREAST Cardiac Surgery: Yes (DEFIBRILATOR 2002, DEFIBRILATOR REPLACED 03/2010) Section: Yes (1984) Gynecologic Surgery: Yes ( ) Neurologic Surgery: Yes (CRANIOTOMY) Thoracic Surgery: Yes (MARKERS PLACED BILATERAL BREAST) Other Surgery: Yes Social History Alcohol Use: No Tobacco Use: No Substance Use: No Allergies-Medications (Allergen,Severity, Reaction): Coded Allergies: Dilantin (Verified Allergy, Severe, 11/27/16) Lemon (Verified Allergy, Severe, EDEMA, 11/27/16) Sulfa (Verified Allergy, Severe, ANYYHING WITH IT IN IT AND I FALL OUT AND GET THE SHAKES, 11/27/16) AMARIS Inhibitors (Verified Allergy, Intermediate, ANGIOEDEMA, 11/27/16) CONFIRMED OF 01/03/2010 MRI PRECAUTION (Verified Adverse Reaction, Severe, AICD PRESENT, 11/27/16) AICD PRESENT 11/23/13 JLA *MDRO Multi-Drug Resistant Organism (Verified Adverse Reaction, Unknown, ) MRSA (urine & sputum) - 2013 MRSA PCR Screen POSITIVE - 04/08/16 Uncoded Allergies: MUCINEX (Allergy, Severe, CARDIAC INCIDENT, 09/18/13) Reported Meds & Prescriptions Reported Meds & Active Scripts Active Vimpat (Lacosamide) 200 Mg Tab 200 Mg PO BID Memantine 10 Mg Tab 10 Mg PO BID Metformin (Metformin HCl) 500 Mg Tab 500 Mg PO BIDPC With meals Phenobarbital 32.4 Mg Tab 32.4 Mg PO BID Lasix (Furosemide) 40 Mg Tab 40 Mg PO BID@,18 Coreg (Carvedilol) 6.25 Mg Tab 6.25 Mg PO BID Aspirin 81 Mg Tabdr 81 Mg PO DAILY Digoxin 0.125 Mg Tab 0.125 Mg PO DAILY Lipitor (Atorvastatin Calcium) 80 Mg Tab 80 Mg PO HS Eliquis (Apixaban) 5 Mg Tab 5 Mg PO BID Folate (Folic Acid) 1 Mg Tab 1 Mg PO DAILY Ferrous Sulfate 325 Mg Tab 325 Mg PO BID Spironolactone 25 Mg Tab 25 Mg PO DAILY Duloxetine DR (Duloxetine HCl) 60 Mg Capdr 60 Mg PO DAILY Thera/Beta-Carotene (Multiple Vitamin) 1 Tab Tab 1 Tab PO DAILY 30 Days Review of Systems Except as stated in HPI: all other systems reviewed are Neg General / Constitutional: No: Fever HENT: No: Lightheadedness Cardiovascular: No: Chest Pain or Discomfort Respiratory: No: Shortness of Breath Gastrointestinal: No: Nausea, Vomiting, Abdominal Pain Genitourinary: Positive: Incontinence Neurologic: Positive: Focal Abnormalities (chronic left-sided weakness from previous CVA, denies any acute focal deficits), Seizures Physical Exam Narrative GENERAL: Awake, alert, pleasant 51-year-old female who appears her stated age and is in no acute respiratory distress. SKIN: Focused skin assessment warm/dry. HEAD: Atraumatic. Normocephalic. EYES: Pupils equal and round. Pupils are 3 mm bilateral and reactive. ENT: No nasal bleeding or discharge. Mucous membranes pink and moist. No visible tongue trauma. NECK: Trachea midline. No JVD. CARDIOVASCULAR: Regular rate and rhythm. No murmur appreciated. Heart rate in the 90s. RESPIRATORY: No accessory muscle use. Clear to auscultation. Breath sounds equal bilaterally. GASTROINTESTINAL: Abdomen soft, non-tender, nondistended. No rebound tenderness. MUSCULOSKELETAL: Mild contractures to the left wrist. Bilateral lower extremity compression stockings in place. NEUROLOGICAL: Awake and alert. No obvious cranial nerve deficits. Left upper extremity contractures. Alert and oriented to person, place, year, and ice guard tester. PSYCHIATRIC: Appropriate mood and affect; insight and judgment normal. Data Data Last Documented VS Vital Signs Date Time Temp Pulse Resp B/P Pulse Ox O2 Delivery O2 Flow Rate FiO2 11/26/16 23:59 97.4 100 16 118/71 100 Orders Complete Blood Count With Diff (11/27/16 00:08) Phenobarbital (11/27/16 00:08) Blood Glucose (11/27/16 00:08) Ecg Monitoring (11/27/16 00:08) Iv Access Insert/Monitor (11/27/16 00:08) Oximetry (11/27/16 00:08) Comprehensive Metabolic Panel (11/27/16 00:08) Sodium Chloride 0.9% Flush (Ns Flush) (11/27/16 00:15) Digoxin (11/27/16 00:08) Labs Laboratory Tests Test 11/27/16 00:15 White Blood Count 6.1 TH/MM3 Red Blood Count 4.76 MIL/MM3 Hemoglobin 11.6 GM/DL Hematocrit 36.1 % Mean Corpuscular Volume 75.8 FL Mean Corpuscular Hemoglobin 24.3 PG Mean Corpuscular Hemoglobin 32.1 % Concent Red Cell Distribution Width 16.8 % Platelet Count 231 TH/MM3 Mean Platelet Volume 10.6 FL Neutrophils (%) (Auto) 63.6 % Lymphocytes (%) (Auto) 21.1 % Monocytes (%) (Auto) 9.6 % Eosinophils (%) (Auto) 4.4 % Basophils (%) (Auto) 1.3 % Neutrophils # (Auto) 3.9 TH/MM3 Lymphocytes # (Auto) 1.3 TH/MM3 Monocytes # (Auto) 0.6 TH/MM3 Eosinophils # (Auto) 0.3 TH/MM3 Basophils # (Auto) 0.1 TH/MM3 CBC Comment DIFF FINAL Differential Comment Sodium Level 144 MEQ/L Potassium Level 4.3 MEQ/L Chloride Level 107 MEQ/L Carbon Dioxide Level 27.3 MEQ/L Anion Gap 10 MEQ/L Blood Urea Nitrogen 15 MG/DL Creatinine 0.48 MG/DL Estimat Glomerular Filtration 166 ML/MIN Rate Random Glucose 136 MG/DL Calcium Level 7.6 MG/DL Total Bilirubin 0.5 MG/DL Aspartate Amino Transf 62 U/L (AST/SGOT) Alanine Aminotransferase 31 U/L (ALT/SGPT) Alkaline Phosphatase 162 U/L Total Protein 6.6 GM/DL Albumin 2.2 GM/DL Digoxin Level 0.7 NG/ML Phenobarbital Level 21.7 MCG/ML [facility] Medical Decision Making Medical Screen Exam Complete: Yes Emergency Medical Condition: Yes Medical Record Reviewed: Yes Interpretation(s) Laboratory Tests Test 11/27/16 00:15 White Blood Count 6.1 TH/MM3 Red Blood Count 4.76 MIL/MM3 Hemoglobin 11.6 GM/DL Hematocrit 36.1 % Mean Corpuscular Volume 75.8 FL Mean Corpuscular Hemoglobin 24.3 PG Mean Corpuscular Hemoglobin 32.1 % Concent Red Cell Distribution Width 16.8 % Platelet Count 231 TH/MM3 Mean Platelet Volume 10.6 FL Neutrophils (%) (Auto) 63.6 % Lymphocytes (%) (Auto) 21.1 % Monocytes (%) (Auto) 9.6 % Eosinophils (%) (Auto) 4.4 % Basophils (%) (Auto) 1.3 % Neutrophils # (Auto) 3.9 TH/MM3 Lymphocytes # (Auto) 1.3 TH/MM3 Monocytes # (Auto) 0.6 TH/MM3 Eosinophils # (Auto) 0.3 TH/MM3 Basophils # (Auto) 0.1 TH/MM3 CBC Comment DIFF FINAL Differential Comment Sodium Level 144 MEQ/L Potassium Level 4.3 MEQ/L Chloride Level 107 MEQ/L Carbon Dioxide Level 27.3 MEQ/L Anion Gap 10 MEQ/L Blood Urea Nitrogen 15 MG/DL Creatinine 0.48 MG/DL Estimat Glomerular Filtration 166 ML/MIN Rate Random Glucose 136 MG/DL Calcium Level 7.6 MG/DL Total Bilirubin 0.5 MG/DL Aspartate Amino Transf 62 U/L (AST/SGOT) Alanine Aminotransferase 31 U/L (ALT/SGPT) Alkaline Phosphatase 162 U/L Total Protein 6.6 GM/DL Albumin 2.2 GM/DL Digoxin Level 0.7 NG/ML Phenobarbital Level 21.7 MCG/ML Differential Diagnosis Differential diagnosis includes breakthrough seizure, noncompliance, subtherapeutic phenobarbital level, hyponatremia, hypocalcemia. Narrative Course IV was established, labs are drawn and sent, and the patient was placed on cardiac telemetry monitoring and continuous pulse oximetry monitoring. Phenobarbital level and digoxin level were sent to lab. The patient has returned to neurologic baseline according to the daughter, she had no head trauma, therefore, no CT of the brain indicated. Labs were noted, and a phenobarbital level was therapeutic at 21.6. Digoxin level slightly low 0.7. Sodium is unremarkable. Calcium is minimally low at 7.6, however, albumin was low at 2.2. Patient will be provided a copy of her labs at discharge and is advised to follow-up with her neurologist tomorrow. Return if symptoms worsen or progress. Diagnosis Primary Impression: Seizure Patient Instructions: General Instructions Additional Instructions: Please provide the patient a copy of her lab results at discharge. Follow-up with your neurologist tomorrow. Return if symptoms worsen or progress. Med/Other Pt SpecificInfo: No Change to Meds Disposition: 01 DISCHARGE HOME Condition: Stable Kyle Cheatham MD Nov 27, 2016 00:16
[2016-11-27 00:24] LABS: AUTOMATED NEUTROPHIL # 3.9 TH/MM3 (1.8-7.7); BASOPHIL # 0.1 TH/MM3 (0-0.2); BASOPHIL % 1.3 % (0.0-2.0); EOSINOPHIL # 0.3 TH/MM3 (0-0.4); EOSINOPHIL % 4.4 % (0.0-4.0); HEMATOCRIT 36.1 % (35.0-46.0); HEMO FLAGS DIFF FINAL; LYMPH % 21.1 % (9.0-44.0); LYMPHOCYTE # 1.3 TH/MM3 (1.0-4.8); MEAN CELL VOLUME 75.8 FL (80.0-100.0); MEAN CORPUSCULAR HEMOGLOBIN 24.3 PG (27.0-34.0); MEAN CORPUSCULAR HGB CONC 32.1 % (32.0-36.0); MONO % 9.6 % (0.0-8.0); NEUT % 63.6 % (16.0-70.0); PLATELET COUNT 231 TH/MM3 (150-450); RED BLOOD COUNT 4.76 MIL/MM3 (4.00-5.30); RED CELL DISTRIBUTION WIDTH 16.8 % (11.6-17.2); WHITE BLOOD COUNT 6.1 TH/MM3 (4.0-11.0)
[2016-11-27 00:43] LABS: ALT (GPT) 31 U/L (10-53)
[2016-11-27 00:49] LABS: ANION GAP 10 MEQ/L (5-15); AST (GOT) 62 U/L (15-37); BICARBONATE 27.3 MEQ/L (21.0-32.0); BLOOD UREA NITROGEN 15 MG/DL (7-18); CHLORIDE 107 MEQ/L (98-107); GLOMERULAR FILTRATION RATE 166 ML/MIN (>89); SODIUM (NA) 144 MEQ/L (136-145)
[2016-11-27 00:50] LABS: POTASSIUM 4.3 MEQ/L (3.5-5.1)
[2016-11-27 00:57] LABS: ALKALINE PHOSPHATASE 162 U/L (45-117); DIGOXIN 0.7 NG/ML (0.8-2.0); PHENOBARBITAL 21.7 MCG/ML (15.0-40.0); TOTAL BILIRUBIN ADULT 0.5 MG/DL (0.2-1.0)
[2016-11-27] MEDS ORDERED: IRON27TA PO (01:08)
[2016-11-27] MEDS ORDERED: ASPI-110 PO (01:08)
[2016-11-27] MEDS ORDERED: FOLI400T PO (01:08)
[2016-11-27] MEDS ORDERED: VIMP200T PO (08:37)
[2016-11-30] MEDS ORDERED: PANT40TA3 PO (08:42)
== END 2016-11-27 01:29 | disposition home or self-care (01) ==
LOC: NEPE 23:47
DX: R56.9 Unspecified convulsions (principal); E11.9 Type 2 diabetes mellitus without complications; I10 Essential (primary) hypertension; E07.9 Disorder of thyroid, unspecified; Z79.01 Long term (current) use of anticoagulants; Z79.84 Long term (current) use of oral hypoglycemic drugs; Z86.79 Personal history of other diseases of the circulatory system; Z86.59 Personal history of other mental and behavioral disorders; Z87.19 Personal history of other diseases of the digestive system; Z86.69 Personal history of other diseases of the nervous system and sense organs
CPT/HCPCS: 80053; 80162; 80184; 85025; 99283

== ENCOUNTER 2016-12-10 12:31 | Observation (INO) | payer MEDICARE, OTHER ==
[~2016-12-10] VITALS: Ht 162.6 cm; Wt 65.0 kg
[~2016-12-10 12:31] MED LIST changes: +ASPI-110 PO; -ASPI1TAB69 PO; -DULO1CAP3 PO; -FERR325T PO; -FOLI1TAB4 PO; +FOLI400T PO; +IRON27TA PO; +PANT40TA3 PO; -THERTAB15 PO
[2016-12-10 12:42] VITALS: BP 129/82; PULSE 80; PULSE 95; RESP 16; TEMP 96.5; O2SAT 97
[2016-12-10] MEDS ORDERED: SODIUM CHLORIDE 0.9% FLUSH 10 ML FLUSH IVF PRN ×2 (13:00)
--- NOTE | 2016-12-10 13:14 | PD ---
HPI Chief Complaint: Fall Time Seen by Provider: 12:40 Travel History International Travel<30 days: No Contact w/Intl Traveler<30days: No Traveled to known affect area: No History of Present Illness HPI Patient is a 51-year-old female with history of CVA with left-sided deficits, presents to emergency room after she tripped and fell at home. She was at home today, reports that she was going to the bathroom and while using her walker, she tripped over her left shoe and ended up twisting her ankle and falling. She reports that she hit her head on the ground, with no loss of consciousness. Patient reports that she is on Eliquis at this time as she does have history of CVA. Patient denies any headache or dizziness, denies any neck pain. Patient denies any chest pain or shortness of breath. Patient denies any pains to her ankle or hip. Patient reports that she feels fine, reports that nothing hurts her. Patient also admits to having a seizure this morning. Patient reports that she has history of seizures, reports that she does take phenobarbital and vimpap with her seizures. Reports that she always has seizures and her seizure this morning was a typical seizure. Reports that she has been compliant with all her medications. Denies any trauma to head or neck with her seizures this morning. PFSH Past Medical History Hx Anticoagulant Therapy: Yes (ELOQUIS ) Asthma: No Atrial Fibrillation: Yes Anxiety: Yes Depression: Yes Heart Rhythm Problems: Yes (DEFIBRILLATOR PLACED 2 YRS AGO) Cancer: No Cardiovascular Problems: Yes ( CARDIOMYOPATHY) High Cholesterol: No Chemotherapy: No Chest Pain: No Congestive Heart Failure: Yes COPD: No Cerebrovascular Accident: Yes Diabetes: Yes Patient Takes Glucophage: Yes Diminished Hearing: No Endocrine: Yes Gastrointestinal Disorders: Yes (ACID REFLUX) GERD: Yes Genitourinary: No Hepatitis: No Hypertension: Yes Immune Disorder: No Implanted Vascular Access Dvce: Yes Neurologic: Yes Psychiatric: Yes (ANXIETY ) Reproductive: No Respiratory: Yes Immunizations Current: Yes Radiation Therapy: No Seizures: Yes Thyroid Disease: Yes Tetanus Vaccination: < 5 Years Influenza Vaccination: Yes ?: Not : 1 Para: 1 Past Surgical History AICD: Yes (Nuiku) Body Medical Devices: DEBRILLATOR, MARKER IN BILATERAL BREAST Cardiac Surgery: Yes (DEFIBRILATOR 2002, DEFIBRILATOR REPLACED 03/2010) Section: Yes (1984) Gynecologic Surgery: Yes ( ) Neurologic Surgery: Yes (CRANIOTOMY) Thoracic Surgery: Yes (MARKERS PLACED BILATERAL BREAST) Other Surgery: Yes Social History Alcohol Use: No Tobacco Use: No Substance Use: No Allergies-Medications (Allergen,Severity, Reaction): Coded Allergies: Dilantin (Verified Allergy, Severe, 12/10/16) Lemon (Verified Allergy, Severe, EDEMA, 12/10/16) Sulfa (Verified Allergy, Severe, ANYYHING WITH IT IN IT AND I FALL OUT AND GET THE SHAKES, 12/10/16) AMARIS Inhibitors (Verified Allergy, Intermediate, ANGIOEDEMA, 12/10/16) CONFIRMED OF 01/03/2010 MRI PRECAUTION (Verified Adverse Reaction, Severe, AICD PRESENT, 12/10/16) AICD PRESENT 11/23/13 JLA *MDRO Multi-Drug Resistant Organism (Verified Adverse Reaction, Unknown, ) MRSA (urine & sputum) - 2013 MRSA PCR Screen POSITIVE - 04/08/16 Uncoded Allergies: MUCINEX (Allergy, Severe, CARDIAC INCIDENT, 09/18/13) Reported Meds & Prescriptions Reported Meds & Active Scripts Active Pantoprazole (Pantoprazole Sodium) 40 Mg Tab 40 Mg PO DAILY Vimpat (Lacosamide) 200 Mg Tab 200 Mg PO BID Memantine 10 Mg Tab 10 Mg PO BID Metformin (Metformin HCl) 500 Mg Tab 500 Mg PO BIDPC With meals Phenobarbital 32.4 Mg Tab 32.4 Mg PO BID Lasix (Furosemide) 40 Mg Tab 40 Mg PO BID@,18 Coreg (Carvedilol) 6.25 Mg Tab 6.25 Mg PO BID Digoxin 0.125 Mg Tab 0.125 Mg PO DAILY Lipitor (Atorvastatin Calcium) 80 Mg Tab 80 Mg PO HS Eliquis (Apixaban) 5 Mg Tab 5 Mg PO BID Spironolactone 25 Mg Tab 25 Mg PO DAILY Reported Trileptal (Oxcarbazepine) 300 Mg Tab 300 Mg PO BID Vitamin B-1 (Thiamine HCl) 250 Mg Tab 250 Mg PO DAILY Cymbalta DR (Duloxetine HCl) 60 Mg Capdr 60 Mg PO DAILY Ferrous Sulfate DR (Ferrous Sulfate) 325 Mg Tabdr 325 Mg PO BID Folic Acid 400 Mcg Tab 400 Mcg PO DAILY Aspirin 81 (Aspirin) 81 Mg Tabdr 81 Mg PO DAILY Review of Systems General / Constitutional: No: Fever Eyes: No: Visual changes HENT: No: Headaches Cardiovascular: No: Chest Pain or Discomfort Respiratory: No: Shortness of Breath Gastrointestinal: No: Abdominal Pain Genitourinary: No: Dysuria Musculoskeletal: No: Pain Skin: No Rash Neurologic: No: Weakness Psychiatric: No: Depression Endocrine: No: Polydipsia Hematologic/Lymphatic: No: Easy Bruising Physical Exam Narrative GENERAL: No acute distress, nontoxic SKIN: Focused skin assessment warm/dry. HEAD: Atraumatic. Normocephalic. EYES: Pupils equal and round. No scleral icterus. No injection or drainage. ENT: No nasal bleeding or discharge. Mucous membranes pink and moist. NECK: Trachea midline. No JVD. CARDIOVASCULAR: Regular rate and rhythm. No murmur appreciated. RESPIRATORY: No accessory muscle use. Clear to auscultation. Breath sounds equal bilaterally. GASTROINTESTINAL: Abdomen soft, non-tender, nondistended. Hepatic and splenic margins not palpable. MUSCULOSKELETAL: No obvious deformities. No clubbing. No cyanosis. No edema. Normal range of motion to bilateral hips, no pain to bilateral ankles or knees, no obvious deformities or fractures NEUROLOGICAL: Awake and alert. No obvious cranial nerve deficits. Patient with left-sided weakness appeared to right side, patient reports that her weakness is at baseline due to her stroke. Normal speech. PSYCHIATRIC: Appropriate mood and affect; insight and judgment normal. Data Data Last Documented VS Vital Signs Date Time Temp Pulse Resp B/P Pulse Ox O2 Delivery O2 Flow Rate FiO2 12/10/16 12:42 96.5 95 16 129/82 97 12/10/16 12:42 Room Air Orders Electrocardiogram (12/10/16 12:57) Prothrombin Time / Inr (Pt) (12/10/16 12:57) Act Partial Throm Time (Ptt) (12/10/16 12:57) Complete Blood Count With Diff (12/10/16 12:57) Basic Metabolic Panel (Bmp) (12/10/16 12:57) Ct Brain W/O Iv Contrast(Rout) (12/10/16 12:57) Chest, Single Ap (12/10/16 12:57) Ecg Monitoring (12/10/16 12:57) Iv Access Insert/Monitor (12/10/16 12:57) Oximetry (12/10/16 12:57) Sodium Chloride 0.9% Flush (Ns Flush) (12/10/16 13:00) Phenobarbital (12/10/16 12:57) Blood Glucose (12/10/16 12:57) Sodium Chloride 0.9% Flush (Ns Flush) (12/10/16 13:00) Digoxin (12/10/16 12:57) Urinalysis - C+S If Indicated (12/10/16 12:57) Labs Laboratory Tests Test 12/10/16 13:15 White Blood Count 5.9 TH/MM3 Red Blood Count 5.79 MIL/MM3 Hemoglobin 14.3 GM/DL Hematocrit 44.3 % Mean Corpuscular Volume 76.5 FL Mean Corpuscular Hemoglobin 24.6 PG Mean Corpuscular Hemoglobin 32.2 % Concent Red Cell Distribution Width 17.4 % Platelet Count 261 TH/MM3 Mean Platelet Volume 9.9 FL Neutrophils (%) (Auto) 70.5 % Lymphocytes (%) (Auto) 21.2 % Monocytes (%) (Auto) 4.2 % Eosinophils (%) (Auto) 2.3 % Basophils (%) (Auto) 1.8 % Neutrophils # (Auto) 4.1 TH/MM3 Lymphocytes # (Auto) 1.3 TH/MM3 Monocytes # (Auto) 0.2 TH/MM3 Eosinophils # (Auto) 0.1 TH/MM3 Basophils # (Auto) 0.1 TH/MM3 CBC Comment AUTO DIFF Differential Total Cells 100 Counted Neutrophils % (Manual) 57 % Lymphocytes % 29 % Monocytes % 7 % Eosinophils % 4 % Basophils % 3 % Neutrophils # (Manual) 3.4 TH/MM3 Nucleated Red Blood Cells 11 /100 WBC Differential Comment FINAL DIFF MANUAL Platelet Estimate NORMAL Platelet Morphology Comment NORMAL Ovalocytes 3+ Acanthocytes OCC Keratocytes OCC Prothrombin Time 16.9 SEC Prothromb Time International 1.5 RATIO Ratio Activated Partial 29.7 SEC Thromboplast Time Sodium Level 138 MEQ/L Potassium Level 4.2 MEQ/L Chloride Level 104 MEQ/L Carbon Dioxide Level 26.1 MEQ/L Anion Gap 8 MEQ/L Blood Urea Nitrogen 18 MG/DL Creatinine 0.65 MG/DL Estimat Glomerular Filtration 117 ML/MIN Rate Random Glucose 193 MG/DL Calcium Level 8.6 MG/DL Digoxin Level 1.5 NG/ML Phenobarbital Level 26.0 MCG/ML MDM Medical Decision Making Medical Screen Exam Complete: Yes Emergency Medical Condition: Yes Interpretation(s) Vital Signs Date Time Temp Pulse Resp B/P Pulse Ox O2 Delivery O2 Flow Rate FiO2 12/10/16 12:42 96.5 95 16 129/82 97 12/10/16 12:42 Room Air Differential Diagnosis Differential includes intracranial hemorrhage, seizure, electrolyte abnormality Narrative Course Patient is a 51-year-old female who presents to emergency room for evaluation after a fall today. Patient reports that she tripped over her left ankle and fell in the bathroom hitting her head on the floor. She currently is on Eliquis , patient with no complaints of headache or dizziness at this time. Patient also made to having a typical seizure this morning. 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 Plan to obtain CT the head to evaluate for intravenous pathology. Will obtain lab work and monitor patient. Vital Signs Date Time Temp Pulse Resp B/P Pulse Ox O2 Delivery O2 Flow Rate FiO2 12/10/16 12:42 96.5 95 16 129/82 97 12/10/16 12:42 Room Air Laboratory Tests Test 12/10/16 13:15 White Blood Count 5.9 TH/MM3 (4.0-11.0) Red Blood Count 5.79 MIL/MM3 (4.00-5.30) Hemoglobin 14.3 GM/DL (11.6-15.3) Hematocrit 44.3 % (35.0-46.0) Mean Corpuscular Volume 76.5 FL (80.0-100.0) Mean Corpuscular Hemoglobin 24.6 PG (27.0-34.0) Mean Corpuscular Hemoglobin 32.2 % Concent (32.0-36.0) Red Cell Distribution Width 17.4 % (11.6-17.2) Platelet Count 261 TH/MM3 (150-450) Mean Platelet Volume 9.9 FL (7.0-11.0) Neutrophils (%) (Auto) 70.5 % (16.0-70.0) Lymphocytes (%) (Auto) 21.2 % (9.0-44.0) Monocytes (%) (Auto) 4.2 % (0.0-8.0) Eosinophils (%) (Auto) 2.3 % (0.0-4.0) Basophils (%) (Auto) 1.8 % (0.0-2.0) Neutrophils # (Auto) 4.1 TH/MM3 (1.8-7.7) Lymphocytes # (Auto) 1.3 TH/MM3 (1.0-4.8) Monocytes # (Auto) 0.2 TH/MM3 (0-0.9) Eosinophils # (Auto) 0.1 TH/MM3 (0-0.4) Basophils # (Auto) 0.1 TH/MM3 (0-0.2) CBC Comment AUTO DIFF Differential Total Cells 100 Counted Neutrophils % (Manual) 57 % (16-70) Lymphocytes % 29 % (9-44) Monocytes % 7 % (0-8) Eosinophils % 4 % (0-4) Basophils % 3 % (0-2) Neutrophils # (Manual) 3.4 TH/MM3 (1.8-7.7) Nucleated Red Blood Cells 11 /100 WBC (0-0) Differential Comment FINAL DIFF MANUAL Platelet Estimate NORMAL (NORMAL) Platelet Morphology Comment NORMAL (NORMAL) Ovalocytes 3+ (NORMAL) Acanthocytes OCC (NORMAL) Keratocytes OCC (NORMAL) Prothrombin Time 16.9 SEC (9.8-11.6) Prothromb Time International 1.5 RATIO Ratio Activated Partial 29.7 SEC Thromboplast Time (24.3-30.1) Sodium Level 138 MEQ/L (136-145) Potassium Level 4.2 MEQ/L (3.5-5.1) Chloride Level 104 MEQ/L (98-107) Carbon Dioxide Level 26.1 MEQ/L (21.0-32.0) Anion Gap 8 MEQ/L (5-15) Blood Urea Nitrogen 18 MG/DL (7-18) Creatinine 0.65 MG/DL (0.50-1.00) Estimat Glomerular Filtration 117 ML/MIN Rate (>89) Random Glucose 193 MG/DL (74-106) Calcium Level 8.6 MG/DL (8.5-10.1) Digoxin Level 1.5 NG/ML (0.8-2.0) Phenobarbital Level 26.0 MCG/ML (15.0-40.0) Last Impressions Head CT 12/10/16 1257 Signed Impressions: Service Date/Time: Saturday, December 10, 2016 13:49 - CONCLUSION: 1. Stable examination with postsurgical changes of a right parietal craniotomy and extensive right cerebral encephalomalacia changes. 2. No acute intracranial process. Radames Scott MD Chest X-Ray 12/10/16 1257 Signed Impressions: Service Date/Time: Saturday, December 10, 2016 13:13 - CONCLUSION: 1. Mild left basilar atelectatic changes. No confluent infiltrate. 2. Compensated cardiomegaly. Radames Scott MD UA pending, patient feeling much better at this time. Reports no complaints. I reviewed all labs and studies with patient in detail. Signs and symptoms of when to return to the ER was reviewed with her in detail. patient will return to ER if needed. She will follow up with her neurologist as well as her primary care doctor who is Dr. Herring digoxin level 1.5 phenobarb level 26 Pt's daughter now at bedside, I reviewed all labs and studies with her as well as plan of care for discharge. Daughter infuriated that patient is being discharged. Daughter now reports that patient has had multiple seizures, reports that she had a seizure yesterday as well as this morning. Reports that when patient had her seizure this morning, she was in the bathroom and reports that right after her seizure episode, patient fell in the bathroom landing on her head. Patient is uncomfortable with patient going home with her as she is her caregiver. Plan to obs for seizure Diagnosis Primary Impression: Head injury Qualified Code: S09.90XA - Head injury, initial encounter Additional Impression: Seizure Admitting Information Admitting Physician Requests: Observation Patient Instructions: General Instructions Additional Instructions: Please follow up with your primary care doctor and neurologist in 2-3 days Take all medications as prescribed Return to ER as needed or if symptoms worsen or progress Lorraine Mckeon DO Dec 10, 2016 13:14
[2016-12-10] MEDS ORDERED: FERR325T2 PO (13:16)
[2016-12-10] MEDS ORDERED: TRIL300T PO (13:16)
[2016-12-10] MEDS ORDERED: CYMB60CA PO (13:16)
[2016-12-10] MEDS ORDERED: VITA250T25 PO (13:16)
[2016-12-10 13:35] LABS: AUTOMATED NEUTROPHIL # 4.1 TH/MM3 (1.8-7.7); BASOPHIL # 0.1 TH/MM3 (0-0.2); BASOPHIL % 1.8 % (0.0-2.0); EOSINOPHIL # 0.1 TH/MM3 (0-0.4); EOSINOPHIL % 2.3 % (0.0-4.0); HEMATOCRIT 44.3 % (35.0-46.0); LYMPH % 21.2 % (9.0-44.0); LYMPHOCYTE # 1.3 TH/MM3 (1.0-4.8); MEAN CELL VOLUME 76.5 FL (80.0-100.0); MEAN CORPUSCULAR HEMOGLOBIN 24.6 PG (27.0-34.0); MEAN CORPUSCULAR HGB CONC 32.2 % (32.0-36.0); MONO % 4.2 % (0.0-8.0); NEUT % 70.5 % (16.0-70.0); PLATELET COUNT 261 TH/MM3 (150-450); RED BLOOD COUNT 5.79 MIL/MM3 (4.00-5.30); RED CELL DISTRIBUTION WIDTH 17.4 % (11.6-17.2); WHITE BLOOD COUNT 5.9 TH/MM3 (4.0-11.0)
[2016-12-10 13:38] LABS: HEMO FLAGS AUTO DIFF
[2016-12-10 13:43] LABS: APTT (PATIENT) 29.7 SEC (24.3-30.1); INTERNATIONAL NORMALIZED RATIO 1.5 RATIO; PROTHROMBIN TIME - PATIENT 16.9 SEC (9.8-11.6)
[2016-12-10 13:50] LABS: BICARBONATE 26.1 MEQ/L (21.0-32.0); POTASSIUM 4.2 MEQ/L (3.5-5.1)
--- NOTE | 2016-12-10 14:00 | RADRPT ---
EXAM DATE/TIME: 12/10/2016 13:13 [facility] COMPARISON: CHEST SINGLE AP, October 23, 2016, 10:42. INDICATIONS : Chest pain MEDICAL HISTORY : Diabetes mellitus type II. stroke, seizures, cardiovascular disease, CHF SURGICAL HISTORY : Craniotomy. Pacemaker. ENCOUNTER: Initial ACUITY: 1 day PAIN SCORE: Non-responsive. LOCATION: chest FINDINGS: A single view of the chest demonstrates mild left basilar atelectatic changes. Lungs are otherwise cl ear. Heart size is prominent but well compensated. A subclavian bipolar pacer is radiographically int act. Degenerative spurring of the dorsal spine. Osseous structures are otherwise intact. CONCLUSION: 1. Mild left basilar atelectatic changes. No confluent infiltrate. 2. Compensated cardiomegaly. Radames Scott MD on December 10, 2016 at 13:57 Board Certified Radiologist. This report was verified electronically.
[2016-12-10 14:05] LABS: DIGOXIN 1.5 NG/ML (0.8-2.0)
[2016-12-10 14:07] LABS: BASOPHILS 3 % (0-2); CORRECTED NUCLEATED RBC 11 /100 WBC (0-0); EOSINOPHILS 4 % (0-4); NEUTROPHIL # MANUAL DIFF 3.4 TH/MM3 (1.8-7.7); OVALOCYTES 3+ (NORMAL); PLATELET ESTIMATE SMEAR NORMAL (NORMAL); PLATELET MORPHOLOGY NORMAL (NORMAL); POLYS (SEG NEUTROPHILS) 57 % (16-70); SCAN/DIFF FINAL DIFF MANUAL; WBC DIFF SAMPLE 100
[2016-12-10 14:08] LABS: ACANTHOCYTES OCC (NORMAL); KERATOCYTES OCC (NORMAL)
--- NOTE | 2016-12-10 14:08 | RADRPT ---
EXAM DATE/TIME: 12/10/2016 13:49 [facility] COMPARISON: CT BRAIN W/O CONTRAST, October 23, 2016, 11:25. INDICATIONS : Fall with seizure. RADIATION DOSE: 31.69 CTDIvol (mGy) MEDICAL HISTORY : Cerebrovascular disease. Cardiovascular disease stroke, seizures, CHF SURGICAL HISTORY : Internal defibulator ENCOUNTER: Initial ACUITY: 1 day PAIN SCALE: 0/10 LOCATION: cranial TECHNIQUE: Multiple contiguous axial images were obtained of the head. Using automated exposure control and adj ustment of the mA and/or kV according to patient size, radiation dose was kept as low as reasonably a chievable to obtain optimal diagnostic quality images. DICOM format image data is available electro nically for review and comparison. FINDINGS: CEREBRUM: Stable extensive than subtle malacia changes in the right cerebral hemisphere with ex vacuo dilatatio n of the adjacent ventricular system. Associated volume loss in the right hemithorax. Left cerebral h emisphere remains intact. Extensive calcification of the falx. No evidence of mass lesion, hemorrhag e or acute infarction. No extra-axial fluid collections are seen. POSTERIOR FOSSA: The cerebellum and brainstem are intact. The 4th ventricle is midline. The cerebellopontine angle i s unremarkable. EXTRACRANIAL: The visualized portion of the orbits is intact. SKULL: Postsurgical changes with prior craniotomy in the right parietal region. CONCLUSION: 1. Stable examination with postsurgical changes of a right parietal craniotomy and extensive right ce rebral encephalomalacia changes. 2. No acute intracranial process. Radames Scott MD on December 10, 2016 at 14:03 Board Certified Radiologist. This report was verified electronically.
[2016-12-10 15:41] LABS: BACTERIA, URINE MANY /hpf; BLOOD, URINE SMALL (NEG); COMMENT (UR) CULTURE INDICATED; CULTURE IF INDICATED CULTURE INDICATED; GLUCOSE,URINE NEG (NEG); HYALINE CAST, URINE 3 /lpf (RARE); KETONE, URINE NEG (NEG); MUCUS URINE FEW /lpf (OCC); NITRITE,URINE NEG (NEG); SQUAMOUS EPITHELIAL CELL URINE 9 /hpf (0-5); TRANSITIONAL EPI CELLS, URINE 1 /hpf; URINE COLOR LIGHT-YELLOW (YELLW/STRAW)
[2016-12-10] MEDS ORDERED: DEXTROSE 50% IN WATER 50 ML VIAL(D50) IV PRN (16:30)
[2016-12-10] MEDS ORDERED: GLUCAGON 1 MG/ML VIAL OTHER PRN (16:30)
[2016-12-10] MEDS ORDERED: LORazepam 2 MG/ML VIAL IV PUSH PRN (16:30)
--- NOTE | 2016-12-10 16:39 | HHI.HP ---
[facility] Monica Maldonado MD Admission Diagnosis seizure Diagnoses: (1) Seizures Diagnosis: Principal Chief Complaint: seizure Travel History International Travel<30 Days: No Contact w/Intl Traveler <30 Da: No Traveled to Known Affected Are: No History of Present Illness patient is a 51 y/o female with history of CVA and seizures was brought to ER after she had another episode of seizure earlier today. most of the information was obtained from the daughter at the bedside. she says that her mother started to have seizure about a couple of years ago after she had stroke. she says that her neurologist is trying to titrate her seizure regimen but it seems that ' it' s not working'. she says that she had a seizure last night. again this morning when she was trying to go to bathroom she had another seizure and then she fell. the daughter says that she initially had some twitching of the left arm but now she has twitching of both arms. she was on phenobarbital and Vimpat but was started on Trileptal about two weeks and the the dosage is being titrated per her neurologist. at the time of my evaluation she was awake, alert with no distress. Review of Systems Constitutional: DENIES: Fever, Weight loss, Chills, Night Sweats Eyes: DENIES: Blurred vision, Diplopia, Vision loss, Double Vision Ears, nose, mouth, throat: DENIES: Tinnitus, Vertigo, Throat pain, Epistaxis Respiratory: DENIES: Apneas, Cough, Snoring, Wheezing, Hemoptysis, Sputum production, Shortness of breath Cardiovascular: DENIES: Chest pain, Palpitations, Syncope, Dyspnea on Exertion , PND, Lower Extremity Edema, Orthopnea, Claudication Gastrointestinal: DENIES: Abdominal pain, Black stools, Bloody stools, Constipation, Diarrhea, Nausea, Vomiting, Difficulty Swallowing, Anorexia Genitourinary: DENIES: Urinary frequency, Urgency, Hematuria, Dysuria Musculoskeletal: DENIES: Joint pain, Muscle aches, Stiffness, Joint Swelling Integumentary: DENIES: Rash Neurologic: COMPLAINS OF: Seizures, DENIES: Abnormal gait, Headache, Localized weakness, Paresthesias, Speech Problems, Tremor, Poor Balance Psychiatric: DENIES: Anxiety, Confusion, Mood changes, Depression, Hallucinations, Agitation, Suicidal Ideation, Homicidal Ideation, Delusions Past Family Social History Past Medical History CVA CHF seizure diabetes mellitus hypertension Past Surgical History ICD placement craniotomy Reported Medications Pantoprazole (Pantoprazole Sodium) 40 Mg Tab 40 Mg PO DAILY Vimpat (Lacosamide) 200 Mg Tab 200 Mg PO BID Memantine 10 Mg Tab 10 Mg PO BID Metformin (Metformin HCl) 500 Mg Tab 500 Mg PO BIDPC With meals Phenobarbital 32.4 Mg Tab 32.4 Mg PO BID Lasix (Furosemide) 40 Mg Tab 40 Mg PO BID@09,18 Coreg (Carvedilol) 6.25 Mg Tab 6.25 Mg PO BID Digoxin 0.125 Mg Tab 0.125 Mg PO DAILY Lipitor (Atorvastatin Calcium) 80 Mg Tab 80 Mg PO HS Eliquis (Apixaban) 5 Mg Tab 5 Mg PO BID Spironolactone 25 Mg Tab 25 Mg PO DAILY Reported Trileptal (Oxcarbazepine) 300 Mg Tab 300 Mg PO BID Vitamin B-1 (Thiamine HCl) 250 Mg Tab 250 Mg PO DAILY Cymbalta DR (Duloxetine HCl) 60 Mg Capdr 60 Mg PO DAILY Ferrous Sulfate DR (Ferrous Sulfate) 325 Mg Tabdr 325 Mg PO BID Folic Acid 400 Mcg Tab 400 Mcg PO DAILY Aspirin 81 (Aspirin) 81 Mg Tabdr 81 Mg PO DAILY Allergies: Coded Allergies: Dilantin (Verified Allergy, Severe, 12/10/16) Lemon (Verified Allergy, Severe, EDEMA, 12/10/16) Sulfa (Verified Allergy, Severe, ANYYHING WITH IT IN IT AND I FALL OUT AND GET THE SHAKES, 12/10/16) AMARIS Inhibitors (Verified Allergy, Intermediate, ANGIOEDEMA, 12/10/16) CONFIRMED OF 01/03/2010 MRI PRECAUTION (Verified Adverse Reaction, Severe, AICD PRESENT, 12/10/16) AICD PRESENT 11/23/13 JLA *MDRO Multi-Drug Resistant Organism (Verified Adverse Reaction, Unknown, ) MRSA (urine & sputum) - 2013 MRSA PCR Screen POSITIVE - 04/08/16 Uncoded Allergies: MUCINEX (Allergy, Severe, CARDIAC INCIDENT, 09/18/13) Active Ordered Medications Current Medications Sodium Chloride (NS Flush) 2 ml UNSCH PRN IVF FLUSH AFTER USING IV ACCESS; Start 12/10/16 at 13:00 Sodium Chloride (NS Flush) 2 ml UNSCH PRN IVF FLUSH AFTER USING IV ACCESS; Start 12/10/16 at 13:00 Family History stroke in her sister. Social History lives with the daughter. no smoking or drinking. Physical Exam Vital Signs Vital Signs Date Time Temp Pulse Resp B/P Pulse Ox O2 Delivery O2 Flow Rate FiO2 12/10/16 12:42 96.5 95 16 129/82 97 12/10/16 12:42 Room Air Physical Exam GENERAL: This is a well-nourished, well-developed patient, in no apparent distress. SKIN: No rashes, ecchymoses or lesions. Cool and dry. HEAD: Atraumatic. Normocephalic. No temporal or scalp tenderness. EYES: Pupils equal round and reactive. Extraocular motions intact. No scleral icterus. No injection or drainage. ENT: Nose without bleeding, purulent drainage or septal hematoma. Throat without erythema, tonsillar hypertrophy or exudate. Uvula midline. Airway patent. NECK: Trachea midline. No JVD or lymphadenopathy. Supple, nontender, no meningeal signs. CARDIOVASCULAR: Regular rate and rhythm without murmurs, gallops, or rubs. RESPIRATORY: Clear to auscultation. Breath sounds equal bilaterally. No wheezes , rales, or rhonchi. GASTROINTESTINAL: Abdomen soft, non-tender, nondistended. No hepato-splenomegaly , or palpable masses. No guarding. MUSCULOSKELETAL: edema of the left lower extremity NEUROLOGICAL: Awake and alert. moves all extremities. Laboratory Laboratory Tests Test 12/10/16 12/10/16 13:15 15:10 White Blood Count 5.9 Red Blood Count 5.79 Hemoglobin 14.3 Hematocrit 44.3 Mean Corpuscular Volume 76.5 Mean Corpuscular Hemoglobin 24.6 Mean Corpuscular Hemoglobin 32.2 Concent Red Cell Distribution Width 17.4 Platelet Count 261 Mean Platelet Volume 9.9 Neutrophils (%) (Auto) 70.5 Lymphocytes (%) (Auto) 21.2 Monocytes (%) (Auto) 4.2 Eosinophils (%) (Auto) 2.3 Basophils (%) (Auto) 1.8 Neutrophils # (Auto) 4.1 Lymphocytes # (Auto) 1.3 Monocytes # (Auto) 0.2 Eosinophils # (Auto) 0.1 Basophils # (Auto) 0.1 CBC Comment AUTO DIFF Differential Total Cells 100 Counted Neutrophils % (Manual) 57 Lymphocytes % 29 Monocytes % 7 Eosinophils % 4 Basophils % 3 Neutrophils # (Manual) 3.4 Nucleated Red Blood Cells 11 Differential Comment FINAL DIFF MANUAL Platelet Estimate NORMAL Platelet Morphology Comment NORMAL Ovalocytes 3+ Acanthocytes OCC Keratocytes OCC Prothrombin Time 16.9 Prothromb Time International 1.5 Ratio Activated Partial 29.7 Thromboplast Time Sodium Level 138 Potassium Level 4.2 Chloride Level 104 Carbon Dioxide Level 26.1 Anion Gap 8 Blood Urea Nitrogen 18 Creatinine 0.65 Estimat Glomerular Filtration 117 Rate Random Glucose 193 Calcium Level 8.6 Digoxin Level 1.5 Phenobarbital Level 26.0 Urine Color LIGHT-YELLOW Urine Turbidity HAZY Urine pH 7.0 Urine Specific [place] 1.011 Urine Protein 30 Urine Glucose (UA) NEG Urine Ketones NEG Urine Occult Blood SMALL Urine Nitrite NEG Urine Bilirubin NEG Urine Urobilinogen LESS THAN 2.0 Urine Leukocyte Esterase LARGE Urine RBC 4 Urine WBC 29 Urine Squamous Epithelial 9 Cells Urine Transitional Epithelial 1 Cells Urine Bacteria MANY Urine Hyaline Casts 3 Urine Mucus FEW Microscopic Urinalysis Comment CULTURE INDICATED Date/Time Procedure Status Source Growth 12/10/16 15:10 Urine Culture Received Urine Clean Catch Pending Result Diagram: 12/10/16 1315 12/10/16 1315 Imaging Last Impressions Head CT 12/10/16 1257 Signed Impressions: Service Date/Time: Saturday, December 10, 2016 13:49 - CONCLUSION: 1. Stable examination with postsurgical changes of a right parietal craniotomy and extensive right cerebral encephalomalacia changes. 2. No acute intracranial process. Radames Scott MD Chest X-Ray 12/10/16 1257 Signed Impressions: Service Date/Time: Saturday, December 10, 2016 13:13 - CONCLUSION: 1. Mild left basilar atelectatic changes. No confluent infiltrate. 2. Compensated cardiomegaly. Radames Scott MD Assessment and Plan Assessment and Plan A/P - recurrent seizures patient has been on phenobarbital and Vimpat- Trileptal was just added to her regimen two weeks ago. continue with seizure precautions and neuro-checks- obtain EEG- will consult neurology -possible UTI; will start antibiotic- will follow the culture -history of CVA; continue aspirin, eliquis and statin- consult PT -CHF- chronic systolic- compensated- s/p AICD placement; continue home meds -hypertension; resume home BP meds -diabetes mellitus; hold metformin for now- accu-check with SSI -DVT prophylaxis; on eliquis -consult case management for dc planning. Discussed Condition With ER physician , the patient and her daughter at the bedside. Chino Monte MD Dec 10, 2016 16:39
[2016-12-10] MEDS: cefTRIAXone INJ 1,000 MG in SODIUM CHLORIDE 0.9% INJ 100 ML IV SCH ×2 (17:03→17:11)
--- NOTE | 2016-12-10 17:56 | RADRPT ---
EXAM DATE/TIME: 12/10/2016 17:24 [place] COMPARISON: No previous studies available for comparison. INDICATIONS : Left leg swelling. MEDICAL HISTORY : Congestive heart failure. Hypertension. Gastroesophageal reflux disease. Thyroid disease. Cerebrov ascular accident. Seizures. Cardiomyopathy. Anticoagulant therapy, Eloquis. Afib. . Diabetes . Anxiety. MRSA. SURGICAL HISTORY : Craniotomy. section. Internal defibrillator. ENCOUNTER: Initial ACUITY: 1 day PAIN SCORE: 0/10 LOCATION: Left leg. TECHNIQUE: Venous ultrasound of the leg was performed from the inguinal ligament to the proximal calf. Real-todd e, color Doppler and spectral tracing, compression and augmentation techniques were used. FINDINGS: There is normal compressibility of the deep venous system from the inguinal region to the proximal ca lf. No echogenic clot is seen in the lumen of the common femoral, femoral, popliteal, and posterior tibial veins. There is a normal response of the venous system to proximal and distal augmentation an d respiration. CONCLUSION: Negative exam with no evidence of deep venous thrombosis. Angel Cuevas MD on December 10, 2016 at 17:54 Board Certified Radiologist. This report was verified electronically.
[2016-12-10] MEDS: FUROSEMIDE 40 MG TAB PO SCH (18:36)
[2016-12-10] MEDS: OXcarbazepine 150 MG TAB PO SCH (18:36)
[2016-12-10 20:08] VITALS: BP 102/73; PULSE 92; RESP 18; TEMP 97.7; O2SAT 96
[2016-12-10] MEDS: CARVEDILOL 6.25 MG TAB PO SCH (21:00)
[2016-12-10] MEDS: INSULIN ASPART SUPPLEMENTAL SCALE SQ SCH (21:00)
[2016-12-10] MEDS: LACOSAMIDE 100 MG TAB PO SCH (22:08)
[2016-12-10] MEDS: APIXABAN 5 MG TABLET PO SCH (22:08)
[2016-12-10] MEDS: MEMANTINE HCL 10 MG TAB PO SCH (22:08)
[2016-12-10] MEDS: ATORVASTATIN 80 MG TAB PO SCH (22:08)
[2016-12-10] MEDS: PHENobarbital 32.4 MG TAB PO SCH (22:08)
[2016-12-10] MEDS: FERROUS SULFATE 325 MG (65 MG ELEMENTAL IRON) TAB PO SCH (22:08)
[2016-12-10 23:10] VITALS: PULSE 88
[2016-12-11] VITALS (7 sets, daily range): BP systolic 102–120; BP diastolic 67–82; PULSE 79–92; RESP 18–24; TEMP 97.4–98.4; O2SAT 98–100
[2016-12-11] MEDS: INSULIN ASPART SUPPLEMENTAL SCALE SQ SCH ×4 (06:25→21:22)
[2016-12-11] MEDS ORDERED: OXcarbazepine 300 MG TAB PO SCH (09:00)
[2016-12-11] MEDS: PANTOPRAZOLE SOD 40 MG DELAYED RELEASE TAB PO SCH (09:30)
[2016-12-11] MEDS: FERROUS SULFATE 325 MG (65 MG ELEMENTAL IRON) TAB PO SCH ×2 (09:30→21:19)
[2016-12-11] MEDS: SPIRONOLACTONE 25 MG TAB PO SCH (09:31)
[2016-12-11] MEDS: PHENobarbital 32.4 MG TAB PO SCH ×2 (09:32→21:19)
[2016-12-11] MEDS: MEMANTINE HCL 10 MG TAB PO SCH ×2 (09:32→21:19)
[2016-12-11] MEDS: FUROSEMIDE 40 MG TAB PO SCH ×2 (09:32→17:04)
[2016-12-11] MEDS: APIXABAN 5 MG TABLET PO SCH ×2 (09:33→21:19)
[2016-12-11] MEDS: ASPIRIN EC 81 MG TABEC PO SCH (09:33)
[2016-12-11] MEDS: DIGOXIN 0.125 MG TAB PO SCH (09:33)
[2016-12-11] MEDS: DULoxetine HCl DR 60 MG CAP PO SCH (09:33)
[2016-12-11] MEDS: CARVEDILOL 6.25 MG TAB PO SCH ×2 (09:33→21:19)
[2016-12-11] MEDS: LACOSAMIDE 100 MG TAB PO SCH ×2 (09:34→21:19)
[2016-12-11] MEDS: OXcarbazepine 150 MG TAB PO SCH (10:03)
--- NOTE | 2016-12-11 11:18 | HHI.PR ---
Subjective Remarks resting comfortably with no distress. says that she didn't have any seizures over night. Objective Vitals Vital Signs Date Time Temp Pulse Resp B/P Pulse Ox O2 Delivery O2 Flow Rate FiO2 12/11/16 08:54 97.6 86 24 102/67 100 12/11/16 04:22 97.4 86 18 118/79 99 12/11/16 03:32 79 12/11/16 00:05 97.6 90 18 104/77 100 12/10/16 23:10 88 12/10/16 20:08 97.7 92 18 102/73 96 12/10/16 12:42 96.5 95 16 129/82 97 12/10/16 12:42 Room Air I/O 12/10/16 12/10/16 12/10/16 12/11/16 12/11/16 12/11/16 07:00 15:00 23:00 07:00 15:00 23:00 Intake Total 480 ml 240 ml Balance 480 ml 240 ml Intake Oral 480 ml 240 ml # Voids 2 Result Diagram: 12/10/16 1315 12/10/16 1315 Imaging Last Impressions Head CT 12/10/16 1257 Signed Impressions: Service Date/Time: Saturday, December 10, 2016 13:49 - CONCLUSION: 1. Stable examination with postsurgical changes of a right parietal craniotomy and extensive right cerebral encephalomalacia changes. 2. No acute intracranial process. Radames Scott MD Chest X-Ray 12/10/16 1257 Signed Impressions: Service Date/Time: Saturday, December 10, 2016 13:13 - CONCLUSION: 1. Mild left basilar atelectatic changes. No confluent infiltrate. 2. Compensated cardiomegaly. Radames Scott MD Lower Extremity Ultrasound 12/10/16 0000 Signed Impressions: Service Date/Time: Saturday, December 10, 2016 17:24 - CONCLUSION: Negative exam with no evidence of deep venous thrombosis. Angel Cuevas MD Objective Remarks GENERAL: This is a well-nourished, well-developed patient, in no apparent distress. CARDIOVASCULAR: Regular rate and regular rhythm without murmurs, gallops, or rubs. RESPIRATORY: Clear to auscultation. Breath sounds equal bilaterally. No wheezes , rales, or rhonchi. GASTROINTESTINAL: Abdomen soft, non-tender, nondistended. Normal, active bowel sounds MUSCULOSKELETAL: mild swelling of the left leg NEURO: Alert & Oriented x4 to person, place, time, situation. Moves all ext x4 Procedures none Medications and IVs Current Medications Sodium Chloride (NS Flush) 2 ml UNSCH PRN IVF FLUSH AFTER USING IV ACCESS; Start 12/10/16 at 13:00 Sodium Chloride (NS Flush) 2 ml UNSCH PRN IVF FLUSH AFTER USING IV ACCESS; Start 12/10/16 at 13:00 Oxcarbazepine (Trileptal) 300 mg DAILY PO Last administered on 12/11/16 09:33 ; Start 12/11/16 at 09:00 Oxcarbazepine (Trileptal) 150 mg DAILY PO Last administered on 12/11/16 10:03 ; Start 12/10/16 at 18:00 Lorazepam (Ativan Inj) 1 mg Q15M PRN IV PUSH SEIZURE; Start 12/10/16 at 16:30 Dextrose (D50w (Vial) Inj) 50 ml UNSCH PRN IV HYPOGLYCEMIA-SEE COMMENTS; Start 12/10/16 at 16:30 Glucagon (Glucagon Inj) 1 mg UNSCH PRN OTHER HYPOGLYCEMIA-SEE COMMENTS; Start 12/10/16 at 16:30 Insulin Aspart (NovoLOG SUPPLEMENTAL SCALE) 1 ACHS SLIDING SCALE SQ ; Start 12/10/16 at 21:00 Apixaban (Eliquis) 5 mg BID PO Last administered on 12/11/16 09:33; Start 12/10 at 21:00 Aspirin (Ecotrin Ec) 81 mg DAILY PO Last administered on 12/11/16 09:33; Start 12/11/16 at 09:00 Atorvastatin Calcium (Lipitor) 80 mg HS PO Last administered on 12/10/16 22:08 ; Start 12/10/16 at 21:00 Carvedilol (Coreg) 6.25 mg BID PO Last administered on 12/11/16 09:33; Start 12/10/16 at 21:00 Digoxin (Lanoxin) 0.125 mg DAILY PO Last administered on 12/11/16 09:33; Start 12/11/16 at 09:00 Duloxetine HCl (Cymbalta Dr) 60 mg DAILY PO Last administered on 12/11/16 09: 33; Start 12/11/16 at 09:00 Furosemide (Lasix) 40 mg BID@09,18 PO Last administered on 12/11/16 09:32; Start 12/10/16 at 18:00 Lacosamide (Vimpat) 200 mg BID PO Last administered on 12/11/16 09:34; Start 12/10/16 at 21:00 Memantine (Namenda) 10 mg BID PO Last administered on 12/11/16 09:32; Start at 21:00 Pantoprazole Sodium (Protonix) 40 mg DAILY PO Last administered on 12/11/16 09 :30; Start 12/11/16 at 09:00 Phenobarbital (PHENobarbital) 32.4 mg BID PO Last administered on 12/11/16 09: 32; Start 12/10/16 at 21:00 Spironolactone (Aldactone) 25 mg DAILY PO Last administered on 12/11/16 09:31 ; Start 12/11/16 at 09:00 Ferrous Sulfate 325 mg 325 mg BID PO Last administered on 12/11/16 09:30; Start 12/10/16 at 21:00 Ceftriaxone Sodium/Sodium Chloride (Rocephin Inj/NS Inj) 100 ml @ 200 mls/hr Q24H IV Last administered on 12/10/16 17:11; Start 12/10/16 at 17:00 A/P Assessment and Plan A/P - recurrent seizures patient has been on phenobarbital and Vimpat- Trileptal was just added to her regimen two weeks ago. continue with seizure precautions and neuro-checks- EEG and neurology consult pending. -possible UTI; continue antibiotic- will follow the culture -history of CVA; continue aspirin, eliquis and statin- consulted PT -CHF- chronic systolic- compensated- s/p AICD placement; continue home meds -hypertension; resumed home BP meds -diabetes mellitus; hold metformin for now- accu-check with SSI -DVT prophylaxis; on eliquis -consulted case management for dc planning. Chino Monte MD Dec 11, 2016 11:18
--- NOTE | 2016-12-11 13:21 | EKG ---
Date Performed: 12/10/2016 Time Performed: 14:03:47 PTAGE: 51 years EKG: Sinus rhythm WITH FIRST DEGREE AV BLOCK POSSIBLE LEFT ATRIAL ENLARGEMENT MARKED LEFT AXIS DEVIATION INTRAVENTRICU LAR CONDUCTION DELAY ABNORMAL ECG Compared to prior tracing no significant change PREVIOUS TRACING : 10/23/2016 11.12 DOCTOR: Chano Chang Interpretating Date/Time 12/11/2016 13:19:27
[2016-12-11] MEDS ORDERED: ACETAMINOPHEN 325 MG TAB PO PRN (14:45)
[2016-12-11] MEDS ORDERED: ACETAMINOPHEN/HYDROcodone 325 MG/5 MG TAB PO PRN (14:45)
--- NOTE | 2016-12-11 17:32 | MG ---
cc: MARYCRUZ CAMARGO M.D. Lab No: Date: 12/11/2016 Age: Sex: F Race: ELECTROENCEPHALOGRAM NUMBER [id number] Hyperventilation not performed. INTRODUCTION Tripped and fell at home, hit her head. Some right hemisphere slowing in the past. Defibrillator. MEDICATIONS 1. Insulin. 2. Vimpat. DESCRIPTION Diffuse 6 Hz slowing is noted. There is some focal slowing over the right frontotemporal head region compared to the left. Some theta range. No epileptiform or seizure activity, however is noted with it until epoch 72 and there is a phase reversing sharp wave over the T4 electrode and one seen at epoch 71 also. Some more at epoch 96 which is rather prominent although there is some movement artifact with that. Photic stimulation was performed without significant posterior driving. IMPRESSION Towards the of the recording frequent sharps are seen over the right mid temporal head region and this could be a seizure focus. Right temporal lesion needs to be ruled out. This does appear to be quite epileptiform however, but no prolonged seizures are noted. MD DENISSE Rubalcava/KK /4:56 PM /5:30 PM
[2016-12-11] MEDS: cefTRIAXone INJ 1,000 MG in SODIUM CHLORIDE 0.9% INJ 100 ML IV SCH (17:35)
[2016-12-11] MEDS ORDERED: LORazepam 2 MG/ML VIAL IV PUSH PRN (18:00)
--- NOTE | 2016-12-11 21:40 | MB ---
cc: DESITNEY ESTRADA M.D. DATE OF CONSULTATION 12/11/2016 REASON FOR CONSULTATION Recurrent seizures. HISTORY OF PRESENT ILLNESS Ms. Foote is a very nice 51-year-old female who has a history of previous right hemisphere stroke. She has a history of right hemisphere focal seizures with secondary seizures. She was previously on a regimen of Vimpat and phenobarbital but had breakthrough seizures so a couple of weeks ago started on Trileptal on a low-dose great titrating the dose up, however, she has had breakthrough seizures and came to the hospital. PAST MEDICAL HISTORY 1. History of stroke. 2. History of craniotomy. 3. Diabetes. 4. Hypertension. 5. Seizures. MEDICATIONS Medicines at home: 1. Vimpat 200 mg b.i.d. 2. Memantine 10 mg b.i.d. 3. Metformin. 4. Phenobarbital 32.5 mg b.i.d. 5. Eliquis 5 mg b.i.d. 6. Lipitor 80 mg at bedtime. 7. Digoxin 1.25 milligrams daily. 8. Coreg 6.25 milligrams b.i.d. 9. Lasix 40 mg b.i.d. 10. Trileptal 300 mg b.i.d. 11. Cymbalta 60 mg daily. 12. Iron sulfate. 13. Folic acid. 14. Aspirin. ALLERGIES DILANTIN, LEMON, SULFA, AMARIS INHIBITOR. SHE HAS AN AICD PLACED SO SHE CANNOT HAVE AN MRI. NEUROLOGIC EXAMINATION VITAL SIGNS: Blood pressure is 106/73, pulse 87, respiratory rate is 18, temperature 98 degrees Higher cortical functions, she is alert and oriented. Speech is fluent. Cranial nerves: She has a left upper motor neuron VII palsy. On motor exam she has a left hemiparesis at 2/5 with normal strength on the right. IMAGING CT scan of the head shows a stable examination, postsurgical changes right parietal craniotomy with no acute change present. No hemorrhage present. LABORATORY DATA White count 5900, hemoglobin 14.3, hematocrit 44%, platelet count is 261,000. Sodium is 138, potassium 4.2, chloride 104, CO2 26. The BUN is 18, creatinine 0.65, GFR is 117. PT 16.9, INR 1.5, APTT 29.7. Phenobarbital level 26. IMPRESSION Breakthrough seizures. I would like to raise the Trileptal dose to 600 mg b.i.d. Continue her other doses of phenobarb and Vimpat. Also place her under seizure precautions. I would like to get an EEG as well. MD LUI Leonard/EMMANUEL /6:00 PM /9:22 PM
[2016-12-11] MEDS: OXcarbazepine 600 MG TAB PO SCH (22:32)
[2016-12-11] MEDS: ATORVASTATIN 80 MG TAB PO SCH (22:32)
[2016-12-12 00:44] VITALS: BP 119/80; PULSE 79; RESP 18; TEMP 96.1; O2SAT 92
[2016-12-12 06:26] VITALS: BP 125/69; PULSE 80; RESP 18; TEMP 98.5; O2SAT 95
[2016-12-12] MEDS: INSULIN ASPART SUPPLEMENTAL SCALE SQ SCH ×3 (06:30→18:24)
[2016-12-12 08:22] VITALS: BP 109/69; PULSE 83; RESP 16; TEMP 97.6; O2SAT 100
[2016-12-12] MEDS: ASPIRIN EC 81 MG TABEC PO SCH (10:14)
[2016-12-12] MEDS: FERROUS SULFATE 325 MG (65 MG ELEMENTAL IRON) TAB PO SCH (10:15)
[2016-12-12] MEDS: DIGOXIN 0.125 MG TAB PO SCH (10:15)
[2016-12-12] MEDS: APIXABAN 5 MG TABLET PO SCH (10:15)
[2016-12-12] MEDS: SPIRONOLACTONE 25 MG TAB PO SCH (10:15)
[2016-12-12] MEDS: FUROSEMIDE 40 MG TAB PO SCH ×2 (10:16→17:49)
[2016-12-12] MEDS: DULoxetine HCl DR 60 MG CAP PO SCH (10:16)
[2016-12-12] MEDS: CARVEDILOL 6.25 MG TAB PO SCH (10:16)
[2016-12-12] MEDS: LACOSAMIDE 100 MG TAB PO SCH (10:24)
[2016-12-12] MEDS: PANTOPRAZOLE SOD 40 MG DELAYED RELEASE TAB PO SCH (10:25)
[2016-12-12] MEDS: MEMANTINE HCL 10 MG TAB PO SCH (10:25)
[2016-12-12] MEDS: OXcarbazepine 600 MG TAB PO SCH (10:25)
[2016-12-12] MEDS: PHENobarbital 32.4 MG TAB PO SCH (10:25)
--- NOTE | 2016-12-12 11:36 | HHI.PR ---
Subjective Remarks in no acute distress. denies pain. no seizures over night. d/w the RN and no other acute issues over night. Objective Vitals Vital Signs Date Time Temp Pulse Resp B/P Pulse Ox O2 Delivery O2 Flow Rate FiO2 12/12/16 08:22 97.6 83 16 109/69 100 12/12/16 06:26 98.5 80 18 125/69 95 12/12/16 00:44 96.1 79 18 119/80 92 12/11/16 20:41 98.4 92 18 120/82 98 12/11/16 15:45 98.0 87 18 106/73 98 12/11/16 11:46 97.8 91 20 112/79 100 Result Diagram: 12/10/16 1315 12/10/16 1315 Imaging Last Impressions Head CT 12/10/16 1257 Signed Impressions: Service Date/Time: Saturday, December 10, 2016 13:49 - CONCLUSION: 1. Stable examination with postsurgical changes of a right parietal craniotomy and extensive right cerebral encephalomalacia changes. 2. No acute intracranial process. Radames Scott MD Chest X-Ray 12/10/16 1257 Signed Impressions: Service Date/Time: Saturday, December 10, 2016 13:13 - CONCLUSION: 1. Mild left basilar atelectatic changes. No confluent infiltrate. 2. Compensated cardiomegaly. Radames Scott MD Lower Extremity Ultrasound 12/10/16 0000 Signed Impressions: Service Date/Time: Saturday, December 10, 2016 17:24 - CONCLUSION: Negative exam with no evidence of deep venous thrombosis. Angel Cuevas MD Objective Remarks GENERAL: This is a well-nourished, well-developed patient, in no apparent distress. CARDIOVASCULAR: Regular rate and regular rhythm without murmurs, gallops, or rubs. RESPIRATORY: Clear to auscultation. Breath sounds equal bilaterally. No wheezes , rales, or rhonchi. GASTROINTESTINAL: Abdomen soft, non-tender, nondistended. Normal, active bowel sounds MUSCULOSKELETAL: mild swelling of the left leg NEURO: Alert & Oriented x4 to person, place, time, situation. Moves all ext x4 Procedures none Medications and IVs Current Medications Sodium Chloride (NS Flush) 2 ml UNSCH PRN IVF FLUSH AFTER USING IV ACCESS; Start 12/10/16 at 13:00 Sodium Chloride (NS Flush) 2 ml UNSCH PRN IVF FLUSH AFTER USING IV ACCESS; Start 12/10/16 at 13:00 Oxcarbazepine (Trileptal) 300 mg DAILY PO Last administered on 12/11/16 09:33 ; Start 12/11/16 at 09:00; Stop 12/11/16 at 17:59; Status DC Oxcarbazepine (Trileptal) 150 mg DAILY PO Last administered on 12/11/16 10:03 ; Start 12/10/16 at 18:00; Stop 12/11/16 at 17:59; Status DC Lorazepam (Ativan Inj) 1 mg Q15M PRN IV PUSH SEIZURE; Start 12/10/16 at 16:30 Dextrose (D50w (Vial) Inj) 50 ml UNSCH PRN IV HYPOGLYCEMIA-SEE COMMENTS; Start 12/10/16 at 16:30 Glucagon (Glucagon Inj) 1 mg UNSCH PRN OTHER HYPOGLYCEMIA-SEE COMMENTS; Start 12/10/16 at 16:30 Insulin Aspart (NovoLOG SUPPLEMENTAL SCALE) 1 ACHS SLIDING SCALE SQ Last administered on 12/11/16 21:22; Start 12/10/16 at 21:00 Apixaban (Eliquis) 5 mg BID PO Last administered on 12/12/16 10:15; Start 12/10 at 21:00 Aspirin (Ecotrin Ec) 81 mg DAILY PO Last administered on 12/12/16 10:14; Start 12/11/16 at 09:00 Atorvastatin Calcium (Lipitor) 80 mg HS PO Last administered on 12/11/16 22:32 ; Start 12/10/16 at 21:00 Carvedilol (Coreg) 6.25 mg BID PO Last administered on 12/12/16 10:16; Start 12/10/16 at 21:00 Digoxin (Lanoxin) 0.125 mg DAILY PO Last administered on 12/12/16 10:15; Start 12/11/16 at 09:00 Duloxetine HCl (Cymbalta Dr) 60 mg DAILY PO Last administered on 12/12/16 10: 16; Start 12/11/16 at 09:00 Furosemide (Lasix) 40 mg BID@18 PO Last administered on 12/12/16 10:16; Start 12/10/16 at 18:00 Lacosamide (Vimpat) 200 mg BID PO Last administered on 12/12/16 10:24; Start 12/10/16 at 21:00 Memantine (Namenda) 10 mg BID PO Last administered on 12/12/16 10:25; Start at 21:00 Pantoprazole Sodium (Protonix) 40 mg DAILY PO Last administered on 12/12/16 10 :25; Start 12/11/16 at 09:00 Phenobarbital (PHENobarbital) 32.4 mg BID PO Last administered on 12/12/16 10: 25; Start 12/10/16 at 21:00 Spironolactone (Aldactone) 25 mg DAILY PO Last administered on 12/12/16 10:15 ; Start 12/11/16 at 09:00 Ferrous Sulfate 325 mg 325 mg BID PO Last administered on 12/12/16 10:15; Start 12/10/16 at 21:00 Ceftriaxone Sodium/Sodium Chloride (Rocephin Inj/NS Inj) 100 ml @ 200 mls/hr Q24H IV Last administered on 12/11/16 17:35; Start 12/10/16 at 17:00 Acetaminophen/ Hydrocodone Bitart ([place] 5-325 Mg) 1 tab Q8H PRN PO PAIN 6-10 ; Start 12/11/16 at 14:45 Acetaminophen (Tylenol) 650 mg Q6H PRN PO PAIN 1-5 Last administered on 14:53; Start 12/11/16 at 14:45 Oxcarbazepine (Trileptal) 600 mg BID PO Last administered on 12/12/16 10:25; Start 12/11/16 at 21:00 Lorazepam (Ativan Inj) 1 mg Q4H PRN IV PUSH SEIZURES; Start 12/11/16 at 18:00 A/P Assessment and Plan A/P - recurrent seizures patient has been on phenobarbital and Vimpat- Trileptal was just added to her regimen two weeks ago. continue with seizure precautions and neuro-checks- EEG ; Towards the of the recording frequent sharps are seen over the right mid temporal head region and this could be a seizure focus. trileptal was increased- - UTI eith klebsiella; continue antibiotic- -history of CVA; continue aspirin, eliquis and statin- consulted PT -CHF- chronic systolic- compensated- s/p AICD placement; continue home meds -hypertension; resumed home BP meds -diabetes mellitus; - accu-check with SSI -DVT prophylaxis; on eliquis Discharge Planning case management for [facility]. dc home when cleared by neurology. see med list. f/u; pcp and neurology. d/w the patient, her daughter and RN. Chino Monte MD Dec 12, 2016 11:36
[2016-12-12] MEDS ORDERED: TRIL300T PO (11:38)
--- NOTE | 2016-12-12 11:39 | HHI.DCPOC ---
Discharge Care Plan Diagnosis: (1) Seizures Your Health Problems Are: Difficulty with ADL Additional Problems seizures Goals to Promote Your Health * To prevent worsening of your condition and complications * To maintain your health at the optimal level Directions to Meet Your Goals Take your medications as prescribed Follow your dietary instruction Follow activity as directed Keep your appointments as scheduled Take your immunizations and boosters as scheduled If your symptoms worsen call your PCP, if no PCP go to Urgent Care Center or Emergency Room Smoking is Dangerous to Your Health. Avoid second hand smoke Call the 24-hour hour crisis hotline for domestic abuse at Chino Monte MD Dec 12, 2016 11:39
--- NOTE | 2016-12-12 11:39 | HHI.FF ---
Face to Face Verification Diagnosis: (1) Seizures Physical Therapy Order: Evaluate and Treat Home Health Nursing Order: Medical education Signs/symptoms of disease process Medication education-adverse effect Nursing assessment with vital signs I have seen patient Dennise Foote on 12/12/16. My clinical findings support the need for the requested home health care services because: Ltd mobility - disease progression I certify that my clinical findings support that this patient is homebound because: Unsteady gait/balance Chino Monte MD Dec 12, 2016 11:39
--- NOTE | 2016-12-12 11:40 | HHI.DS ---
Discharge Summary Admission Date Dec 10, 2016 at 16:13 Discharge Date: Dec 12, 2016 Admitting Diagnosis seizure (1) Seizures ICD Code: R56.9 Diagnosis: Principal Procedures none Brief History - From Admission patient is a 51 y/o female with history of CVA and seizures was brought to ER after she had another episode of seizure earlier today. most of the information was obtained from the daughter at the bedside. she says that her mother started to have seizure about a couple of years ago after she had stroke. she says that her neurologist is trying to titrate her seizure regimen but it seems that ' it' s not working'. she says that she had a seizure last night. again this morning when she was trying to go to bathroom she had another seizure and then she fell. the daughter says that she initially had some twitching of the left arm but now she has twitching of both arms. she was on phenobarbital and Vimpat but was started on Trileptal about two weeks and the the dosage is being titrated per her neurologist. at the time of my evaluation she was awake, alert with no distress. CBC/BMP: 12/10/16 1315 12/10/16 1315 Significant Findings Laboratory Tests Test 12/10/16 12/10/16 13:15 15:10 Prothrombin Time 16.9 SEC (9.8-11.6) Random Glucose 193 MG/DL (74-106) Red Blood Count 5.79 MIL/MM3 (4.00-5.30) Mean Corpuscular Volume 76.5 FL (80.0-100.0) Mean Corpuscular Hemoglobin 24.6 PG (27.0-34.0) Red Cell Distribution Width 17.4 % (11.6-17.2) Neutrophils (%) (Auto) 70.5 % (16.0-70.0) Basophils % 3 % (0-2) Nucleated Red Blood Cells 11 /100 WBC (0-0) Ovalocytes 3+ (NORMAL) Acanthocytes OCC (NORMAL) Keratocytes OCC (NORMAL) Urine Turbidity HAZY (CLEAR) Urine Protein 30 mg/dL (NEG-TRACE) Urine Occult Blood SMALL (NEG) Urine Leukocyte Esterase LARGE (NEG) Urine RBC 4 /hpf (0-3) Urine WBC 29 /hpf (0-5) Urine Bacteria MANY /hpf (NONE) Urine Mucus FEW /lpf (OCC) Imaging Last Impressions Head CT 12/10/16 1257 Signed Impressions: Service Date/Time: Saturday, December 10, 2016 13:49 - CONCLUSION: 1. Stable examination with postsurgical changes of a right parietal craniotomy and extensive right cerebral encephalomalacia changes. 2. No acute intracranial process. Radames Scott MD Chest X-Ray 12/10/16 1257 Signed Impressions: Service Date/Time: Saturday, December 10, 2016 13:13 - CONCLUSION: 1. Mild left basilar atelectatic changes. No confluent infiltrate. 2. Compensated cardiomegaly. Radames Scott MD Lower Extremity Ultrasound 12/10/16 0000 Signed Impressions: Service Date/Time: Saturday, December 10, 2016 17:24 - CONCLUSION: Negative exam with no evidence of deep venous thrombosis. Angel Cuevas MD PE at Discharge GENERAL: This is a well-nourished, well-developed patient, in no apparent distress. CARDIOVASCULAR: Regular rate and regular rhythm without murmurs, gallops, or rubs. RESPIRATORY: Clear to auscultation. Breath sounds equal bilaterally. No wheezes , rales, or rhonchi. GASTROINTESTINAL: Abdomen soft, non-tender, nondistended. Normal, active bowel sounds MUSCULOSKELETAL: mild swelling of the left leg NEURO: Alert & Oriented x4 to person, place, time, situation. Moves all ext x4 Hospital Course - recurrent seizures patient has been on phenobarbital and Vimpat- Trileptal was just added to her regimen two weeks ago. continue with seizure precautions and neuro-checks- EEG ; Towards the of the recording frequent sharps are seen over the right mid temporal head region and this could be a seizure focus. trileptal was increased- - UTI eith klebsiella; continue antibiotic- -history of CVA; continue aspirin, eliquis and statin- consulted PT -CHF- chronic systolic- compensated- s/p AICD placement; continue home meds -hypertension; resumed home BP meds -diabetes mellitus; - accu-check with SSI -DVT prophylaxis; on eliquis Pt Condition on Discharge: Fair Discharge Disposition: Disch w/ Home Health Serv Discharge Time: <= 30 minutes Discharge Instructions DIET: Follow Instructions for: Heart Healthy Diet, Diabetic Diet Activities you can perform: Regular-No Restrictions Follow up Referrals: Neurology PCP Follow-up New Medications: Ciprofloxacin (Cipro) 250 Mg Tab 250 MG PO BID Infection Days 3 Ref 0 TAB Changed Medications: Oxcarbazepine (Trileptal) 300 Mg Tab 600 MG PO BID Seizure Control #60 Ref 0 TAB (Changed from: 300 MG) Continued Medications: Apixaban (Eliquis) 5 Mg Tab 5 MG PO BID Blood Clot Prevention #60 Ref [address] (Aspirin 81) 81 Mg Tabdr 81 MG PO DAILY Ref 0 TAB Atorvastatin (Lipitor) 80 Mg Tab 80 MG PO HS Cholesterol Management #30 Ref 3 TAB Carvedilol (Coreg) 6.25 Mg Tab 6.25 MG PO BID #60 Ref 3 TAB Digoxin (Digoxin) 0.125 Mg Tab 0.125 MG PO DAILY cardiomyopathy #30 Ref [address] (Cymbalta DR) 60 Mg Capdr 60 MG PO DAILY #30 Ref [address] (Ferrous Sulfate DR) 325 Mg Tabdr 325 MG PO BID Nutritional Supplement Folic Acid (Folic Acid) 400 Mcg Tab 400 MCG PO DAILY Nutritional Supplement Ref 0 TAB Furosemide (Lasix) 40 Mg Tab 40 MG PO BID@09,18 Dyspnea #60 Ref 3 TAB Lacosamide (Vimpat) 200 Mg Tab 200 MG PO BID Control Seizures #60 Ref 0 TAB Memantine (Memantine) 10 Mg Tab 10 MG PO BID Alzheimer's Dementia #60 Ref 3 TAB Metformin (Metformin) 500 Mg Tab 500 MG PO BIDPC With meals Blood Sugar Management #60 Ref 3 TAB Pantoprazole (Pantoprazole) 40 Mg Tab 40 MG PO DAILY Reflux #90 Ref 0 TAB Phenobarbital (Phenobarbital) 32.4 Mg Tab 32.4 MG PO BID Control Seizures #60 Ref 3 TAB Spironolactone (Spironolactone) 25 Mg Tab 25 MG PO DAILY #30 Ref 3 TAB Thiamine (Vitamin B-1) 250 Mg Tab 250 MG PO DAILY Nutritional Supplement Ref 0 TAB Chino Monte MD Dec 12, 2016 11:40
[2016-12-12] MEDS ORDERED: CIPR250T52 PO (11:41)
[2016-12-12 11:56] VITALS: BP 111/77; PULSE 90; RESP 16; TEMP 97.6; O2SAT 100
[2016-12-12 16:42] VITALS: BP 111/81; PULSE 95; RESP 12; TEMP 97.8; O2SAT 97
[2016-12-12] MEDS: cefTRIAXone INJ 1,000 MG in SODIUM CHLORIDE 0.9% INJ 100 ML IV SCH (17:50)
--- NOTE | 2016-12-12 18:08 | MG ---
cc: MARYCRUZ CAMARGO Lab No: Date: 12/12/16 Age: Sex: F Race: Some sharps on the right side yesterday, tripped and fell at home. Defibrillator, hemorrhagic infarct, Phenobarbital Trileptal Apixaban Amantadine Some diffuse theta slowing is seen in the 5 Hz range and looks to be a bit more prominent over the right temporal head region. Again, there is some sharply contoured waves over the T4 F8 right frontotemporal head region such as at epoch 15. One phase reversing sharp wave is seen over T4 at epoch 30. No prolonged seizure activity is noted. Hyperventilation is not performed. Another sharp wave is seen over T4 further into the recording. Photic stimulation is performed without significant posterior driving. IMPRESSION Diffuse slowing consistent with a moderate diffuse encephalopathy where there is superimposed slowing on the right temporal head region with some frontotemporal sharps but no prolonged seizure. This could be a seizure focus. Clinical correlation is needed. Right hemisphere abnormality should be ruled out. MD DENISSE Rubalcava/ /5:10 PM /6:07 PM
== END 2016-12-12 22:11 | disposition home or self-care (01) ==
LOC: NEPC 12:31 → NEDA 16:13 → NEPGCP 19:23
PROVIDERS: ADMIT Internal Medicine; ATTEND Internal Medicine
DX: G40.909 Epilepsy, unspecified, not intractable, without status epilepticus (principal); N39.0 Urinary tract infection, site not specified; B96.1 Klebsiella pneumoniae [K. pneumoniae] as the cause of diseases classified elsewhere; I50.32 Chronic diastolic (congestive) heart failure; I10 Essential (primary) hypertension; E11.9 Type 2 diabetes mellitus without complications; Z79.84 Long term (current) use of oral hypoglycemic drugs; Z79.899 Other long term (current) drug therapy; Z79.82 Long term (current) use of aspirin; Z95.0 Presence of cardiac pacemaker; I48.91 Unspecified atrial fibrillation; Z79.01 Long term (current) use of anticoagulants; K21.9 Gastro-esophageal reflux disease without esophagitis; Z86.73 Personal history of transient ischemic attack (TIA), and cerebral infarction without residual deficits; F41.9 Anxiety disorder, unspecified; I42.9 Cardiomyopathy, unspecified; Z95.810 Presence of automatic (implantable) cardiac defibrillator; R94.31 Abnormal electrocardiogram [ECG] [EKG]
CPT/HCPCS: 70450; 71010; 80048; 80162; 80184; 81001; 82948; 85007; 85027; 85610; 85730; 87077; 87086; 87186; 93005; 93971; 95819; 97163; 99285; G0378; G8987; G8988; J0696; J1815

== ENCOUNTER 2017-02-02 00:23 | Emergency (ER) | payer MEDICARE, OTHER ==
[~2017-02-02] VITALS: Ht 167.6 cm; Wt 60.0 kg
[~2017-02-02 00:23] MED LIST changes: +CIPR250T52 PO; +CYMB60CA PO; +FERR325T2 PO; -IRON27TA PO; +TRIL300T PO; +VITA250T25 PO
[2017-02-02 00:27] VITALS: BP 121/83; PULSE 94; RESP 18; TEMP 98.1; O2SAT 100
--- NOTE | 2017-02-02 00:42 | PD ---
HPI Chief Complaint: Seizure Time Seen by Provider: 00:34 Travel History International Travel<30 days: No Contact w/Intl Traveler<30days: No Traveled to known affect area: No History of Present Illness HPI 51yo F with PMH of right hemisphere stroke, right hemispheric focal seizures, CHF s/p AICD, HTN, DM presents to the ED with c/o seizure today. Pt is AAOx3 now. States she was lying in bed when she had seizure activity in left side. Denies any fever, chest pain, sob, n/v, abdominal pain. Pt has residual weakness in left side. Pt was admitted for seizure 12/10-12/12/[address] Crum and had her trileptal dose increased. She is also on phenobarbital and vimpat. PFSH Past Medical History Hx Anticoagulant Therapy: Yes (ELOQUIS ) Asthma: No Atrial Fibrillation: Yes Anxiety: Yes Depression: Yes Heart Rhythm Problems: Yes (Defibrillator placed 2yrs ago) Cancer: No Cardiovascular Problems: Yes (Cardiomyopathy) High Cholesterol: No Chemotherapy: No Chest Pain: No Congestive Heart Failure: Yes COPD: No Cerebrovascular Accident: Yes (hx) Diabetes: Yes Patient Takes Glucophage: No Diminished Hearing: No Endocrine: Yes Gastrointestinal Disorders: Yes (Acid reflux) GERD: Yes Genitourinary: No Hepatitis: No Hypertension: Yes Immune Disorder: No Implanted Vascular Access Dvce: Yes Neurologic: Yes Psychiatric: Yes Reproductive: No Respiratory: No Immunizations Current: Yes Radiation Therapy: No Seizures: Yes Thyroid Disease: Yes ?: Not : 1 Para: 1 Past Surgical History AICD: Yes ([employer]) Body Medical Devices: Defibrillator Cardiac Surgery: Yes (DEFIBRILATOR 2002, DEFIBRILATOR REPLACED 03/2010) Section: Yes (1984) Gynecologic Surgery: Yes ( ) Neurologic Surgery: Yes (CRANIOTOMY) Thoracic Surgery: Yes (MARKERS PLACED BILATERAL BREAST) Other Surgery: Yes Social History Alcohol Use: No Tobacco Use: No Substance Use: No Allergies-Medications (Allergen,Severity, Reaction): Coded Allergies: Sulfa (Sulfonamide Antibiotics) (Unverified Allergy, Severe, ANYYHING WITH IT IN IT AND I FALL OUT AND GET THE SHAKES, 02/02/17) lemon (Unverified Allergy, Severe, EDEMA, 02/02/17) phenytoin (Unverified Allergy, Severe, 02/02/17) benazepril (Unverified Allergy, Intermediate, ANGIOEDEMA, 02/02/17) CONFIRMED OF 01/03/2010 captopril (Unverified Allergy, Intermediate, ANGIOEDEMA, 02/02/17) CONFIRMED OF 01/03/2010 enalaprilat (Unverified Allergy, Intermediate, ANGIOEDEMA, 02/02/17) CONFIRMED OF 01/03/2010 fosinopril (Unverified Allergy, Intermediate, ANGIOEDEMA, 02/02/17) CONFIRMED OF 01/03/2010 lisinopril (Unverified Allergy, Intermediate, ANGIOEDEMA, 02/02/17) CONFIRMED OF 01/03/2010 quinapril (Unverified Allergy, Intermediate, ANGIOEDEMA, 02/02/17) CONFIRMED OF 01/03/2010 MRI PRECAUTION (Verified Adverse Reaction, Severe, AICD PRESENT, 02/02/17) AICD PRESENT 11/23/13 JLA *MDRO Multi-Drug Resistant Organism (Verified Adverse Reaction, Unknown, ) MRSA (urine & sputum) - 2013 MRSA PCR Screen POSITIVE - 04/08/16 Uncoded Allergies: MUCINEX (Allergy, Severe, CARDIAC INCIDENT, 09/18/13) Reported Meds & Prescriptions Reported Meds & Active Scripts Active Memantine 10 Mg Tab 10 Mg PO BID Metformin (Metformin HCl) 500 Mg Tab 500 Mg PO BIDPC With meals Trileptal (Oxcarbazepine) 300 Mg Tab 600 Mg PO BID Pantoprazole (Pantoprazole Sodium) 40 Mg Tab 40 Mg PO DAILY Vimpat (Lacosamide) 200 Mg Tab 200 Mg PO BID Phenobarbital 32.4 Mg Tab 32.4 Mg PO BID Lasix (Furosemide) 40 Mg Tab 40 Mg PO BID@18 Coreg (Carvedilol) 6.25 Mg Tab 6.25 Mg PO BID Digoxin 0.125 Mg Tab 0.125 Mg PO DAILY Lipitor (Atorvastatin Calcium) 80 Mg Tab 80 Mg PO HS Eliquis (Apixaban) 5 Mg Tab 5 Mg PO BID Spironolactone 25 Mg Tab 25 Mg PO DAILY Reported Iron (Ferrous Sulfate) 325 Mg Cap 325 Mg PO DAILY Vitamin B-1 (Thiamine HCl) 250 Mg Tab 250 Mg PO DAILY Ferrous Sulfate DR (Ferrous Sulfate) 325 Mg Tabdr 325 Mg PO BID Folic Acid 400 Mcg Tab 400 Mcg PO DAILY Aspirin 81 (Aspirin) 81 Mg Tabdr 81 Mg PO DAILY Review of Systems Except as stated in HPI: all other systems reviewed are Neg Physical Exam Narrative GENERAL: 51yo F not in distress. SKIN: Focused skin assessment warm/dry. HEAD: Atraumatic. Normocephalic. EYES: Pupils equal and round. No scleral icterus. No injection or drainage. ENT: No nasal bleeding or discharge. Mucous membranes pink and moist. NECK: Trachea midline. No JVD. CARDIOVASCULAR: Regular rate and rhythm. No murmur appreciated. RESPIRATORY: No accessory muscle use. Clear to auscultation. Breath sounds equal bilaterally. GASTROINTESTINAL: Abdomen soft, non-tender, nondistended. No rebound tenderness or guarding. MUSCULOSKELETAL: No obvious deformities. No clubbing. No cyanosis. No edema. NEUROLOGICAL: Awake and alert. No obvious cranial nerve deficits. Muscle strength 3/5 in left side. Normal speech. PSYCHIATRIC: Appropriate mood and affect; insight and judgment normal. Data Data Last Documented VS Vital Signs Date Time Temp Pulse Resp B/P (MAP) Pulse Ox O2 Delivery O2 Flow Rate FiO2 02/02/17 00:27 98.1 94 18 121/83 (96) 100 Orders Orders Complete Blood Count With Diff (02/02/17 00:38) Basic Metabolic Panel (Bmp) (02/02/17 00:38) Magnesium (Mg) (02/02/17 00:38) Trileptal (Oxycarbazapine) (02/02/17 00:38) Magnesium Sulfate 1 Gm Premix (Magnesium (02/02/17 02:00) Labs Laboratory Tests Test 02/02/17 00:45 White Blood Count 5.8 TH/MM3 Red Blood Count 5.28 MIL/MM3 Hemoglobin 13.1 GM/DL Hematocrit 41.1 % Mean Corpuscular Volume 77.8 FL Mean Corpuscular Hemoglobin 24.7 PG Mean Corpuscular Hemoglobin Concent 31.8 % Red Cell Distribution Width 16.1 % Platelet Count 210 TH/MM3 Mean Platelet Volume 9.6 FL Neutrophils (%) (Auto) 59.1 % Lymphocytes (%) (Auto) 31.7 % Monocytes (%) (Auto) 6.8 % Eosinophils (%) (Auto) 1.5 % Basophils (%) (Auto) 0.9 % Neutrophils # (Auto) 3.4 TH/MM3 Lymphocytes # (Auto) 1.8 TH/MM3 Monocytes # (Auto) 0.4 TH/MM3 Eosinophils # (Auto) 0.1 TH/MM3 Basophils # (Auto) 0.1 TH/MM3 CBC Comment DIFF FINAL Differential Comment Blood Urea Nitrogen 15 MG/DL Creatinine 0.59 MG/DL Random Glucose 180 MG/DL Calcium Level 8.4 MG/DL Magnesium Level 1.4 MG/DL Sodium Level 141 MEQ/L Potassium Level 3.5 MEQ/L Chloride Level 103 MEQ/L Carbon Dioxide Level 28.6 MEQ/L Anion Gap 9 MEQ/L Estimat Glomerular Filtration Rate 131 ML/MIN MDM Medical Decision Making Medical Screen Exam Complete: Yes Emergency Medical Condition: Yes Differential Diagnosis Seizure vs. electrolyte abnormality Narrative Course 51yo F with seizure disorder on multiple antiepileptics here after seizure. Pt' s daughter came after and was able to provide more information. Said she witnessed the seizure and pt was on her bed with no trauma. She has history of focal seizures. Pt is currently back at baseline. Labs reviewed, no leukocytosis. Magnesium mildly decreased at 1.4, replaced with 1gm magnesium sulfate IV. Vital signs wnl. Pt has been observed in the ED for 3 hours without any episodes of seizure. Pt is instructed to follow up with her neurologist Dr. Canseco tomorrow. Return precautions given. Diagnosis Primary Impression: Seizure Patient Instructions: General Instructions Departure Forms: Tests/Procedures Additional Instructions: Please follow up with your neurologist in 1-2 days. Return to the ED if symptoms worsen or seizure recurs. Continue to take your seizure medications. Med/Other Pt SpecificInfo: No Change to Meds Disposition: 01 DISCHARGE HOME Condition: Stable Eloisa Bliss DO Feb 02, 2017 00:42
[2017-02-02 00:56] LABS: AUTOMATED NEUTROPHIL # 3.4 TH/MM3 (1.8-7.7); BASOPHIL # 0.1 TH/MM3 (0-0.2); BASOPHIL % 0.9 % (0.0-2.0); EOSINOPHIL # 0.1 TH/MM3 (0-0.4); EOSINOPHIL % 1.5 % (0.0-4.0); HEMATOCRIT 41.1 % (35.0-46.0); HEMO FLAGS DIFF FINAL; LYMPH % 31.7 % (9.0-44.0); LYMPHOCYTE # 1.8 TH/MM3 (1.0-4.8); MEAN CELL VOLUME 77.8 FL (80.0-100.0); MEAN CORPUSCULAR HEMOGLOBIN 24.7 PG (27.0-34.0); MEAN CORPUSCULAR HGB CONC 31.8 % (32.0-36.0); MONO % 6.8 % (0.0-8.0); NEUT % 59.1 % (16.0-70.0); PLATELET COUNT 210 TH/MM3 (150-450); RED BLOOD COUNT 5.28 MIL/MM3 (4.00-5.30); RED CELL DISTRIBUTION WIDTH 16.1 % (11.6-17.2); WHITE BLOOD COUNT 5.8 TH/MM3 (4.0-11.0)
[2017-02-02 01:18] LABS: BICARBONATE 28.6 MEQ/L (21.0-32.0); MAGNESIUM 1.4 MG/DL (1.5-2.5); POTASSIUM 3.5 MEQ/L (3.5-5.1)
[2017-02-02] MEDS ORDERED: MAGNESIUM SULFATE 1 GM PREMIX 100 ML IV ONE (02:00)
[2017-02-02] MEDS ORDERED: FERR325C PO (02:02)
[2017-02-06] MEDS ORDERED: CEFT1INJ IM (13:48)
[2017-02-06] MEDS ORDERED: CIPR500T2 PO (13:58)
== END 2017-02-02 03:50 | disposition home or self-care (01) ==
LOC: NEPC 00:23
DX: R56.9 Unspecified convulsions (principal); E11.9 Type 2 diabetes mellitus without complications; I50.9 Heart failure, unspecified; Z79.84 Long term (current) use of oral hypoglycemic drugs
CPT/HCPCS: 80048; 80183; 83735; 85025; 96365; 99284; J3475

== ENCOUNTER 2017-03-08 21:58 | Inpatient (IN) | payer MEDICARE, OTHER ==
[~2017-03-08] VITALS: Ht 162.6 cm; Wt 53.9 kg
[~2017-03-08 21:58] MED LIST changes: -CIPR250T52 PO; +CIPR500T2 PO; -CYMB60CA PO; +FERR325C PO
[2017-03-08 22:02] VITALS: BP 135/96; PULSE 95; RESP 16; TEMP 97.1; O2SAT 98
[2017-03-08] MEDS ORDERED: RESP: ALBUTEROL 2.5 MG/IPRATROPIUM 0.5 MG NEB (SCH) INH ONE (23:00)
[2017-03-08] MEDS ORDERED: SODIUM CHLORIDE 0.9% FLUSH 10 ML FLUSH IVF PRN (23:00)
--- NOTE | 2017-03-08 23:02 | PD ---
HPI Chief Complaint: Respiratory Distress Time Seen by Provider: 22:44 Travel History International Travel<30 days: No Contact w/Intl Traveler<30days: No Traveled to known affect area: No History of Present Illness HPI The patient is a 51-year-old Teresa female who presents to the emergency department with her network announcer, who is her daughter, for shortness of breath. The patient has a history of CVA which left her with left-sided weakness with decreased ability to ambulate and use her left upper extremity. The daughter provides nose today history, states the patient has had shortness of breath since yesterday which appears to be worse when she is lying supine. She also notes a dry and mostly nonproductive cough. The daughter states she has had some intermittent audible wheezing. According to the daughter the patient does have a history congestive heart failure. She states the patient is had no fever, chills, or sweats. The [facility], her jig hand is Dr. Miguel, and her neurologist is Dr. Jarrett who is located in [place], [place]. The patient's symptoms are moderate , started yesterday, there are no apparent alleviating or exacerbating factors. According to the daughter the patient has no history of tobacco use, COPD, or asthma. PFSH Past Medical History Hx Anticoagulant Therapy: Yes (Eliquis, Aspirin) Asthma: No Atrial Fibrillation: Yes Anxiety: Yes Depression: Yes Heart Rhythm Problems: Yes (Defibrillator placed 2yrs ago) Cancer: No Cardiovascular Problems: Yes (CHF) High Cholesterol: No Chemotherapy: No Chest Pain: No Congestive Heart Failure: Yes COPD: No Cerebrovascular Accident: Yes (stroke) Diabetes: Yes (metformin) Patient Takes Glucophage: Yes Diminished Hearing: No Endocrine: Yes Gastrointestinal Disorders: Yes (Acid reflux) GERD: Yes Genitourinary: No Hepatitis: No Hypertension: Yes Immune Disorder: No Implanted Vascular Access Dvce: Yes Neurologic: Yes Psychiatric: Yes Reproductive: No Respiratory: Yes (COPD) Immunizations Current: Yes Radiation Therapy: No Seizures: Yes Thyroid Disease: Yes Tetanus Vaccination: < 5 Years Influenza Vaccination: Yes ?: Not Menopausal: Yes : 1 Para: 1 Past Surgical History AICD: Yes (MysteryD) Body Medical Devices: Defibrillator Cardiac Surgery: Yes (DEFIBRILATOR 2002, DEFIBRILATOR REPLACED 03/2010) Section: Yes (1984) Gynecologic Surgery: Yes ( ) Hysterectomy: Yes Neurologic Surgery: Yes (CRANIOTOMY) Thoracic Surgery: Yes (MARKERS PLACED BILATERAL BREAST) Other Surgery: Yes Social History Alcohol Use: No Tobacco Use: No Substance Use: No Allergies-Medications (Allergen,Severity, Reaction): Coded Allergies: Sulfa (Sulfonamide Antibiotics) (Unverified Allergy, Severe, ANYYHING WITH IT IN IT AND I FALL OUT AND GET THE SHAKES, 02/06/17) lemon (Unverified Allergy, Severe, EDEMA, 02/06/17) phenytoin (Unverified Allergy, Severe, 02/06/17) benazepril (Unverified Allergy, Intermediate, ANGIOEDEMA, 02/06/17) CONFIRMED OF 01/03/2010 captopril (Unverified Allergy, Intermediate, ANGIOEDEMA, 02/06/17) CONFIRMED OF 01/03/2010 enalaprilat (Unverified Allergy, Intermediate, ANGIOEDEMA, 02/06/17) CONFIRMED OF 01/03/2010 fosinopril (Unverified Allergy, Intermediate, ANGIOEDEMA, 02/06/17) CONFIRMED OF 01/03/2010 lisinopril (Unverified Allergy, Intermediate, ANGIOEDEMA, 02/06/17) CONFIRMED OF 01/03/2010 quinapril (Unverified Allergy, Intermediate, ANGIOEDEMA, 02/06/17) CONFIRMED OF 01/03/2010 MRI PRECAUTION (Verified Adverse Reaction, Severe, AICD PRESENT, 02/06/17) AICD PRESENT 11/23/13 JLA *MDRO Multi-Drug Resistant Organism (Verified Adverse Reaction, Unknown, ) MRSA (urine & sputum) - 2013 MRSA PCR Screen POSITIVE - 04/08/16 Uncoded Allergies: MUCINEX (Allergy, Severe, CARDIAC INCIDENT, 09/18/13) Reported Meds & Prescriptions Reported Meds & Active Scripts Active Memantine 10 Mg Tab 10 Mg PO BID Metformin (Metformin HCl) 500 Mg Tab 500 Mg PO BIDPC With meals Trileptal (Oxcarbazepine) 300 Mg Tab 600 Mg PO BID Pantoprazole (Pantoprazole Sodium) 40 Mg Tab 40 Mg PO DAILY Vimpat (Lacosamide) 200 Mg Tab 200 Mg PO BID Phenobarbital 32.4 Mg Tab 32.4 Mg PO BID Lasix (Furosemide) 40 Mg Tab 40 Mg PO BID@09,18 Coreg (Carvedilol) 6.25 Mg Tab 6.25 Mg PO BID Digoxin 0.125 Mg Tab 0.125 Mg PO DAILY Lipitor (Atorvastatin Calcium) 80 Mg Tab 80 Mg PO HS Eliquis (Apixaban) 5 Mg Tab 5 Mg PO BID Spironolactone 25 Mg Tab 25 Mg PO DAILY Reported Vitamin B-1 (Thiamine HCl) 250 Mg Tab 250 Mg PO DAILY Ferrous Sulfate DR (Ferrous Sulfate) 325 Mg Tabdr 325 Mg PO BID Folic Acid 400 Mcg Tab 400 Mcg PO DAILY Aspirin 81 (Aspirin) 81 Mg Tabdr 81 Mg PO DAILY Review of Systems Except as stated in HPI: all other systems reviewed are Neg General / Constitutional: No: Fever, Chills Cardiovascular: No: Chest Pain or Discomfort Respiratory: Positive: Cough, Shortness of Breath, Orthopnea Gastrointestinal: No: Nausea, Vomiting, Abdominal Pain Musculoskeletal: Positive: Edema (edema the left upper extremity, no edema of the lower extremities) Physical Exam Narrative GENERAL: Awake, alert, pleasant 51-year-old female who appears her stated age and is in no acute respiratory distress. SKIN: Focused skin assessment warm/dry. HEAD: Atraumatic. Normocephalic. EYES: No injection or drainage. ENT: No nasal bleeding or discharge. Mucous membranes pink and moist. NECK: Trachea midline. No JVD. CARDIOVASCULAR: Regular rate and rhythm. No murmur appreciated. RESPIRATORY: No accessory muscle use. Respiratory rate of 22. Rhonchi in the right base. GASTROINTESTINAL: Abdomen soft, non-tender, nondistended. No rebound tenderness. MUSCULOSKELETAL: Trace edema left upper extremity. No edema lower extremities noted. NEUROLOGICAL: Awake and alert. Speech is slightly hard understand. Limited range of motion of left upper extremity, limited mobility of the left lower extremity. PSYCHIATRIC: Appropriate mood and affect; insight and judgment normal. Data Data Last Documented VS Vital Signs Date Time Temp Pulse Resp B/P (MAP) Pulse Ox O2 Delivery O2 Flow Rate FiO2 03/09/17 02:00 88 Room Air 03/09/17 02:00 2.00 03/09/17 01:00 92 16 03/08/17 22:02 97.1 Orders Orders Complete Blood Count With Diff (03/08/17 22:54) Comprehensive Metabolic Panel (03/08/17 22:54) B-Type Natriuretic Peptide (03/08/17 22:54) Magnesium (Mg) (03/08/17 22:54) Ckmb (Isoenzyme) Profile (03/08/17 22:54) Troponin I (03/08/17 22:54) Iv Access Insert/Monitor (03/08/17 22:54) Electrocardiogram (03/08/17 22:54) Ecg Monitoring (03/08/17 22:54) Oximetry (03/08/17 22:54) Oxygen Administration (03/08/17 22:54) Chest, Single Ap (03/08/17 22:54) Sodium Chloride 0.9% Flush (Ns Flush) (03/08/17 23:00) Albuterol-Ipratropium Neb (Duoneb Neb) (03/08/17 23:00) Ceftriaxone Inj (Rocephin Inj) (03/08/17 23:45) Azithromycin Inj (Zithromax Inj) (03/08/17 23:45) Furosemide Inj (Lasix Inj) (03/09/17 00:15) Ct Brain W/O Iv Contrast(Rout) (03/09/17 ) Digoxin (03/09/17 01:14) Phenobarbital (03/09/17 01:14) Urinalysis - C+S If Indicated (03/09/17 01:14) Cath For Specimen (03/09/17 01:17) Admit Order (Ed Use Only) (03/09/17 02:00) Apixaban (Eliquis) (03/09/17 09:00) Aspirin Ec (Ecotrin Ec) (03/09/17 09:00) Atorvastatin (Lipitor) (03/09/17 21:00) Carvedilol (Coreg) (03/09/17 09:00) Digoxin (Lanoxin) (03/09/17 09:00) Folic Acid (Folate) (03/09/17 09:00) Lacosamide (Vimpat) (03/09/17 09:00) Memantine (Namenda) (03/09/17 09:00) Oxcarbazepine (Trileptal) (03/09/17 09:00) Pantoprazole (Protonix) (03/09/17 09:00) Phenobarbital (Phenobarbital) (03/09/17 09:00) Spironolactone (Aldactone) (03/09/17 09:00) Ferrous Fumarate (Hemocyte) (03/09/17 09:00) Thiamine (Vit B1) (Vitamin B1) (03/09/17 09:00) Place In Observation (03/09/17 ) Code Status (03/09/17 02:18) Vital Signs (Adult) Q4H (03/09/17 02:18) Animal Nutritionist / Telemetry IMAN.Q8H (03/09/17 02:18) Intake + Output MIAN.Q8H (03/09/17 02:18) ^ Restrictions (03/09/17 02:18) Diet 1800 Ada Cons Carb (03/09/17 Breakfast) Resp Oxygen Gary C Titrat 1-4 L (03/09/17 ) Case Management Consult (03/09/17 ) Sodium Chloride 0.9% Flush (Ns Flush) (03/09/17 02:30) Sodium Chloride 0.9% Flush (Ns Flush) (03/09/17 09:00) Furosemide Inj (Lasix Inj) (03/09/17 09:00) Scd Bilateral/Knee High IMAN.BID (03/09/17 02:18) David Bilateral/Knee High IMAN.QSHIFT (03/09/17 02:18) Labs Laboratory Tests Test 03/08/17 23:20 03/08/17 23:30 03/09/17 01:30 White Blood Count 6.2 TH/MM3 Red Blood Count 5.21 MIL/MM3 Hemoglobin 13.4 GM/DL Hematocrit 40.7 % Mean Corpuscular Volume 78.1 FL Mean Corpuscular Hemoglobin 25.7 PG Mean Corpuscular Hemoglobin Concent 32.9 % Red Cell Distribution Width 16.5 % Platelet Count 255 TH/MM3 Mean Platelet Volume 10.4 FL Neutrophils (%) (Auto) 67.5 % Lymphocytes (%) (Auto) 23.9 % Monocytes (%) (Auto) 5.7 % Eosinophils (%) (Auto) 1.4 % Basophils (%) (Auto) 1.5 % Neutrophils # (Auto) 4.2 TH/MM3 Lymphocytes # (Auto) 1.5 TH/MM3 Monocytes # (Auto) 0.4 TH/MM3 Eosinophils # (Auto) 0.1 TH/MM3 Basophils # (Auto) 0.1 TH/MM3 CBC Comment DIFF FINAL Differential Comment B-Type Natriuretic Peptide 983 PG/ML Blood Urea Nitrogen 20 MG/DL Creatinine 0.43 MG/DL Random Glucose 87 MG/DL Total Protein 6.5 GM/DL Albumin 2.5 GM/DL Calcium Level 8.1 MG/DL Magnesium Level 1.2 MG/DL Alkaline Phosphatase 140 U/L Aspartate Amino Transf (AST/SGOT) 46 U/L Alanine Aminotransferase (ALT/SGPT) 49 U/L Total Bilirubin 0.3 MG/DL Sodium Level 142 MEQ/L Potassium Level 3.9 MEQ/L Chloride Level 107 MEQ/L Carbon Dioxide Level 27.2 MEQ/L Anion Gap 8 MEQ/L Estimat Glomerular Filtration Rate 188 ML/MIN Total Creatine Kinase 57 U/L Troponin I 0.03 NG/ML Digoxin Level 0.9 NG/ML Phenobarbital Level 23.8 MCG/ML Urine Color LIGHT-YELLOW Urine Turbidity CLEAR Urine pH 7.0 Urine Specific [place] 1.006 Urine Protein TRACE mg/dL Urine Glucose (UA) NEG mg/dL Urine Ketones NEG mg/dL Urine Occult Blood NEG Urine Nitrite NEG Urine Bilirubin NEG Urine Urobilinogen LESS THAN 2.0 MG/DL Urine Leukocyte Esterase SMALL Urine RBC LESS THAN 1 /hpf Urine WBC LESS THAN 1 /hpf Urine Hyaline Casts 3 /lpf Urine Mucus FEW /lpf Microscopic Urinalysis Comment CULT NOT INDICATED MDM Medical Decision Making Medical Screen Exam Complete: Yes Emergency Medical Condition: Yes Medical Record Reviewed: Yes Interpretation(s) EKG reveals normal sinus rhythm with a rate of 79. First-degree AV block with LA interval of 251 ms. Intraventricular conduction delay with QRS of 152 ms. Last Impressions Head CT 03/09/17 0000 Signed Impressions: Service Date/Time: Thursday, March 09, 2017 01:41 - CONCLUSION: No acute intracranial abnormality. Chronic encephalomalacia involving the right MCA territory. Vazquez Doyle Jr., MD Chest X-Ray 03/08/17 2493 Signed Impressions: Service Date/Time: March 23:00 - CONCLUSION: Cardiomegaly with bibasilar infiltrates. No effusions. Vazquez Doyle Jr., MD Laboratory Tests Test 03/08/17 23:20 03/08/17 23:30 03/09/17 01:30 White Blood Count 6.2 TH/MM3 Red Blood Count 5.21 MIL/MM3 Hemoglobin 13.4 GM/DL Hematocrit 40.7 % Mean Corpuscular Volume 78.1 FL Mean Corpuscular Hemoglobin 25.7 PG Mean Corpuscular Hemoglobin Concent 32.9 % Red Cell Distribution Width 16.5 % Platelet Count 255 TH/MM3 Mean Platelet Volume 10.4 FL Neutrophils (%) (Auto) 67.5 % Lymphocytes (%) (Auto) 23.9 % Monocytes (%) (Auto) 5.7 % Eosinophils (%) (Auto) 1.4 % Basophils (%) (Auto) 1.5 % Neutrophils # (Auto) 4.2 TH/MM3 Lymphocytes # (Auto) 1.5 TH/MM3 Monocytes # (Auto) 0.4 TH/MM3 Eosinophils # (Auto) 0.1 TH/MM3 Basophils # (Auto) 0.1 TH/MM3 CBC Comment DIFF FINAL Differential Comment B-Type Natriuretic Peptide 983 PG/ML Blood Urea Nitrogen 20 MG/DL Creatinine 0.43 MG/DL Random Glucose 87 MG/DL Total Protein 6.5 GM/DL Albumin 2.5 GM/DL Calcium Level 8.1 MG/DL Magnesium Level 1.2 MG/DL Alkaline Phosphatase 140 U/L Aspartate Amino Transf (AST/SGOT) 46 U/L Alanine Aminotransferase (ALT/SGPT) 49 U/L Total Bilirubin 0.3 MG/DL Sodium Level 142 MEQ/L Potassium Level 3.9 MEQ/L Chloride Level 107 MEQ/L Carbon Dioxide Level 27.2 MEQ/L Anion Gap 8 MEQ/L Estimat Glomerular Filtration Rate 188 ML/MIN Total Creatine Kinase 57 U/L Troponin I 0.03 NG/ML Digoxin Level 0.9 NG/ML Phenobarbital Level 23.8 MCG/ML Urine Color LIGHT-YELLOW Urine Turbidity CLEAR Urine pH 7.0 Urine Specific [place] 1.006 Urine Protein TRACE mg/dL Urine Glucose (UA) NEG mg/dL Urine Ketones NEG mg/dL Urine Occult Blood NEG Urine Nitrite NEG Urine Bilirubin NEG Urine Urobilinogen LESS THAN 2.0 MG/DL Urine Leukocyte Esterase SMALL Urine RBC LESS THAN 1 /hpf Urine WBC LESS THAN 1 /hpf Urine Hyaline Casts 3 /lpf Urine Mucus FEW /lpf Microscopic Urinalysis Comment CULT NOT INDICATED Differential Diagnosis Differential diagnosis includes congestive heart failure, pulmonary edema, pneumonia, acute coronary syndrome, bronchitis, volume overload, pulmonary embolism. Narrative Course IV was established, labs are drawn and sent, and the patient was placed on cardiac telemetry monitoring and continuous pulse oximetry monitoring. EKG was ordered and interpreted. Chest x-ray was obtained. The patient was administered DuoNeb 1. Chest x-ray reveals bibasilar infiltrates, BNP is elevated at 983. I reviewed the patient's EMR, her last BNP was greater than 1900 June 2016. The patient has no hypoxia or tachycardia, was administered Lasix 40 mg intravenously. However, the patient was reevaluated at 1:10 PM, she had altered mental status according to the daughter, felt like she was "falling ", and needed to "hold". Therefore, CT the brain was ordered to rule out intracranial hemorrhage as the patient is on Eliquis. Digoxin level and phenobarbital level were sent to lab. Digoxin level to level are unremarkable. CT of the brain reveals chronic encephalomalacia, no acute hemorrhage. The patient will be a 23 hour observation to the medical service Physician Communication Physician Communication The on-call medical service was paged for admission. I discussed the patient with Dr. Levine who agrees with admission to Dr. Frank. Diagnosis Primary Impression: CHF exacerbation Qualified Codes: I50.9 - Heart failure, unspecified Additional Impression: Pneumonia Qualified Codes: J18.9 - Pneumonia, unspecified organism Admitting Information Admitting Physician Requests: Admit Condition: Stable Kyle Cheatham MD Mar 08, 2017 23:02
--- NOTE | 2017-03-08 23:23 | RADRPT ---
EXAM DATE/TIME: 03/08/2017 23:00 [facility] COMPARISON: CHEST SINGLE AP, December 10, 2016, 13:13. INDICATIONS : Shortness of breath MEDICAL HISTORY : Diabetes mellitus type II. stroke, seizures, cardiovascular disease, CHF SURGICAL HISTORY : Craniotomy. Pacemaker. ENCOUNTER: Initial ACUITY: 1 day PAIN SCORE: 7/10 LOCATION: Bilateral chest FINDINGS: A single portable frontal view the chest shows mild cranially. Bibasilar consolidations. This obscure s the left hemidiaphragm. No effusions. Bony structures are unremarkable. Left-sided pacing device. CONCLUSION: Cardiomegaly with bibasilar infiltrates. No effusions. Vazquez Doyle Jr., MD on March 08, 2017 at 23:20 Board Certified Radiologist. This report was verified electronically.
[2017-03-08 23:41] LABS: AUTOMATED NEUTROPHIL # 4.2 TH/MM3 (1.8-7.7); BASOPHIL # 0.1 TH/MM3 (0-0.2); BASOPHIL % 1.5 % (0.0-2.0); EOSINOPHIL # 0.1 TH/MM3 (0-0.4); EOSINOPHIL % 1.4 % (0.0-4.0); HEMATOCRIT 40.7 % (35.0-46.0); HEMO FLAGS DIFF FINAL; LYMPH % 23.9 % (9.0-44.0); LYMPHOCYTE # 1.5 TH/MM3 (1.0-4.8); MEAN CELL VOLUME 78.1 FL (80.0-100.0); MEAN CORPUSCULAR HEMOGLOBIN 25.7 PG (27.0-34.0); MEAN CORPUSCULAR HGB CONC 32.9 % (32.0-36.0); MONO % 5.7 % (0.0-8.0); NEUT % 67.5 % (16.0-70.0); PLATELET COUNT 255 TH/MM3 (150-450); RED BLOOD COUNT 5.21 MIL/MM3 (4.00-5.30); RED CELL DISTRIBUTION WIDTH 16.5 % (11.6-17.2); WHITE BLOOD COUNT 6.2 TH/MM3 (4.0-11.0)
[2017-03-08] MEDS ORDERED: AZITHROMYCIN INJ 500 MG in SODIUM CHLOR 0.9% 250 ML INJ 250 ML IV ONE (23:45)
[2017-03-08] MEDS ORDERED: cefTRIAXone INJ 1,000 MG in SODIUM CHLORIDE 0.9% INJ 100 ML IV ONE (23:45)
[2017-03-09] VITALS (12 sets, daily range): BP systolic 102–109; BP diastolic 59–82; PULSE 68–92; RESP 16–18; TEMP 96.8–98.4; O2SAT 88–100
[2017-03-09] MEDS ORDERED: FUROSEMIDE 40 MG/4 ML VIAL IV PUSH ONE (00:15)
[2017-03-09 00:46] LABS: ALT (GPT) 49 U/L (10-53)
[2017-03-09 00:50] LABS: ALKALINE PHOSPHATASE 140 U/L (45-117); TOTAL BILIRUBIN ADULT 0.3 MG/DL (0.2-1.0)
[2017-03-09 00:56] LABS: ANION GAP 8 MEQ/L (5-15); AST (GOT) 46 U/L (15-37); BICARBONATE 27.2 MEQ/L (21.0-32.0); BLOOD UREA NITROGEN 20 MG/DL (7-18); CHLORIDE 107 MEQ/L (98-107); GLOMERULAR FILTRATION RATE 188 ML/MIN (>89); MAGNESIUM 1.2 MG/DL (1.5-2.5); POTASSIUM 3.9 MEQ/L (3.5-5.1); SODIUM (NA) 142 MEQ/L (136-145)
[2017-03-09 00:57] LABS: CREATINE KINASE 57 U/L (26-192)
--- NOTE | 2017-03-09 01:55 | RADRPT ---
EXAM DATE/TIME: 03/09/2017 01:41 [facility] COMPARISON: CT BRAIN W/O CONTRAST, December 10, 2016, 13:49. INDICATIONS : Altered mental status. RADIATION DOSE: 33.64 CTDIvol (mGy) MEDICAL HISTORY : Non-responsive. SURGICAL HISTORY : Non-responsive. ENCOUNTER: Initial ACUITY: 1 day PAIN SCALE: Non-responsive LOCATION: cranial TECHNIQUE: Multiple contiguous axial images were obtained of the head. Using automated exposure control and adj ustment of the mA and/or kV according to patient size, radiation dose was kept as low as reasonably a chievable to obtain optimal diagnostic quality images. DICOM format image data is available electro nically for review and comparison. FINDINGS: Stable appearance. Encephalomalacia involving the right MCA territory with exit vacuo dilatation of t he right lateral ventricle. Overlying craniotomy defect. No hemorrhage, acute infarction, or mass. Pa ranasal sinuses show mucus retention cyst involving the right maxillary sinus. Mastoid air cells are clear. CONCLUSION: No acute intracranial abnormality. Chronic encephalomalacia involving the right MCA territory. Vazquez Doyle Jr., MD on March 09, 2017 at 1:52 Board Certified Radiologist. This report was verified electronically.
[2017-03-09 01:58] LABS: DIGOXIN 0.9 NG/ML (0.8-2.0); PHENOBARBITAL 23.8 MCG/ML (15.0-40.0)
[2017-03-09 02:07] LABS: BLOOD, URINE NEG (NEG); COMMENT (UR) CULT NOT INDICATED; CULTURE IF INDICATED CULT NOT INDICATED; GLUCOSE,URINE NEG (NEG); HYALINE CAST, URINE 3 /lpf (RARE); KETONE, URINE NEG (NEG); MUCUS URINE FEW /lpf (OCC); NITRITE,URINE NEG (NEG); URINE COLOR LIGHT-YELLOW (YELLW/STRAW)
--- NOTE | 2017-03-09 02:14 | HHI.HP ---
HPI Service Family Medicine Primary Care Physician Kelsy Levine MD Admission Diagnosis CHF, dyspnea, hypoxia 88% room air, vertigo, AMS Diagnoses: International Travel<30 Days: No Contact w/Intl Traveler<30days: No Known Affected Area: No History of Present Illness 51 yr old F w/ PMHx of R CVA w/ residual left-sided weakness, seizures, T2DM, and CHF(EF 15-20% from Echo 04/19/16), brought to the ED by daughter for 2 day hx of worsening SOB. Daughter is the primary medicare coordinator and provides all of the history. Reports that patient was complaining of fatigue and frequent, intermittent, worsening SOB that began 2 days ago. She was unable to breath while lying flat and "felt as if she was drowning." Daughter noticed audible wheezing and slight swelling of patient's left arm. Daughter became concerned and brought mom to ED. Patient also complains of a NINO that resolved with Tylenol and mild non-productive cough. Denies swelling in lower extremities, CP , N/V, vision changes, abdominal pain, weight loss, fevers, chills, and night sweats. Health Teacher is Dr. Anaya. Also reports that patient has had some recent hearing changes. Daughter states that it takes a couple of times of calling mom's name to get mom to focus. In the ED, states that her mom had altered mental status. Patient had a "moment in which she was calling for help because she felt like she was falling and needed to "hold." Episode lasted 30-40min. Sates that she's had this happened before in the past. Head CT was ordered by ED physician to rule out intracranial hemorrhage as the patient is on Eliquis. Head CT was negative for acute intracranial abnormality. (Juana Delgado MD R1) Review of Systems Constitutional: DENIES: Fever, Weight loss, Chills, Night Sweats Eyes: DENIES: Vision loss Ears, nose, mouth, throat: COMPLAINS OF: Hearing loss (slight hearing changes ) Respiratory: COMPLAINS OF: Cough, Wheezing, Shortness of breath Cardiovascular: COMPLAINS OF: Orthopnea, DENIES: Chest pain, Lower Extremity Edema Gastrointestinal: DENIES: Abdominal pain, Diarrhea, Nausea, Vomiting Genitourinary: COMPLAINS OF: Urinary frequency (due to lasix use ) Musculoskeletal: DENIES: Muscle aches Hematologic/lymphatic: DENIES: Lymphadenopathy Neurologic: DENIES: Headache, Localized weakness, Paresthesias (Juana Delgado MD R1) Past Family Social History Past Medical History CVA in 2014 and 2016, left-sided weakness CHF, Echo from 04/19/2016 shows EF of 15%-20% Seizure T2DM Cardiomyopathy Past Surgical History ICD placement Craniotomy (Juana Delgado MD R1) Allergies: Coded Allergies: Sulfa (Sulfonamide Antibiotics) (Unverified Allergy, Severe, ANYYHING WITH IT IN IT AND I FALL OUT AND GET THE SHAKES, 02/06/17) lemon (Unverified Allergy, Severe, EDEMA, 02/06/17) phenytoin (Unverified Allergy, Severe, 02/06/17) benazepril (Unverified Allergy, Intermediate, ANGIOEDEMA, 02/06/17) CONFIRMED OF 01/03/2010 captopril (Unverified Allergy, Intermediate, ANGIOEDEMA, 02/06/17) CONFIRMED OF 01/03/2010 enalaprilat (Unverified Allergy, Intermediate, ANGIOEDEMA, 02/06/17) CONFIRMED OF 01/03/2010 fosinopril (Unverified Allergy, Intermediate, ANGIOEDEMA, 02/06/17) CONFIRMED OF 01/03/2010 lisinopril (Unverified Allergy, Intermediate, ANGIOEDEMA, 02/06/17) CONFIRMED OF 01/03/2010 quinapril (Unverified Allergy, Intermediate, ANGIOEDEMA, 02/06/17) CONFIRMED OF 01/03/2010 MRI PRECAUTION (Verified Adverse Reaction, Severe, AICD PRESENT, 02/06/17) AICD PRESENT 11/23/13 JLA Uncoded Allergies: MUCINEX (Allergy, Severe, CARDIAC INCIDENT, 09/18/13) Family History Mom had DM Dad had lung cancer Heart disease Sister had aneurysm Social History Lives with only child, her daughter who is her primary medicare coordinator. Denies smoking, alcohol, and illicit drug use (Juana Delgado MD R1) Physical Exam Vital Signs Vital Signs Date Time Temp Pulse Resp B/P (MAP) Pulse Ox O2 Delivery O2 Flow Rate FiO2 03/09/17 01:00 92 16 109/82 (91) 97 Room Air 03/08/17 22:02 97.1 95 16 135/96 (109) 98 Room Air Physical Exam GENERAL: thin lady, pleasant, lying in bed, in NAD SKIN: No rashes, ecchymoses or lesions. Cool and dry. HEAD: Atraumatic. Normocephalic. EYES: R pupil sluggish to react to light as compared to the L pupil, EOMI ENT: Throat clear, TMs were hard to visualize due to wax NECK: Supple, nontender, no meningeal signs. No JVD or LAD. CARDIOVASCULAR: Regular rate and rhythm without murmurs, gallops, or rubs. RESPIRATORY: Rhonchi in b/l bases. No accessory muscle use. GASTROINTESTINAL: Abdomen soft, non-tender, nondistended. No hepato-splenomegaly , or palpable masses. No guarding. No hepato-jugular reflex. MUSCULOSKELETAL: No edema in lower extremities. Trace edema in left upper extremity. NEUROLOGICAL: Awake and alert. Cranial nerves II through XII intact. Strength 5/ 5 on R side. Strength 4/5 on L side. Patient keeps left hand grasped into a fist at baseline. Sensation intact throughout. Speech is slightly difficult to understand. Laboratory Laboratory Tests Test 03/08/17 23:20 03/08/17 23:30 03/09/17 01:30 White Blood Count 6.2 Red Blood Count 5.21 Hemoglobin 13.4 Hematocrit 40.7 Mean Corpuscular Volume 78.1 Mean Corpuscular Hemoglobin 25.7 Mean Corpuscular Hemoglobin Concent 32.9 Red Cell Distribution Width 16.5 Platelet Count 255 Mean Platelet Volume 10.4 Neutrophils (%) (Auto) 67.5 Lymphocytes (%) (Auto) 23.9 Monocytes (%) (Auto) 5.7 Eosinophils (%) (Auto) 1.4 Basophils (%) (Auto) 1.5 Neutrophils # (Auto) 4.2 Lymphocytes # (Auto) 1.5 Monocytes # (Auto) 0.4 Eosinophils # (Auto) 0.1 Basophils # (Auto) 0.1 CBC Comment DIFF FINAL Differential Comment B-Type Natriuretic Peptide 983 Blood Urea Nitrogen 20 Creatinine 0.43 Random Glucose 87 Total Protein 6.5 Albumin 2.5 Calcium Level 8.1 Magnesium Level 1.2 Alkaline Phosphatase 140 Aspartate Amino Transf (AST/SGOT) 46 Alanine Aminotransferase (ALT/SGPT) 49 Total Bilirubin 0.3 Sodium Level 142 Potassium Level 3.9 Chloride Level 107 Carbon Dioxide Level 27.2 Anion Gap 8 Estimat Glomerular Filtration Rate 188 Total Creatine Kinase 57 Troponin I 0.03 Digoxin Level 0.9 Phenobarbital Level 23.8 Urine Color LIGHT-YELLOW Urine Turbidity CLEAR Urine pH 7.0 Urine Specific [place] 1.006 Urine Protein TRACE Urine Glucose (UA) NEG Urine Ketones NEG Urine Occult Blood NEG Urine Nitrite NEG Urine Bilirubin NEG Urine Urobilinogen LESS THAN 2.0 Urine Leukocyte Esterase SMALL Urine RBC LESS THAN 1 Urine WBC LESS THAN 1 Urine Hyaline Casts 3 Urine Mucus FEW Microscopic Urinalysis Comment CULT NOT INDICATED (Juana Delgado MD R1) Result Diagram: 03/08/17 2320 03/08/17 2330 Imaging EKG reveals normal sinus rhythm with a rate of 79. First-degree AV block with WI interval of 251 ms. Intraventricular conduction delay with QRS of 152 ms. Unchanged compared to previous EKG 12/10/16. Last Impressions Head CT 03/09/17 0000 Signed Impressions: Service Date/Time: Thursday, March 09, 2017 01:41 - CONCLUSION: No acute intracranial abnormality. Chronic encephalomalacia involving the right MCA territory. Vazquez Doyle Jr., MD Chest X-Ray 03/08/17 7271 Signed Impressions: Service Date/Time: March 23:00 - CONCLUSION: Cardiomegaly with bibasilar infiltrates. No effusions. Vazquez Doyle Jr., MD (Juana Delgado MD R1) Caprini VTE Risk Assessment Caprini VTE Risk Assessment: Mod/High Risk (score >= 2) Caprini Risk Assessment Model Point Value = 1 Point Value = 2 Point Value = 3 Point Value = 5 Age 41-60 Minor surgery BMI > 25 kg/m2 Swollen legs Varicose veins or History of unexplained or recurrent spontaneous Oral contraceptives or hormone replacement Sepsis (< 1 month) Serious lung disease, including pneumonia (< 1 month) Abnormal pulmonary function Acute myocardial infarction Congestive heart failure (< 1 month) History of inflammatory bowel disease Medical patient at bed rest Age 61-74 Arthroscopic surgery Major open surgery (> 45 min) Laparoscopic surgery (> 45 min) Malignancy Confined to bed (> 72 hours) Immobilizing plaster cast Central venous access Age >= 75 History of VTE Family history of VTE Factor V Leiden Prothrombin [id number] Lupus anticoagulant Anticardiolipin antibodies Elevated serum homocysteine Heparin-induced thrombocytopenia Other congenital or acquired thrombophilia Stroke (< 1 month) Elective arthroplasty Hip, pelvis, or leg fracture Acute spinal cord injury (< 1 month) Prophylaxis Regimen Total Risk Factor Score Risk Level Prophylaxis Regimen 0-1 Low Early ambulation 2 Moderate Order ONE of the following: *Sequential Compression Device (SCD) *Heparin 5000 units SQ BID 3-4 Higher Order ONE of the following medications: *Heparin 5000 units SQ TID *Enoxaparin/Lovenox 40 mg SQ daily (WT < 150 kg, CrCl > 30 mL/min) *Enoxaparin/Lovenox 30 mg SQ daily (WT < 150 kg, CrCl > 10-29 mL/min) *Enoxaparin/Lovenox 30 mg SQ BID (WT < 150 kg, CrCl > 30 mL/min) AND/OR *Sequential Compression Device (SCD) 5 or more Highest Order ONE of the following medications: *Heparin 5000 units SQ TID (Preferred with Epidurals) *Enoxaparin/Lovenox 40 mg SQ daily (WT < 150 kg, CrCl > 30 mL/min) *Enoxaparin/Lovenox 30 mg SQ daily (WT < 150 kg, CrCl > 10-29 mL/min) *Enoxaparin/Lovenox 30 mg SQ BID (WT < 150 kg, CrCl > 30 mL/min) AND *Sequential Compression Device (SCD) (Juana Delgado MD R1) Assessment and Plan Assessment and Plan 51 yr old F admitted for acute on chronic CHF exacerbation Code Status Full Code Discussed Condition With Dr. Cheatham and Dr. José Miguel Levine (Juana Delgado MD R1) Attending Attestation Patient seen and examined. Case reviewed and discussed with the resident team. Agree with plan of care as discussed with me and documented in the resident note. Saw her in the ED and she is not a good historian at all. She was visibly SOB and her BNP is elevated. Her exam is consistent with CHF with rales about one third to one nursing home up. She needs to be admitted instead of obs as she will require days to get back to her baseline (Aarti Frank MD) Problem List: (1) CHF exacerbation ICD Codes: I50.9 - Heart failure, unspecified Status: Acute Plan: CXR showed bibasilar infiltrates. BNP elevated at 983. -s/p DuoNeb x1 and lasix 40 mg IV in ED -s/p 1 dose of azithromycin and 1 dose ceftriaxone in ED due to suspected pneumonia. -Based on history, physical, and absence of fever and leukocytosis, will not continue abx. Continue diuresis with Furosemide 40mg IV BID - 1.5 L fluid restriction daily - Strict I's and O's - Daily weights Review of echo from 04/19/2016 shows EF of 15%-20% -Echo 2D complete w/ Doppler ordered EKG reveals normal sinus rhythm with a rate of 79. First-degree AV block with WI interval of 251 ms. Intraventricular conduction delay with QRS of 152 ms. -Unchanged compared to previous EKG 12/10/16. Health Teacher, Dr. Anaya (2) Diabetes ICD Codes: E11.9 - Diabetes Status: Chronic Plan: Held home Metformin Low Novolog Sliding Scale A1C pending (3) Cardiomyopathy ICD Codes: I42.9 - Cardiomyopathy Status: Chronic Plan: Continue home digoxin Digoxin level 0.9 wnl (4) History of right MCA stroke ICD Codes: Z86.73 - History of right MCA stroke Status: Chronic Plan: Head CT showed no acute intracranial abnormality. Chronic encephalomalacia involving the right MCA territory. Continue home Eliquis, Atorvastatin, Aspirin, and Memantine Continue home Carvedilol, spironolactone (5) Seizures ICD Codes: R56.9 - Unspecified convulsions Status: Chronic Plan: Continue home Vimpat, Trileptal, and Phenobarbital Phenobarbital level 23.8 wnl (6) Nutrition, metabolism, and development symptoms ICD Codes: R63.8 - Nutrition, metabolism, and development symptoms Status: Acute Plan: Diet: 1800 ADA, 1.5L daily fluid restriction, Other: Daily weights, Strict I& Os, vitals q4h, neuro checks q4h DVTppx: SCDs b/l, Eliquis Consults: PT, OT, case management (Juana Delgado MD R1) Problem Qualifiers (1) CHF exacerbation: Qualified Codes: I50.9 - Heart failure, unspecified Juana Delgado MD R1 Mar 09, 2017 02:14 Aarti Frank MD Mar 09, 2017 13:07
[2017-03-09] MEDS ORDERED: ACETAMINOPHEN 325 MG TAB PO PRN (02:30)
[2017-03-09] MEDS ORDERED: GLUCAGON 1 MG/ML VIAL OTHER PRN (02:30)
[2017-03-09] MEDS ORDERED: SODIUM CHLORIDE 0.9% FLUSH 10 ML FLUSH IV FLUSH PRN (02:30)
[2017-03-09] MEDS ORDERED: DEXTROSE 50% IN WATER 50 ML VIAL(D50) IV PUSH PRN (02:30)
[2017-03-09] MEDS ORDERED: PADIMATE (CHAPSTICK) 4.5 GM TUBE TOPICAL PRN (03:00)
[2017-03-09] MEDS ORDERED: NAPHAZOLINE HCL 0.012% OPHT SOLN 15 ML BOTTLE EACH EYE PRN (03:00)
[2017-03-09] MEDS ORDERED: CALCIUM CARBONATE 1.25 GM (CA 500 MG) TAB PO ONE (03:15)
[2017-03-09] MEDS ORDERED: MAGNESIUM OXIDE 400 MG TAB PO ONE (03:15)
[2017-03-09] MEDS ORDERED: ONDANSETRON HCL 4 MG/2 ML VIAL IV PUSH PRN (03:15)
[2017-03-09 07:44] LABS: BICARBONATE 24.7 MEQ/L (21.0-32.0); CALCIUM-PROTEIN CORRECTED 8.4 MG/DL (8.5-10.1); MAGNESIUM 1.3 MG/DL (1.5-2.5); POTASSIUM 3.7 MEQ/L (3.5-5.1)
[2017-03-09] MEDS: INSULIN ASPART SUPPLEMENTAL SCALE SQ SCH ×3 (08:00→16:30)
[2017-03-09] MEDS: CARBAMIDE PEROXIDE 6.5% OTIC SOLN 15 ML BTL EACH EAR SCH ×2 (08:53→20:33)
[2017-03-09] MEDS: SPIRONOLACTONE 25 MG TAB PO SCH (08:54)
[2017-03-09] MEDS: THIAMINE HCL 100 MG TAB PO SCH (08:54)
[2017-03-09] MEDS: PANTOPRAZOLE SOD 40 MG DELAYED RELEASE TAB PO SCH (08:54)
[2017-03-09] MEDS: LACOSAMIDE 100 MG TAB PO SCH ×2 (08:54→20:35)
[2017-03-09] MEDS: CARVEDILOL 6.25 MG TAB PO SCH ×2 (08:55→20:34)
[2017-03-09] MEDS: ASPIRIN EC 81 MG TABEC PO SCH (08:55)
[2017-03-09] MEDS: FOLIC ACID 1 MG TAB PO SCH (08:55)
[2017-03-09] MEDS: DIGOXIN 0.125 MG TAB PO SCH (08:55)
[2017-03-09] MEDS: SODIUM CHLORIDE 0.9% FLUSH 10 ML FLUSH IV FLUSH SCH ×2 (08:55→20:35)
[2017-03-09] MEDS: APIXABAN 5 MG TABLET PO SCH ×2 (09:00→20:35)
[2017-03-09] MEDS: FUROSEMIDE 40 MG/4 ML VIAL IVP SCH ×2 (09:00→20:35)
--- NOTE | 2017-03-09 11:10 | PD.CONS ---
HPI Consult Requested By Primary Care Physician Kelsy Levine MD History of Present Illness 51 y/o F with PMHx of R CVA w/ residual left-sided weakness, seizures, T2DM, and nonischemic cardiomyopathy with EF 15-20% from Echo 04/19/16, brought to the ED by daughter for 2 day hx of worsening SOB. Daughter is the primary director day care center and provides all of the history. Reports that patient was complaining of fatigue and frequent, intermittent, worsening SOB that began 2 days ago. She was unable to breath while lying flat and "felt as if she was drowning." Denies swelling in lower extremities, CP, N/V, vision changes, abdominal pain, weight loss, fevers, chills, and night sweats. Cardiology consulted for HF management. Review of Systems Consitutional: COMPLAINS OF: Fatigue, DENIES: Fever, Chills, Weight gain, Weight loss Eyes: DENIES: Amaurosis Fugax, Change in vision HEENT: DENIES: Lightheadedness, Change in hearing Respiratory: COMPLAINS OF: See HPI, Shortness of breath, DENIES: Cough, Snoring , Wheezing, Sputum production Cardiovascular: DENIES: See HPI, Chest pain, Palpitations, Syncope, Tachycardia Gastrointestinal: DENIES: Nausea, Vomiting, Change in bowel habits, Reflux, Bloody stools, Melena Genitourinary: DENIES: Urinary incontinence, Difficulty voiding Integumentary: DENIES: Rash Neurologic: DENIES: Tingling or numbness, Memory problems, Poor Balance, Stroke symptoms Musculoskeletal: DENIES: Joint pain, Muscle pain, Limited range of motion, Back pain Psychiatric: DENIES: Anxiety, Depression, Sleep disturbances Hematologic: DENIES: Bruising tendencies, Bleeding tendencies Endocrine: DENIES: Weight gain, Weight loss, Thyroid disease Past Family Social History Allergies: Coded Allergies: Sulfa (Sulfonamide Antibiotics) (Unverified Allergy, Severe, ANYYHING WITH IT IN IT AND I FALL OUT AND GET THE SHAKES, 02/06/17) lemon (Unverified Allergy, Severe, EDEMA, 02/06/17) phenytoin (Unverified Allergy, Severe, 02/06/17) benazepril (Unverified Allergy, Intermediate, ANGIOEDEMA, 02/06/17) CONFIRMED OF 01/03/2010 captopril (Unverified Allergy, Intermediate, ANGIOEDEMA, 02/06/17) CONFIRMED OF 01/03/2010 enalaprilat (Unverified Allergy, Intermediate, ANGIOEDEMA, 02/06/17) CONFIRMED OF 01/03/2010 fosinopril (Unverified Allergy, Intermediate, ANGIOEDEMA, 02/06/17) CONFIRMED OF 01/03/2010 lisinopril (Unverified Allergy, Intermediate, ANGIOEDEMA, 02/06/17) CONFIRMED OF 01/03/2010 quinapril (Unverified Allergy, Intermediate, ANGIOEDEMA, 02/06/17) CONFIRMED OF 01/03/2010 MRI PRECAUTION (Verified Adverse Reaction, Severe, AICD PRESENT, 02/06/17) AICD PRESENT 11/23/13 JLA Uncoded Allergies: MUCINEX (Allergy, Severe, CARDIAC INCIDENT, 09/18/13) Past Medical History CVA in 2014 and 2015, left-sided weakness CHF, Echo from 04/19/2016 shows EF of 15%-20% Seizure T2DM Cardiomyopathy Past Surgical History ICD placement Craniotomy Reported Medications Reported Meds & Active Scripts Active Memantine 10 Mg Tab 10 Mg PO BID Metformin (Metformin HCl) 500 Mg Tab 500 Mg PO BIDPC With meals Trileptal (Oxcarbazepine) 300 Mg Tab 600 Mg PO BID Pantoprazole (Pantoprazole Sodium) 40 Mg Tab 40 Mg PO DAILY Vimpat (Lacosamide) 200 Mg Tab 200 Mg PO BID Phenobarbital 32.4 Mg Tab 32.4 Mg PO BID Lasix (Furosemide) 40 Mg Tab 40 Mg PO BID@,18 Coreg (Carvedilol) 6.25 Mg Tab 6.25 Mg PO BID Digoxin 0.125 Mg Tab 0.125 Mg PO DAILY Lipitor (Atorvastatin Calcium) 80 Mg Tab 80 Mg PO HS Eliquis (Apixaban) 5 Mg Tab 5 Mg PO BID Spironolactone 25 Mg Tab 25 Mg PO DAILY Reported Vitamin B-1 (Thiamine HCl) 250 Mg Tab 250 Mg PO DAILY Ferrous Sulfate DR (Ferrous Sulfate) 325 Mg Tabdr 325 Mg PO BID Folic Acid 400 Mcg Tab 400 Mcg PO DAILY Aspirin 81 (Aspirin) 81 Mg Tabdr 81 Mg PO DAILY Active Ordered Medications Current Medications Medications (Trade) Dose Ordered Sig/Curtis Route Start Time Stop Time Status Last Admin (Eliquis) 5 mg BID PO 03/09/17 09:00 (Ecotrin Ec) 81 mg DAILY PO 03/09/17 09:00 03/09/17 08:55 (Lipitor) 80 mg HS PO 03/09/17 21:00 (Coreg) 6.25 mg BID PO 03/09/17 09:00 03/09/17 08:55 (Lanoxin) 0.125 mg DAILY PO 03/09/17 09:00 03/09/17 08:55 (Folate) 1 mg DAILY PO 03/09/17 09:00 03/09/17 08:55 (Vimpat) 200 mg BID PO 03/09/17 09:00 03/09/17 08:54 (Namenda) 10 mg BID PO 03/09/17 09:00 (Trileptal) 600 mg BID PO 03/09/17 09:00 (Protonix) 40 mg DAILY PO 03/09/17 09:00 03/09/17 08:54 (PHENobarbital) 32.4 mg BID PO 03/09/17 09:00 (Aldactone) 25 mg DAILY PO 03/09/17 09:00 03/09/17 08:54 (Hemocyte) 325 mg BIDPC PO 03/09/17 09:00 (Vitamin B1) 200 mg DAILY PO 03/09/17 09:00 03/09/17 08:54 (NS Flush) 2 ml UNSCH PRN IV FLUSH 03/09/17 02:30 (NS Flush) 2 ml BID IV FLUSH 03/09/17 09:00 03/09/17 08:55 (Lasix Inj) 40 mg BID@09,18 IVP 03/09/17 09:00 03/09/17 09:00 (Tylenol) 650 mg Q4H PRN PO 03/09/17 02:30 (D50w (Vial) Inj) 50 ml UNSCH PRN IV PUSH 03/09/17 02:30 (Glucagon Inj) 1 mg UNSCH PRN OTHER 03/09/17 02:30 (NovoLOG SUPPLEMENTAL SCALE) 1 ACHS SLIDING SCALE SQ 03/09/17 08:00 (Debrox 6.5% Otic) 5 drop Q12HR EACH EAR 03/09/17 09:00 03/09/17 08:53 (Clear Eyes Redness Relief 0.012% Opth Soln) 1 drop QID PRN EACH EYE 03/09/17 03:00 (Chapstick) 1 applic UNSCH PRN TOPICAL 03/09/17 03:00 (Zofran Inj) 4 mg Q6HR PRN IV PUSH 03/09/17 03:15 Family History Mom had DM Dad had lung cancer Heart disease Sister had aneurysm Social History Lives with only child, her daughter who is her primary director day care center. Denies smoking, alcohol, and illicit drug use Physical Exam Vital Signs Vital Signs Date Time Temp Pulse Resp B/P (MAP) Pulse Ox O2 Delivery O2 Flow Rate FiO2 03/09/17 10:12 97 Nasal Cannula 2.00 03/09/17 08:19 96.8 79 16 107/72 (84) 99 03/09/17 03:33 68 14 109/72 (84) 94 Nasal Cannula 2.00 03/09/17 03:29 95 Nasal Cannula 2.00 03/09/17 02:00 88 Room Air 03/09/17 02:00 94 Nasal Cannula 2.00 03/09/17 01:00 92 16 109/82 (91) 97 Room Air 03/08/17 22:02 97.1 95 16 135/96 (109) 98 Room Air Laboratory Laboratory Tests Test 03/08/17 23:20 03/08/17 23:30 03/09/17 01:30 03/09/17 06:00 White Blood Count 6.2 Red Blood Count 5.21 Hemoglobin 13.4 Hematocrit 40.7 Mean Corpuscular Volume 78.1 Mean Corpuscular Hemoglobin 25.7 Mean Corpuscular Hemoglobin Concent 32.9 Red Cell Distribution Width 16.5 Platelet Count 255 Mean Platelet Volume 10.4 Neutrophils (%) (Auto) 67.5 Lymphocytes (%) (Auto) 23.9 Monocytes (%) (Auto) 5.7 Eosinophils (%) (Auto) 1.4 Basophils (%) (Auto) 1.5 Neutrophils # (Auto) 4.2 Lymphocytes # (Auto) 1.5 Monocytes # (Auto) 0.4 Eosinophils # (Auto) 0.1 Basophils # (Auto) 0.1 CBC Comment DIFF FINAL Differential Comment B-Type Natriuretic Peptide 983 Blood Urea Nitrogen 20 Creatinine 0.43 Random Glucose 87 Total Protein 6.5 Albumin 2.5 Calcium Level 8.1 Magnesium Level 1.2 Alkaline Phosphatase 140 Aspartate Amino Transf (AST/SGOT) 46 Alanine Aminotransferase (ALT/SGPT) 49 Total Bilirubin 0.3 Sodium Level 142 Potassium Level 3.9 Chloride Level 107 Carbon Dioxide Level 27.2 Anion Gap 8 Estimat Glomerular Filtration Rate 188 Total Creatine Kinase 57 Troponin I 0.03 Digoxin Level 0.9 Phenobarbital Level 23.8 Urine Color LIGHT-YELLOW Urine Turbidity CLEAR Urine pH 7.0 Urine Specific [place] 1.006 Urine Protein TRACE Urine Glucose (UA) NEG Urine Ketones NEG Urine Occult Blood NEG Urine Nitrite NEG Urine Bilirubin NEG Urine Urobilinogen LESS THAN 2.0 Urine Leukocyte Esterase SMALL Urine RBC LESS THAN 1 Urine WBC LESS THAN 1 Urine Hyaline Casts 3 Urine Mucus FEW Microscopic Urinalysis Comment CULT NOT INDICATED 25-Hydroxy Vitamin D Total 5.0 Test 03/09/17 06:10 Blood Urea Nitrogen 19 Creatinine 0.43 Random Glucose 139 Total Protein 6.6 Calcium Level 8.1 Magnesium Level 1.3 Sodium Level 141 Potassium Level 3.7 Chloride Level 106 Carbon Dioxide Level 24.7 Anion Gap 10 Estimat Glomerular Filtration Rate 188 Protein Corrected Calcium 8.4 B-Type Natriuretic Peptide 1542 Result Diagram: 03/08/17 2320 03/09/17 0610 Imaging Last Impressions Head CT 03/09/17 0000 Signed Impressions: Service Date/Time: Thursday, March 09, 2017 01:41 - CONCLUSION: No acute intracranial abnormality. Chronic encephalomalacia involving the right MCA territory. Vazquez Doyle Jr., MD Chest X-Ray 03/08/17 2253 Signed Impressions: Service Date/Time: March 23:00 - CONCLUSION: Cardiomegaly with bibasilar infiltrates. No effusions. Vazquez Doyle Jr., MD Assessment and Plan Problem List: (1) CHF exacerbation ICD Codes: I50.9 - Heart failure, unspecified Status: Acute Plan: Cont IV diuresis Strict I&O Daily Weight Telemetry monitoring Low salt diet Cont ASA, Coreg, Digoxin, Statin, Eliquis Allergic reported to ACEi Thank you for the opportunity to participate in the care of this patient Will be available on a PRN basis for any questions or concerns (2) Atrial fibrillation ICD Codes: I48.91 - Atrial fibrillation Status: Chronic (3) Diabetes ICD Codes: E11.9 - Diabetes Status: Chronic (4) Cardiomyopathy ICD Codes: I42.9 - Cardiomyopathy Status: Chronic (5) CHF (congestive heart failure) ICD Codes: I50.9 - CHF (congestive heart failure) Status: Chronic Problem Qualifiers (1) CHF exacerbation: Qualified Codes: I50.9 - Heart failure, unspecified Henry Quispe MD Mar 09, 2017 11:10
[2017-03-09] MEDS: MEMANTINE HCL 10 MG TAB PO SCH ×2 (12:40→20:34)
[2017-03-09] MEDS: PHENobarbital 32.4 MG TAB PO SCH ×2 (12:40→20:34)
[2017-03-09] MEDS: OXcarbazepine 300 MG TAB PO SCH ×2 (12:41→20:34)
[2017-03-09] MEDS: FERROUS FUMARATE 325 MG TAB (106 MG ELEMENTAL IRON) PO SCH ×2 (12:41→18:05)
--- NOTE | 2017-03-09 13:16 | EKG ---
Date Performed: 03/08/2017 Time Performed: 23:10:17 PTAGE: 51 years EKG: Sinus rhythm WITH FIRST DEGREE AV BLOCK MARKED RIGHT AXIS DEVIATION INTRAVENTRICULAR CONDUCTION DELAY ABNORMAL EC G PREVIOUS TRACING : 12/10/2016 14.03 Compared to prior tracing no significant change DOCTOR: Herminio Gautam Interpretating Date/Time 03/09/2017 13:12:10
[2017-03-09] MEDS: MAGNESIUM SULFATE 1 GM PREMIX 100 ML IV SCH ×2 (15:29→16:30)
[2017-03-09] MEDS: ERGOCALCIFEROL (VIT D2) 50,000 UNIT CAP PO SCH (16:30)
[2017-03-09] MEDS: ATORVASTATIN 80 MG TAB PO SCH (20:34)
[2017-03-10] VITALS (9 sets, daily range): BP systolic 94–131; BP diastolic 64–85; PULSE 68–100; RESP 17–20; TEMP 97.5–98.4; O2SAT 85–99
[2017-03-10 06:50] LABS: HEMATOCRIT 38.2 % (35.0-46.0); MEAN CELL VOLUME 78.2 FL (80.0-100.0); MEAN CORPUSCULAR HEMOGLOBIN 25.2 PG (27.0-34.0); MEAN CORPUSCULAR HGB CONC 32.2 % (32.0-36.0); PLATELET COUNT 185 TH/MM3 (150-450); RED BLOOD COUNT 4.88 MIL/MM3 (4.00-5.30); RED CELL DISTRIBUTION WIDTH 16.3 % (11.6-17.2); REVIEW FLAG FINAL; WHITE BLOOD COUNT 4.7 TH/MM3 (4.0-11.0)
[2017-03-10 07:21] LABS: BICARBONATE 26.6 MEQ/L (21.0-32.0)
[2017-03-10 07:24] LABS: POTASSIUM 5.1 MEQ/L (3.5-5.1)
[2017-03-10] MEDS: INSULIN ASPART SUPPLEMENTAL SCALE SQ SCH ×5 (08:35→21:00)
[2017-03-10] MEDS: CARBAMIDE PEROXIDE 6.5% OTIC SOLN 15 ML BTL EACH EAR SCH ×2 (09:29→21:07)
[2017-03-10] MEDS: DIGOXIN 0.125 MG TAB PO SCH (09:30)
[2017-03-10] MEDS: PANTOPRAZOLE SOD 40 MG DELAYED RELEASE TAB PO SCH (09:30)
[2017-03-10] MEDS: FERROUS FUMARATE 325 MG TAB (106 MG ELEMENTAL IRON) PO SCH ×2 (09:30→18:29)
[2017-03-10] MEDS: ASPIRIN EC 81 MG TABEC PO SCH (09:30)
[2017-03-10] MEDS: MEMANTINE HCL 10 MG TAB PO SCH ×2 (09:30→21:06)
[2017-03-10] MEDS: APIXABAN 5 MG TABLET PO SCH ×2 (09:31→21:05)
[2017-03-10] MEDS: LACOSAMIDE 100 MG TAB PO SCH ×2 (09:31→21:00)
[2017-03-10] MEDS: CARVEDILOL 6.25 MG TAB PO SCH ×2 (09:31→21:06)
[2017-03-10] MEDS: OXcarbazepine 300 MG TAB PO SCH ×2 (09:32→21:06)
[2017-03-10] MEDS: FOLIC ACID 1 MG TAB PO SCH (09:32)
[2017-03-10] MEDS: PHENobarbital 32.4 MG TAB PO SCH ×2 (09:32→21:05)
[2017-03-10] MEDS: THIAMINE HCL 100 MG TAB PO SCH (09:32)
[2017-03-10] MEDS: SODIUM CHLORIDE 0.9% FLUSH 10 ML FLUSH IV FLUSH SCH ×2 (09:33→21:07)
[2017-03-10] MEDS: SPIRONOLACTONE 25 MG TAB PO SCH (09:34)
[2017-03-10] MEDS: FUROSEMIDE 40 MG/4 ML VIAL IVP SCH (09:34)
--- NOTE | 2017-03-10 09:51 | HHI.FPPN ---
Subjective Remarks Ms Foote is not a good historian but she did recognize me and Dr Hernandez. She complained of nausea this am but no other complaints. She is lying in bed and basically bedridden with her prior CVA. She appears to be breathing more comfortably this am. Her nurse is temporarily holding her lasix because of her BP on the low side but she will give this later today once her BP improves. Objective Vitals Vital Signs Date Time Temp Pulse Resp B/P (MAP) Pulse Ox O2 Delivery O2 Flow Rate FiO2 03/10/17 07:54 97.5 83 17 94/73 (80) 99 03/10/17 04:00 72 03/10/17 04:00 97.9 68 18 124/64 (84) 96 03/10/17 00:01 84 03/10/17 00:00 98.4 73 18 131/68 (89) 99 03/09/17 22:49 98.4 68 18 105/64 (78) 97 03/09/17 20:12 100 03/09/17 20:05 84 03/09/17 19:12 81 03/09/17 15:29 98.0 90 102/59 (73) 97 03/09/17 12:25 97.6 80 16 104/71 (82) 100 03/09/17 10:12 97 Nasal Cannula 2.00 I/O 03/09/17 03/09/17 03/09/17 03/10/17 03/10/17 03/10/17 07:00 15:00 23:00 07:00 15:00 23:00 Intake Total 350 ml 212 ml 300 ml Output Total 600 ml Balance 350 ml 212 ml -300 ml Intake Oral 212 ml 200 ml IV Total 350 ml 100 ml Output Urine Total 600 ml # Voids 1 1 1 # Bowel Movements 0 3 0 Result Diagram: 03/10/1710 03/10/17 0510 Objective Remarks GENERAL: thin lady, pleasant, lying in bed, in NAD except some nausea. Better with her breathing today compared to yesterday SKIN: No rashes, ecchymoses or lesions. Cool and dry. HEAD: Atraumatic. Normocephalic. EYES: R pupil sluggish to react to light as compared to the L pupil, EOMI ENT: Throat clear, TMs were hard to visualize due to wax NECK: Supple, nontender, no meningeal signs. No JVD or LAD. CARDIOVASCULAR: Regular rate and rhythm without murmurs, gallops, or rubs. RESPIRATORY: rales in b/l bases less than yesterday but still present bilaterally. No accessory muscle use. GASTROINTESTINAL: Abdomen soft, non-tender, nondistended. No hepato-splenomegaly , or palpable masses. No guarding. No hepato-jugular reflex. MUSCULOSKELETAL: No edema in lower extremities. Trace edema in left upper extremity. NEUROLOGICAL: Awake and alert. Cranial nerves II through XII intact. Strength 5/ 5 on R side. Strength 4/5 on L side. Patient keeps left hand grasped into a fist at baseline with contracture. Sensation intact throughout. Speech is slightly difficult to understand. Urinary Catheter: No Vascular Central Line Catheter: No A/P Assessment and Plan 51 yr old F admitted for acute on chronic CHF exacerbation Problem List: (1) CHF exacerbation ICD Codes: I50.9 - Heart failure, unspecified Status: Acute Plan: CXR showed bibasilar infiltrates. BNP elevated at 983. -s/p DuoNeb x1 and lasix 40 mg IV in ED -s/p 1 dose of azithromycin and 1 dose ceftriaxone in ED due to suspected pneumonia. -Based on history, physical, and absence of fever and leukocytosis, will not continue abx. Continue diuresis with Furosemide 40mg IV BID, held for a few hours but does still need diuresis - 1.5 L fluid restriction daily - Strict I's and O's - Daily weights Review of echo from 04/19/2016 shows EF of 15%-20% -Echo 2D complete w/ Doppler ordered EKG reveals normal sinus rhythm with a rate of 79. First-degree AV block with MD interval of 251 ms. Intraventricular conduction delay with QRS of 152 ms. -Unchanged compared to previous EKG 12/10/16. Apple Peeler Operator, Dr. Miguel (2) Diabetes ICD Codes: E11.9 - Diabetes Status: Chronic Plan: Held home Metformin Low Novolog Sliding Scale A1C pending (3) Cardiomyopathy ICD Codes: I42.9 - Cardiomyopathy Status: Chronic Plan: Continue home digoxin Digoxin level 0.9 wnl (4) History of right MCA stroke ICD Codes: Z86.73 - History of right MCA stroke Status: Chronic Plan: Head CT showed no acute intracranial abnormality. Chronic encephalomalacia involving the right MCA territory. Continue home Eliquis, Atorvastatin, Aspirin, and Memantine Continue home Carvedilol, spironolactone (5) Seizures ICD Codes: R56.9 - Unspecified convulsions Status: Chronic Plan: Continue home Vimpat, Trileptal, and Phenobarbital Phenobarbital level 23.8 wnl (6) Nutrition, metabolism, and development symptoms ICD Codes: R63.8 - Nutrition, metabolism, and development symptoms Status: Acute Plan: Diet: 1800 ADA, 1.5L daily fluid restriction, Other: Daily weights, Strict I& Os, vitals q4h, neuro checks q4h DVTppx: SCDs b/l, Eliquis Consults: PT, OT, case management Problem Qualifiers (1) CHF exacerbation: Qualified Codes: I50.9 - Heart failure, unspecified (2) Diabetes: Aarti Frank MD Mar 10, 2017 09:51
[2017-03-10] MEDS ORDERED: MAGNESIUM SULFATE 1 GM PREMIX 100 ML IV ONE (10:00)
--- NOTE | 2017-03-10 17:43 | ECHRPT ---
Indication: heart failure CONCLUSIONS Normal left ventricular size. Wall thickness is normal. The left ventricular systolic function is severely reduced with an estimated ejection fraction less than 20%. The left atrial size is opll-cx-frgmfcazdj dilated. Moderate mitral regurgitation. Mild thickening of the aortic valve leaflets. Trace aortic valve regurgitation. There is moderat tricuspid valve regurgitation. There is estimated tmuwnzou-el-rcvnls pulmonary hypertension present ( 67mmHg). There is a small pericardial effusion present. No hemodynamically significant echocardiographic features were observed (no pre-tamponade physiology). BP: 107 / 72 HR: 79 Rhythm: MEASUREMENTS (Male / Female) Normal Values Technical Quality:Good 2D ECHO LV Diastolic Diameter PLAX 5.2 cm 4.2 - 5.9 / 3.9 - 5.3 cm LV Systolic Diameter PLAX 4.8 cm IVS Diastolic Thickness 1.0 cm 0.6 - 1.0 / 0.6 - 0.9 cm LVPW Diastolic Thickness 1.0 cm 0.6 - 1.0 / 0.6 - 0.9 cm LV Relative Wall Thickness 0.4 RV Internal Dim ED PLAX 2.1 cm LA Systolic Diameter LX 4.8 cm 3.0 - 4.0 / 2.7 - 3.8 cm M-MODE Aortic Root Diameter MM 2.7 cm AV Cusp Separation MM 1.7 cm DOPPLER MR Peak Velocity 396.0 cm/s MR Peak Gradient 62.7 mmHg Mitral E Point Velocity 82.4 cm/s Mitral A Point Velocity 33.6 cm/s Mitral E to A Ratio 2.5 TR Peak Velocity 379.0 cm/s TR Peak Gradient 57.5 mmHg Right Atrial Pressure 10.0 mmHg Pulmonary Artery Systolic Pressu 67.5 mmHg Right Ventricular Systolic Press 67.5 mmHg FINDINGS LEFT VENTRICLE Normal left ventricular size. Wall thickness is normal. The left ventricular systolic function is severely reduced with an estimated ejection fraction less than 20%. RIGHT VENTRICLE A pacemaker wire is noted. The right ventricular systoilc function is moderately decreased. LEFT ATRIUM The left atrial size is mvpw-do-sdiyenwgzy dilated. RIGHT ATRIUM The right atrial size is normal. ATRIAL SEPTUM Normal atrial septal thickness without atrial level shunting by limited color doppler interrogation. AORTA The aortic root and proximal ascending aorta are normal in size on limited imaging. MITRAL VALVE Structurally normal mitral valve. No mitral valve stenosis. Moderate mitral regurgitation. AORTIC VALVE Mild thickening of the aortic valve leaflets. Trace aortic valve regurgitation. TRICUSPID VALVE There is moderate tricuspid valve regurgitation. There is estimated jeugeylw-mq-lcpehl pulmonary hypertension present ( 67mmHg). PULMONARY VALVE No pulmonary valve regurgitation or stenosis. VESSELS The inferior vena cava is normal in size. PERICARDIUM There is a small pericardial effusion present. No hemodynamically significant echocardiographic features were observed (no pre-tamponade physiology). Beot Guerra MD, FACC (Electronically Signed) Final Date:10 March 2017 17:42
[2017-03-10] MEDS: ATORVASTATIN 80 MG TAB PO SCH (21:06)
[2017-03-11] VITALS (7 sets, daily range): BP systolic 97–116; BP diastolic 65–76; PULSE 66–93; RESP 20; TEMP 97.2–98.9; O2SAT 94–99
[2017-03-11] MEDS: INSULIN ASPART SUPPLEMENTAL SCALE SQ SCH ×4 (08:00→21:00)
[2017-03-11] MEDS: SODIUM CHLORIDE 0.9% FLUSH 10 ML FLUSH IV FLUSH SCH ×2 (09:00→21:00)
[2017-03-11 09:14] LABS: ALKALINE PHOSPHATASE 145 U/L (45-117); ALT (GPT) 107 U/L (10-53); ANION GAP 9 MEQ/L (5-15); AST (GOT) 105 U/L (15-37); BICARBONATE 23.9 MEQ/L (21.0-32.0); BLOOD UREA NITROGEN 19 MG/DL (7-18); CHLORIDE 103 MEQ/L (98-107); GLOMERULAR FILTRATION RATE 188 ML/MIN (>89); POTASSIUM 4.3 MEQ/L (3.5-5.1); SODIUM (NA) 136 MEQ/L (136-145); TOTAL BILIRUBIN ADULT 0.5 MG/DL (0.2-1.0)
--- NOTE | 2017-03-11 09:42 | HHI.FPPN ---
Subjective Remarks Patient states she is breathing better this morning. She is looking forward to ordering breakfast. She denies nausea, vomiting, shortness of breath, chest pain. (Reynaldo Hernandez MD, R3) Objective Vitals Vital Signs Date Time Temp Pulse Resp B/P (MAP) Pulse Ox O2 Delivery O2 Flow Rate FiO2 03/11/17 04:00 98.9 74 20 107/65 (79) 95 03/11/17 00:41 21 03/11/17 00:00 98.7 66 20 97/69 (78) 94 03/10/17 20:00 97.8 100 20 116/85 (95) 97 03/10/17 16:06 83 03/10/17 15:45 97.5 87 17 108/73 (85) 85 03/10/17 11:06 97.5 96 17 119/85 (96) 94 03/10/17 09:48 79 I/O 03/10/17 03/10/17 03/10/17 03/11/17 03/11/17 03/11/17 07:00 15:00 23:00 07:00 15:00 23:00 Intake Total 240 ml Output Total 350 ml Balance 240 ml -350 ml Intake Oral 240 ml Output Urine Total 350 ml # Voids 1 3 # Bowel Movements 0 (Reynaldo Hernandez MD, R3) Result Diagram: 03/10/17 0510 03/11/17 0638 Objective Remarks GENERAL: thin lady, pleasant, lying in bed, in NAD except some nausea. Better with her breathing today compared to yesterday SKIN: No rashes, ecchymoses or lesions. Cool and dry. HEAD: Atraumatic. Normocephalic. EYES: R pupil sluggish to react to light as compared to the L pupil, EOMI ENT: Throat clear, TMs were hard to visualize due to wax NECK: Supple, nontender, no meningeal signs. No JVD or LAD. CARDIOVASCULAR: Regular rate and rhythm without murmurs, gallops, or rubs. RESPIRATORY: rales in b/l bases less than yesterday but still present bilaterally. No accessory muscle use. GASTROINTESTINAL: Abdomen soft, non-tender, nondistended. No hepato-splenomegaly , or palpable masses. No guarding. No hepato-jugular reflex. MUSCULOSKELETAL: No edema in lower extremities. Trace edema in left upper extremity. NEUROLOGICAL: Awake and alert. Cranial nerves II through XII intact. Strength 5/ 5 on R side. Strength 4/5 on L side. Patient keeps left hand grasped into a fist at baseline with contracture. Sensation intact throughout. Speech is slightly difficult to understand. (Reynaldo Hernandez MD, R3) A/P Assessment and Plan 51 yr old F admitted for acute on chronic CHF exacerbation Discharge Planning Pending continued clinical improvement. PT consult- PT at rehab (Reynaldo Hernandez MD, R3) Attending Attestation Patient seen and examined. Case reviewed and discussed with the resident team. Agree with plan of care as discussed with me and documented in the resident note. she is a poor historian and the Is and Os do not seem quite accurate. Her diuretics are being held but she is on a fluid restriction so she is overall decreasing her fluid overload. will see if she qualifies for a SNF as she is weak overall from her prior CVA and her significant CHF. (Aarti Frank MD) Problem List: (1) CHF exacerbation ICD Codes: I50.9 - Heart failure, unspecified Status: Acute Plan: CXR showed bibasilar infiltrates. BNP improved to 880 -s/p DuoNeb x1 and lasix 40 mg IV in ED -s/p 1 dose of azithromycin and 1 dose ceftriaxone in ED due to suspected pneumonia. -Based on history, physical, and absence of fever and leukocytosis, will not continue abx. Continue diuresis with Furosemide 40mg IV BID - 1.5 L fluid restriction daily - Strict I's and O's - Daily weights Review of echo from 04/19/2016 shows EF of 15%-20% ECHO 03/10/17- EF 20%, moderate/severe pulmonary hypertension EKG reveals normal sinus rhythm with a rate of 79. First-degree AV block with MO interval of 251 ms. Intraventricular conduction delay with QRS of 152 ms. -Unchanged compared to previous EKG 12/10/16. Consult Cardiology (2) Diabetes ICD Codes: E11.9 - Diabetes Status: Chronic Plan: Held home Metformin Low Novolog Sliding Scale A1C pending (3) Cardiomyopathy ICD Codes: I42.9 - Cardiomyopathy Status: Chronic Plan: Continue home digoxin Digoxin level 0.9 wnl (4) History of right MCA stroke ICD Codes: Z86.73 - History of right MCA stroke Status: Chronic Plan: Head CT showed no acute intracranial abnormality. Chronic encephalomalacia involving the right MCA territory. Continue home Eliquis, Atorvastatin, Aspirin, and Memantine Continue home Carvedilol, spironolactone (5) Seizures ICD Codes: R56.9 - Unspecified convulsions Status: Chronic Plan: Continue home Vimpat, Trileptal, and Phenobarbital Phenobarbital level 23.8 wnl (6) Nutrition, metabolism, and development symptoms ICD Codes: R63.8 - Nutrition, metabolism, and development symptoms Status: Acute Plan: Diet: 1800 ADA, 1.5L daily fluid restriction, Other: Daily weights, Strict I& Os, vitals q4h, neuro checks q4h DVTppx: SCDs b/l, Eliquis Consults: PT, OT, case management (Reynaldo Hernandez MD, R3) Problem Qualifiers (1) CHF exacerbation: Qualified Codes: I50.9 - Heart failure, unspecified (2) Diabetes: Reynaldo Hernandez MD, R3 Mar 11, 2017 09:42 Aarti Frank MD Mar 11, 2017 12:55
[2017-03-11] MEDS: FUROSEMIDE 40 MG/4 ML VIAL IVP SCH ×2 (10:20→17:15)
[2017-03-11] MEDS: CARBAMIDE PEROXIDE 6.5% OTIC SOLN 15 ML BTL EACH EAR SCH ×2 (10:21→22:31)
[2017-03-11] MEDS: LACOSAMIDE 100 MG TAB PO SCH ×2 (10:21→22:28)
[2017-03-11] MEDS: DIGOXIN 0.125 MG TAB PO SCH (10:22)
[2017-03-11] MEDS: MEMANTINE HCL 10 MG TAB PO SCH ×2 (10:22→22:28)
[2017-03-11] MEDS: PANTOPRAZOLE SOD 40 MG DELAYED RELEASE TAB PO SCH (10:22)
[2017-03-11] MEDS: ASPIRIN EC 81 MG TABEC PO SCH (10:22)
[2017-03-11] MEDS: OXcarbazepine 300 MG TAB PO SCH ×2 (10:22→22:27)
[2017-03-11] MEDS: PHENobarbital 32.4 MG TAB PO SCH ×2 (10:22→22:30)
[2017-03-11] MEDS: FOLIC ACID 1 MG TAB PO SCH (10:22)
[2017-03-11] MEDS: SPIRONOLACTONE 25 MG TAB PO SCH (10:22)
[2017-03-11] MEDS: THIAMINE HCL 100 MG TAB PO SCH (10:23)
[2017-03-11] MEDS: APIXABAN 5 MG TABLET PO SCH ×2 (10:23→22:30)
[2017-03-11] MEDS: FERROUS FUMARATE 325 MG TAB (106 MG ELEMENTAL IRON) PO SCH ×2 (10:23→17:15)
[2017-03-11] MEDS: CARVEDILOL 6.25 MG TAB PO SCH ×2 (10:23→22:30)
[2017-03-11] MEDS: ATORVASTATIN 80 MG TAB PO SCH (22:29)
[2017-03-12] VITALS (8 sets, daily range): BP systolic 106–127; BP diastolic 65–85; PULSE 75–91; RESP 18–20; TEMP 97.2–98.7; O2SAT 98–100
[2017-03-12] MEDS: SODIUM CHLORIDE 0.9% FLUSH 10 ML FLUSH IV FLUSH SCH ×2 (09:00→21:00)
[2017-03-12 09:57] LABS: AUTOMATED NEUTROPHIL # 3.4 TH/MM3 (1.8-7.7); BASOPHIL # 0.1 TH/MM3 (0-0.2); BASOPHIL % 1.5 % (0.0-2.0); EOSINOPHIL # 0.1 TH/MM3 (0-0.4); EOSINOPHIL % 1.3 % (0.0-4.0); LYMPH % 21.2 % (9.0-44.0); LYMPHOCYTE # 1.1 TH/MM3 (1.0-4.8); MEAN CELL VOLUME 77.9 FL (80.0-100.0); MEAN CORPUSCULAR HEMOGLOBIN 25.2 PG (27.0-34.0); MEAN CORPUSCULAR HGB CONC 32.4 % (32.0-36.0); MONO % 8.9 % (0.0-8.0); NEUT % 67.1 % (16.0-70.0); PLATELET COUNT 196 TH/MM3 (150-450); RED CELL DISTRIBUTION WIDTH 16.1 % (11.6-17.2)
--- NOTE | 2017-03-12 10:04 | HHI.FPPN ---
Subjective Remarks Ms Foote wants to get up and go to the sofa but is weak and is a fall risk. She has no complaints today. Per her nursing director, she is eating a bit but not all her calories. She is drinking little fluid. Her breathing is improved to the point where she does not need oxygen. Otherwise, she has no complaints. She has not been getting her diuretics regularly. They have been held with low BPs. Objective Vitals Vital Signs Date Time Temp Pulse Resp B/P (MAP) Pulse Ox O2 Delivery O2 Flow Rate FiO2 03/12/17 08:39 97.2 87 18 107/65 (79) 100 03/12/17 04:00 98.7 75 20 106/72 (83) 98 03/12/17 00:00 98.5 91 20 125/85 (98) 99 03/11/17 21:45 97.3 84 20 116/75 (89) 97 03/11/17 16:19 97.2 93 20 116/76 (89) 99 03/11/17 12:00 97.6 84 20 107/71 (83) 99 03/11/17 10:55 74 I/O 03/11/17 03/11/17 03/11/17 03/12/17 03/12/17 03/12/17 07:00 15:00 23:00 07:00 15:00 23:00 Intake Total 1120 ml Output Total 350 ml Balance -350 ml 1120 ml Intake Oral 1120 ml Output Urine Total 350 ml # Voids 4 1 1 Result Diagram: 03/10/17 0510 03/11/17 0638 Objective Remarks GENERAL: thin lady, pleasant, lying in bed, in NAD. Better with her breathing as she does breathe more rapidly when excited but speaks in full sentences SKIN: No rashes, ecchymoses or lesions. Cool and dry. HEAD: Atraumatic. Normocephalic. EYES: R pupil sluggish to react to light as compared to the L pupil, EOMI ENT: Throat clear, TMs were hard to visualize due to wax NECK: Supple, nontender, no meningeal signs. No JVD or LAD. CARDIOVASCULAR: Regular rate and rhythm without murmurs, gallops, or rubs. RESPIRATORY: rales in b/l bases nearly gone. No accessory muscle use. GASTROINTESTINAL: Abdomen soft, non-tender, nondistended. No hepato-splenomegaly , or palpable masses. No guarding. No hepato-jugular reflex. MUSCULOSKELETAL: No edema in lower extremities. Trace edema in left upper extremity. NEUROLOGICAL: Awake and alert. Cranial nerves II through XII intact. Strength 5/ 5 on R side. Strength 4/5 on L side. Patient keeps left hand grasped into a fist at baseline with contracture. Sensation intact throughout. Speech is slightly difficult to understand. she is confused to some extent at baseline per observation of this hospital stay Urinary Catheter: No Vascular Central Line Catheter: No A/P Assessment and Plan 51 yr old F admitted for acute on chronic CHF exacerbation Discharge Planning Pending continued clinical improvement. PT consult- PT at rehab she will need rehab at D/C as she is weak and a fall risk. her daughter is deciding on where to go per case management notes Problem List: (1) CHF exacerbation ICD Codes: I50.9 - Heart failure, unspecified Status: Acute Plan: CXR showed bibasilar infiltrates. BNP improved -s/p DuoNeb x1 and lasix 40 mg IV in ED -s/p 1 dose of azithromycin and 1 dose ceftriaxone in ED due to suspected pneumonia. -Based on history, physical, and absence of fever and leukocytosis, will not continue abx. Continue diuresis with Furosemide 40mg po - 1.5 L fluid restriction daily and she does not need iv diuresis any longer - Strict I's and O's - Daily weights Review of echo from 04/19/2016 shows EF of 15%-20% ECHO 03/10/17- EF 20%, moderate/severe pulmonary hypertension, can see what treatment could be recommended per her [employer] Professor as outpt. She is doing well now and they have signed off EKG reveals normal sinus rhythm with a rate of 79. First-degree AV block with RI interval of 251 ms. Intraventricular conduction delay with QRS of 152 ms. -Unchanged compared to previous EKG 12/10/16. Consulted Cardiology, doing well so will see as an outpt (2) Diabetes ICD Codes: E11.9 - Diabetes Status: Chronic Plan: Held home Metformin Low Novolog Sliding Scale A1C only 6.5. would not overtreat as she is fragile and would not do well with hypoglycemia (3) Cardiomyopathy ICD Codes: I42.9 - Cardiomyopathy Status: Chronic Plan: Continue home digoxin Digoxin level 0.9 wnl Continue home Carvedilol, spironolactone (4) History of right MCA stroke ICD Codes: Z86.73 - History of right MCA stroke Status: Chronic Plan: Head CT showed no acute intracranial abnormality. Chronic encephalomalacia involving the right MCA territory. Continue home Eliquis, Atorvastatin, Aspirin, and Memantine (5) Seizures ICD Codes: R56.9 - Unspecified convulsions Status: Chronic Plan: Continue home Vimpat, Trileptal, and Phenobarbital Phenobarbital level 23.8 wnl no seizures in hospital (6) Nutrition, metabolism, and development symptoms ICD Codes: R63.8 - Nutrition, metabolism, and development symptoms Status: Acute Plan: Diet: 1800 ADA, 1.5L daily fluid restriction, may need to change as outpt Other: Daily weights, Strict I& Os, vitals q4h, neuro checks q4h DVTppx: SCDs b/l, Eliquis Consults: PT, OT, case management Problem Qualifiers (1) CHF exacerbation: Qualified Codes: I50.9 - Heart failure, unspecified (2) Diabetes: Aarti Frank MD Mar 12, 2017 10:04
[2017-03-12 10:08] LABS: HEMO FLAGS AUTO DIFF
[2017-03-12 10:29] LABS: ALT (GPT) 147 U/L (10-53); ANION GAP 8 MEQ/L (5-15); AST (GOT) 151 U/L (15-37); BICARBONATE 24.8 MEQ/L (21.0-32.0); BLOOD UREA NITROGEN 33 MG/DL (7-18); CHLORIDE 104 MEQ/L (98-107); GLOMERULAR FILTRATION RATE 154 ML/MIN (>89); POTASSIUM 4.4 MEQ/L (3.5-5.1); SODIUM (NA) 137 MEQ/L (136-145)
[2017-03-12 10:32] LABS: ALKALINE PHOSPHATASE 182 U/L (45-117); TOTAL BILIRUBIN ADULT 0.4 MG/DL (0.2-1.0)
[2017-03-12 11:27] LABS: OVALOCYTES 1+ (NORMAL); SCAN/DIFF AUTO DIFF CONFIRMED
[2017-03-12] MEDS: INSULIN ASPART SUPPLEMENTAL SCALE SQ SCH ×3 (12:00→21:00)
[2017-03-12] MEDS: ASPIRIN EC 81 MG TABEC PO SCH (12:25)
[2017-03-12] MEDS: CARVEDILOL 6.25 MG TAB PO SCH ×2 (12:25→21:58)
[2017-03-12] MEDS: LACOSAMIDE 100 MG TAB PO SCH ×2 (12:25→21:59)
[2017-03-12] MEDS: MEMANTINE HCL 10 MG TAB PO SCH ×2 (12:25→21:58)
[2017-03-12] MEDS: PANTOPRAZOLE SOD 40 MG DELAYED RELEASE TAB PO SCH (12:25)
[2017-03-12] MEDS: DIGOXIN 0.125 MG TAB PO SCH (12:26)
[2017-03-12] MEDS: OXcarbazepine 300 MG TAB PO SCH ×2 (12:27→21:59)
[2017-03-12] MEDS: APIXABAN 5 MG TABLET PO SCH ×2 (12:27→21:59)
[2017-03-12] MEDS: SPIRONOLACTONE 25 MG TAB PO SCH (12:27)
[2017-03-12] MEDS: FOLIC ACID 1 MG TAB PO SCH (12:27)
[2017-03-12] MEDS: PHENobarbital 32.4 MG TAB PO SCH ×2 (12:27→21:59)
[2017-03-12] MEDS: CARBAMIDE PEROXIDE 6.5% OTIC SOLN 15 ML BTL EACH EAR SCH ×2 (12:28→22:00)
[2017-03-12] MEDS: FERROUS FUMARATE 325 MG TAB (106 MG ELEMENTAL IRON) PO SCH ×2 (12:28→17:12)
[2017-03-12] MEDS: THIAMINE HCL 100 MG TAB PO SCH (12:28)
--- NOTE | 2017-03-12 18:29 | RADRPT ---
EXAM DATE/TIME: 03/12/2017 15:55 [facility] COMPARISON: US ABDOMEN - LIVER, April 19, 2016, 11:36. INDICATIONS : Increased labs. MEDICAL HISTORY : Congestive heart failure. CVA. Seizures. Chest pain. Afib. HTN. COPD. Sleep apnea. GERD. Diabetes . Dyspnea. MRSA. Anticoagulant therapy, Eliquis & Aspirin. SURGICAL HISTORY : Craniotomy. section. Hysterectomy. Defibrilator. Markers placed bilateral breasts. ENCOUNTER: Initial ACUITY: 1 day PAIN SCORE: 10 LOCATION: Bilateral upper quadrant MEASUREMENTS: LIVER: 18.3 cm length COMMON DUCT: 3 mm RIGHT KIDNEY: 10.7 x 3.9 x 4.8 cm SPLEEN: 9.6 cm length FINDINGS: Ultrasound of the upper abdomen demonstrates normal echogenicity of the liver. No intrahepatic or ext ra hepatic ductal dilatation is seen. There is hepatopedal flow through the portal vein. There is ga llbladder wall thickening to 8 mm with pericholecystic fluid without stones. Cholecystitis is not exc ludedRadionuclide imaging is recommended for further evaluation if clinically indicated. The spleen i s normal in size and free of focal defects. There is a single stone within the right kidney without h ydronephrosis measuring 4 mm and lower pole. CONCLUSION: 1. Gallbladder wall thickening and pericholecystic fluid without stones. Cholecystitis is not exclude d. Radionuclide imaging is recommended for further evaluation if clinically indicated. Georges Hannon MD on March 12, 2017 at 18:25 Board Certified Radiologist. This report was verified electronically.
[2017-03-12] MEDS: ATORVASTATIN 80 MG TAB PO SCH (21:58)
[2017-03-13] VITALS (15 sets, daily range): BP systolic 93–129; BP diastolic 62–90; PULSE 54–97; RESP 15–20; TEMP 96.3–98.2; O2SAT 94–100
[2017-03-13 07:55] LABS: HEMATOCRIT 36.1 % (35.0-46.0); MEAN CELL VOLUME 78.1 FL (80.0-100.0); MEAN CORPUSCULAR HEMOGLOBIN 25.1 PG (27.0-34.0); MEAN CORPUSCULAR HGB CONC 32.1 % (32.0-36.0); PLATELET COUNT 181 TH/MM3 (150-450); RED BLOOD COUNT 4.62 MIL/MM3 (4.00-5.30); RED CELL DISTRIBUTION WIDTH 16.2 % (11.6-17.2); REVIEW FLAG FINAL; WHITE BLOOD COUNT 4.9 TH/MM3 (4.0-11.0)
[2017-03-13] MEDS: INSULIN ASPART SUPPLEMENTAL SCALE SQ SCH ×4 (08:00→21:00)
[2017-03-13 08:22] LABS: ALT (GPT) 121 U/L (10-53); ANION GAP 8 MEQ/L (5-15); AST (GOT) 92 U/L (15-37); BICARBONATE 23.8 MEQ/L (21.0-32.0); BLOOD UREA NITROGEN 35 MG/DL (7-18); CHLORIDE 106 MEQ/L (98-107); GLOMERULAR FILTRATION RATE 174 ML/MIN (>89); POTASSIUM 4.5 MEQ/L (3.5-5.1); SODIUM (NA) 138 MEQ/L (136-145)
[2017-03-13 08:25] LABS: ALKALINE PHOSPHATASE 161 U/L (45-117); TOTAL BILIRUBIN ADULT 0.5 MG/DL (0.2-1.0)
[2017-03-13] MEDS: CARBAMIDE PEROXIDE 6.5% OTIC SOLN 15 ML BTL EACH EAR SCH ×2 (09:00→21:44)
[2017-03-13] MEDS: THIAMINE HCL 100 MG TAB PO SCH (09:00)
[2017-03-13] MEDS: FERROUS FUMARATE 325 MG TAB (106 MG ELEMENTAL IRON) PO SCH ×2 (09:00→18:00)
[2017-03-13] MEDS: APIXABAN 5 MG TABLET PO SCH ×2 (09:00→21:45)
[2017-03-13] MEDS: SODIUM CHLORIDE 0.9% FLUSH 10 ML FLUSH IV FLUSH SCH ×2 (09:00→21:00)
--- NOTE | 2017-03-13 09:37 | HHI.DCPOC ---
Discharge Care Plan Diagnosis: (1) CHF (congestive heart failure) Goals to Promote Your Health * To prevent worsening of your condition and complications * To maintain your health at the optimal level Directions to Meet Your Goals Take your medications as prescribed Follow your dietary instruction Follow activity as directed Keep your appointments as scheduled Take your immunizations and boosters as scheduled If your symptoms worsen call your PCP, if no PCP go to Urgent Care Center or Emergency Room Smoking is Dangerous to Your Health. Avoid second hand smoke Call the 24-hour hour crisis hotline for domestic abuse at Troy Mars MD, R3 Mar 13, 2017 09:37
--- NOTE | 2017-03-13 09:41 | HHI.DS ---
Discharge Summary Admission Date Mar 09, 2017 at 13:58 Admitting Diagnosis CHF, dyspnea, hypoxia 88% room air, vertigo, AMS (1) CHF exacerbation Plan: CXR showed bibasilar infiltrates. BNP improved -s/p DuoNeb x1 and lasix 40 mg IV in ED -s/p 1 dose of azithromycin and 1 dose ceftriaxone in ED due to suspected pneumonia. -Based on history, physical, and absence of fever and leukocytosis, will not continue abx. Continue diuresis with Furosemide 40mg po - 1.5 L fluid restriction daily and she does not need iv diuresis any longer - Strict I's and O's - Daily weights Review of echo from 04/19/2016 shows EF of 15%-20% ECHO 03/10/17- EF 20%, moderate/severe pulmonary hypertension, can see what treatment could be recommended per her Mri Specialist as outpt. She is doing well now and they have signed off EKG reveals normal sinus rhythm with a rate of 79. First-degree AV block with [place] interval of 251 ms. Intraventricular conduction delay with QRS of 152 ms. -Unchanged compared to previous EKG 12/10/16. Consulted Cardiology, doing well so will see as an outpt ICD Codes: I50.9 - Heart failure, unspecified Status: Acute (2) Diabetes Plan: Held home Metformin Low Novolog Sliding Scale A1C only 6.5. would not overtreat as she is fragile and would not do well with hypoglycemia ICD Codes: E11.9 - Diabetes Status: Chronic (3) Cardiomyopathy Plan: Continue home digoxin Digoxin level 0.9 wnl Continue home Carvedilol, spironolactone ICD Codes: I42.9 - Cardiomyopathy Status: Chronic (4) History of right MCA stroke Plan: Head CT showed no acute intracranial abnormality. Chronic encephalomalacia involving the right MCA territory. Continue home Eliquis, Atorvastatin, Aspirin, and Memantine ICD Codes: Z86.73 - History of right MCA stroke Status: Chronic (5) Seizures Plan: Continue home Vimpat, Trileptal, and Phenobarbital Phenobarbital level 23.8 wnl no seizures in hospital ICD Codes: R56.9 - Unspecified convulsions Status: Chronic (6) Nutrition, metabolism, and development symptoms Plan: Diet: 1800 ADA, 1.5L daily fluid restriction, may need to change as outpt Other: Daily weights, Strict I& Os, vitals q4h, neuro checks q4h DVTppx: SCDs b/l, Eliquis Consults: PT, OT, case management ICD Codes: R63.8 - Nutrition, metabolism, and development symptoms Status: Acute Brief History 51 yr old F w/ PMHx of R CVA w/ residual left-sided weakness, seizures, T2DM, and CHF(EF 15-20% from Echo 04/19/16), brought to the ED by daughter for 2 day hx of worsening SOB. Daughter is the primary medicare biller and provides all of the history. Reports that patient was complaining of fatigue and frequent, intermittent, worsening SOB that began 2 days ago. She was unable to breath while lying flat and "felt as if she was drowning." Daughter noticed audible wheezing and slight swelling of patient's left arm. Daughter became concerned and brought mom to ED. Patient also complains of a NINO that resolved with Tylenol and mild non-productive cough. Denies swelling in lower extremities, CP , N/V, vision changes, abdominal pain, weight loss, fevers, chills, and night sweats. Mri Specialist is Dr. Anaya. Also reports that patient has had some recent hearing changes. Daughter states that it takes a couple of times of calling mom's name to get mom to focus. In the ED, states that her mom had altered mental status. Patient had a "moment in which she was calling for help because she felt like she was falling and needed to "hold." Episode lasted 30-40min. Sates that she's had this happened before in the past. Head CT was ordered by ED physician to rule out intracranial hemorrhage as the patient is on Eliquis. Head CT was negative for acute intracranial abnormality. CBC/BMP: 03/13/17 0621 03/13/17 0621 Significant Findings Laboratory Tests Test 03/11/17 06:38 03/12/17 09:04 03/13/17 06:21 Blood Urea Nitrogen 19 MG/DL (7-18) 33 MG/DL (7-18) 35 MG/DL (7-18) Creatinine 0.43 MG/DL (0.50-1.00) 0.46 MG/DL (0.50-1.00) Albumin 2.4 GM/DL (3.4-5.0) 2.6 GM/DL (3.4-5.0) 2.3 GM/DL (3.4-5.0) Calcium Level 7.9 MG/DL (8.5-10.1) 7.9 MG/DL (8.5-10.1) 8.0 MG/DL (8.5-10.1) Alkaline Phosphatase 145 U/L (45-117) 182 U/L (45-117) 161 U/L (45-117) Aspartate Amino Transf (AST/SGOT) 105 U/L (15-37) 151 U/L (15-37) 92 U/L (15-37) Alanine Aminotransferase (ALT/SGPT) 107 U/L (10-53) 147 U/L (10-53) 121 U/L (10-53) B-Type Natriuretic Peptide 880 PG/ML (0-100) 1342 PG/ML (0-100) Mean Corpuscular Volume 77.9 FL (80.0-100.0) 78.1 FL (80.0-100.0) Mean Corpuscular Hemoglobin 25.2 PG (27.0-34.0) 25.1 PG (27.0-34.0) Monocytes (%) (Auto) 8.9 % (0.0-8.0) Ovalocytes 1+ (NORMAL) Random Glucose 220 MG/DL (74-106) 123 MG/DL (74-106) Total Protein 6.1 GM/DL (6.4-8.2) PE at Discharge GENERAL: thin lady, pleasant, lying in bed, in NAD. Better with her breathing as she does breathe more rapidly when excited but speaks in full sentences SKIN: No rashes, ecchymoses or lesions. Cool and dry. HEAD: Atraumatic. Normocephalic. EYES: R pupil sluggish to react to light as compared to the L pupil, EOMI ENT: Throat clear, TMs were hard to visualize due to wax NECK: Supple, nontender, no meningeal signs. No JVD or LAD. CARDIOVASCULAR: Regular rate and rhythm without murmurs, gallops, or rubs. RESPIRATORY: rales in b/l bases nearly gone. No accessory muscle use. GASTROINTESTINAL: Abdomen soft, non-tender, nondistended. No hepato-splenomegaly , or palpable masses. No guarding. No hepato-jugular reflex. MUSCULOSKELETAL: No edema in lower extremities. Trace edema in left upper extremity. NEUROLOGICAL: Awake and alert. Cranial nerves II through XII intact. Strength 5/ 5 on R side. Strength 4/5 on L side. Patient keeps left hand grasped into a fist at baseline with contracture. Sensation intact throughout. Speech is slightly difficult to understand. she is confused to some extent at baseline per observation of this hospital stay Troy Mars MD, R3 Mar 13, 2017 09:41
--- NOTE | 2017-03-13 10:16 | HHI.FPPN ---
Subjective Remarks Patient seen and examined this morning. Afebrile vital signs stable. Patient is a difficult historian. Overall bleed patient is back to her baseline from her congestive heart failure exacerbation. Anticipate discharge to group home facility, plan for today. Awaiting approval to facilitate that she will be discharged to. Review of systems unable to obtain due to poor historian Patient does deny any abdominal pain (Troy Mars MD, R3) Objective Vitals Vital Signs Date Time Temp Pulse Resp B/P (MAP) Pulse Ox O2 Delivery O2 Flow Rate FiO2 03/13/17 08:19 97.5 70 16 111/76 (88) 100 03/13/17 04:00 98.0 83 18 129/82 (98) 96 03/13/17 00:00 98.2 81 18 121/79 (93) 94 03/12/17 20:00 97.4 83 18 126/85 (99) 99 03/12/17 16:28 98.0 81 18 109/76 (87) 100 03/12/17 15:00 81 03/12/17 12:30 97.2 84 18 127/83 (98) 100 I/O 03/12/17 03/12/17 03/12/17 03/13/17 03/13/17 03/13/17 07:00 15:00 23:00 07:00 15:00 23:00 # Voids 1 3 # Bowel Movements 1 (Troy Mars MD, R3) Result Diagram: 03/13/17 0621 03/13/17 0621 Imaging Last Impressions Liver Ultrasound 03/12/17 0000 Signed Impressions: Service Date/Time: Sunday, March 12, 2017 15:55 - CONCLUSION: 1. Gallbladder wall thickening and pericholecystic fluid without stones. Cholecystitis is not excluded. Radionuclide imaging is recommended for further evaluation if clinically indicated. Georges Hannon MD Head CT 03/09/17 0000 Signed Impressions: Service Date/Time: Thursday, March 09, 2017 01:41 - CONCLUSION: No acute intracranial abnormality. Chronic encephalomalacia involving the right MCA territory. Vazquez Doyle Jr., MD Chest X-Ray 03/08/17 2254 Signed Impressions: Service Date/Time: March 23:00 - CONCLUSION: Cardiomegaly with bibasilar infiltrates. No effusions. Vazquez Doyle Jr., MD Objective Remarks GENERAL: thin lady, pleasant, lying in bed, in NAD. Better with her breathing as she does breathe more rapidly when excited but speaks in full sentences SKIN: No rashes, ecchymoses or lesions. Cool and dry. HEAD: Atraumatic. Normocephalic. EYES: R pupil sluggish to react to light as compared to the L pupil, EOMI ENT: Throat clear, TMs were hard to visualize due to wax NECK: Supple, nontender, no meningeal signs. No JVD or LAD. CARDIOVASCULAR: Regular rate and rhythm without murmurs, gallops, or rubs. RESPIRATORY: rales in b/l bases nearly gone. No accessory muscle use. GASTROINTESTINAL: Abdomen soft, non-tender, nondistended. No hepato-splenomegaly , or palpable masses. No guarding. No hepato-jugular reflex. MUSCULOSKELETAL: No edema in lower extremities. Trace edema in left upper extremity. NEUROLOGICAL: Awake and alert. Cranial nerves II through XII intact. Strength 5/ 5 on R side. Strength 4/5 on L side. Patient keeps left hand grasped into a fist at baseline with contracture. Sensation intact throughout. Speech is slightly difficult to understand. she is confused to some extent at baseline per observation of this hospital stay Medications and IVs Current Medications Medications (Trade) Dose Ordered Sig/Curtis Route Start Time Stop Time Status Last Admin (Eliquis) 5 mg BID PO 03/09/17 09:00 03/12/17 21:59 (Ecotrin Ec) 81 mg DAILY PO 03/09/17 09:00 03/12/17 12:25 (Lipitor) 80 mg HS PO 03/09/17 21:00 03/12/17 21:58 (Coreg) 6.25 mg BID PO 03/09/17 09:00 03/12/17 21:58 (Lanoxin) 0.125 mg DAILY PO 03/09/17 09:00 03/12/17 12:26 (Folate) 1 mg DAILY PO 03/09/17 09:00 03/12/17 12:27 (Vimpat) 200 mg BID PO 03/09/17 09:00 03/12/17 21:59 (Namenda) 10 mg BID PO 03/09/17 09:00 03/12/17 21:58 (Trileptal) 600 mg BID PO 03/09/17 09:00 03/12/17 21:59 (Protonix) 40 mg DAILY PO 03/09/17 09:00 03/12/17 12:25 (PHENobarbital) 32.4 mg BID PO 03/09/17 09:00 03/12/17 21:59 (Aldactone) 25 mg DAILY PO 03/09/17 09:00 03/12/17 12:27 (Hemocyte) 325 mg BIDPC PO 03/09/17 09:00 03/12/17 17:12 (Vitamin B1) 200 mg DAILY PO 03/09/17 09:00 03/12/17 12:28 (NS Flush) 2 ml UNSCH PRN IV FLUSH 03/09/17 02:30 (NS Flush) 2 ml BID IV FLUSH 03/09/17 09:00 03/12/17 21:00 (Tylenol) 650 mg Q4H PRN PO 03/09/17 02:30 (D50w (Vial) Inj) 50 ml UNSCH PRN IV PUSH 03/09/17 02:30 (Glucagon Inj) 1 mg UNSCH PRN OTHER 03/09/17 02:30 (NovoLOG SUPPLEMENTAL SCALE) 1 ACHS SLIDING SCALE SQ 03/09/17 08:00 03/12/17 21:00 (Debrox 6.5% Otic) 5 drop Q12HR EACH EAR 03/09/17 09:00 03/12/17 22:00 (Clear Eyes Redness Relief 0.012% Opth Soln) 1 drop QID PRN EACH EYE 03/09/17 03:00 (Chapstick) 1 applic UNSCH PRN TOPICAL 03/09/17 03:00 (Zofran Inj) 4 mg Q6HR PRN IV PUSH 03/09/17 03:15 (Drisdol) 50,000 units Q7D PO 03/09/17 14:00 03/09/17 16:30 (Lasix) 40 mg DAILY PO 03/13/17 09:00 (Troy Mars MD, R3) A/P Assessment and Plan 51 yr old F admitted for acute on chronic CHF exacerbation Discharge Planning Anticipate discharge today or tomorrow to group home facility PT consult- PT at rehab she will need rehab at D/C as she is weak and a fall risk. her daughter is deciding on where to go per case management notes (Troy Mars MD, R3) Attending Attestation Patient seen and examined. Case reviewed and discussed with the resident team. Agree with plan of care as discussed with me and documented in the resident note. she is a little on the dry side with a BUN in the 30s. she has a poor EF and is very frail overall and needs a SNF for strengthening. She is a very poor historian and has been unable to answer any questions during this hospitalization about her condition (Aarti Frank MD) Problem List: (1) CHF exacerbation ICD Codes: I50.9 - Heart failure, unspecified Status: Acute Plan: CXR showed bibasilar infiltrates. BNP improved -s/p DuoNeb x1 and lasix 40 mg IV in ED -s/p 1 dose of azithromycin and 1 dose ceftriaxone in ED due to suspected pneumonia. -Based on history, physical, and absence of fever and leukocytosis, will not continue abx. Continue diuresis with Furosemide 40mg po - 1.5 L fluid restriction daily and she does not need iv diuresis any longer - Strict I's and O's - Daily weights Review of echo from 04/19/2016 shows EF of 15%-20% ECHO 03/10/17- EF 20%, moderate/severe pulmonary hypertension, can see what treatment could be recommended per her Field Staff Manager as outpt. She is doing well now and they have signed off EKG reveals normal sinus rhythm with a rate of 79. First-degree AV block with [place] interval of 251 ms. Intraventricular conduction delay with QRS of 152 ms. -Unchanged compared to previous EKG 12/10/16. Consulted Cardiology, doing well so will see as an outpt (2) Diabetes ICD Codes: E11.9 - Diabetes Status: Chronic Plan: Held home Metformin Low Novolog Sliding Scale A1C only 6.5. would not overtreat as she is fragile and would not do well with hypoglycemia (3) Cardiomyopathy ICD Codes: I42.9 - Cardiomyopathy Status: Chronic Plan: Continue home digoxin Digoxin level 0.9 wnl Continue home Carvedilol, spironolactone (4) History of right MCA stroke ICD Codes: Z86.73 - History of right MCA stroke Status: Chronic Plan: Head CT showed no acute intracranial abnormality. Chronic encephalomalacia involving the right MCA territory. Continue home Eliquis, Atorvastatin, Aspirin, and Memantine (5) Seizures ICD Codes: R56.9 - Unspecified convulsions Status: Chronic Plan: Continue home Vimpat, Trileptal, and Phenobarbital Phenobarbital level 23.8 wnl no seizures in hospital (6) Nutrition, metabolism, and development symptoms ICD Codes: R63.8 - Nutrition, metabolism, and development symptoms Status: Acute Plan: Diet: 1800 ADA, 1.5L daily fluid restriction, may need to change as outpt Other: Daily weights, Strict I& Os, vitals q4h, neuro checks q4h DVTppx: SCDs b/l, Eliquis Consults: PT, OT, case management (Troy Mars MD, R3) Problem Qualifiers (1) CHF exacerbation: Qualified Codes: I50.9 - Heart failure, unspecified (2) Diabetes: Troy Mars MD, R3 Mar 13, 2017 10:16 Aarti Frank MD Mar 14, 2017 11:19
[2017-03-13] MEDS: PHENobarbital 32.4 MG TAB PO SCH ×2 (10:51→21:45)
[2017-03-13] MEDS: LACOSAMIDE 100 MG TAB PO SCH ×2 (10:51→21:45)
[2017-03-13] MEDS: ASPIRIN EC 81 MG TABEC PO SCH (10:51)
[2017-03-13] MEDS: FOLIC ACID 1 MG TAB PO SCH (10:51)
[2017-03-13] MEDS: OXcarbazepine 300 MG TAB PO SCH ×2 (10:51→21:45)
[2017-03-13] MEDS: SPIRONOLACTONE 25 MG TAB PO SCH (10:51)
[2017-03-13] MEDS: FUROSEMIDE 40 MG TAB PO SCH (10:51)
[2017-03-13] MEDS: DIGOXIN 0.125 MG TAB PO SCH (10:52)
[2017-03-13] MEDS: MEMANTINE HCL 10 MG TAB PO SCH ×2 (10:52→21:45)
[2017-03-13] MEDS: PANTOPRAZOLE SOD 40 MG DELAYED RELEASE TAB PO SCH (10:52)
[2017-03-13] MEDS: CARVEDILOL 6.25 MG TAB PO SCH ×2 (10:52→21:46)
[2017-03-13 12:25] LABS: BLOOD GAS BASE EXCESS -5.1 mmol/L (-2-2); BLOOD GAS CARBOXYHEMOGLOBIN 1.1 % (0-4); BLOOD GAS HCO3 19 mmol/L (22-26); BLOOD GAS METHEMOGLOBIN 0.8 % (0-2); BLOOD GAS O2 HGB SATURATION 98 % (90-100); BLOOD GAS OXYGEN CONTENT 19.3 Vol % (12.0-20.0); BLOOD GAS PCO2 35 mmHg (38-42); BLOOD GAS PO2 356 mmHg (61-120); BLOOD GAS TOTAL HGB 13.4 G/DL (12.0-16.0); TEMP CORR TO 98.6
[2017-03-13 12:26] LABS: CRITICAL VALUE NO; DRAW SITE LT FEMORAL; LITER FLOW 15 L/M; NUMBER OF ARTERIAL PUNCTURES 3; STAT YES; ULNAR PULSE PRESENT
[2017-03-13] MEDS ORDERED: ROCURONIUM INJ 50 MG/5 ML VIAL ONE (12:36)
[2017-03-13] MEDS ORDERED: ETOMIDATE 40 MG/20 ML VIAL ONE (12:36)
[2017-03-13] MEDS: PROPOFOL 1000 MG/100 ML INJ 100 ML IV PRN ×2 (13:00→19:52)
[2017-03-13] MEDS ORDERED: ROCURONIUM INJ 50 MG/5 ML VIAL IV ONE (13:15)
[2017-03-13] MEDS ORDERED: ETOMIDATE 40 MG/20 ML VIAL IV PUSH ONE (13:15)
[2017-03-13] MEDS ORDERED: SODIUM CHLORIDE 0.9% FLUSH 10 ML FLUSH IV FLUSH PRN (13:15)
--- NOTE | 2017-03-13 13:31 | HHI.FPPN ---
Addendum to progress note ADDENDUM Reason for addendum: Additonal documentation Additional information S: Resident paged at noon for the patient being Diaphoretic and tachypneic. Nurse reports that the patient was being giving her medications earlier and that she vomited all of her medications. She started to have difficulty with talking and the daughter felt that she was not acting her normal self. I arrived at the patient's room to find a Halicat in progress. The patient was requiring oxygen via mask. A pulse was palpable. She was none responsive at that time. Nurse reports that she had been receiving her Eliquis during the hospitalization, but it was one of the medications that was vomited earlier. O: GENERAL: Lying in bed with oxygen mask on face unresponsive SKIN: Warm and dry. HEAD: Normocephalic. EYES: No scleral icterus. No injection or drainage. Pupils were not dilated or constricted and equal both sides NECK: Supple, trachea midline. No JVD or lymphadenopathy. CARDIOVASCULAR: Regular rate and rhythm with systolic murmur RESPIRATORY: Crackles in all lung mccarthy, Breath sounds throughout GASTROINTESTINAL: Abdomen soft, non-tender, nondistended. MUSCULOSKELETAL: No cyanosis, or edema. A: 51 Year old female with a history of CVA admitted for acute on chronic CHF exacerbation. Currently unresponsive concern for CVA vs PE vs RI vs seizure vs Sepsis -Transfer the patient to the ICU -Anticipate Intubation -EKG pending -CBC, CMP, ABG pending -Tropins pending -Critical Care Consulted Troy Mars MD, R3 Mar 13, 2017 13:31
--- NOTE | 2017-03-13 13:45 | RADRPT ---
EXAM DATE/TIME: 03/13/2017 13:09 [facility] COMPARISON: CHEST SINGLE AP, March 08, 2017, 23:00. INDICATIONS : Central line and ET tube placement. MEDICAL HISTORY : Congestive heart failure. Gastroesophageal reflux disease. Hypertension. Atrial fibrilation. SURGICAL HISTORY : Craniotomy. section. Hysterectomy. Defibrilator. Markers placed bilateral breasts. ENCOUNTER: Initial ACUITY: 1 day PAIN SCORE: Non-responsive. LOCATION: Bilateral chest FINDINGS: The heart is enlarged. There is consolidative change in the left lower lobe. There is left basilar ef fusion. There is some degree of shift of mediastinum from right to left. The ET tube is just above the level of the wil. There is a right jugular central line present. The line courses somewhat medially. I believe this is all secondary to the mediastinal shift. Care should be taken to ensure there is venous return from th e line. The transvenous pacer is in satisfactory position. CONCLUSION: 1. No pneumothorax identified. 2. The ET tube is somewhat low right at the level of the wil. 3. There is consolidation of the left lower lobe and left basilar effusion with shift of the mediasti num from left to right. 4. The central venous catheter courses somewhat medially. Care should be taken to ensure there is reynaldo ous return from this line. Warner Pritchard MD on March 13, 2017 at 13:41 Board Certified Radiologist. This report was verified electronically.
[2017-03-13] MEDS ORDERED: IOHEXOL 350 MG/ML 10 ML VIAL (for RAD DIAG) IVCONTRAST ONE (13:50)
--- NOTE | 2017-03-13 13:53 | PD.CONS ---
[facility] Service Critical Care Medicine Consult Requested By Dr. Mars Reason for Consult Respiratory failure Primary Care Physician Kelsy Levine MD History of Present Illness 51 yr old AA F here date of admission 03/09/2017. Date of consultation 2016. 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 Her left upper extremity contracted,, seizures, T2DM, and CHF(EF currently 25%), she was originally presented to the ED at [facility] on 2016 with a two- day history of shortness of breath positive orthopnea. Positive wheezing. Positive cough frothy sputum. Code Machine Operator is Dr. Miguel. In the ED, noted to have CT brain which showed no signs intracranial process. She is admitted under the [facility] service. She is evaluated Dr. Cruz cardiology - rec - IV diuresis Strict I&O Daily Weight Telemetry monitoring Low salt diet Cont ASA, Coreg, Digoxin, Statin, Eliquis Today, patient was to be discharged to an extended care facility when she finishes the short of breath and unresponsive. [facility] was called and the patient was transferred from [facility]. She had no IV access. Central line placement was performed patient was orotracheally intubated without complication. Noted at frothy secretions upon intubation CTA brain/neck and CT head revealed no acute intracranial findings/stenosis. Review of Systems ROS Limitations: Intubated Past Family Social History Allergies: Coded Allergies: Sulfa (Sulfonamide Antibiotics) (Unverified Allergy, Severe, ANYYHING WITH IT IN IT AND I FALL OUT AND GET THE SHAKES, 02/06/17) lemon (Unverified Allergy, Severe, EDEMA, 02/06/17) phenytoin (Unverified Allergy, Severe, 02/06/17) benazepril (Unverified Allergy, Intermediate, ANGIOEDEMA, 02/06/17) CONFIRMED OF 01/03/2010 captopril (Unverified Allergy, Intermediate, ANGIOEDEMA, 02/06/17) CONFIRMED OF 01/03/2010 enalaprilat (Unverified Allergy, Intermediate, ANGIOEDEMA, 02/06/17) CONFIRMED OF 01/03/2010 fosinopril (Unverified Allergy, Intermediate, ANGIOEDEMA, 02/06/17) CONFIRMED OF 01/03/2010 lisinopril (Unverified Allergy, Intermediate, ANGIOEDEMA, 02/06/17) CONFIRMED OF 01/03/2010 quinapril (Unverified Allergy, Intermediate, ANGIOEDEMA, 02/06/17) CONFIRMED OF 01/03/2010 MRI PRECAUTION (Verified Adverse Reaction, Severe, AICD PRESENT, 02/06/17) AICD PRESENT 11/23/13 JLA Uncoded Allergies: MUCINEX (Allergy, Severe, CARDIAC INCIDENT, 09/18/13) Past Medical History Dementia disorder NOS Seizure disorder NOS History of right MCA CVA with left arm weakness and gait and balance disorder Diabetes mellitus 2 Ischemic cardiomyopathy with ejection fraction 25% Past Surgical History ICD placement Reported Medications lacosamide 200 milligrams twice a day Phenobarbital 32.4 mg by mouth twice a day Furosemide 40 mill grams by mouth twice a day Digoxin 0.125 mill grams by mouth daily Apixaban 5 mill grams by mouth twice a day Atorvastatin 80 mill grams by mouth daily Spironolactone 25 mg by mouth daily Oxcarbazepine 600 mg by mouth twice a day Metformin 500 mg by mouth twice a day Memantine 5 mill grams twice a day Iron sulfate 325 mg by mouth twice a day folic acid 400 grams daily Aspirin 81 mg by mouth daily Active Ordered Medications Addition of Coreg 6.125 mg by mouth twice a day by cardiology Family History Father with lung cancer. Mother with diabetes. Sister with aneurysm Social History No tobacco, alcohol or IV drug use Physical Exam Vital Signs Vital Signs Date Time Temp Pulse Resp B/P (MAP) Pulse Ox O2 Delivery O2 Flow Rate FiO2 03/13/17 12:45 100 50 03/13/17 12:28 97.5 97 20 118/88 (98) 100 03/13/17 12:00 100 15.00 100 03/13/17 08:19 97.5 70 16 111/76 (88) 100 03/13/17 04:00 98.0 83 18 129/82 (98) 96 03/13/17 00:00 98.2 81 18 121/79 (93) 94 03/12/17 20:00 97.4 83 18 126/85 (99) 99 03/12/17 16:28 98.0 81 18 109/76 (87) 100 03/12/17 15:00 81 Physical Exam GENERAL: This is a 51 yo female critically ill currently orotracheally intubated SKIN: Cool and dry HEAD: Atraumatic. Normocephalic. EYES: Pupils equal and round about 3 mm bilaterally and reactive. No scleral icterus. No injection or drainage. ENT: No nasal bleeding or discharge. Mucous membranes pink and moist. Orotracheally intubated NECK: Trachea midline. +JVD. Right IJ is clean dry and intact CARDIOVASCULAR: Regular rate and rhythm. S1, S2 no S4. Cushion was 3 RESPIRATORY: Coarse crackles appreciable bilaterally. Positive inspiratory and expiratory wheeze. GASTROINTESTINAL: Abdomen soft, non-tender, nondistended. Hypoactive bowel sounds MUSCULOSKELETAL: Extremities without noted in peripheral edema. No obvious deformities. NEUROLOGICAL: Arousable but moaning words. Weakly trying to pain right upper and lower extremity Laboratory Laboratory Tests Test 03/13/17 06:21 03/13/17 12:10 White Blood Count 4.9 Red Blood Count 4.62 Hemoglobin 11.6 Hematocrit 36.1 Mean Corpuscular Volume 78.1 Mean Corpuscular Hemoglobin 25.1 Mean Corpuscular Hemoglobin Concent 32.1 Red Cell Distribution Width 16.2 Platelet Count 181 Mean Platelet Volume 9.2 Blood Urea Nitrogen 35 Creatinine 0.46 Random Glucose 123 Total Protein 6.1 Albumin 2.3 Calcium Level 8.0 Alkaline Phosphatase 161 Aspartate Amino Transf (AST/SGOT) 92 Alanine Aminotransferase (ALT/SGPT) 121 Total Bilirubin 0.5 Sodium Level 138 Potassium Level 4.5 Chloride Level 106 Carbon Dioxide Level 23.8 Anion Gap 8 Estimat Glomerular Filtration Rate 174 Blood Gas Puncture Site LT FEMORAL Blood Gas Patient Temperature 98.6 Blood Gas HCO3 19 Blood Gas Base Excess -5.1 Blood Gas Oxygen Saturation 98 Arterial Blood pH 7.36 Arterial Blood Partial Pressure CO2 35 Arterial Blood Partial Pressure O2 356 Arterial Blood Oxygen Content 19.3 Arterial Blood Carboxyhemoglobin 1.1 Arterial Blood Methemoglobin 0.8 Blood Gas Hemoglobin 13.4 Oxygen Delivery Device Non-Rebreathing Mask Blood Gas Liter Flow 15 Result Diagram: 03/13/1762003/13/17620 Imaging Last Impressions Liver Ultrasound 03/12/17 0000 Signed Impressions: Service Date/Time: Sunday, March 12, 2017 15:55 - CONCLUSION: 1. Gallbladder wall thickening and pericholecystic fluid without stones. Cholecystitis is not excluded. Radionuclide imaging is recommended for further evaluation if clinically indicated. Georges Hannon MD Head CT 03/09/17 0000 Signed Impressions: Service Date/Time: Thursday, March 09, 2017 01:41 - CONCLUSION: No acute intracranial abnormality. Chronic encephalomalacia involving the right MCA territory. Vazquez Doyle Jr., MD Chest X-Ray 03/08/17 2254 Signed Impressions: Service Date/Time: March 23:00 - CONCLUSION: Cardiomegaly with bibasilar infiltrates. No effusions. Vazquez Doyle Jr., MD Assessment and Plan Assessment and Plan Neuro/Psych: History of right MCA CVA with left arm and didn't balance disorder Seizure disorder NOS Dementia disorder NOS Patient is currently on propofol/fentanyl for sedation/analgesia while intubated Goal of RA SS -2 Daily sedation vacation Continue lactulose might 100 mg twice a day, phenobarbital 32.4 mill grams twice a day, oxcarbazepine 600 g twice a day for seizure/home medicationp: CT brain, CT angiogram brain and neck currently pending Cannot have MRI due to ICD placement Not a candidate for thrombolytic due to current anticoagulant use EEG will be performed Seizure precautions Continued Namenda 10 mg twice a day Resp: Acute upper Respiratory failure likely secondary to CHF exacerbation ACV 50/5/5/50 Ventilator bundle Albuterol ipratropium aerosols every 6 hours and albuterol aerosols every 2 hours. Dyspnea Spontaneous pain trials daily Follow-up chest x-ray/ABG post intubation CV: Chronic systolic heart failure ejection fraction 15-20% Hypertension Dyslipidemia Currently on low-dose norepinephrine drip to maintain mean arterial pressures greater than 65 Check CVP Echocardiogram 03/20 revealed EF 20%. LA dilation. Moderate MR/TR. PaP 67 mmHg. Small pericardial Effusion. Currently on digoxin 0.125 mg by mouth daily, Continue furosemide 40 mg twice a day. Spironolactone 25 mg by mouth daily for congestive heart failure Daily atorvastatin 80 mg by mouth daily for dyslipidemia Evaluated by Dr. Cruz in this hospitalization. Her almond blancher operator Dr. Miguel Continue aspirin 81 mg by mouth daily GI: Patient is currently nothing by mouth NGT to LIWS lansoprazole for GI prophylaxis Docusate sodium for bowel regimen : Hinson catheter will be placed for accurate I's nose any critically ill patient receiving diuretics Endo: Slding scale insulin with Accu-Cheks to maintain euglycemia Renal: Creatinine currently within normal limits Monitor urine output accurate I's and O's Heme: Microcytic anemia Continue ferrous sulfate 325 mg by mouth twice a day ID: Monitor for infection FEN: Replace electrolytes as clinically indicated MSK: Gait imbalance disorder Left upper extremity contracture PT evaluate and treat/range of motion Access - Right IJ CVL placed 03/13 Prophylaxis - GI - lansoprazole - DVT - SCDs/Apixaban will provide DVT prophylaxis Critical Care: The total critical care time was 35 minutes. Time to perform other separately billable procedures was not included in the critical care time. Code Status Full code Discussed Condition With Daughter. Care plan discussed and all questions answered. Owen Tim MD Mar 13, 2017 13:53
[2017-03-13] MEDS: fentaNYL DRIP 250 ML IV PRN (14:00)
[2017-03-13 14:28] LABS: AUTOMATED NEUTROPHIL # 7.1 TH/MM3 (1.8-7.7); BASOPHIL % 0.6 % (0.0-2.0); EOSINOPHIL % 0.3 % (0.0-4.0); HEMATOCRIT 37.5 % (35.0-46.0); HEMO FLAGS DIFF FINAL; LYMPH % 7.1 % (9.0-44.0); LYMPHOCYTE # 0.6 TH/MM3 (1.0-4.8); MEAN CELL VOLUME 78.1 FL (80.0-100.0); MEAN CORPUSCULAR HEMOGLOBIN 25.4 PG (27.0-34.0); MEAN CORPUSCULAR HGB CONC 32.5 % (32.0-36.0); MONO % 5.8 % (0.0-8.0); NEUT % 86.2 % (16.0-70.0); PLATELET COUNT 179 TH/MM3 (150-450); RED CELL DISTRIBUTION WIDTH 15.8 % (11.6-17.2); WHITE BLOOD COUNT 8.2 TH/MM3 (4.0-11.0)
--- NOTE | 2017-03-13 14:30 | RADRPT ---
EXAM DATE/TIME: 03/13/2017 13:43 [facility] COMPARISON: CT BRAIN W/O CONTRAST, October 23, 2016, 11:25. CT BRAIN W/O CONTRAST, March 09, 2017, 1:41. INDICATIONS : Unresponsive RADIATION DOSE: 36.39 CTDIvol (mGy) MEDICAL HISTORY : Cardiovascular disease. Chronic obstructive pulmonary disease. SURGICAL HISTORY : Craniotomy. ENCOUNTER: Initial ACUITY: 1 day PAIN SCALE: Non-responsive LOCATION: cranial TECHNIQUE: Multiple contiguous axial images were obtained of the head. Using automated exposure control and adj ustment of the mA and/or kV according to patient size, radiation dose was kept as low as reasonably a chievable to obtain optimal diagnostic quality images. DICOM format image data is available electro nically for review and comparison. FINDINGS: The examination demonstrates a large area of infarct involving the right MCA distribution. There is s ome laminar calcification identified. There is no acute intracranial hemorrhage. The changes are modesta lar to a previous dated 03/09/17. There is colpocephalic dilation of the ventricular system on the right. The appearance of the posterior fossa is unremarkable. No mass lesion is identified. The osseous structures of the skull demonstrate postcraniotomy changes but are otherwise intact. CONCLUSION: 1. Old area of infarct involving the right MCA distribution. 2. Colpocephalic dilation of the ventricular system. 3. Stable examination compared to previous dated 10/23/16. 4. Postcraniotomy changes within the skull. Warner Pritchard MD on March 13, 2017 at 14:25 Board Certified Radiologist. This report was verified electronically.
[2017-03-13 14:36] LABS: APTT (PATIENT) 24.2 SEC (24.3-30.1); INTERNATIONAL NORMALIZED RATIO 1.6 RATIO
--- NOTE | 2017-03-13 14:41 | RADRPT ---
EXAM DATE/TIME: 03/13/2017 13:43 [facility] COMPARISON: CTA BRAIN W 3D RECON, April 04, 2016, 14:11. INDICATIONS : Unresponsive. IV CONTRAST: 65 cc Omnipaque 350 (iohexol) IV ; Cumulative dose for multiple exams. RADIATION DOSE: 27.89 CTDIvol (mGy) ; Combined studies MEDICAL HISTORY : Cardiovascular disease. Chronic obstructive pulmonary disease. SURGICAL HISTORY : Craniotomy. ENCOUNTER: Initial ACUITY: 1 day PAIN SCALE: Non-responsive LOCATION: cranial TECHNIQUE: Volumetric scanning was performed using a multi-row detector CT scanner. The data was post processed with a variety of visualization algorithms including full volume maximum intensity projection, multi -planar sliding thin slab reformation, curved planar reformation, and surface rendering techniques. Using automated exposure control and adjustment of the mA and/or kV according to patient size, radiat ion dose was kept as low as reasonably achievable to obtain optimal diagnostic quality images. DICO M format image data is available electronically for review and comparison. FINDINGS: There is excellent visualization of the major intracranial arteries out to the second-order branch ve ssels. There is no evidence for aneurysm, vessel truncation or stenosis, and no evidence for vascula r malformation. CONCLUSION: 1. Unremarkable CT angiography of the brain. Georges Hannon MD on March 13, 2017 at 14:37 Board Certified Radiologist. This report was verified electronically.
--- NOTE | 2017-03-13 14:43 | RADRPT ---
EXAM DATE/TIME: 03/13/2017 13:43 [facility] COMPARISON: CTA CAROTID ARTERIES W 3D RECON, April 04, 2016, 14:11. INDICATIONS : Unresponsive. IV CONTRAST: 65 cc Omnipaque 350 (iohexol) IV ; Cumulative dose for multiple exams. RADIATION DOSE: 27.86 CTDIvol (mGy) ; Combined studies MEDICAL HISTORY : Cardiovascular disease. Chronic obstructive pulmonary disease. SURGICAL HISTORY : Craniotomy. ENCOUNTER: Initial ACUITY: 1 day PAIN SCALE: Non-responsive LOCATION: neck Elevated flow velocities and ICA/CCA ratios have been found to correlate with increased degrees of vessel stenosis, calculated as percentage of diameter relative to a normal segment of distal ICA/CCA. TECHNIQUE: Volumetric scanning was performed using a multirow detector CT scanner. The data was post processed with a variety of visualization algorithms including full-volume maximum intensity projection, multip lanar sliding thin-slab reformation, curved-planar reformation, and surface-rendering techniques. Us ing automated exposure control and adjustment of the mA and/or kV according to patient size, radiatio n dose was kept as low as reasonably achievable to obtain optimal diagnostic quality images. DICOM f ormat image data is available electronically for review and comparison. FINDINGS: AORTIC ARCH: There is a three-vessel origin of the great vessels from the aorta. No evidence of ostial narrowing. RIGHT CAROTID: The common carotid artery is intact. The carotid bulb has a normal configuration without ulceration o r narrowing. The internal carotid artery lumen is smooth without stenosis. The external carotid robby ry is intact. LEFT CAROTID: The common carotid artery is intact. The carotid bulb has a normal configuration without ulceration or narrowing. The internal carotid artery lumen is smooth without stenosis. The external carotid ar heather is intact. VERTEBRALS: The vertebral arteries have a symmetric diameter. No stenotic lesions are seen. CONCLUSION: 1. No evidence of hemodynamic significant lesion. There is 0% stenosis bilaterally Georges Hannon MD on March 13, 2017 at 14:40 Board Certified Radiologist. This report was verified electronically.
[2017-03-13 14:55] LABS: BETA HCG QUANT LESS THAN 1 MIU/ML (0-5)
[2017-03-13 14:57] LABS: BICARBONATE 24.1 MEQ/L (21.0-32.0); MAGNESIUM 2.1 MG/DL (1.5-2.5)
[2017-03-13 14:58] LABS: BLOOD GAS BASE EXCESS -0.5 mmol/L (-2-2); BLOOD GAS CARBOXYHEMOGLOBIN 1.5 % (0-4); BLOOD GAS HCO3 23 mmol/L (22-26); BLOOD GAS O2 HGB SATURATION 96 % (90-100); BLOOD GAS OXYGEN CONTENT 17.3 Vol % (12.0-20.0); BLOOD GAS PCO2 32 mmHg (38-42); BLOOD GAS PO2 135 mmHg (61-120); BLOOD GAS TOTAL HGB 12.6 G/DL (12.0-16.0); TEMP CORR TO 98.6
[2017-03-13 14:59] LABS: CRITICAL VALUE NO; DRAW SITE RT RADIAL; FIO2 50 %; NUMBER OF ARTERIAL PUNCTURES 1; OXYGEN DEVICE VENTILATOR; STAT YES; ULNAR PULSE PRESENT; VENT SETTINGS AC/RR15/VT500/PEEP5
[2017-03-13 15:02] LABS: CREATINE KINASE 49 U/L (26-192)
[2017-03-13] MEDS: SODIUM CHLOR 0.9% 1000 ML INJ 1,000 ML IV SCH (15:30)
[2017-03-13] MEDS ORDERED: RESP: ALBUTEROL 2.5 MG/3 ML NEB (PRN) NEB (16:00)
[2017-03-13 16:15] LABS: BLOOD GAS VENOUS BASE EXCESS 3.3 mmol/L (-2-2); BLOOD GAS VENOUS HCO3 26 mmol/L (22-26); BLOOD GAS VENOUS O2 CONTENT 10.4 Vol % (9.0-17.0); BLOOD GAS VENOUS O2 HGB SAT 64 % (70-76); BLOOD GAS VENOUS PCO2 34 mmHg (44-48); BLOOD GAS VENOUS PO2 37 mmHg (35-40); BLOOD GAS VENOUS pH 7.51 (7.360-7.400); TEMP CORR TO 98.6
[2017-03-13 16:16] LABS: CRITICAL VALUE YES; DRAW SITE CENTRAL LINE; FIO2 40 %; OXYGEN DEVICE VENTILATOR; STAT NO; VENT SETTINGS AC/15/500/PEEP5
--- NOTE | 2017-03-13 16:19 | EKG ---
Date Performed: 03/13/2017 Time Performed: 12:29:56 PTAGE: 51 years EKG: Sinus rhythm WITH SINUS ARRHYTHMIA WITH FIRST DEGREE AV BLOCK POSSIBLE LEFT ATRIAL ENLARGEMENT LEFT BUNDLE BRANCH BLOCK ABNORMAL ECG PREVIOUS TRACING : 03/08/2017 23.10 Compared to prior tracing no significant change DOCTOR: Chuck Bunch Interpretating Date/Time 03/13/2017 16:19:12
[2017-03-13] MEDS: RESP: ALBUTEROL 2.5 MG/IPRATROPIUM 0.5 MG NEB (SCH) NEB ×2 (17:36→20:21)
[2017-03-13] MEDS: CHLORHEXIDINE 0.12% (ORAL KIT) 15 ML CUP MT SCH (21:43)
[2017-03-13] MEDS: ACETYLCYSTEINE 20% PEG SCH (21:44)
[2017-03-13] MEDS: ATORVASTATIN 80 MG TAB PO SCH (21:45)
[2017-03-14] VITALS (19 sets, daily range): BP systolic 90–108; BP diastolic 52–69; PULSE 58–81; RESP 15; TEMP 98.1–98.6; O2SAT 100
[2017-03-14] MEDS: RESP: ALBUTEROL 2.5 MG/IPRATROPIUM 0.5 MG NEB (SCH) NEB ×4 (03:02→19:50)
[2017-03-14] MEDS ORDERED: NOREPINEPHRINE-DEXTROSE DRIP 250 ML IV ONE (03:11)
[2017-03-14] MEDS: NOREPINEPHRINE 4 MG/D5W 250 ML IV PRN (03:22)
--- NOTE | 2017-03-14 05:01 | RADRPT ---
EXAM DATE/TIME: 03/14/2017 04:14 This report includes an Addendum and supersedes previous reports for this exam. [facility] COMPARISON: CHEST SINGLE AP, March 13, 2017, 13:09. INDICATIONS : Shortness of breath. MEDICAL HISTORY : Diabetes mellitus type II. Stroke. Cardiovascular disease. Chronic obstructive pulmonary disease , CHF, Seizures SURGICAL HISTORY : Craniotomy, Pacemaker. ENCOUNTER: Subsequent ACUITY: 1 week PAIN SCORE: Non-responsive. LOCATION: Bilateral chest FINDINGS: Pacemaker device is noted with control pack over the right chest. Endotracheal tube, nasogastric tube and right neck central line are stable. There is persistent consolidation in the left lung base and hazy opacity in the perihilar right lung. These findings are unchanged. Cardiac contour is grossly st able accounting for differences in technique and projection CONCLUSION: No significant interval change Stevan Perez MD on March 14, 2017 at 4:59 Board Certified Radiologist. This report was verified electronically. Board Certified Radiologist. This report was verified electronically.
[2017-03-14 05:44] LABS: AUTOMATED NEUTROPHIL # 5.6 TH/MM3 (1.8-7.7); BASOPHIL # 0.1 TH/MM3 (0-0.2); BASOPHIL % 1.1 % (0.0-2.0); EOSINOPHIL # 0.1 TH/MM3 (0-0.4); HEMATOCRIT 34.2 % (35.0-46.0); HEMO FLAGS DIFF FINAL; LYMPH % 16.7 % (9.0-44.0); LYMPHOCYTE # 1.3 TH/MM3 (1.0-4.8); MEAN CELL VOLUME 77.1 FL (80.0-100.0); MEAN CORPUSCULAR HEMOGLOBIN 25.1 PG (27.0-34.0); MEAN CORPUSCULAR HGB CONC 32.5 % (32.0-36.0); MONO % 8.6 % (0.0-8.0); NEUT % 72.6 % (16.0-70.0); PLATELET COUNT 188 TH/MM3 (150-450); RED BLOOD COUNT 4.44 MIL/MM3 (4.00-5.30); RED CELL DISTRIBUTION WIDTH 15.8 % (11.6-17.2); WHITE BLOOD COUNT 7.7 TH/MM3 (4.0-11.0)
[2017-03-14 06:13] LABS: BICARBONATE 24.7 MEQ/L (21.0-32.0); MAGNESIUM 1.8 MG/DL (1.5-2.5); POTASSIUM 3.8 MEQ/L (3.5-5.1)
[2017-03-14 06:27] LABS: DIGOXIN 1.2 NG/ML (0.8-2.0); PHENOBARBITAL 23.1 MCG/ML (15.0-40.0)
[2017-03-14] MEDS: CHLORHEXIDINE 0.12% (ORAL KIT) 15 ML CUP MT SCH ×2 (07:54→21:19)
[2017-03-14] MEDS: CARBAMIDE PEROXIDE 6.5% OTIC SOLN 15 ML BTL EACH EAR SCH ×2 (07:54→21:19)
[2017-03-14] MEDS: ACETYLCYSTEINE 20% PEG SCH ×2 (07:55→21:19)
[2017-03-14] MEDS: SODIUM CHLORIDE 0.9% FLUSH 10 ML FLUSH IV FLUSH SCH ×3 (07:55→21:00)
[2017-03-14] MEDS: APIXABAN 5 MG TABLET PO SCH ×2 (07:58→20:55)
[2017-03-14] MEDS: PANTOPRAZOLE SOD 40 MG DELAYED RELEASE TAB PO SCH (07:58)
[2017-03-14] MEDS: MEMANTINE HCL 10 MG TAB PO SCH ×2 (07:58→20:56)
[2017-03-14] MEDS: FERROUS FUMARATE 325 MG TAB (106 MG ELEMENTAL IRON) PO SCH ×2 (07:58→17:35)
[2017-03-14] MEDS: DIGOXIN 0.125 MG TAB PO SCH (07:58)
[2017-03-14] MEDS: LACOSAMIDE 100 MG TAB PO SCH ×2 (07:59→20:56)
[2017-03-14] MEDS: FUROSEMIDE 40 MG TAB PO SCH (07:59)
[2017-03-14] MEDS: CARVEDILOL 6.25 MG TAB PO SCH ×2 (07:59→20:55)
[2017-03-14] MEDS: OXcarbazepine 300 MG TAB PO SCH (07:59)
[2017-03-14] MEDS: FOLIC ACID 1 MG TAB PO SCH (07:59)
[2017-03-14] MEDS: SPIRONOLACTONE 25 MG TAB PO SCH (07:59)
[2017-03-14] MEDS: ASPIRIN EC 81 MG TABEC PO SCH (07:59)
[2017-03-14] MEDS: THIAMINE HCL 100 MG TAB PO SCH (08:00)
[2017-03-14] MEDS: INSULIN ASPART SUPPLEMENTAL SCALE SQ SCH ×4 (08:00→20:58)
[2017-03-14] MEDS: PHENobarbital 32.4 MG TAB PO SCH ×2 (08:00→20:56)
[2017-03-14] MEDS: PROPOFOL 1000 MG/100 ML INJ 100 ML IV PRN (09:34)
--- NOTE | 2017-03-14 11:28 | HHI.FPPN ---
Subjective Remarks Patient seen and examined this morning. Patient is intubated and sedated. Temperature ranging between 98.1-98.4, pulse ranged between 60-72, respiratory rate set at 15, blood pressure ranging between 96-105/50-59. Intubation set at 15 breaths per minute, PEEP of 5, FiO2 40, pulse ox at 100%. (Troy Mars MD, R3) Objective Vitals Vital Signs Date Time Temp Pulse Resp B/P (MAP) Pulse Ox O2 Delivery O2 Flow Rate FiO2 03/14/17 10:00 72 03/14/17 08:20 64 98/50 03/14/17 08:10 66 99/59 03/14/17 08:00 40 03/14/17 08:00 67 03/14/17 08:00 98.2 66 15 98/59 (72) 100 03/14/17 07:45 60 99/58 03/14/17 07:37 100 40 03/14/17 07:30 60 96/52 03/14/17 07:17 58 105/59 03/14/17 06:00 66 03/14/17 04:33 100 40 03/14/17 04:00 98.4 60 15 90/52 (65) 100 03/14/17 04:00 60 03/14/17 04:00 40 03/14/17 03:22 59 88/50 03/14/17 02:00 59 03/14/17 00:57 100 40 03/14/17 00:00 58 03/14/17 00:00 98.1 58 15 100/59 (73) 100 03/14/17 00:00 40 03/13/17 22:00 63 03/13/17 20:23 100 40 03/13/17 20:00 50 03/13/17 20:00 97.3 61 15 98/90 (93) 100 03/13/17 20:00 61 03/13/17 18:00 54 03/13/17 16:45 96.3 03/13/17 16:42 40 03/13/17 16:17 100 40 03/13/17 16:00 97.0 64 15 103/67 (79) 100 03/13/17 16:00 50 03/13/17 16:00 57 03/13/17 15:36 97.2 59 15 93/62 (72) 100 03/13/17 14:00 75 03/13/17 14:00 100 100 03/13/17 12:45 100 50 03/13/17 12:40 50 03/13/17 12:28 97.5 97 20 118/88 (98) 100 03/13/17 12:00 100 15.00 100 I/O 03/13/17 03/13/17 03/13/17 03/14/17 03/14/17 03/14/17 07:00 15:00 23:00 07:00 15:00 23:00 Intake Total 201 ml 551 ml 29 ml Output Total 360 ml 650 ml Balance -159 ml -99 ml 29 ml IV Total 201 ml 551 ml 29 ml Output Urine Total 360 ml 500 ml Gastric Drainage Total 150 ml # Voids 3 1 # Bowel Movements 1 0 (Troy Mars MD, R3) Result Diagram: 03/14/17 0531 03/14/17 0531 Imaging Last Impressions Chest X-Ray 03/14/17 0600 Signed Impressions: Service Date/Time: Tuesday, March 14, 2017 04:14 - CONCLUSION: No significant interval change Stevan Perez MD Head CT 03/13/17 1345 Signed Impressions: Service Date/Time: Monday, March 13, 2017 13:43 - CONCLUSION: 1. Old area of infarct involving the right MCA distribution. 2. Colpocephalic dilation of the ventricular system. 3. Stable examination compared to previous dated 10/23/16. 4. Postcraniotomy changes within the skull. Warner Pritchard MD Neck CTA 03/13/17 0000 Signed Impressions: Service Date/Time: Monday, March 13, 2017 13:43 - CONCLUSION: 1. No evidence of hemodynamic significant lesion. There is 0%% stenosis bilaterally Georges Hannon MD Head CTA 03/13/17 0000 Signed Impressions: Service Date/Time: Monday, March 13, 2017 13:43 - CONCLUSION: 1. Unremarkable CT angiography of the brain. Georges Hannon MD Liver Ultrasound 03/12/17 0000 Signed Impressions: Service Date/Time: Sunday, March 12, 2017 15:55 - CONCLUSION: 1. Gallbladder wall thickening and pericholecystic fluid without stones. Cholecystitis is not excluded. Radionuclide imaging is recommended for further evaluation if clinically indicated. Georges Hannon MD Objective Remarks GENERAL: thin lady, pleasant, lying in bed sedated and intubated. Unable to follow commands SKIN: No rashes, ecchymoses or lesions. Cool and dry. HEAD: Atraumatic. Normocephalic. EYES: R pupil sluggish to react to light as compared to the L pupil, EOMI ENT: Throat clear, TMs were hard to visualize due to wax NECK: Supple, nontender, no meningeal signs. No JVD or LAD. CARDIOVASCULAR: Regular rate and rhythm without murmurs, gallops, or rubs. RESPIRATORY: rales in b/l bases nearly gone. No accessory muscle use. GASTROINTESTINAL: Abdomen soft, non-tender, nondistended. No hepato-splenomegaly , or palpable masses. No guarding. No hepato-jugular reflex. MUSCULOSKELETAL: No edema in lower extremities. Trace edema in left upper extremity. NEUROLOGICAL: Sedated and intubated. Cranial nerves II through XII grossly intact.Patient keeps left hand grasped into a fist at baseline with contracture. Medications and IVs Current Medications Medications (Trade) Dose Ordered Sig/Curtis Route Start Time Stop Time Status Last Admin (Eliquis) 5 mg BID PO 03/09/17 09:00 03/15/17 08:58 (Ecotrin Ec) 81 mg DAILY PO 03/09/17 09:00 03/15/17 08:59 (Lipitor) 80 mg HS PO 03/09/17 21:00 03/14/17 20:56 (Coreg) 6.25 mg BID PO 03/09/17 09:00 03/15/17 08:59 (Lanoxin) 0.125 mg DAILY PO 03/09/17 09:00 03/15/17 08:58 (Folate) 1 mg DAILY PO 03/09/17 09:00 03/15/17 08:58 (Vimpat) 200 mg BID PO 03/09/17 09:00 03/15/17 08:58 (Namenda) 10 mg BID PO 03/09/17 09:00 03/15/17 08:59 (PHENobarbital) 32.4 mg BID PO 03/09/17 09:00 03/15/17 08:58 (Aldactone) 25 mg DAILY PO 03/09/17 09:00 03/15/17 08:59 (Hemocyte) 325 mg BIDPC PO 03/09/17 09:00 03/15/17 08:59 (Vitamin B1) 200 mg DAILY PO 03/09/17 09:00 03/15/17 08:58 (NS Flush) 2 ml UNSCH PRN IV FLUSH 03/09/17 02:30 (NS Flush) 2 ml BID IV FLUSH 03/09/17 09:00 03/15/17 08:57 (Tylenol) 650 mg Q4H PRN PO 03/09/17 02:30 (D50w (Vial) Inj) 50 ml UNSCH PRN IV PUSH 03/09/17 02:30 03/13/17 17:09 (Glucagon Inj) 1 mg UNSCH PRN OTHER 03/09/17 02:30 (NovoLOG SUPPLEMENTAL SCALE) 1 ACHS SLIDING SCALE SQ 03/09/17 08:00 03/15/17 08:55 (Debrox 6.5% Otic) 5 drop Q12HR EACH EAR 03/09/17 09:00 03/15/17 08:56 (Clear Eyes Redness Relief 0.012% Opth Soln) 1 drop QID PRN EACH EYE 03/09/17 03:00 03/14/17 07:58 (Chapstick) 1 applic UNSCH PRN TOPICAL 03/09/17 03:00 03/14/17 07:57 (Zofran Inj) 4 mg Q6HR PRN IV PUSH 03/09/17 03:15 (Drisdol) 50,000 units Q7D PO 03/09/17 14:00 03/09/17 16:30 (NS Flush) DAILY IV FLUSH 03/14/17 09:00 (NS Flush) UNSCH PRN IV FLUSH 03/13/17 13:15 (Peridex 0.12% Liq) 15 ml BID@08,20 MT 03/13/17 20:00 03/15/17 08:55 Fentanyl Citrate 250 ml @ 5 mls/hr TITRATE PRN IV 03/13/17 13:30 03/13/17 14:00 Sodium Chloride 1,000 ml @ 30 mls/hr Q24H IV 03/13/17 13:17 03/13/17 15:30 (Duoneb Neb) 1 ampule Q6HR NEB NEB 03/13/17 16:00 03/15/17 07:43 (Albuterol Neb) 2.5 mg Q2HR NEB PRN NEB 03/13/17 16:00 Norepinephrine Bitartrate 250 ml @ 7.5 mls/hr TITRATE PRN IV 03/14/17 03:15 03/14/17 03:22 (Lasix Inj) 40 mg BID@09,18 IV PUSH 03/14/17 18:00 03/15/17 08:57 Midazolam HCl 100 ml @ 2 mls/hr TITRATE PRN IV 03/14/17 12:45 03/14/17 13:26 (Prevacid Odt) 30 mg DAILY NG 03/15/17 09:00 03/15/17 08:59 (Tears Naturale Opth Soln) 1 drop Q8HR EACH EYE 03/14/17 14:00 03/15/17 06:00 (Trileptal) 1,200 mg BID PO 03/14/17 21:00 03/15/17 08:59 (Troy Mars MD, R3) A/P Assessment and Plan 51 yr old F admitted for acute on chronic CHF exacerbation. Patient with acute respiratory failure resulting in intubation at this time. Discharge Planning Acute respiratory failure resulting in intubation. Patient has been transferred to the ICU, discharge to be determined with improvement of current medical condition PT consult- PT at rehab she will need rehab at D/C as she is weak and a fall risk. her daughter is deciding on where to go per case management notes (Tryo Mars MD, R3) Attending Attestation Patient seen and examined. Case reviewed and discussed with the resident team. Agree with plan of care as discussed with me and documented in the resident note. unsure exactly what led to her worsening. she was diuresed and ready to go to a SNF when she had her respiratory distress. She does have a history of seizures which could happen anytime. However, per reports she was not seen having a seizure. she may have been post ictal but per reports seemed to mainly be in respiratory distress. echo pending. 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 Seizure disorder NOS Dementia disorder NOS Patient is currently on propofol/fentanyl for sedation/analgesia while intubated Goal of RA SS -2 Daily sedation vacation Continue lactulose might 100 mg twice a day, phenobarbital 32.4 mill grams twice a day, oxcarbazepine 600 g twice a day for seizure/home medication CT brain, CT angiogram brain and neck: Unremarkable Cannot have MRI due to ICD placement Not a candidate for thrombolytic due to current anticoagulant use EEG will be performed Seizure precautions Continued Namenda 10 mg twice a day Resp: Acute upper Respiratory failure likely secondary to CHF exacerbation ACV 17/10/39 Ventilator bundle Albuterol ipratropium aerosols every 6 hours and albuterol aerosols every 2 hours. Dyspnea Spontaneous CPAP trials daily CV: Chronic systolic heart failure ejection fraction 15-20% Hypertension Dyslipidemia Echocardiogram 03/20 revealed EF 20%. LA dilation. Moderate MR/TR. PaP 67 mmHg. Small pericardial Effusion. Currently on digoxin 0.125 mg by mouth daily, Continue furosemide 40 mg twice a day. Spironolactone 25 mg by mouth daily for congestive heart failure Daily atorvastatin 80 mg by mouth daily for dyslipidemia Evaluated by Dr. Cruz in this hospitalization. Her porcelain turner Dr. Miguel Continue aspirin 81 mg by mouth daily GI: Patient is currently nothing by mouth NGT to LIWS Pantoprazole for GI prophylaxis Docusate sodium for bowel regimen : Hinson catheter will be placed for accurate I's nose any critically ill patient receiving diuretics Endo: Slding scale insulin with Accu-Cheks to maintain euglycemia Renal: Creatinine currently within normal limits Monitor urine output accurate I's and O's Heme: Continue ferrous sulfate 325 mg by mouth twice a day ID: Monitor for infection FEN: Replace electrolytes as clinically indicated MSK: Gait imbalance disorder Left upper extremity contracture Access - Right IJ CVL Prophylaxis - GI - pantoprazole - DVT - SCDs/Apixaban will provide DVT prophylaxis (2) CHF exacerbation ICD Codes: I50.9 - Heart failure, unspecified Status: Acute (3) Diabetes ICD Codes: E11.9 - Diabetes Status: Chronic (4) Cardiomyopathy ICD Codes: I42.9 - Cardiomyopathy Status: Chronic (5) History of right MCA stroke ICD Codes: Z86.73 - History of right MCA stroke Status: Chronic (6) Seizures ICD Codes: R56.9 - Unspecified convulsions Status: Chronic (7) Nutrition, metabolism, and development symptoms ICD Codes: R63.8 - Nutrition, metabolism, and development symptoms Status: Acute (Troy Mars MD, R3) Problem Qualifiers (1) CHF exacerbation: Qualified Codes: I50.9 - Heart failure, unspecified (2) Diabetes: Troy Mars MD, R3 Mar 14, 2017 11:28 Aarti Frank MD Mar 15, 2017 11:08
[2017-03-14] MEDS ORDERED: MIDAZOLAM 100 MG/100 ML INJ 100 ML IV PRN (12:45)
--- NOTE | 2017-03-14 12:53 | HHI.CCPN ---
Subjective Remarks/Hospital Course 51 yr old AA F here date of admission 03/09/2017. Date of consultation 2016. 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 Her left upper extremity contracted,, seizures, T2DM, and CHF(EF currently 25%), she was originally presented to the ED at [facility] on 2016 with a two- day history of shortness of breath positive orthopnea. Positive wheezing. Positive cough frothy sputum. Sterile Processing Technologist is Dr. Miguel. In the ED, noted to have CT brain which showed no signs intracranial process. She is admitted under the [facility]. She is evaluated Dr. Cruz cardiology - rec - IV diuresis Strict I&O Daily Weight Telemetry monitoring Low salt diet Cont ASA, Coreg, Digoxin, Statin, Eliquis Today, patient was to be discharged to an extended care facility when she finishes the short of breath and unresponsive. [facility] was called and the patient was transferred from [facility]. She had no IV access. Central line placement was performed patient was orotracheally intubated without complication. Noted at frothy secretions upon intubation CTA brain/neck and CT head revealed no acute intracranial findings/stenosis. Subjective 03/14: Noted likely seizure activity in EEG. Patient placed on low-dose norepinephrine overnight. We'll change sedatives. Start on Midazolam instead of propofol. Check CVP. Start bowel regimen and tube feeding. Objective Vital Signs Date Time Temp Pulse Resp B/P (MAP) Pulse Ox O2 Delivery O2 Flow Rate FiO2 03/14/17 12:00 40 03/14/17 12:00 58 03/14/17 12:00 98.4 15 99/56 (70) 100 03/13/17 12:00 15.00 Intake and Output 03/14/17 03/14/17 03/15/17 08:00 16:00 00:00 Intake Total 551 ml 29 ml Output Total 650 ml Balance -99 ml 29 ml Result Diagram: 03/14/17 0531 03/14/17 0531 Imaging Last Impressions Chest X-Ray 03/14/17 0600 Signed Impressions: Service Date/Time: Tuesday, March 14, 2017 04:14 - CONCLUSION: No significant interval change Stevan Perez MD Head CT 03/13/17 1345 Signed Impressions: Service Date/Time: Monday, March 13, 2017 13:43 - CONCLUSION: 1. Old area of infarct involving the right MCA distribution. 2. Colpocephalic dilation of the ventricular system. 3. Stable examination compared to previous dated 10/23/16. 4. Postcraniotomy changes within the skull. Warner Pritchard MD Neck CTA 03/13/17 0000 Signed Impressions: Service Date/Time: Monday, March 13, 2017 13:43 - CONCLUSION: 1. No evidence of hemodynamic significant lesion. There is 0%% stenosis bilaterally Georges Hannon MD Head CTA 03/13/17 0000 Signed Impressions: Service Date/Time: Monday, March 13, 2017 13:43 - CONCLUSION: 1. Unremarkable CT angiography of the brain. Georges Hannon MD Liver Ultrasound 03/12/17 0000 Signed Impressions: Service Date/Time: Sunday, March 12, 2017 15:55 - CONCLUSION: 1. Gallbladder wall thickening and pericholecystic fluid without stones. Cholecystitis is not excluded. Radionuclide imaging is recommended for further evaluation if clinically indicated. Georges Hannon MD Objective Remarks GENERAL: This is a 51 yo female critically ill currently orotracheally intubated SKIN: Cool and dry HEAD: Atraumatic. Normocephalic. EYES: Pupils equal and round about 3 mm bilaterally and reactive. No scleral icterus. No injection or drainage. ENT: No nasal bleeding or discharge. Mucous membranes pink and moist. Orotracheally intubated NECK: Trachea midline. +JVD. Right IJ is clean dry and intact CARDIOVASCULAR: Regular rate and rhythm. S1, S2 no S4. Cushion was 3 RESPIRATORY: Coarse crackles appreciable bilaterally. Positive inspiratory and expiratory wheeze. GASTROINTESTINAL: Abdomen soft, non-tender, nondistended. Hypoactive bowel sounds MUSCULOSKELETAL: Extremities without noted in peripheral edema. No obvious deformities. NEUROLOGICAL: Arousable but moaning words. 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 Persistent right MCA CVA. Cannot have MRI due to ICD placement Not a candidate for thrombolytic due to current anticoagulant use EEG results pending. Preliminary with right-sided seizure activity Seizure precautions Continued Namenda 10 mg twice a day Resp: Acute upper Respiratory failure likely secondary to CHF exacerbation ACV 50/5/5/50 Ventilator bundle Albuterol ipratropium aerosols every 6 hours and albuterol aerosols every 2 hours. Dyspnea Spontaneous breathing trials daily CV: Chronic systolic heart failure ejection fraction 15-20% Hypertension Dyslipidemia Echocardiogram 03/20 revealed EF 20%. LA dilation. Moderate MR/TR. PaP 67 mmHg. Small pericardial Effusion. Currently on digoxin 0.125 mg by mouth daily, Continue furosemide 40 mg IV twice a day. Spironolactone 25 mg by mouth daily for congestive heart failure Daily atorvastatin 80 mg by mouth daily for dyslipidemia Evaluated by Dr. Cruz in this hospitalization. Her respooler Dr. Miguel Continue aspirin 81 mg by mouth daily GI: Hypoalbuminemia Patient is currently nothing by mouth NGT to LIWS Start tube feeding with vital 1.5 goal 50 cc an hour Pantoprazole for GI prophylaxis Docusate sodium for bowel regimen : Hinson catheter will be placed for accurate I's nose any critically ill patient receiving diuretics Endo: Slding scale insulin with Accu-Cheks to maintain euglycemia Renal: Creatinine currently within normal limits Monitor urine output accurate I's and O's Heme: History of anemia Continue ferrous sulfate 325 mg by mouth twice a day ID: Monitor for infection FEN: Replace electrolytes as clinically indicated MSK: Gait imbalance disorder Left upper extremity contracture Access - Right IJ CVL Prophylaxis - GI - pantoprazole - DVT - SCDs/Apixaban will provide DVT prophylaxis Critical Care: The total critical care time was 35 minutes. Time to perform other separately billable procedures was not included in the critical care time. Owen Tim MD Mar 14, 2017 12:53
[2017-03-14] MEDS: SODIUM CHLOR 0.9% 1000 ML INJ 1,000 ML IV SCH (13:17)
[2017-03-14] MEDS: ARTIFICIAL TEARS OPTH SOLN 15 ML BTL EACH EYE SCH ×2 (14:00→21:20)
--- NOTE | 2017-03-14 16:03 | PD.PROCEDR ---
Central Line Procedure REASON FOR PROCEDURE Central venous access PROCEDURE PERFORMED Central line placement: R IJ CVL CONSENT Informed consent for procedure was obtained. The risks and benefits of the procedure were discussed to include but limited to bleeding, clot formation, infection, and even . ANESTHESIA Local injection of 1% Lidocaine DESCRIPTION OF THE PROCEDURE The patient was placed in supine, mild Trendelenburg position. The area was exposed and cleansed with ChloraPrep, times two. Large sterile drape was used to cover the patient, with the site exposed, under sterile conditions including cap, face mask, sterile gown, and sterile gloves. On single attempt, the introducer needle was inserted with negative pressure in syringe and venous flash was obtained. The guide wire was then advanced without any restriction and the needle was removed. The dilator was used without any complications. Using Seldinger technique the antibiotic-coated triple-lumen catheter was advanced over the guide wire to a depth of 16 centimeters. The guide wire was removed. All ports were aspirated with dark venous blood return and flushed easily with sterile saline. All ports were capped. Antibiotic disc was placed around central line at puncture site. The central line was secured to the skin with two interrupted 2.0 silk sutures. The area was bandaged with sterile see- through central line bandage. RADIOLOGICAL DATA Ultrasound guidance was used to locate right internal jugular vein. Doppler/ color flow was used to confirm venous flow. COMPLICATIONS: No apparent complications ESTIMATED BLOOD LOSS: Less than 1 cc. Owen Tim MD Mar 14, 2017 16:03
--- NOTE | 2017-03-14 16:04 | PD.PROCEDR ---
Procedure Note Procedure DATE: 03/13/2017 PROCEDURE: Orotracheal intubation INDICATION: Altered mental status/acute hypoxemic respiratory failure DETAILS OF PROCEDURE The patient was placed in optimal position and preoxygenated with 100% FiO2 via bag valve mask. At the start oxygen saturation was 100%. The patient was administered 20 mg etomidate IV and 50 milligrams rocuronium IV. I entered the oropharynx with a size 3 Naseem laryngoscope blade and obtained a grade 3 view of the airway. On single attempt a size 8.0 cuffed endotracheal tube was passed through the vocal cords. Correct tube location was confirmed with end tidal CO2 detector and by auscultating over bilateral lung mccarthy. The endotracheal tube was secured with adhesive tape at a depth of 23 cm at the lips. The patient was connected to the ventilator. The patient tolerated the procedure well without any apparent complications. Oxygen saturations were maintained greater than 95% all times. STAT chest x-ray pending at time of dictation. Owen Tim MD Mar 14, 2017 16:04
[2017-03-14] MEDS: FUROSEMIDE 40 MG/4 ML VIAL IV PUSH SCH (17:35)
--- NOTE | 2017-03-14 20:49 | MG ---
cc: JAYDEN ROSE M.D. Lab No: Date: 03/14/17 Age: 51 Sex: F Race: REQUESTING PHYSICIAN Dr. Tim HISTORY An EEG was obtained on this 51-year-old patient being evaluated for prolonged seizures. DESCRIPTION The patient's Diprivan was turned off 2 minutes prior to the EEG. Fentanyl turned off 15 minutes prior to the EMG. The study is most remarkable for the presence of intermittent right frontotemporal sharp and spike discharge with associated slow wave activity. There is left hemisphere slowing and some attenuation as well. There is sharp discharges sometimes repeating every two to four seconds but they never turn into a rhythmic activity. Photic stimulation was unremarkable. INTERPRETATION Abnormal EEG because of right frontotemporal frequent sharp and spike type of discharges which have an epileptiform appearance. No ictal pattern. There is bi-hemisphere slowing compatible with bilateral abnormalities though the slowing might also be all due to sedation. Artificially though the bilateral slowing might be all due to sedation. Jayden Rose MD OFC/EO /6:20 PM /8:36 PM
[2017-03-14] MEDS: OXcarbazepine 600 MG TAB PO SCH (20:55)
[2017-03-14] MEDS: ATORVASTATIN 80 MG TAB PO SCH (20:56)
[2017-03-15] VITALS (19 sets, daily range): BP systolic 87–116; BP diastolic 51–76; PULSE 65–80; RESP 15; TEMP 98.8–99.9; O2SAT 100
[2017-03-15] MEDS: RESP: ALBUTEROL 2.5 MG/IPRATROPIUM 0.5 MG NEB (SCH) NEB ×4 (04:06→20:03)
[2017-03-15 04:25] LABS: AUTOMATED NEUTROPHIL # 5.9 TH/MM3 (1.8-7.7); BASOPHIL # 0.1 TH/MM3 (0-0.2); BASOPHIL % 0.8 % (0.0-2.0); EOSINOPHIL # 0.1 TH/MM3 (0-0.4); EOSINOPHIL % 1.6 % (0.0-4.0); HEMATOCRIT 35.3 % (35.0-46.0); HEMO FLAGS AUTO DIFF; LYMPH % 14.9 % (9.0-44.0); LYMPHOCYTE # 1.2 TH/MM3 (1.0-4.8); MEAN CELL VOLUME 78.4 FL (80.0-100.0); MEAN CORPUSCULAR HEMOGLOBIN 25.2 PG (27.0-34.0); MEAN CORPUSCULAR HGB CONC 32.2 % (32.0-36.0); MONO % 9.9 % (0.0-8.0); NEUT % 72.8 % (16.0-70.0); PLATELET COUNT 202 TH/MM3 (150-450); RED CELL DISTRIBUTION WIDTH 15.8 % (11.6-17.2); WHITE BLOOD COUNT 8.1 TH/MM3 (4.0-11.0)
[2017-03-15 04:34] LABS: ALKALINE PHOSPHATASE 175 U/L (45-117); ALT (GPT) 95 U/L (10-53); ANION GAP 9 MEQ/L (5-15); AST (GOT) 72 U/L (15-37); BICARBONATE 23.7 MEQ/L (21.0-32.0); BLOOD UREA NITROGEN 19 MG/DL (7-18); CHLORIDE 105 MEQ/L (98-107); GLOMERULAR FILTRATION RATE 126 ML/MIN (>89); MAGNESIUM 1.7 MG/DL (1.5-2.5); POTASSIUM 3.8 MEQ/L (3.5-5.1); SODIUM (NA) 138 MEQ/L (136-145); TOTAL BILIRUBIN ADULT 0.5 MG/DL (0.2-1.0)
[2017-03-15] MEDS: ARTIFICIAL TEARS OPTH SOLN 15 ML BTL EACH EYE SCH ×3 (06:00→20:58)
[2017-03-15 06:12] LABS: BANDS 8 % (0-6); CORRECTED NUCLEATED RBC 2 /100 WBC (0-0); EOSINOPHILS 2 % (0-4); NEUTROPHIL # MANUAL DIFF 6.6 TH/MM3 (1.8-7.7); OVALOCYTES 1+ (NORMAL); POLYS (SEG NEUTROPHILS) 73 % (16-70); SCAN/DIFF FINAL DIFF MANUAL; WBC DIFF SAMPLE 100
[2017-03-15 06:13] LABS: ACANTHOCYTES OCC (NORMAL); PLATELET ESTIMATE SMEAR NORMAL (NORMAL); PLATELET MORPHOLOGY NORMAL (NORMAL)
--- NOTE | 2017-03-15 07:55 | HHI.PR ---
Objective Vital Signs Date Time Temp Pulse Resp B/P (MAP) Pulse Ox O2 Delivery O2 Flow Rate FiO2 03/15/17 07:45 100 Ventilator 40 03/15/17 06:00 77 03/15/17 06:00 66 116/71 (86) 03/15/17 04:06 100 40 03/15/17 04:00 98.8 73 15 108/71 (83) 100 03/15/17 04:00 40 03/15/17 04:00 73 03/15/17 02:00 68 03/15/17 01:36 100 40 03/15/17 00:15 92/56 03/15/17 00:00 99.1 67 15 87/51 (63) 100 03/15/17 00:00 67 03/15/17 00:00 40 03/14/17 23:55 87/51 03/14/17 23:45 86/51 03/14/17 23:29 84/52 03/14/17 22:30 88/58 03/14/17 22:15 88/56 03/14/17 22:00 79 03/14/17 20:00 98.6 71 15 106/69 (81) 100 03/14/17 20:00 40 03/14/17 20:00 71 03/14/17 19:50 100 40 03/14/17 19:00 69 105/68 03/14/17 18:00 66 108/65 (79) 03/14/17 18:00 66 03/14/17 16:45 61 88/54 03/14/17 16:30 65 100/55 03/14/17 16:00 40 03/14/17 16:00 65 03/14/17 16:00 98.4 65 15 100/55 (70) 100 03/14/17 15:10 100 40 03/14/17 14:00 63 03/14/17 13:26 81 102/57 (72) 03/14/17 12:00 40 03/14/17 12:00 58 03/14/17 12:00 98.4 58 15 99/56 (70) 100 03/14/17 11:44 100 40 03/14/17 10:15 80 106/63 03/14/17 10:00 76 103/56 03/14/17 10:00 72 03/14/17 09:15 60 99/55 03/14/17 09:00 57 106/57 03/14/17 08:20 64 98/50 03/14/17 08:10 66 99/59 03/14/17 08:00 40 03/14/17 08:00 67 03/14/17 08:00 98.2 66 15 98/59 (72) 100 I/O 03/14/17 03/14/17 03/14/17 03/15/17 03/15/17 03/15/17 07:00 15:00 23:00 07:00 15:00 23:00 Intake Total 551 ml 54 ml 656 ml 655 ml Output Total 650 ml 1275 ml 1000 ml Balance -99 ml 54 ml -619 ml -345 ml IV Total 551 ml 54 ml 576 ml 344 ml Tube Feeding 80 ml 311 ml Output Urine Total 500 ml 1275 ml 1000 ml Gastric Drainage Total 150 ml # Bowel Movements 0 Result Diagram: 03/15/17 0355 03/15/17 0355 Objective Remarks fullly sedated pupil = no clonus arouses minimally to voice Assessment and Plan Assessment and Plan imp eeg r sz focus acitve and a hx of these on mult eeg in past we can inc her pbarb and i would rec dc sedatives and see how does the sharps in r frontal region have been resistant to meds in past on vimpat 200 bid pbarb 32.5 bid inc to 2 am 1 pm trileptal inc to 1200 bid eeg in am lft inc Georges Marcos MD Mar 15, 2017 07:55
[2017-03-15] MEDS: INSULIN ASPART SUPPLEMENTAL SCALE SQ SCH ×2 (08:55→12:24)
[2017-03-15] MEDS: CHLORHEXIDINE 0.12% (ORAL KIT) 15 ML CUP MT SCH ×2 (08:55→20:55)
[2017-03-15] MEDS: CARBAMIDE PEROXIDE 6.5% OTIC SOLN 15 ML BTL EACH EAR SCH ×2 (08:56→20:54)
[2017-03-15] MEDS: SODIUM CHLORIDE 0.9% FLUSH 10 ML FLUSH IV FLUSH SCH ×3 (08:57→20:55)
[2017-03-15] MEDS: FUROSEMIDE 40 MG/4 ML VIAL IV PUSH SCH ×2 (08:57→18:06)
[2017-03-15] MEDS: THIAMINE HCL 100 MG TAB PO SCH (08:58)
[2017-03-15] MEDS: DIGOXIN 0.125 MG TAB PO SCH (08:58)
[2017-03-15] MEDS: LACOSAMIDE 100 MG TAB PO SCH ×2 (08:58→20:55)
[2017-03-15] MEDS: FOLIC ACID 1 MG TAB PO SCH (08:58)
[2017-03-15] MEDS: PHENobarbital 32.4 MG TAB PO SCH ×2 (08:58→20:57)
[2017-03-15] MEDS: APIXABAN 5 MG TABLET PO SCH ×2 (08:58→20:55)
[2017-03-15] MEDS: SPIRONOLACTONE 25 MG TAB PO SCH (08:59)
[2017-03-15] MEDS: CARVEDILOL 6.25 MG TAB PO SCH (08:59)
[2017-03-15] MEDS: ASPIRIN EC 81 MG TABEC PO SCH (08:59)
[2017-03-15] MEDS: MEMANTINE HCL 10 MG TAB PO SCH ×2 (08:59→20:57)
[2017-03-15] MEDS: FERROUS FUMARATE 325 MG TAB (106 MG ELEMENTAL IRON) PO SCH ×2 (08:59→18:07)
[2017-03-15] MEDS: LANSOPRAZOLE SOLUTAB 30 MG TAB NG SCH (08:59)
[2017-03-15] MEDS: OXcarbazepine 600 MG TAB PO SCH ×2 (08:59→20:58)
[2017-03-15] MEDS: ACETYLCYSTEINE 20% PEG SCH (09:00)
--- NOTE | 2017-03-15 09:33 | MB ---
cc: MARYCRUZ CAMARGO DATE OF CONSULTATION 03/14/2017 HISTORY A 51-year-old woman with a history of right MCA stroke, residual left-sided weakness with gait imbalance problems, left upper extremity contracted, seizures, type 2 diabetes, CHF with an EF of 25%. Has come in with shortness of breath, wheezing, frothy sputum. CT was negative of the brain. Got diuresed, was supposed to go to rehab when she was found unresponsive. She was somewhat hypothermic. Noted to have frothy secretions on intubation. CTA of the brain and of the neck were negative. CT of the brain was negative. PAST MEDICAL HISTORY Seen by Dr. Reynaldo Crum, neurology in December of 2016. History of right hemisphere focal seizures with secondary seizures on Vimpat and phenobarbital and started on Trileptal after breakthrough seizures on that regimen. He had increased Trileptal to 600 twice a day at that point. EEGs in the past in December some right temporal slowing with some sharps but no prolonged seizure. And in fact she has had right temporal lobe frequent sharps in that region in the past. MEDICATIONS Are: 1. Vimpat 200 twice a day. 2. Phenobarbital 32.4 twice a day. 3. Lasix. 4. Digoxin. 5. Apixaban 5 twice a day. 6. Atorvastatin. 7. Spironolactone. 8. Oxcarbazepine 600 twice a day. 9. Metformin. 10. Memantine 5 milligrams twice a day. 11. Iron. 12. Folic acid. 13. 81 of aspirin. PHYSICAL EXAMINATION VITAL SIGNS: Afebrile, 58, 99/56 to 102/57. Tends to run a bit of a low blood pressure. She has needed a heating blanket here. It looks like her temperature has always been about 97.6-98 here. NECK: I could not tell if there is any carotid bruits. HEART: Regular rhythm. I could not detect a murmur. NEUROLOGIC: Pupils are equal but she is fully sedated. I just had them shut the sedatives off. She has got some fisting of the left hand but her tone is just mildly increased at this point with onset in the left upper extremity. Toes were equivocal bilaterally. She is generally flaccid throughout when fully sedated. LABORATORY DATA CBC shows a hematocrit 34, otherwise normal. Phenobarbital level was 23. UA negative. Coags normal. Basic metabolic profile essentially normal. Ammonia level is 35. Troponin is negative. ABG 7.36, 35, 356. IMAGING My review of the CT scan of the brain films, there is a right temporal lobe old encephalomalacia and into the right MCA territory in general. Some calcification of the falx. It looks like she probably had a craniotomy at one time on the right side. There is some ventricular dilation mild to moderate more so on the right. IMPRESSION Certainly with a history of seizures, could have had another one. We will check an EEG on her. I have asked them to hold her sedatives to see if she will wake up. We will also put in for a Trileptal level. The last one was in February 02. MD DENISSE Rubalcava/KK /4:00 PM /9:29 AM
--- NOTE | 2017-03-15 10:18 | HHI.FPPN ---
Subjective Remarks Patient seen and examined this morning. Intubated and sedated. Temperature ranging between 98.8-99.1, pulse ranging between 65-77, respiratory rate set at 15, blood pressure ranging between 87-116/51-71, pulse ox 100%. The patient intubation is set at 15 breaths per minute, 50% peak inflow, 5 peak, 40% FiO2. Current thoughts are that the patient may have had a seizure that resulted in a respiratory acute state during her postictal state. (Troy Mars MD, R3) Objective Vitals Vital Signs Date Time Temp Pulse Resp B/P (MAP) Pulse Ox O2 Delivery O2 Flow Rate FiO2 03/15/17 09:37 100 40 03/15/17 08:21 40 03/15/17 08:00 99.1 77 15 113/69 (84) 100 03/15/17 08:00 40 03/15/17 08:00 65 03/15/17 07:45 100 Ventilator 40 03/15/17 06:00 77 03/15/17 06:00 66 116/71 (86) 03/15/17 04:06 100 40 03/15/17 04:00 98.8 73 15 108/71 (83) 100 03/15/17 04:00 40 03/15/17 04:00 73 03/15/17 02:00 68 03/15/17 01:36 100 40 03/15/17 00:15 92/56 03/15/17 00:00 99.1 67 15 87/51 (63) 100 03/15/17 00:00 67 03/15/17 00:00 40 03/14/17 23:55 87/51 03/14/17 23:45 86/51 03/14/17 23:29 84/52 03/14/17 22:30 88/58 03/14/17 22:15 88/56 03/14/17 22:00 79 03/14/17 20:00 98.6 71 15 106/69 (81) 100 03/14/17 20:00 40 03/14/17 20:00 71 03/14/17 19:50 100 40 03/14/17 19:00 69 105/68 03/14/17 18:00 66 108/65 (79) 03/14/17 18:00 66 03/14/17 16:45 61 88/54 03/14/17 16:30 65 100/55 03/14/17 16:00 40 03/14/17 16:00 65 03/14/17 16:00 98.4 65 15 100/55 (70) 100 03/14/17 15:10 100 40 03/14/17 14:00 63 03/14/17 13:26 81 102/57 (72) 03/14/17 12:00 40 03/14/17 12:00 58 03/14/17 12:00 98.4 58 15 99/56 (70) 100 03/14/17 11:44 100 40 03/14/17 10:15 80 106/63 I/O 03/14/17 03/14/17 03/14/17 03/15/17 03/15/17 03/15/17 07:00 15:00 23:00 07:00 15:00 23:00 Intake Total 551 ml 54 ml 656 ml 655 ml Output Total 650 ml 1275 ml 1000 ml Balance -99 ml 54 ml -619 ml -345 ml IV Total 551 ml 54 ml 576 ml 344 ml Tube Feeding 80 ml 311 ml Output Urine Total 500 ml 1275 ml 1000 ml Gastric Drainage Total 150 ml # Bowel Movements 0 (Troy Mars MD, R3) Result Diagram: 03/15/17 0355 03/15/17 0355 Imaging Last Impressions Chest X-Ray 03/14/17 0600 Signed Impressions: Service Date/Time: Tuesday, March 14, 2017 04:14 - CONCLUSION: No significant interval change Stevan Perez MD Head CT 03/13/17 1345 Signed Impressions: Service Date/Time: Monday, March 13, 2017 13:43 - CONCLUSION: 1. Old area of infarct involving the right MCA distribution. 2. Colpocephalic dilation of the ventricular system. 3. Stable examination compared to previous dated 10/23/16. 4. Postcraniotomy changes within the skull. Warner Pritchard MD Neck CTA 03/13/17 0000 Signed Impressions: Service Date/Time: Monday, March 13, 2017 13:43 - CONCLUSION: 1. No evidence of hemodynamic significant lesion. There is 0%% stenosis bilaterally Georges Hannon MD Head CTA 03/13/17 0000 Signed Impressions: Service Date/Time: Monday, March 13, 2017 13:43 - CONCLUSION: 1. Unremarkable CT angiography of the brain. Georges Hannon MD Liver Ultrasound 03/12/17 0000 Signed Impressions: Service Date/Time: Sunday, March 12, 2017 15:55 - CONCLUSION: 1. Gallbladder wall thickening and pericholecystic fluid without stones. Cholecystitis is not excluded. Radionuclide imaging is recommended for further evaluation if clinically indicated. Georges Hannon MD Objective Remarks GENERAL: thin lady, pleasant, lying in bed sedated and intubated. Unable to follow commands SKIN: No rashes, ecchymoses or lesions. Cool and dry. HEAD: Atraumatic. Normocephalic. EYES: R pupil sluggish to react to light as compared to the L pupil, EOMI ENT: Throat clear, TMs were hard to visualize due to wax NECK: Supple, nontender, no meningeal signs. No JVD or LAD. CARDIOVASCULAR: Regular rate and rhythm without murmurs, gallops, or rubs. RESPIRATORY: rales in b/l bases nearly gone. No accessory muscle use. GASTROINTESTINAL: Abdomen soft, non-tender, nondistended. No hepato-splenomegaly , or palpable masses. No guarding. No hepato-jugular reflex. MUSCULOSKELETAL: No edema in lower extremities. Trace edema in left upper extremity. NEUROLOGICAL: Sedated and intubated. Cranial nerves II through XII grossly intact.Patient keeps left hand grasped into a fist at baseline with contracture. Medications and IVs Current Medications Medications (Trade) Dose Ordered Sig/Curtis Route Start Time Stop Time Status Last Admin (Eliquis) 5 mg BID PO 03/09/17 09:00 03/15/17 08:58 (Ecotrin Ec) 81 mg DAILY PO 03/09/17 09:00 03/15/17 08:59 (Lipitor) 80 mg HS PO 03/09/17 21:00 03/14/17 20:56 (Coreg) 6.25 mg BID PO 03/09/17 09:00 03/15/17 08:59 (Lanoxin) 0.125 mg DAILY PO 03/09/17 09:00 03/15/17 08:58 (Folate) 1 mg DAILY PO 03/09/17 09:00 03/15/17 08:58 (Vimpat) 200 mg BID PO 03/09/17 09:00 03/15/17 08:58 (Namenda) 10 mg BID PO 03/09/17 09:00 03/15/17 08:59 (PHENobarbital) 32.4 mg BID PO 03/09/17 09:00 03/15/17 08:58 (Aldactone) 25 mg DAILY PO 03/09/17 09:00 03/15/17 08:59 (Hemocyte) 325 mg BIDPC PO 03/09/17 09:00 03/15/17 08:59 (Vitamin B1) 200 mg DAILY PO 03/09/17 09:00 03/15/17 08:58 (NS Flush) 2 ml UNSCH PRN IV FLUSH 03/09/17 02:30 (NS Flush) 2 ml BID IV FLUSH 03/09/17 09:00 03/15/17 08:57 (Tylenol) 650 mg Q4H PRN PO 03/09/17 02:30 (D50w (Vial) Inj) 50 ml UNSCH PRN IV PUSH 03/09/17 02:30 03/13/17 17:09 (Glucagon Inj) 1 mg UNSCH PRN OTHER 03/09/17 02:30 (NovoLOG SUPPLEMENTAL SCALE) 1 ACHS SLIDING SCALE SQ 03/09/17 08:00 03/15/17 08:55 (Debrox 6.5% Otic) 5 drop Q12HR EACH EAR 03/09/17 09:00 03/15/17 08:56 (Clear Eyes Redness Relief 0.012% Opth Soln) 1 drop QID PRN EACH EYE 03/09/17 03:00 03/14/17 07:58 (Chapstick) 1 applic UNSCH PRN TOPICAL 03/09/17 03:00 03/14/17 07:57 (Zofran Inj) 4 mg Q6HR PRN IV PUSH 03/09/17 03:15 (Drisdol) 50,000 units Q7D PO 03/09/17 14:00 03/09/17 16:30 (NS Flush) DAILY IV FLUSH 03/14/17 09:00 (NS Flush) UNSCH PRN IV FLUSH 03/13/17 13:15 (Peridex 0.12% Liq) 15 ml BID@08,20 MT 03/13/17 20:00 03/15/17 08:55 Fentanyl Citrate 250 ml @ 5 mls/hr TITRATE PRN IV 03/13/17 13:30 03/13/17 14:00 Sodium Chloride 1,000 ml @ 30 mls/hr Q24H IV 03/13/17 13:17 03/13/17 15:30 (Duoneb Neb) 1 ampule Q6HR NEB NEB 03/13/17 16:00 03/15/17 07:43 (Albuterol Neb) 2.5 mg Q2HR NEB PRN NEB 03/13/17 16:00 Norepinephrine Bitartrate 250 ml @ 7.5 mls/hr TITRATE PRN IV 03/14/17 03:15 03/14/17 03:22 (Lasix Inj) 40 mg BID@09,18 IV PUSH 03/14/17 18:00 03/15/17 08:57 Midazolam HCl 100 ml @ 2 mls/hr TITRATE PRN IV 03/14/17 12:45 03/14/17 13:26 (Prevacid Odt) 30 mg DAILY NG 03/15/17 09:00 03/15/17 08:59 (Tears Naturale Opth Soln) 1 drop Q8HR EACH EYE 03/14/17 14:00 03/15/17 06:00 (Trileptal) 1,200 mg BID PO 03/14/17 21:00 03/15/17 08:59 (Troy Mars MD, R3) Date of Insertion: Mar 13, 2017 Line: Central Venous Catheter Side: Right Location: Internal, Jugular (Troy Mars MD, R3) A/P Assessment and Plan 51 yr old F admitted for acute on chronic CHF exacerbation. Patient with acute respiratory failure resulting in intubation at this time. Discharge Planning Acute respiratory failure resulting in intubation. Patient has been transferred to the ICU, discharge to be determined with improvement of current medical condition PT consult- PT at rehab she will need rehab at D/C as she is weak and a fall risk. her daughter is deciding on where to go per case management notes (Troy Mars MD, R3) Attending Attestation Patient seen and examined. Case reviewed and discussed with the resident team. Agree with plan of care as discussed with me and documented in the resident note. stable overall. will change to glucerna feeds as she is diabetic (Aarti Frnak MD) Problem List: (1) Respiratory failure requiring intubation ICD Codes: J96.90 - Respiratory failure, unspecified, unspecified whether with hypoxia or hypercapnia Status: Acute Plan: Neuro/Psych: History of right MCA CVA with left arm and didn't balance disorder Seizure disorder NOS Dementia disorder NOS Patient is currently on propofol/fentanyl for sedation/analgesia while intubated Goal of RA SS -2 Daily sedation vacation Continue lactulose might 100 mg twice a day, phenobarbital 32.4 mill grams twice a day, oxcarbazepine 600 g twice a day for seizure/home medication CT brain, CT angiogram brain and neck: Unremarkable Cannot have MRI due to ICD placement Not a candidate for thrombolytic due to current anticoagulant use EEG: Seizure focus activity, sharps in right frontal region. Phenobarbital 32.4 mg twice a day Oxcarbazepine 1.2 milligrams twice a day Seizure precautions Continued Namenda 10 mg twice a day Resp: Acute upper Respiratory failure ACV 15/50/5/40 Ventilator bundle Albuterol ipratropium aerosols every 6 hours and albuterol aerosols every 2 hours. Dyspnea Spontaneous CPAP trials daily CV: Chronic systolic heart failure ejection fraction 15-20% Hypertension Dyslipidemia Echocardiogram 03/20 revealed EF 20%. LA dilation. Moderate MR/TR. PaP 67 mmHg. Small pericardial Effusion. Currently on digoxin 0.125 mg by mouth daily, Continue furosemide 40 mg twice a day. Spironolactone 25 mg by mouth daily for congestive heart failure Daily atorvastatin 80 mg by mouth daily for dyslipidemia Evaluated by Dr. Cruz in this hospitalization. Her practice support specialist Dr. Miguel Continue aspirin 81 mg by mouth daily GI: Patient is currently nothing by mouth NGT to LIWS Pantoprazole for GI prophylaxis Docusate sodium for bowel regimen : Hinson catheter will be placed for accurate I's nose any critically ill patient receiving diuretics Endo: Sliding scale insulin with Accu-Cheks to maintain euglycemia Renal: Creatinine currently within normal limits Monitor urine output accurate I's and O's Heme: Continue ferrous sulfate 325 mg by mouth twice a day ID: Monitor for infection FEN: Replace electrolytes as clinically indicated MSK: Gait imbalance disorder Left upper extremity contracture Access - Right IJ CVL Prophylaxis - GI - pantoprazole - DVT - SCDs/Apixaban will provide DVT prophylaxis (2) CHF exacerbation ICD Codes: I50.9 - Heart failure, unspecified Status: Acute (3) Diabetes ICD Codes: E11.9 - Diabetes Status: Chronic (4) Cardiomyopathy ICD Codes: I42.9 - Cardiomyopathy Status: Chronic (5) History of right MCA stroke ICD Codes: Z86.73 - History of right MCA stroke Status: Chronic (6) Seizures ICD Codes: R56.9 - Unspecified convulsions Status: Chronic (7) Nutrition, metabolism, and development symptoms ICD Codes: R63.8 - Nutrition, metabolism, and development symptoms Status: Acute (Troy Mars MD, R3) Problem Qualifiers (1) CHF exacerbation: Qualified Codes: I50.9 - Heart failure, unspecified (2) Diabetes: Troy Mars MD, R3 Mar 15, 2017 10:18 Aarti Frank MD Mar 15, 2017 11:09
[2017-03-15] MEDS: NOREPINEPHRINE 4 MG/D5W 250 ML IV PRN ×2 (10:36→21:03)
--- NOTE | 2017-03-15 11:51 | HHI.CCPN ---
Subjective Remarks/Hospital Course 51 yr old AA F here date of admission 03/09/2017. Date of consultation 2016. 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 Her left upper extremity contracted,, seizures, T2DM, and CHF(EF currently 25%), she was originally presented to the ED at [facility] on 2016 with a two- day history of shortness of breath positive orthopnea. Positive wheezing. Positive cough frothy sputum. [facility] Center Marker is Dr. Miguel. In the ED, noted to have CT brain which showed no signs intracranial process. She is admitted under the [facility] service. She is evaluated Dr. Cruz cardiology - rec - IV diuresis Strict I&O Daily Weight Telemetry monitoring Low salt diet Cont ASA, Coreg, Digoxin, Statin, Eliquis Today, patient was to be discharged to an extended care facility when she finishes the short of breath and unresponsive. [facility] was called and the patient was transferred from 1320. She had no IV access. Central line placement was performed patient was orotracheally intubated without complication. Noted at frothy secretions upon intubation CTA brain/neck and CT head revealed no acute intracranial findings/stenosis. 03/14: Noted likely seizure activity in EEG. Patient placed on low-dose norepinephrine overnight. We'll change sedatives. Start on Midazolam instead of propofol. Check CVP. Start bowel regimen and tube feeding. Subjective 03/15: Afebrile. Remains on norepinephrine at 8 mg/m. Tolerating tube feeding. CVP between 9 and 12. Objective Vital Signs Date Time Temp Pulse Resp B/P (MAP) Pulse Ox O2 Delivery O2 Flow Rate FiO2 03/15/17 10:36 80 110/71 03/15/17 09:37 100 40 03/15/17 08:00 99.1 15 03/15/17 07:45 Ventilator 03/13/17 12:00 15.00 Intake and Output 03/15/17 03/15/17 03/15/17 07:59 15:59 23:59 Intake Total 655 ml 216 ml Output Total 1000 ml Balance -345 ml 216 ml Result Diagram: 03/15/17 0355 03/15/17 0355 Imaging Last Impressions Chest X-Ray 03/14/17 0600 Signed Impressions: Service Date/Time: Tuesday, March 14, 2017 04:14 - CONCLUSION: No significant interval change Stevan Perez MD Head CT 03/13/17 1345 Signed Impressions: Service Date/Time: Monday, March 13, 2017 13:43 - CONCLUSION: 1. Old area of infarct involving the right MCA distribution. 2. Colpocephalic dilation of the ventricular system. 3. Stable examination compared to previous dated 10/23/16. 4. Postcraniotomy changes within the skull. Warner Pritchard MD Neck CTA 03/13/17 0000 Signed Impressions: Service Date/Time: Monday, March 13, 2017 13:43 - CONCLUSION: 1. No evidence of hemodynamic significant lesion. There is 0%% stenosis bilaterally Georges Hannon MD Head CTA 03/13/17 0000 Signed Impressions: Service Date/Time: Monday, March 13, 2017 13:43 - CONCLUSION: 1. Unremarkable CT angiography of the brain. Georges Hannon MD Liver Ultrasound 03/12/17 0000 Signed Impressions: Service Date/Time: Sunday, March 12, 2017 15:55 - CONCLUSION: 1. Gallbladder wall thickening and pericholecystic fluid without stones. Cholecystitis is not excluded. Radionuclide imaging is recommended for further evaluation if clinically indicated. Georges Hannon MD Objective Remarks GENERAL: This is a 51 yo female critically ill currently orotracheally intubated SKIN: Cool and dry HEAD: Atraumatic. Normocephalic. EYES: Pupils equal and round about 3 mm bilaterally and reactive. No scleral icterus. No injection or drainage. ENT: No nasal bleeding or discharge. Mucous membranes pink and moist. Orotracheally intubated NECK: Trachea midline. +JVD. Right IJ is clean dry and intact CARDIOVASCULAR: Regular rate and rhythm. S1, S2 no S4. Possible S3. 2/6 systolic murmur left lower sternal border RESPIRATORY: Coarse crackles appreciable bilaterally. Positive inspiratory and expiratory wheeze. GASTROINTESTINAL: Abdomen soft, non-tender, nondistended. Hypoactive bowel sounds MUSCULOSKELETAL: Extremities without noted in peripheral edema. No obvious deformities. NEUROLOGICAL: Arousable but moaning words. Weakly trying to pain right upper and lower extremity Vascular Central Line Catheter: Yes Assessment to: Continue Date of Insertion: Mar 13, 2017 Line: Central Venous Catheter Side: Right Location: Internal, Jugular A/P Assessment and Plan Neuro/Psych: History of right MCA CVA with left arm and didn't balance disorder Seizure disorder NOS Dementia disorder NOS Patient is currently on midazolaml/fentanyl for sedation/analgesia while intubated Goal of RA SS -2 Daily sedation vacation Continue lactulose might 100 mg twice a day, phenobarbital 32.4 mill grams twice a day, oxcarbazepine 1200 mg Cannot have MRI due to ICD placement Evaluate by Dr. Marcos Neurology. Not a candidate for thrombolytic due to current anticoagulant use EEG results pending. Preliminary with right-sided seizure activity Seizure precautions Continued Namenda 10 mg twice a day Resp: Acute upper Respiratory failure likely secondary to CHF exacerbation ACV 15/500/5//40 Ventilator bundle Albuterol ipratropium aerosols every 6 hours and albuterol aerosols every 2 hours. Dyspnea Spontaneous breathing trials daily CV: Chronic systolic heart failure ejection fraction 15-20% Hypertension Dyslipidemia Echocardiogram 03/20 revealed EF 20%. LA dilation. Moderate MR/TR. PaP 67 mmHg. Small pericardial Effusion.. Repeat echocardiogram revealed EF less than 20%. Atrial dilatation. Pulmonary she pressures greater than 70. No signs. Currently on digoxin 0.125 mg by mouth daily, Continue furosemide 40 mg IV twice a day. Spironolactone 25 mg by mouth daily for congestive heart failure Daily atorvastatin 80 mg by mouth daily for dyslipidemia Evaluated by Dr. Cruz in this hospitalization. Her intensivist Dr. Miguel Continue aspirin 81 mg by mouth daily GI: Hypoalbuminemia Start tube feeding with vital 1.5 goal 50 cc an hour Pantoprazole for GI prophylaxis Docusate sodium for bowel regimen : Hinson catheter will be placed for accurate I's nose any critically ill patient receiving diuretics Endo: Slding scale insulin with Accu-Cheks to maintain euglycemia Renal: Creatinine currently within normal limits Monitor urine output accurate I's and O's Heme: History of anemia Continue ferrous sulfate 325 mg by mouth twice a day ID: Monitor for infection Blood cultures 2, sputum and urine pending FEN: Replace electrolytes as clinically indicated MSK: Gait imbalance disorder Left upper extremity contracture Access - Right IJ CVL Prophylaxis - GI - pantoprazole - DVT - SCDs/Apixaban will provide DVT prophylaxis Critical Care: The total critical care time was 35 minutes. Time to perform other separately billable procedures was not included in the critical care time. Owen Tim MD Mar 15, 2017 11:51
--- NOTE | 2017-03-15 12:40 | ECHRPT ---
Indication: CVA/TIA CONCLUSIONS Normal left ventricular size. Wall thickness is normal. The left ventricular systolic function is severely reduced with an estimated ejection fraction less than 20%. A pacemaker wire is noted. The left atrial size is moderately dilated. The right atrial size is moderately dilated. Atrial septal aneurysm is present (benign finding). The interatrial septum bowed from left to right, consistent with increased left atrial pressure. Moderate mitral valve regurgitation. Mild thickening of the aortic valve leaflets. Trace aortic valve regurgitation. There is mild tricuspid valve regurgitation. There is estimated severe pulmonary hypertension present ( > 70 mmHg). There is a small pericardial effusion present. No hemodynamically significant echocardiographic features were observed (no pre-tamponade physiology). BP: / HR: Rhythm: Sinus MEASUREMENTS (Male / Female) Normal Values Technical Quality:Good 2D ECHO LV Diastolic Diameter PLAX 5.3 cm 4.2 - 5.9 / 3.9 - 5.3 cm LV Systolic Diameter PLAX 5.0 cm IVS Diastolic Thickness 0.8 cm 0.6 - 1.0 / 0.6 - 0.9 cm LVPW Diastolic Thickness 0.8 cm 0.6 - 1.0 / 0.6 - 0.9 cm LV Relative Wall Thickness 0.3 RV Internal Dim ED PLAX 2.8 cm LA Systolic Diameter LX 4.8 cm 3.0 - 4.0 / 2.7 - 3.8 cm M-MODE Aortic Root Diameter MM 2.6 cm AV Cusp Separation MM 1.8 cm DOPPLER MR Peak Velocity 471.0 cm/s MR Peak Gradient 88.7 mmHg Mitral E Point Velocity 107.0 cm/s Mitral A Point Velocity 40.1 cm/s Mitral E to A Ratio 2.7 TR Peak Velocity 406.0 cm/s TR Peak Gradient 65.9 mmHg Right Atrial Pressure 10.0 mmHg Pulmonary Artery Systolic Pressu 75.9 mmHg Right Ventricular Systolic Press 75.9 mmHg FINDINGS LEFT VENTRICLE Normal left ventricular size. Wall thickness is normal. The left ventricular systolic function is severely reduced with an estimated ejection fraction less than 20%. RIGHT VENTRICLE A pacemaker wire is noted. LEFT ATRIUM The left atrial size is moderately dilated. RIGHT ATRIUM The right atrial size is moderately dilated. ATRIAL SEPTUM Atrial septal aneurysm is present (benign finding). The interatrial septum bowed from left to right, consistent with increased left atrial pressure. AORTA The aortic root and proximal ascending aorta are normal in size on limited imaging. MITRAL VALVE Moderate mitral valve regurgitation. AORTIC VALVE Mild thickening of the aortic valve leaflets. Trace aortic valve regurgitation. TRICUSPID VALVE There is mild tricuspid valve regurgitation. There is estimated severe pulmonary hypertension present ( > 70 mmHg). PULMONARY VALVE No pulmonary valve regurgitation or stenosis. VESSELS The inferior vena cava is normal in size. PERICARDIUM There is a small pericardial effusion present. No hemodynamically significant echocardiographic features were observed (no pre-tamponade physiology). Sae Sandy MD, FACC (Electronically Signed) Final Date:15 March 2017 12:39
[2017-03-15] MEDS: MAGNESIUM SULFATE 1 GM PREMIX 100 ML IV SCH ×2 (12:42→15:11)
[2017-03-15] MEDS ORDERED: DEXTROSE 50% IN WATER 50 ML VIAL(D50) IV PUSH PRN (14:00)
[2017-03-15] MEDS ORDERED: GLUCAGON 1 MG/ML VIAL OTHER PRN (14:00)
[2017-03-15] MEDS: SODIUM CHLOR 0.9% 1000 ML INJ 1,000 ML IV SCH (15:11)
[2017-03-15] MEDS: INSULIN NovoLIN REGULAR SUPPLEMENTAL SCALE SQ SCH ×2 (18:36→20:49)
[2017-03-15] MEDS ORDERED: INSULIN NovoLIN REGULAR SUPPLEMENTAL SCALE SQ SCH (20:00)
[2017-03-15] MEDS: ATORVASTATIN 80 MG TAB PO SCH (20:56)
[2017-03-16] VITALS (16 sets, daily range): BP systolic 106–152; BP diastolic 68–88; PULSE 59–93; RESP 15–16; TEMP 97.8–100.6; O2SAT 98–100
[2017-03-16] MEDS: INSULIN NovoLIN REGULAR SUPPLEMENTAL SCALE SQ SCH ×7 (00:23→23:54)
[2017-03-16] MEDS: fentaNYL DRIP 250 ML IV PRN (03:16)
--- NOTE | 2017-03-16 03:16 | RADRPT ---
EXAM DATE/TIME: 03/16/2017 02:07 [place] COMPARISON: CHEST SINGLE AP, March 14, 2017, 4:14. INDICATIONS : Respiratory failure MEDICAL HISTORY : Diabetes mellitus type II. Stroke. Cardiovascular disease. COPD, CHF SURGICAL HISTORY : Craniotomy. Pacemaker. ENCOUNTER: Subsequent ACUITY: 1 week PAIN SCORE: Non-responsive. LOCATION: Bilateral chest FINDINGS: A single view of the chest demonstrates endotracheal tube in good position. Nasogastric tube in stoma ch. Right central line in superior vena cava. Pacer leads in right ventricle. Cardiomegaly. Bilateral mostly basilar airspace consolidation. No pneumothorax. CONCLUSION: 1. Bilateral mostly basilar airspace disease. Cardiomegaly. Support apparatus in good position. Sam Cruz MD on March 16, 2017 at 3:13 Board Certified Radiologist. This report was verified electronically.
[2017-03-16] MEDS: RESP: ALBUTEROL 2.5 MG/IPRATROPIUM 0.5 MG NEB (SCH) NEB ×4 (03:22→19:37)
[2017-03-16 04:44] LABS: HEMATOCRIT 36.3 % (35.0-46.0); MEAN CELL VOLUME 77.5 FL (80.0-100.0); MEAN CORPUSCULAR HGB CONC 32.2 % (32.0-36.0); PLATELET COUNT 209 TH/MM3 (150-450); RED BLOOD COUNT 4.69 MIL/MM3 (4.00-5.30); REVIEW FLAG FINAL; WHITE BLOOD COUNT 11.7 TH/MM3 (4.0-11.0)
[2017-03-16] MEDS: SODIUM CHLOR 0.9% 1000 ML INJ 1,000 ML IV SCH (05:00)
[2017-03-16 05:34] LABS: BLOOD UREA NITROGEN 13 MG/DL (7-18); GLOMERULAR FILTRATION RATE 204 ML/MIN (>89)
[2017-03-16 05:35] LABS: ALKALINE PHOSPHATASE 198 U/L (45-117); ALT (GPT) 96 U/L (10-53); ANION GAP 6 MEQ/L (5-15); AST (GOT) 66 U/L (15-37); BICARBONATE 26.7 MEQ/L (21.0-32.0); CHLORIDE 104 MEQ/L (98-107); MAGNESIUM 2.1 MG/DL (1.5-2.5); POTASSIUM 3.6 MEQ/L (3.5-5.1); SODIUM (NA) 137 MEQ/L (136-145); TOTAL BILIRUBIN ADULT 0.6 MG/DL (0.2-1.0)
[2017-03-16] MEDS: ARTIFICIAL TEARS OPTH SOLN 15 ML BTL EACH EYE SCH ×3 (06:35→22:09)
[2017-03-16] MEDS: CHLORHEXIDINE 0.12% (ORAL KIT) 15 ML CUP MT SCH ×2 (07:43→20:20)
--- NOTE | 2017-03-16 07:49 | HHI.PR ---
Subjective Remarks no sz by nursing Objective Vital Signs Date Time Temp Pulse Resp B/P (MAP) Pulse Ox O2 Delivery O2 Flow Rate FiO2 03/16/17 07:38 100 40 03/16/17 07:38 40 03/16/17 06:00 79 106/69 (81) 03/16/17 06:00 79 03/16/17 04:00 40 03/16/17 04:00 100.2 92 15 116/83 (94) 100 03/16/17 04:00 92 03/16/17 03:15 99 40 03/16/17 02:00 83 03/16/17 00:00 91 03/16/17 00:00 100.6 91 15 118/79 (92) 100 03/16/17 00:00 40 03/15/17 23:33 100 40 03/15/17 22:00 75 03/15/17 21:03 76 115/80 03/15/17 20:00 99.9 78 15 113/76 (88) 100 03/15/17 20:00 80 03/15/17 20:00 100 40 03/15/17 20:00 40 03/15/17 18:00 71 03/15/17 18:00 71 114/74 (87) 03/15/17 16:00 40 03/15/17 16:00 75 03/15/17 16:00 99.3 71 15 106/68 (81) 100 03/15/17 15:31 100 40 03/15/17 14:00 76 03/15/17 12:41 100 40 03/15/17 12:00 99.1 70 15 99/64 (76) 100 03/15/17 12:00 70 03/15/17 12:00 40 03/15/17 10:36 80 110/71 03/15/17 10:00 79 03/15/17 09:37 100 40 03/15/17 08:21 40 03/15/17 08:00 99.1 77 15 113/69 (84) 100 03/15/17 08:00 40 03/15/17 08:00 65 I/O 03/15/17 03/15/17 03/15/17 03/16/17 03/16/17 03/16/17 07:00 15:00 23:00 07:00 15:00 23:00 Intake Total 655 ml 316 ml 1251 ml 1543 ml Output Total 1000 ml 1800 ml 950 ml Balance -345 ml 316 ml -549 ml 593 ml Intake Oral 0 ml IV Total 344 ml 316 ml 884 ml 1247 ml Tube Feeding 311 ml 317 ml 296 ml Tube Irrigant 50 ml Output Urine Total 1000 ml 1800 ml 950 ml # Bowel Movements 1 Result Diagram: 03/16/1742403/16/17424 Objective Remarks off sedatives rxt to r threat well not left not follow commands fist left hand eyes open not tracking Assessment and Plan Assessment and Plan imp eeg r sz focus acitve and a hx of these on mult eeg in past we can inc her pbarb the sharps in r frontal region have been resistant to meds in past on vimpat 200 bid pbarb 32.5 2 am 1 pm trileptal 1200 bid level pend eeg today lft coming down i will review eeg today plan is try and keep off sedatives minimal r corner of eye twitch may just be myokymia Georges Marcos MD Mar 16, 2017 07:49
[2017-03-16] MEDS: SODIUM CHLORIDE 0.9% FLUSH 10 ML FLUSH IV FLUSH SCH ×3 (09:00→20:21)
[2017-03-16] MEDS: ASPIRIN EC 81 MG TABEC PO SCH (09:00)
[2017-03-16] MEDS: MEMANTINE HCL 10 MG TAB PO SCH ×2 (09:23→20:21)
[2017-03-16] MEDS: FUROSEMIDE 40 MG/4 ML VIAL IV PUSH SCH ×2 (09:23→17:08)
[2017-03-16] MEDS: FOLIC ACID 1 MG TAB PO SCH (09:23)
[2017-03-16] MEDS: APIXABAN 5 MG TABLET PO SCH ×2 (09:24→20:21)
[2017-03-16] MEDS: LANSOPRAZOLE SOLUTAB 30 MG TAB NG SCH (09:24)
[2017-03-16] MEDS: PHENobarbital 32.4 MG TAB PO SCH ×2 (09:24→20:21)
[2017-03-16] MEDS: DIGOXIN 0.125 MG TAB PO SCH (09:25)
[2017-03-16] MEDS: FERROUS FUMARATE 325 MG TAB (106 MG ELEMENTAL IRON) PO SCH ×2 (09:26→17:09)
[2017-03-16] MEDS: SPIRONOLACTONE 25 MG TAB PO SCH (09:29)
[2017-03-16] MEDS: OXcarbazepine 600 MG TAB PO SCH ×2 (09:29→20:20)
[2017-03-16] MEDS: THIAMINE HCL 100 MG TAB PO SCH (09:30)
[2017-03-16] MEDS: LACOSAMIDE 100 MG TAB PO SCH ×2 (09:36→20:20)
--- NOTE | 2017-03-16 09:50 | HHI.FPPN ---
Subjective Remarks Patient seen and examined this morning. Intubated and sedated. Temperature ranges between 97.8-100.6, pulse respiratory 59-88, respiratory rate 15, blood pressure ranging between 113-118/69-79, pulse ox 100%. Intubation set at 15/50/ 5/40. Per nurse no seizure activity noted. Patient has been failing CPAP trials. (Troy Mars MD, R3) Objective Vitals Vital Signs Date Time Temp Pulse Resp B/P (MAP) Pulse Ox O2 Delivery O2 Flow Rate FiO2 03/16/17 08:00 97.8 71 16 152/88 (109) 98 03/16/17 08:00 88 03/16/17 08:00 100.4 59 15 113/68 (83) 100 03/16/17 08:00 40 03/16/17 07:38 100 40 03/16/17 07:38 40 03/16/17 06:00 79 106/69 (81) 03/16/17 06:00 79 03/16/17 04:00 40 03/16/17 04:00 100.2 92 15 116/83 (94) 100 03/16/17 04:00 92 03/16/17 03:15 99 40 03/16/17 02:00 83 03/16/17 00:00 91 03/16/17 00:00 100.6 91 15 118/79 (92) 100 03/16/17 00:00 40 03/15/17 23:33 100 40 03/15/17 22:00 75 03/15/17 21:03 76 115/80 03/15/17 20:00 99.9 78 15 113/76 (88) 100 03/15/17 20:00 80 03/15/17 20:00 100 40 03/15/17 20:00 40 03/15/17 18:00 71 03/15/17 18:00 71 114/74 (87) 03/15/17 16:00 40 03/15/17 16:00 75 03/15/17 16:00 99.3 71 15 106/68 (81) 100 03/15/17 15:31 100 40 03/15/17 14:00 76 03/15/17 12:41 100 40 03/15/17 12:00 99.1 70 15 99/64 (76) 100 03/15/17 12:00 70 03/15/17 12:00 40 03/15/17 10:36 80 110/71 03/15/17 10:00 79 I/O 03/15/17 03/15/17 03/15/17 03/16/17 03/16/17 03/16/17 07:00 15:00 23:00 07:00 15:00 23:00 Intake Total 655 ml 316 ml 1251 ml 1543 ml Output Total 1000 ml 1800 ml 950 ml Balance -345 ml 316 ml -549 ml 593 ml Intake Oral 0 ml IV Total 344 ml 316 ml 884 ml 1247 ml Tube Feeding 311 ml 317 ml 296 ml Tube Irrigant 50 ml Output Urine Total 1000 ml 1800 ml 950 ml # Bowel Movements 1 (Troy Mars MD, R3) Result Diagram: 03/16/1742403/16/17424 Imaging Last Impressions Chest X-Ray 03/14/17 0600 Signed Impressions: Service Date/Time: Tuesday, March 14, 2017 04:14 - CONCLUSION: No significant interval change Stevan Perez MD Head CT 03/13/17 1345 Signed Impressions: Service Date/Time: Monday, March 13, 2017 13:43 - CONCLUSION: 1. Old area of infarct involving the right MCA distribution. 2. Colpocephalic dilation of the ventricular system. 3. Stable examination compared to previous dated 10/23/16. 4. Postcraniotomy changes within the skull. Warner Pritchard MD Neck CTA 03/13/17 0000 Signed Impressions: Service Date/Time: Monday, March 13, 2017 13:43 - CONCLUSION: 1. No evidence of hemodynamic significant lesion. There is 0%% stenosis bilaterally Georges Hannon MD Head CTA 03/13/17 0000 Signed Impressions: Service Date/Time: Monday, March 13, 2017 13:43 - CONCLUSION: 1. Unremarkable CT angiography of the brain. Georges Hannon MD Liver Ultrasound 03/12/17 0000 Signed Impressions: Service Date/Time: Sunday, March 12, 2017 15:55 - CONCLUSION: 1. Gallbladder wall thickening and pericholecystic fluid without stones. Cholecystitis is not excluded. Radionuclide imaging is recommended for further evaluation if clinically indicated. Georges Hannon MD Objective Remarks GENERAL: thin lady, pleasant, lying in bed sedated and intubated. Unable to follow commands SKIN: No rashes, ecchymoses or lesions. Cool and dry. HEAD: Atraumatic. Normocephalic. EYES: R pupil sluggish to react to light as compared to the L pupil, EOMI ENT: Throat clear, TMs were hard to visualize due to wax NECK: Supple, nontender, no meningeal signs. No JVD or LAD. CARDIOVASCULAR: Regular rate and rhythm without murmurs, gallops, or rubs. RESPIRATORY: rales in b/l bases. No accessory muscle use. GASTROINTESTINAL: Abdomen soft, non-tender, nondistended. No hepato-splenomegaly , or palpable masses. No guarding. No hepato-jugular reflex. MUSCULOSKELETAL: No edema in lower extremities. Trace edema in left upper extremity. NEUROLOGICAL: Sedated and intubated. Cranial nerves II through XII grossly intact.Patient keeps left hand grasped into a fist at baseline with contracture. Medications and IVs Current Medications Medications (Trade) Dose Ordered Sig/Curtis Route Start Time Stop Time Status Last Admin (Eliquis) 5 mg BID PO 03/09/17 09:00 03/16/17 09:24 (Ecotrin Ec) 81 mg DAILY PO 03/09/17 09:00 03/15/17 08:59 (Lipitor) 80 mg HS PO 03/09/17 21:00 03/15/17 20:56 (Coreg) 6.25 mg BID PO 03/09/17 09:00 Future Hold 03/15/17 08:59 (Lanoxin) 0.125 mg DAILY PO 03/09/17 09:00 03/16/17 09:25 (Folate) 1 mg DAILY PO 03/09/17 09:00 03/16/17 09:23 (Vimpat) 200 mg BID PO 03/09/17 09:00 03/16/17 09:36 (Namenda) 10 mg BID PO 03/09/17 09:00 03/16/17 09:23 (PHENobarbital) 32.4 mg BID PO 03/09/17 09:00 03/16/17 09:24 (Aldactone) 25 mg DAILY PO 03/09/17 09:00 03/16/17 09:29 (Hemocyte) 325 mg BIDPC PO 03/09/17 09:00 03/16/17 09:26 (Vitamin B1) 200 mg DAILY PO 03/09/17 09:00 03/16/17 09:30 (NS Flush) 2 ml UNSCH PRN IV FLUSH 03/09/17 02:30 (NS Flush) 2 ml BID IV FLUSH 03/09/17 09:00 03/16/17 09:00 (Tylenol) 650 mg Q4H PRN PO 03/09/17 02:30 (D50w (Vial) Inj) 50 ml UNSCH PRN IV PUSH 03/09/17 02:30 03/13/17 17:09 (Glucagon Inj) 1 mg UNSCH PRN OTHER 03/09/17 02:30 (Debrox 6.5% Otic) 5 drop Q12HR EACH EAR 03/09/17 09:00 03/15/17 20:54 (Clear Eyes Redness Relief 0.012% Opth Soln) 1 drop QID PRN EACH EYE 03/09/17 03:00 03/14/17 07:58 (Chapstick) 1 applic UNSCH PRN TOPICAL 03/09/17 03:00 03/14/17 07:57 (Zofran Inj) 4 mg Q6HR PRN IV PUSH 03/09/17 03:15 (Drisdol) 50,000 units Q7D PO 03/09/17 14:00 03/09/17 16:30 (NS Flush) DAILY IV FLUSH 03/14/17 09:00 03/16/17 09:00 (NS Flush) UNSCH PRN IV FLUSH 03/13/17 13:15 (Peridex 0.12% Liq) 15 ml BID@08,20 MT 03/13/17 20:00 03/16/17 07:43 Fentanyl Citrate 250 ml @ 5 mls/hr TITRATE PRN IV 03/13/17 13:30 03/16/17 03:16 Sodium Chloride 1,000 ml @ 30 mls/hr Q24H IV 03/13/17 13:17 03/16/17 05:00 (Duoneb Neb) 1 ampule Q6HR NEB NEB 03/13/17 16:00 03/16/17 07:38 (Albuterol Neb) 2.5 mg Q2HR NEB PRN NEB 03/13/17 16:00 Norepinephrine Bitartrate 250 ml @ 7.5 mls/hr TITRATE PRN IV 03/14/17 03:15 03/15/17 21:03 (Lasix Inj) 40 mg BID@09,18 IV PUSH 03/14/17 18:00 03/16/17 09:23 Midazolam HCl 100 ml @ 2 mls/hr TITRATE PRN IV 03/14/17 12:45 03/14/17 13:26 (Prevacid Odt) 30 mg DAILY NG 03/15/17 09:00 03/16/17 09:24 (Tears Naturale Opth Soln) 1 drop Q8HR EACH EYE 03/14/17 14:00 03/16/17 06:35 (Trileptal) 1,200 mg BID PO 03/14/17 21:00 03/16/17 09:29 (NovoLIN R SUPPLEMENTAL SCALE) 1 Q4HR SQ 03/15/17 16:00 03/16/17 00:23 (Troy Mars MD, R3) Date of Insertion: Mar 13, 2017 Line: Central Venous Catheter Side: Right Location: Internal, Jugular (Troy Mars MD, R3) A/P Assessment and Plan 51 yr old F admitted for acute on chronic CHF exacerbation. Patient with acute respiratory failure resulting in intubation at this time. Discharge Planning Acute respiratory failure resulting in intubation. Patient has been transferred to the ICU, discharge to be determined with improvement of current medical condition PT consult- PT at rehab she will need rehab at D/C as she is weak and a fall risk. her daughter is deciding on where to go per case management notes (Troy Mars MD, R3) Attending Attestation Patient seen and examined. Case reviewed and discussed with the resident team. Agree with plan of care as discussed with me and documented in the resident note. agree with asking palliative to help clarify goals. her daughter wants to her to have aggressive care. (Aarti Frank MD) Problem List: (1) Respiratory failure requiring intubation ICD Codes: J96.90 - Respiratory failure, unspecified, unspecified whether with hypoxia or hypercapnia Status: Acute Plan: Neuro/Psych: History of right MCA CVA with left arm and didn't balance disorder Seizure disorder NOS Dementia disorder NOS Patient is currently on propofol/fentanyl for sedation/analgesia while intubated Goal of RA SS -2 Daily sedation vacation Continue lactulose 100 mg twice a day CT brain, CT angiogram brain and neck: Unremarkable Cannot have MRI due to ICD placement Not a candidate for thrombolytic due to current anticoagulant use EEG: Seizure focus activity, sharps in right frontal region. Repeat EEG plan for today 03/16/17 Phenobarbital 32.4 mg twice a day Oxcarbazepine 1.2 milligrams twice a day Seizure precautions Continued Namenda 10 mg twice a day Resp: Acute upper Respiratory failure ACV 15/50//40 Ventilator bundle Albuterol ipratropium aerosols every 6 hours and albuterol aerosols every 2 hours. Dyspnea Spontaneous CPAP trials daily CV: Chronic systolic heart failure ejection fraction 15-20% Hypertension Dyslipidemia Echocardiogram 03/20 revealed EF 20%. LA dilation. Moderate MR/TR. PaP 67 mmHg. Small pericardial Effusion. Currently on digoxin 0.125 mg by mouth daily, Continue furosemide 40 mg twice a day. Spironolactone 25 mg by mouth daily for congestive heart failure Daily atorvastatin 80 mg by mouth daily for dyslipidemia Evaluated by Dr. Cruz in this hospitalization. 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 Miguel Continue aspirin 81 mg by mouth daily GI: Patient is currently nothing by mouth NGT to JACQUES Pantoprazole for GI prophylaxis Docusate sodium for bowel regimen : Hinson catheter will be placed for accurate I's nose any critically ill patient receiving diuretics Endo: Sliding scale insulin with Accu-Cheks to maintain euglycemia Renal: Creatinine currently within normal limits Monitor urine output accurate I's and O's Heme: Continue ferrous sulfate 325 mg by mouth twice a day ID: Monitor for infection FEN: Replace electrolytes as clinically indicated MSK: Gait imbalance disorder Left upper extremity contracture Access - Right IJ CVL Prophylaxis - GI - pantoprazole - DVT - SCDs/Apixaban will provide DVT prophylaxis Palliative care has been consulted to help with further transition of care, recommendations appreciated (2) CHF exacerbation ICD Codes: I50.9 - Heart failure, unspecified Status: Acute (3) Diabetes ICD Codes: E11.9 - Diabetes Status: Chronic (4) Cardiomyopathy ICD Codes: I42.9 - Cardiomyopathy Status: Chronic (5) History of right MCA stroke ICD Codes: Z86.73 - History of right MCA stroke Status: Chronic (6) Seizures ICD Codes: R56.9 - Unspecified convulsions Status: Chronic (7) Nutrition, metabolism, and development symptoms ICD Codes: R63.8 - Nutrition, metabolism, and development symptoms Status: Acute (Troy Mars MD, R3) Problem Qualifiers (1) CHF exacerbation: Qualified Codes: I50.9 - Heart failure, unspecified (2) Diabetes: Troy Mars MD, R3 Mar 16, 2017 09:50 Aarti Frank MD Mar 16, 2017 11:20
[2017-03-16] MEDS: CARBAMIDE PEROXIDE 6.5% OTIC SOLN 15 ML BTL EACH EAR SCH ×2 (09:54→20:22)
[2017-03-16] MEDS: ERGOCALCIFEROL (VIT D2) 50,000 UNIT CAP PO SCH (13:05)
--- NOTE | 2017-03-16 14:18 | HHI.CCPN ---
Subjective Remarks/Hospital Course 51 yr old AA F here date of admission 03/09/2017. Date of consultation 2016. 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 Her left upper extremity contracted,, seizures, T2DM, and CHF(EF currently 25%), she was originally presented to the ED at [facility] on 2016 with a two- day history of shortness of breath positive orthopnea. Positive wheezing. Positive cough frothy sputum. Tour Counselor is Dr. Miguel. In the ED, noted to have CT brain which showed no signs intracranial process. She is admitted under the [facility] service. She is evaluated Dr. Cruz cardiology - rec - IV diuresis Strict I&O Daily Weight Telemetry monitoring Low salt diet Cont ASA, Coreg, Digoxin, Statin, Eliquis Today, patient was to be discharged to an extended care facility when she finishes the short of breath and unresponsive. [facility] was called and the patient was transferred from [facility]. She had no IV access. Central line placement was performed patient was orotracheally intubated without complication. Noted at frothy secretions upon intubation CTA brain/neck and CT head revealed no acute intracranial findings/stenosis. 03/14: Noted likely seizure activity in EEG. Patient placed on low-dose norepinephrine overnight. We'll change sedatives. Start on Midazolam instead of propofol. Check CVP. Start bowel regimen and tube feeding. 03/15: Afebrile. Remains on norepinephrine at 8 mg/m. Tolerating tube feeding. CVP between 9 and 12. Subjective 03/16: Norepinephrine drip down to 4 mics grams per minute. Diuresing. Tolerating tube feeding. Arousable but not really following commands off sedation. Objective Vital Signs Date Time Temp Pulse Resp B/P (MAP) Pulse Ox O2 Delivery O2 Flow Rate FiO2 03/16/17 12:00 40 03/16/17 12:00 90 03/16/17 12:00 100.2 15 108/72 (84) 98 03/15/17 07:45 Ventilator 03/13/17 12:00 15.00 Intake and Output 03/16/17 03/16/17 03/17/17 08:00 16:00 00:00 Intake Total 1543 ml Output Total 950 ml Balance 593 ml Result Diagram: 03/16/17 0425 03/16/17 0425 Other Results Microbiology Date/Time Source Procedure Growth Status 03/15/17 19:41 Blood Peripheral Aerobic Blood Culture - Preliminary NO GROWTH IN 1 DAY Resulted 03/15/17 19:41 Blood Peripheral Anaerobic Blood Culture - Preliminary NO GROWTH IN 1 DAY Resulted 03/15/17 22:20 Sputum Endotracheal Gram Stain - Final Resulted 03/15/17 22:20 Sputum Endotracheal Sputum Culture - Preliminary IMMATURE GROWTH - REINCUBATE Resulted Imaging Last Impressions Chest X-Ray 03/16/17 0600 Signed Impressions: Service Date/Time: Thursday, March 16, 2017 02:07 - CONCLUSION: 1. Bilateral mostly basilar airspace disease. Cardiomegaly. Support apparatus in good position. Sam Cruz MD Head CT 03/13/17 1345 Signed Impressions: Service Date/Time: Monday, March 13, 2017 13:43 - CONCLUSION: 1. Old area of infarct involving the right MCA distribution. 2. Colpocephalic dilation of the ventricular system. 3. Stable examination compared to previous dated 10/23/16. 4. Postcraniotomy changes within the skull. Warner Pritchard MD Neck CTA 03/13/17 0000 Signed Impressions: Service Date/Time: Monday, March 13, 2017 13:43 - CONCLUSION: 1. No evidence of hemodynamic significant lesion. There is 0%% stenosis bilaterally Georges Hannon MD Head CTA 03/13/17 0000 Signed Impressions: Service Date/Time: Monday, March 13, 2017 13:43 - CONCLUSION: 1. Unremarkable CT angiography of the brain. Georges Hannon MD Liver Ultrasound 03/12/17 0000 Signed Impressions: Service Date/Time: Sunday, March 12, 2017 15:55 - CONCLUSION: 1. Gallbladder wall thickening and pericholecystic fluid without stones. Cholecystitis is not excluded. Radionuclide imaging is recommended for further evaluation if clinically indicated. Georges Hannon MD Objective Remarks GENERAL: This is a 51 yo female critically ill currently orotracheally intubated SKIN: Cool and dry HEAD: Atraumatic. Normocephalic. EYES: Pupils equal and round about 3 mm bilaterally and reactive. No scleral icterus. No injection or drainage. ENT: No nasal bleeding or discharge. Mucous membranes pink and moist. Orotracheally intubated NECK: Trachea midline. +JVD. Right IJ is clean dry and intact CARDIOVASCULAR: Regular rate and rhythm. S1, S2 no S4. Possible S3. 2/6 systolic murmur left lower sternal border RESPIRATORY: Coarse crackles appreciable bilaterally. Positive inspiratory and expiratory wheeze. GASTROINTESTINAL: Abdomen soft, non-tender, nondistended. Hypoactive bowel sounds MUSCULOSKELETAL: Extremities without noted in peripheral edema. No obvious deformities. NEUROLOGICAL: Arousable but moaning words. Weakly trying to pain right upper and lower extremity Date of Insertion: Mar 13, 2017 Line: Central Venous Catheter Side: Right Location: Internal, Jugular A/P Assessment and Plan Neuro/Psych: History of right MCA CVA with left arm and didn't balance disorder Seizure disorder NOS Dementia disorder NOS Patient is currently off midazolaml/fentanyl for sedation/analgesia while intubated Goal of RASS -2 Daily sedation vacation Continue lactulose might 100 mg twice a day, phenobarbital 32.4 mill grams twice a day, oxcarbazepine 1200 mg Cannot have MRI due to ICD placement Evaluate by Dr. Marcos Neurology. Not a candidate for thrombolytic due to current anticoagulant use EEG nasprwn26/11 - Abnormal EEG because of right frontotemporal frequent sharp and spike type of discharges which have an epileptiform appearance. No ictal pattern. There is bi-hemisphere slowing compatible with bilateral abnormalities though the slowing might also be all due to sedation. Artificially though the bilateral slowing might be all due to sedation. Seizure precautions Continued Namenda 10 mg twice a day Resp: Acute upper Respiratory failure likely secondary to CHF exacerbation ACV 15/500/5/5/40 Ventilator bundle Albuterol ipratropium aerosols every 6 hours and albuterol aerosols every 2 hours. Dyspnea Spontaneous breathing trials daily CV: Chronic systolic heart failure ejection fraction 15-20% Hypertension Dyslipidemia Echocardiogram 03/20 revealed EF 20%. LA dilation. Moderate MR/TR. PaP 67 mmHg. Small pericardial Effusion.. Repeat echocardiogram revealed EF less than 20%. Atrial dilatation. Pulmonary she pressures greater than 70. No signs. Currently on digoxin 0.125 mg by mouth daily, Continue furosemide 60 mg IV twice a day. Spironolactone 25 mg by mouth daily for congestive heart failure. 1 dose Zaroxolyn today Daily atorvastatin 80 mg by mouth daily for dyslipidemia Evaluated by Dr. Cruz in this hospitalization. Her podiatry doctor Dr. Miguel Continue aspirin 81 mg by mouth daily GI: Hypoalbuminemia Start tube feeding with vital 1.5 goal 50 cc an hour Pantoprazole for GI prophylaxis Docusate sodium for bowel regimen : Hinson catheter will be placed for accurate I's nose any critically ill patient receiving diuretics Endo: Slding scale insulin with Accu-Cheks to maintain euglycemia Renal: Creatinine currently within normal limits Monitor urine output accurate I's and O's Heme: History of anemia Continue ferrous sulfate 325 mg by mouth twice a day ID: Monitor for infection Blood cultures 2, sputum and urine pending FEN: Replace electrolytes as clinically indicated MSK: Gait imbalance disorder Left upper extremity contracture Access - Right IJ CVL Prophylaxis - GI - pantoprazole - DVT - SCDs/Apixaban will provide DVT prophylaxis Critical Care: The total critical care time was 35 minutes. Time to perform other separately billable procedures was not included in the critical care time. Owen Tim MD Mar 16, 2017 14:18
[2017-03-16] MEDS ORDERED: METOLAZONE 5 MG TAB PO ONE (14:30)
[2017-03-16] MEDS ORDERED: POTASSIUM CHLORIDE 20 MEQ PWD PACKET PO ONE (14:30)
[2017-03-16] MEDS: HYDROCORTISONE SOD SUCCINATE 100 MG VIAL IV PUSH SCH ×2 (14:46→22:08)
--- NOTE | 2017-03-16 15:17 | PD.CONS ---
Consult Service Palliative Care Consult Requested By Dr. Mars . Primary Care Physician Kelsy Levine MD . Reason for Consultation a. To assist with evaluation and management of symptoms including: Dyspnea , encephalopathy b. To assist medical decision maker(s) with: better understanding of current medical conditions; weighing benefits/burdens of medical treatment options; making medical treatment decisions. . HPI History of Present Illness This is the fourth hospitalization in 2017 (in addition to emergency department visits) for this 51-year-old female with a past history of cardiomyopathy (EF 15 -20%), CHF, cor pulmonale, acute stroke with left hemiplegia in 2013, diabetes, seizures, vascular dementia, and atrial fibrillation. The patient's daughter reports that the patient's physicians did not believe she would survive after her 2014 stroke and the daughter took her home from the hospital with hospice services. Within a couple months the patient was improving, eating, getting stronger, and she was discharged from hospice and admitted to [facility]; she was eventually able to to ambulate with a miky-cane and returned back home.. She was admitted in June 2016 with septic shock and respiratory failure, again in June with altered mental status, in December because of recurrent seizure and altered mental status, and now on 03/09/17. She was in another Rehab facility for a month or so after the June 2016 admission, but again was able to return home, ambulatory, conversant. Now, she presented to the emergency department this time with shortness of breath and some confusion. In the emergency department, findings included: * Confusion, left hemiplegia, left arm/wrist/hand contractures * Temp 97.1, pulse 92, oxygen saturation 88% on room air * White count 6.2, hemoglobin 13.4 * Sodium 142, creatinine 0.43, albumin 2.5 * Chest x-ray with cardiomegaly and bibasilar infiltrates * CT brain scan with no new findings, but again revealing the encephalomalacia of the right MCA region The patient was admitted and treated for her CHF and respiratory failure, and seemed to be improving. Arrangements were made with a plan for transferring her to a Rehab facility, but prior to that transfer the patient became more dyspneic and essentially unresponsive and she was INTUBATED on 03/13/17. A repeat CT scan revealed no new findings. An EEG the following day did show some seizure activity on the right (as had been present in multiple EEGs). By 03/15/17, the patient was kept off of all sedatives. She did require norepinephrine for a couple days but that was also weaned off. By 03/16/17, the patient would open her eyes briefly when disturbed or to painful stimuli, did not track or follow simple commands. Palliative Care was consulted to assist with symptom management, and to enter into discussions with the patient's daughter/decision-maker regarding her current illnesses, the prognosis, and the benefits and burdens of the various treatment options. . Function/Cognitive Trajectory Since the patient unexpectedly survived of the large stroke in 2013, she has been through rehab twice and has been ambulatory with a miky-cane at home. The daughter reports that the patient has normal speech, has intermittent but very mild confusion, uses her pad, makes phone calls, helps take care of herself, etc. . Review of Systems ROS Limitations: Clinical Condition, Intubated Constitutional: DENIES: Fever Endocrine: DENIES: Polyuria Eyes: DENIES: Eye inflammation Ears, nose, mouth, throat: DENIES: Epistaxis Respiratory: COMPLAINS OF: Shortness of breath Cardiovascular: DENIES: Lower Extremity Edema Gastrointestinal: DENIES: Bloody stools, Diarrhea, Vomiting, Vomiting blood Genitourinary: DENIES: Hematuria Musculoskeletal: DENIES: Joint Swelling Integumentary: DENIES: Rash Hematologic/Lymphatics: DENIES: Lymphadenopathy Immunologic/Allergic: DENIES: Urticaria Neurologic: COMPLAINS OF: Abnormal gait, Localized weakness (left sided since the stroke 2013), Seizures (since 2013) Psychiatric: COMPLAINS OF: Anxiety, Depression Past Family Social History Coded Allergies: Sulfa (Sulfonamide Antibiotics) (Unverified Allergy, Severe, ANYYHING WITH IT IN IT AND I FALL OUT AND GET THE SHAKES, 02/06/17) lemon (Unverified Allergy, Severe, EDEMA, 02/06/17) phenytoin (Unverified Allergy, Severe, 02/06/17) benazepril (Unverified Allergy, Intermediate, ANGIOEDEMA, 02/06/17) CONFIRMED OF 01/03/2010 captopril (Unverified Allergy, Intermediate, ANGIOEDEMA, 02/06/17) CONFIRMED OF 01/03/2010 enalaprilat (Unverified Allergy, Intermediate, ANGIOEDEMA, 02/06/17) CONFIRMED OF 01/03/2010 fosinopril (Unverified Allergy, Intermediate, ANGIOEDEMA, 02/06/17) CONFIRMED OF 01/03/2010 lisinopril (Unverified Allergy, Intermediate, ANGIOEDEMA, 02/06/17) CONFIRMED OF 01/03/2010 quinapril (Unverified Allergy, Intermediate, ANGIOEDEMA, 02/06/17) CONFIRMED OF 01/03/2010 MRI PRECAUTION (Verified Adverse Reaction, Severe, AICD PRESENT, 02/06/17) AICD PRESENT 11/23/13 JLA Uncoded Allergies: MUCINEX (Allergy, Severe, CARDIAC INCIDENT, 09/18/13) Past Medical History * End-stage heart disease, with cardiomyopathy, CHF, cor pulmonale, and EF 15-20 %. * Acute CVA 2013 with left-sided weakness and arm contractures * Diabetes * Seizures since 2013 * Sepsis and respiratory failure June 2016 * History of vascular dementia * Atrial fibrillation * Anxiety * Depression * Hypothyroidism * Hypertension * GERD . Past Surgical History * 1984 * Hysterectomy * AICD 2002 and 2009 * Decompressive right craniotomy 2013 * Replace the bone flap right 2013 . Reported Medications Reported Meds & Active Scripts Active Memantine 10 Mg Tab 10 Mg PO BID Metformin (Metformin HCl) 500 Mg Tab 500 Mg PO BIDPC With meals Trileptal (Oxcarbazepine) 300 Mg Tab 600 Mg PO BID Pantoprazole (Pantoprazole Sodium) 40 Mg Tab 40 Mg PO DAILY Vimpat (Lacosamide) 200 Mg Tab 200 Mg PO BID Phenobarbital 32.4 Mg Tab 32.4 Mg PO BID Lasix (Furosemide) 40 Mg Tab 40 Mg PO BID@ Coreg (Carvedilol) 6.25 Mg Tab 6.25 Mg PO BID Digoxin 0.125 Mg Tab 0.125 Mg PO DAILY Lipitor (Atorvastatin Calcium) 80 Mg Tab 80 Mg PO HS Eliquis (Apixaban) 5 Mg Tab 5 Mg PO BID Spironolactone 25 Mg Tab 25 Mg PO DAILY Reported Vitamin B-1 (Thiamine HCl) 250 Mg Tab 250 Mg PO DAILY Ferrous Sulfate DR (Ferrous Sulfate) 325 Mg Tabdr 325 Mg PO BID Folic Acid 400 Mcg Tab 400 Mcg PO DAILY Aspirin 81 (Aspirin) 81 Mg Tabdr 81 Mg PO DAILY . Current Medications Medications (Trade) Dose Ordered Sig/Curtis Route Start Time Stop Time Status Last Admin (Eliquis) 5 mg BID PO 03/09/17 09:00 03/16/17 09:24 (Ecotrin Ec) 81 mg DAILY PO 03/09/17 09:00 03/15/17 08:59 (Lipitor) 80 mg HS PO 03/09/17 21:00 03/15/17 20:56 (Coreg) 6.25 mg BID PO 03/09/17 09:00 Future Hold 03/15/17 08:59 (Lanoxin) 0.125 mg DAILY PO 03/09/17 09:00 03/16/17 09:25 (Folate) 1 mg DAILY PO 03/09/17 09:00 03/16/17 09:23 (Vimpat) 200 mg BID PO 03/09/17 09:00 03/16/17 09:36 (Namenda) 10 mg BID PO 03/09/17 09:00 03/16/17 09:23 (PHENobarbital) 32.4 mg BID PO 03/09/17 09:00 03/16/17 09:24 (Aldactone) 25 mg DAILY PO 03/09/17 09:00 03/16/17 09:29 (Hemocyte) 325 mg BIDPC PO 03/09/17 09:00 03/16/17 09:26 (Vitamin B1) 200 mg DAILY PO 03/09/17 09:00 03/16/17 09:30 (NS Flush) 2 ml UNSCH PRN IV FLUSH 03/09/17 02:30 (NS Flush) 2 ml BID IV FLUSH 03/09/17 09:00 03/16/17 09:00 (Tylenol) 650 mg Q4H PRN PO 03/09/17 02:30 (D50w (Vial) Inj) 50 ml UNSCH PRN IV PUSH 03/09/17 02:30 03/13/17 17:09 (Glucagon Inj) 1 mg UNSCH PRN OTHER 03/09/17 02:30 (Debrox 6.5% Otic) 5 drop Q12HR EACH EAR 03/09/17 09:00 03/16/17 09:54 (Clear Eyes Redness Relief 0.012% Opth Soln) 1 drop QID PRN EACH EYE 03/09/17 03:00 03/14/17 07:58 (Chapstick) 1 applic UNSCH PRN TOPICAL 03/09/17 03:00 03/14/17 07:57 (Zofran Inj) 4 mg Q6HR PRN IV PUSH 03/09/17 03:15 (Drisdol) 50,000 units Q7D PO 03/09/17 14:00 03/16/17 13:05 (NS Flush) DAILY IV FLUSH 03/14/17 09:00 03/16/17 09:00 (NS Flush) UNSCH PRN IV FLUSH 03/13/17 13:15 (Peridex 0.12% Liq) 15 ml BID@08,20 MT 03/13/17 20:00 03/16/17 07:43 Fentanyl Citrate 250 ml @ 5 mls/hr TITRATE PRN IV 03/13/17 13:30 03/16/17 03:16 (Duoneb Neb) 1 ampule Q6HR NEB NEB 03/13/17 16:00 03/16/17 07:38 (Albuterol Neb) 2.5 mg Q2HR NEB PRN NEB 03/13/17 16:00 Norepinephrine Bitartrate 250 ml @ 7.5 mls/hr TITRATE PRN IV 03/14/17 03:15 03/15/17 21:03 Midazolam HCl 100 ml @ 2 mls/hr TITRATE PRN IV 03/14/17 12:45 03/14/17 13:26 (Prevacid Odt) 30 mg DAILY NG 03/15/17 09:00 03/16/17 09:24 (Tears Naturale Opth Soln) 1 drop Q8HR EACH EYE 03/14/17 14:00 03/16/17 13:05 (Trileptal) 1,200 mg BID PO 03/14/17 21:00 03/16/17 09:29 (NovoLIN R SUPPLEMENTAL SCALE) 1 Q4HR SQ 03/15/17 16:00 03/16/17 13:02 (Lasix Inj) 60 mg BID@09,18 IV PUSH 03/16/17 18:00 (SoluCORTEF INJ) 100 mg Q8HR IV PUSH 03/16/17 14:30 03/16/17 14:46 Family History The patient's mother of carbon monoxide poisoning, and her father of lung cancer. Her aunt had a stroke and is living. The patient's nephew also developed CHF in his 30s (as did the patient). . Substance Use Tobacco: None Alcohol: None Prescription med abuse: None Illicits: None . Psychosocial History The patient was born here in this area and his lived here her entire life. She was , but about 3 years ago when her of pancreatic cancer. She has one child, her daughter Colten Foote. 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 . Spiritual/Cultural Factors Jillian and spirituality have been very important for the patient, and she has been a member of a Hindu judaism in recent years. The patient's daughter DOES believe the patient would want computer analyst supervisor visits and prayer. . Living Will: Never completed Health Care Surrogate: Never completed Durable Power of Bulb Grower: Never completed Family/friends goals: The patient's daughter has had conversation with the patient over the last couple years about goals and wishes. The goals remain aggressive at this time, but the patient's daughter would not want to keep the patient on life support long-term if the encephalopathy and brain function does not significantly improve. We will readdress the goals as time passes and the patient's condition evolves. . Ethical and Legal Issues There are no ethical issues that would impact her care were decision-making at this time. The patient lacks capacity for decision-making, and it seems unlikely that she will regain that capacity. Her daughter (only child) is functioning as the healthcare proxy decision-maker. . Physical Exam Vital Signs Date Time Temp Pulse Resp B/P (MAP) Pulse Ox O2 Delivery O2 Flow Rate FiO2 03/16/17 14:00 86 03/16/17 12:00 40 03/16/17 12:00 90 03/16/17 12:00 100.2 88 15 108/72 (84) 98 03/16/17 10:00 87 03/16/17 08:00 97.8 71 16 152/88 (109) 98 03/16/17 08:00 88 03/16/17 08:00 100.4 59 15 113/68 (83) 100 03/16/17 08:00 40 03/16/17 07:38 100 40 03/16/17 07:38 40 03/16/17 06:00 79 106/69 (81) 03/16/17 06:00 79 03/16/17 04:00 40 03/16/17 04:00 100.2 92 15 116/83 (94) 100 03/16/17 04:00 92 03/16/17 03:15 99 40 03/16/17 02:00 83 03/16/17 00:00 91 03/16/17 00:00 100.6 91 15 118/79 (92) 100 03/16/17 00:00 40 03/15/17 23:33 100 40 03/15/17 22:00 75 03/15/17 21:03 76 115/80 03/15/17 20:00 99.9 78 15 113/76 (88) 100 03/15/17 20:00 80 03/15/17 20:00 100 40 03/15/17 20:00 40 03/15/17 18:00 71 03/15/17 18:00 71 114/74 (87) 03/15/17 16:00 40 03/15/17 16:00 75 03/15/17 16:00 99.3 71 15 106/68 (81) 100 03/15/17 15:31 100 40 03/16/17 03/17/17 19:00 07:00 Intake Total 200 ml Balance 200 ml IV Total 200 ml Exam CONSTITUTIONAL/GENERAL: This is an adequately nourished patient, quite encephalopathic, in the ISC, intubated. TUBES/LINES/DRAINS: ET tube, SCDs, central line, tube for artificial nutrition, Hinson SKIN: No jaundice, rashes, or lesions. No wounds seen anteriorly. Skin temperature appropriate. Not diaphoretic. HEAD: Atraumatic. Some deformity still present from craniotomies on the right side of her skull. EYES: Pupils equal and round and reactive. No scleral icterus. No injection or drainage. Fundi not examined. ENT: Unable to evaluate hearing due to clinical condition. Nose without bleeding or purulent drainage. NECK: Trachea midline. Supple, nontender. No palpable thyroid enlargement or nodularity. CARDIOVASCULAR: Regular rate and rhythm, grade 2 systolic murmur. No JVD. Peripheral pulses quite diminished in the feet/ankles. RESPIRATORY/CHEST: Symmetric, unlabored respirations on the ventilator. Scattered rhonchi bilateral GASTROINTESTINAL: Abdomen soft, nondistended. No hepato-splenomegaly, or palpable masses. No guarding. Bowel sounds present. GENITOURINARY: Without palpable bladder distension. Hinson catheter in place. MUSCULOSKELETAL: Extremities without clubbing, cyanosis, or edema. No mottling or clubbing. Flexion contractures involving the left arm, wrist, fingers. LYMPHATICS: No palpable cervical or supraclavicular adenopathy. NEUROLOGICAL: Severely encephalopathic; opens eyes to painful stimuli but does not track. Does not respond to light touch or verbal stim, does not follow simple commands. PSYCHIATRIC: No obvious anxiety/depression or apparent hallucinations . Diagnostic Tests Laboratory Laboratory Tests Test 03/13/17 16:00 03/14/17 05:31 03/14/17 16:15 03/15/17 03:55 Blood Gas Puncture Site CENTRAL LINE Blood Gas Patient Temperature 98.6 Venous Blood pH 7.51 (7.360-7.400) Venous Blood Partial Pressure CO2 34 mmHg (44-48) Venous Blood Partial Pressure O2 37 mmHg (35-40) Venous Blood HCO3 26 mmol/L (22-26) Venous Blood Oxygen Saturation 64 % (70-76) Venous Blood Oxygen Content 10.4 Vol % (9.0-17.0) Venous Blood Base Excess 3.3 mmol/L (-2-2) Oxygen Delivery Device VENTILATOR Blood Gas Ventilator Setting AC/15/500/PEEP5 Blood Gas Inspired Oxygen 40 % White Blood Count 7.7 TH/MM3 (4.0-11.0) 8.1 TH/MM3 (4.0-11.0) Red Blood Count 4.44 MIL/MM3 (4.00-5.30) 4.50 MIL/MM3 (4.00-5.30) Hemoglobin 11.1 GM/DL (11.6-15.3) 11.3 GM/DL (11.6-15.3) Hematocrit 34.2 % (35.0-46.0) 35.3 % (35.0-46.0) Mean Corpuscular Volume 77.1 FL (80.0-100.0) 78.4 FL (80.0-100.0) Mean Corpuscular Hemoglobin 25.1 PG (27.0-34.0) 25.2 PG (27.0-34.0) Mean Corpuscular Hemoglobin Concent 32.5 % (32.0-36.0) 32.2 % (32.0-36.0) Red Cell Distribution Width 15.8 % (11.6-17.2) 15.8 % (11.6-17.2) Platelet Count 188 TH/MM3 (150-450) 202 TH/MM3 (150-450) Mean Platelet Volume 8.8 FL (7.0-11.0) 9.4 FL (7.0-11.0) Neutrophils (%) (Auto) 72.6 % (16.0-70.0) 72.8 % (16.0-70.0) Lymphocytes (%) (Auto) 16.7 % (9.0-44.0) 14.9 % (9.0-44.0) Monocytes (%) (Auto) 8.6 % (0.0-8.0) 9.9 % (0.0-8.0) Eosinophils (%) (Auto) 1.0 % (0.0-4.0) 1.6 % (0.0-4.0) Basophils (%) (Auto) 1.1 % (0.0-2.0) 0.8 % (0.0-2.0) Neutrophils # (Auto) 5.6 TH/MM3 (1.8-7.7) 5.9 TH/MM3 (1.8-7.7) Lymphocytes # (Auto) 1.3 TH/MM3 (1.0-4.8) 1.2 TH/MM3 (1.0-4.8) Monocytes # (Auto) 0.7 TH/MM3 (0-0.9) 0.8 TH/MM3 (0-0.9) Eosinophils # (Auto) 0.1 TH/MM3 (0-0.4) 0.1 TH/MM3 (0-0.4) Basophils # (Auto) 0.1 TH/MM3 (0-0.2) 0.1 TH/MM3 (0-0.2) CBC Comment DIFF FINAL AUTO DIFF Differential Comment FINAL DIFF MANUAL Blood Urea Nitrogen 31 MG/DL (7-18) 19 MG/DL (7-18) Creatinine 0.65 MG/DL (0.50-1.00) 0.61 MG/DL (0.50-1.00) Random Glucose 101 MG/DL (74-106) 316 MG/DL (74-106) Calcium Level 7.7 MG/DL (8.5-10.1) 7.6 MG/DL (8.5-10.1) Phosphorus Level 2.6 MG/DL (2.5-4.9) 3.3 MG/DL (2.5-4.9) Magnesium Level 1.8 MG/DL (1.5-2.5) 1.7 MG/DL (1.5-2.5) Sodium Level 140 MEQ/L (136-145) 138 MEQ/L (136-145) Potassium Level 3.8 MEQ/L (3.5-5.1) 3.8 MEQ/L (3.5-5.1) Chloride Level 107 MEQ/L (98-107) 105 MEQ/L (98-107) Carbon Dioxide Level 24.7 MEQ/L (21.0-32.0) 23.7 MEQ/L (21.0-32.0) Anion Gap 8 MEQ/L (5-15) 9 MEQ/L (5-15) Estimat Glomerular Filtration Rate 117 ML/MIN (>89) 126 ML/MIN (>89) Ammonia 35 MCMOL/L (11-32) Troponin I 0.05 NG/ML (0.02-0.05) Digoxin Level 1.2 NG/ML (0.8-2.0) Phenobarbital Level 23.1 MCG/ML (15.0-40.0) Differential Total Cells Counted 100 Neutrophils % (Manual) 73 % (16-70) Band Neutrophils % 8 % (0-6) Lymphocytes % 16 % (9-44) Monocytes % 1 % (0-8) Eosinophils % 2 % (0-4) Neutrophils # (Manual) 6.6 TH/MM3 (1.8-7.7) Nucleated Red Blood Cells 2 /100 WBC (0-0) Platelet Estimate NORMAL (NORMAL) Platelet Morphology Comment NORMAL (NORMAL) Basophilic Stippling FAINT (NORMAL) Ovalocytes 1+ (NORMAL) Acanthocytes OCC (NORMAL) Total Protein 5.9 GM/DL (6.4-8.2) Albumin 2.2 GM/DL (3.4-5.0) Alkaline Phosphatase 175 U/L (45-117) Aspartate Amino Transf (AST/SGOT) 72 U/L (15-37) Alanine Aminotransferase (ALT/SGPT) 95 U/L (10-53) Total Bilirubin 0.5 MG/DL (0.2-1.0) Lactic Acid Level 1.4 mmol/L (0.4-2.0) Test 03/15/17 16:30 03/15/17 19:33 03/16/17 04:25 Urine Eosinophils NONE SEEN /HPF (NONE SEEN) B-Type Natriuretic Peptide 1232 PG/ML (0-100) Thyroid Stimulating Hormone 3rd Gen 4.550 uIU/ML (0.358-3.740) Random Cortisol 11.2 MCG/DL White Blood Count 11.7 TH/MM3 (4.0-11.0) Red Blood Count 4.69 MIL/MM3 (4.00-5.30) Hemoglobin 11.7 GM/DL (11.6-15.3) Hematocrit 36.3 % (35.0-46.0) Mean Corpuscular Volume 77.5 FL (80.0-100.0) Mean Corpuscular Hemoglobin 25.0 PG (27.0-34.0) Mean Corpuscular Hemoglobin Concent 32.2 % (32.0-36.0) Red Cell Distribution Width 16.0 % (11.6-17.2) Platelet Count 209 TH/MM3 (150-450) Mean Platelet Volume 9.0 FL (7.0-11.0) Blood Urea Nitrogen 13 MG/DL (7-18) Creatinine 0.40 MG/DL (0.50-1.00) Random Glucose 76 MG/DL (74-106) Total Protein 6.8 GM/DL (6.4-8.2) Albumin 2.3 GM/DL (3.4-5.0) Calcium Level 7.7 MG/DL (8.5-10.1) Phosphorus Level 3.1 MG/DL (2.5-4.9) Magnesium Level 2.1 MG/DL (1.5-2.5) Alkaline Phosphatase 198 U/L (45-117) Aspartate Amino Transf (AST/SGOT) 66 U/L (15-37) Alanine Aminotransferase (ALT/SGPT) 96 U/L (10-53) Total Bilirubin 0.6 MG/DL (0.2-1.0) Sodium Level 137 MEQ/L (136-145) Potassium Level 3.6 MEQ/L (3.5-5.1) Chloride Level 104 MEQ/L (98-107) Carbon Dioxide Level 26.7 MEQ/L (21.0-32.0) Anion Gap 6 MEQ/L (5-15) Estimat Glomerular Filtration Rate 204 ML/MIN (>89) Result Diagram: 03/16/175 03/16/17 0425 Microbiology Microbiology Date/Time Source Procedure Growth Status 03/15/17 19:41 Blood Peripheral Aerobic Blood Culture - Preliminary NO GROWTH IN 1 DAY Resulted 03/15/17 19:41 Blood Peripheral Anaerobic Blood Culture - Preliminary NO GROWTH IN 1 DAY Resulted 03/15/17 19:33 Blood Peripheral Aerobic Blood Culture - Preliminary NO GROWTH IN 1 DAY Resulted 03/15/17 19:33 Blood Peripheral Anaerobic Blood Culture - Preliminary NO GROWTH IN 1 DAY Resulted 03/15/17 22:20 Sputum Endotracheal Gram Stain - Final Resulted 03/15/17 22:20 Sputum Endotracheal Sputum Culture - Preliminary IMMATURE GROWTH - REINCUBATE Resulted Imaging Last Impressions Chest X-Ray 03/16/17 0600 Signed Impressions: Service Date/Time: Thursday, March 16, 2017 02:07 - CONCLUSION: 1. Bilateral mostly basilar airspace disease. Cardiomegaly. Support apparatus in good position. Sam Cruz MD Head CT 03/13/17 1345 Signed Impressions: Service Date/Time: Monday, March 13, 2017 13:43 - CONCLUSION: 1. Old area of infarct involving the right MCA distribution. 2. Colpocephalic dilation of the ventricular system. 3. Stable examination compared to previous dated 10/23/16. 4. Postcraniotomy changes within the skull. Warner Pritchard MD Neck CTA 03/13/17 0000 Signed Impressions: Service Date/Time: Monday, March 13, 2017 13:43 - CONCLUSION: 1. No evidence of hemodynamic significant lesion. There is 0%% stenosis bilaterally Georges Hannon MD Head CTA 03/13/17 0000 Signed Impressions: Service Date/Time: Monday, March 13, 2017 13:43 - CONCLUSION: 1. Unremarkable CT angiography of the brain. Georges Hannon MD Liver Ultrasound 03/12/17 0000 Signed Impressions: Service Date/Time: Sunday, March 12, 2017 15:55 - CONCLUSION: 1. Gallbladder wall thickening and pericholecystic fluid without stones. Cholecystitis is not excluded. Radionuclide imaging is recommended for further evaluation if clinically indicated. Georges Hannon MD Procedures INTUBATION 03/13/17 Central line 03/13/17 . Patient/Family Conference Present at Family Conference: Patient's daughter/HCP Colten Foote . Family Conference Time (mins): 92 Family Conference Location: Consult Room Issues Discussed: * Palliative care role, purpose, approach * Hospice care role, purpose, approach * Additional medical, psychosocial, and spiritual history * Patients general health, functional status, and cognitive changes in the months leading up to the current hospitalization * Patient/family understanding of the current medical problems * Patient/family understanding of prognosis * Patients goals of care as best understood from advance directives and/or conversations and/or values * Current medical treatment options and benefits/burdens of those options * Likely scenarios comparing ongoing aggressive care with a transition to comfort measures only * Questions answered to the best of my ability * Palliative care contact information provided The patient's daughter has had conversation with the patient over the last couple years about goals and wishes. The goals remain aggressive at this time, but the patient's daughter would not want to keep the patient on life support long-term if the encephalopathy and brain function does not significantly improve. We will readdress the goals as time passes and the patient's condition evolves. . Assessment and Plan Disease Oriented Problem List: (1) respiratory failure Comment: Protecting the patient's airway because of the encephalopathy (2) encephalopathy Comment: Could be multifactorial, concern is for ongoing seizure activity.. (3) end-stage heart disease, with cardiomyopathy, CHF, cor pulmonale, EF 15-20% (4) acute ischemic CVA 2013, with left-sided weakness and left arm contractures (5) seizures since 2013 Comment: Persistently shows seizure activity on EEG is (6) diabetes (7) sepsis and respiratory failure June 2016 (8) history of vascular dementia (9) atrial fibrillation (10) anxiety (11) depression (12) hypothyroidism (13) hypertension (14) GERD Symptom Scale: (1) Seizure 0-10 Scale: Unable to quantify Comment: Since stroke in 2013; persistent seizure activity on EEG (2) dyspnea 0-10 Scale: Unable to quantify (3) encephalopathy 0-10 Scale: Unable to quantify Pertinent Non-Medical Issues 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 Lives with her daughter (only child). Spiritual: Jillian and spirituality have been very important for the patient, and she has been a member of a Hindu judaism in recent years. The patient's daughter DOES believe the patient would want computer analyst supervisor visits and prayer. Legal: The patient lacks capacity for decision-making, and it seems unlikely that she will regain that capacity. Her daughter is functioning as the healthcare proxy decision-maker. Ethical issues impacting care: None . Important Contacts Daughter: Colten Foote [phone] . Prognosis The patient's prognosis is poor. She has underlying end-stage heart disease, and now has a severe encephalopathy of undetermined etiology and respiratory failure. She has had multiple recent hospitalizations and will remain at risk for frequent and serious complications due to her debility and frequent hospital visits. She would be appropriate for hospice services if the goals become comfort oriented. . Code Status: Full Code Plan * FULL CODE * DECISION-MAKING: The patient lacks capacity for decision-making, and it seems unlikely that she will regain that capacity. Her daughter is functioning as the healthcare proxy decision-maker. * GOALS: The patient's daughter has had conversations with the patient over the last couple years about goals and wishes. The goals remain aggressive at this time, but the patient's daughter would not want to keep the patient on artificial life support long-term if the encephalopathy and brain function do not significantly improve. We will readdress the goals as time passes and the patient's condition evolves. * SYMPTOMS: With the persistent seizure activity on EEG, it is hard to tell if some of this encephalopathy represents persistent postictal state; neurology is adjusting anti-seizure meds. There is no obvious pain. The patient remains intubated to protect her airway, but is not obviously dyspneic. * Prepress Proofer notified; will see patient/family. 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 * Palliative Care will continue to follow the patient during this hospitalization. . Time Spent Total Floor Time (mins): 96 Face to Face Time (mins): 15 >50% Counseling/Coord of Care: Yes Thank you for the opportunity to participate in the care of Ms. Foote. Attestation To help prompt me to consider important information that might be impacting today's encounter and assessment, information from prior notes written by myself or my colleagues may have been "brought forward" into today's note. My signature on this note, however, is an attestation that I personally performed the exam, history, and/or decision-making noted today, and, unless otherwise indicated, the interactions with patient, family, and staff as well as the review of records all occurred today. I also attest that the listed assessment and stated plan reflect my best clinical judgment today based on the combination of historical information, prior notes, and today's exam/ interactions. When time spent is documented, it refers only to time spent today by the signer, or if indicated, combined time spent today by collaborating physician/nurse practitioner. Lelia Eugene MD Mar 16, 2017 15:17
[2017-03-16] MEDS: NOREPINEPHRINE 4 MG/D5W 250 ML IV PRN (15:54)
[2017-03-16] MEDS: ATORVASTATIN 80 MG TAB PO SCH (20:21)
--- NOTE | 2017-03-16 21:33 | MG ---
cc: JAYDEN CHINO M.D. Lab No: Date: 03/16/17 Age: 51 Sex: F Race: REQUESTING Dr. Marcos HISTORY An EEG was obtained on this 51-year-old patient intubated on fentanyl, not following commands. This is a repeat EEG for seizures. DESCRIPTION This study is showing low amplitude rhythms diffusely and there are some theta and delta rhythms along with a lack of alpha activity. Some occasional sharp waves/discharges are seen on the right frontotemporal head region but there is no ictal abnormality. I believe this to be less pronounced than on the previous recording. Photic stimulation showed no change. INTERPRETATION Abnormal EEG because of bilateral slowing with some intermittent right frontotemporal sharp discharges which are of epileptiform appearance but no ictal findings are present. Jayden Chino MD OFC/EO /8:47 PM /9:21 PM
[2017-03-17] VITALS (18 sets, daily range): BP systolic 105–125; BP diastolic 61–93; PULSE 73–96; RESP 15; TEMP 97.5–100; O2SAT 100
[2017-03-17] MEDS: RESP: ALBUTEROL 2.5 MG/IPRATROPIUM 0.5 MG NEB (SCH) NEB ×4 (00:52→21:13)
[2017-03-17] MEDS: INSULIN NovoLIN REGULAR SUPPLEMENTAL SCALE SQ SCH ×5 (04:49→20:00)
[2017-03-17 05:10] LABS: AUTOMATED NEUTROPHIL # 10.2 TH/MM3 (1.8-7.7); BASOPHIL % 0.1 % (0.0-2.0); HEMATOCRIT 35.9 % (35.0-46.0); HEMO FLAGS DIFF FINAL; LYMPH % 2.9 % (9.0-44.0); LYMPHOCYTE # 0.3 TH/MM3 (1.0-4.8); MEAN CELL VOLUME 78.2 FL (80.0-100.0); MEAN CORPUSCULAR HGB CONC 31.9 % (32.0-36.0); MONO % 4.5 % (0.0-8.0); NEUT % 92.5 % (16.0-70.0); PLATELET COUNT 176 TH/MM3 (150-450); RED BLOOD COUNT 4.59 MIL/MM3 (4.00-5.30); RED CELL DISTRIBUTION WIDTH 15.8 % (11.6-17.2); WHITE BLOOD COUNT 11.1 TH/MM3 (4.0-11.0)
[2017-03-17 05:31] LABS: ALKALINE PHOSPHATASE 252 U/L (45-117); ALT (GPT) 132 U/L (10-53); ANION GAP 8 MEQ/L (5-15); AST (GOT) 138 U/L (15-37); BICARBONATE 26.3 MEQ/L (21.0-32.0); BLOOD UREA NITROGEN 17 MG/DL (7-18); CHLORIDE 100 MEQ/L (98-107); GLOMERULAR FILTRATION RATE 154 ML/MIN (>89); MAGNESIUM 2.1 MG/DL (1.5-2.5); POTASSIUM 3.7 MEQ/L (3.5-5.1); SODIUM (NA) 134 MEQ/L (136-145); TOTAL BILIRUBIN ADULT 0.8 MG/DL (0.2-1.0)
[2017-03-17] MEDS: HYDROCORTISONE SOD SUCCINATE 100 MG VIAL IV PUSH SCH ×3 (05:52→21:18)
[2017-03-17] MEDS: ARTIFICIAL TEARS OPTH SOLN 15 ML BTL EACH EYE SCH ×3 (05:52→21:18)
[2017-03-17] MEDS: CHLORHEXIDINE 0.12% (ORAL KIT) 15 ML CUP MT SCH ×2 (08:00→20:13)
[2017-03-17] MEDS: LANSOPRAZOLE SOLUTAB 30 MG TAB NG SCH (08:04)
[2017-03-17] MEDS: FUROSEMIDE 40 MG/4 ML VIAL IV PUSH SCH ×2 (08:04→17:51)
[2017-03-17] MEDS: FOLIC ACID 1 MG TAB PO SCH (08:04)
[2017-03-17] MEDS: DIGOXIN 0.125 MG TAB PO SCH (08:04)
[2017-03-17] MEDS: THIAMINE HCL 100 MG TAB PO SCH (08:04)
[2017-03-17] MEDS: LACOSAMIDE 100 MG TAB PO SCH ×2 (08:05→21:17)
[2017-03-17] MEDS: SPIRONOLACTONE 25 MG TAB PO SCH (08:05)
[2017-03-17] MEDS: PHENobarbital 32.4 MG TAB PO SCH ×2 (08:05→21:17)
[2017-03-17] MEDS: SODIUM CHLORIDE 0.9% FLUSH 10 ML FLUSH IV FLUSH SCH ×3 (08:05→21:16)
[2017-03-17] MEDS: ASPIRIN EC 81 MG TABEC PO SCH (08:05)
[2017-03-17] MEDS: CARBAMIDE PEROXIDE 6.5% OTIC SOLN 15 ML BTL EACH EAR SCH ×2 (08:06→21:16)
[2017-03-17] MEDS: APIXABAN 5 MG TABLET PO SCH ×2 (08:08→21:17)
[2017-03-17] MEDS: MEMANTINE HCL 10 MG TAB PO SCH ×2 (08:08→21:17)
[2017-03-17] MEDS: FERROUS FUMARATE 325 MG TAB (106 MG ELEMENTAL IRON) PO SCH ×2 (08:09→17:51)
[2017-03-17] MEDS: OXcarbazepine 600 MG TAB PO SCH ×2 (08:09→21:17)
--- NOTE | 2017-03-17 11:52 | HHI.FPPN ---
Subjective Remarks Ms Foote remains intubated. She is not following commands or doing more than spontaneously opening her eyes this am. She is still needing pressure support. She failed her CPAP trial again. Objective Vitals Vital Signs Date Time Temp Pulse Resp B/P (MAP) Pulse Ox O2 Delivery O2 Flow Rate FiO2 03/17/17 10:00 76 03/17/17 09:00 40 03/17/17 09:00 100 40 03/17/17 08:00 84 03/17/17 08:00 40 03/17/17 08:00 97.5 84 15 117/77 (90) 100 03/17/17 06:00 82 108/72 (84) 03/17/17 06:00 82 03/17/17 04:16 100 40 03/17/17 04:00 92 03/17/17 04:00 40 03/17/17 04:00 98.2 92 15 114/74 (87) 100 03/17/17 02:00 96 03/17/17 00:52 100 40 03/17/17 00:00 40 03/17/17 00:00 100.0 90 15 116/75 (89) 100 03/17/17 00:00 86 03/16/17 22:00 93 03/16/17 20:00 99.7 90 15 118/74 (89) 100 03/16/17 20:00 90 03/16/17 20:00 40 03/16/17 19:37 100 40 03/16/17 18:00 92 03/16/17 18:00 79 118/83 (95) 03/16/17 16:46 100 40 03/16/17 16:00 87 03/16/17 16:00 100.0 87 15 107/68 (81) 100 03/16/17 16:00 40 03/16/17 15:54 84 107/70 03/16/17 14:00 86 03/16/17 12:00 40 03/16/17 12:00 90 03/16/17 12:00 100.2 88 15 108/72 (84) 98 I/O 03/16/17 03/16/17 03/16/17 03/17/17 03/17/17 03/17/17 07:00 15:00 23:00 07:00 15:00 23:00 Intake Total 1543 ml 450 ml 810 ml 478.3 ml Output Total 950 ml 1875 ml 675 ml Balance 593 ml 450 ml -1065 ml -196.7 ml IV Total 1247 ml 450 ml 320 ml 135.3 ml Tube Feeding 296 ml 490 ml 283 ml Tube Irrigant 60 ml Output Urine Total 950 ml 1825 ml 675 ml Stool Total 0 ml Gastric Drainage Total 50 ml # Bowel Movements 1 Result Diagram: 03/17/1743403/17/17434 Objective Remarks GENERAL: thin lady, lying in bed intubated. Unable to follow commands. Opened her eyes. temporal wasting SKIN: No rashes, ecchymoses or lesions. Cool and dry. HEAD: Atraumatic. Normocephalic. possible disconjugate gaze EYES: R pupil sluggish to react to light as compared to the L pupil, EOMI ENT: TMs were hard to visualize due to wax on admission NECK: Supple, nontender, no meningeal signs. No JVD or LAD. CARDIOVASCULAR: Regular rate and rhythm with murmur no gallops, or rubs. RESPIRATORY: rales in b/l bases. GASTROINTESTINAL: Abdomen soft, non-tender, nondistended. No hepato-splenomegaly , or palpable masses. No guarding. No hepato-jugular reflex. MUSCULOSKELETAL: No edema in lower extremities. Trace edema in left upper extremity. NEUROLOGICAL: intubated. Cranial nerves II through XII grossly intact prior to this episode of worsening, now unable to assess.Patient kept left hand grasped into a fist at baseline with contracture. now unable to participate in Neuro exam. no obvious seizure activity Date of Insertion: Mar 13, 2017 Line: Central Venous Catheter Side: Right Location: Internal, Jugular A/P Assessment and Plan 51 yr old F admitted for acute on chronic CHF exacerbation. Patient with acute respiratory failure resulting in intubation at this time. Not showing improvement over time so far, unfortunately Discharge Planning Acute respiratory failure resulting in intubation. Patient has been transferred to the ICU, discharge to be determined with improvement of current medical condition PT consult- PT at rehab she will need rehab at D/C as she is weak and a fall risk. her daughter is deciding on where to go per case management notes Problem List: (1) Respiratory failure requiring intubation ICD Codes: J96.90 - Respiratory failure, unspecified, unspecified whether with hypoxia or hypercapnia Status: Acute Plan: Neuro/Psych: History of right MCA CVA with left arm and poor balance disorder Seizure disorder NOS Dementia disorder NOS Goal of RA SS -2 sedation vacation but she has failed to wake up to her baseline Continue lactulose 100 mg twice a day CT brain, CT angiogram brain and neck: Unremarkable Cannot have MRI due to ICD placement Not a candidate for thrombolytic due to current anticoagulant use EEG: Seizure focus activity, sharps in right frontal region. Repeated EEG plan per Neuro Phenobarbital 32.4 mg twice a day Oxcarbazepine 1.2 milligrams twice a day Seizure precautions Continued Namenda 10 mg twice a day for underlying cognitive dysfunction Resp: Acute upper Respiratory failure ACV 15/ Ventilator bundle Albuterol ipratropium aerosols every 6 hours and albuterol aerosols every 2 hours. Dyspnea Spontaneous CPAP trials daily CV: Chronic systolic heart failure ejection fraction 15-20% Hypertension Dyslipidemia Echocardiogram 03/20 revealed EF 20%. LA dilation. Moderate MR/TR. PaP 67 mmHg. Small pericardial Effusion. Currently on digoxin 0.125 mg by mouth daily, Continue furosemide 40 mg twice a day. Spironolactone 25 mg by mouth daily for congestive heart failure Daily atorvastatin 80 mg by mouth daily for dyslipidemia Evaluated by Dr. Cruz in this hospitalization. Her computer graphics illustrator Dr. Miguel Continue aspirin 81 mg by mouth daily GI: Patient is currently nothing by mouth except will give glucerna as she is diabetic per NG Pantoprazole for GI prophylaxis Docusate sodium for bowel regimen : Hinson catheter will be placed for accurate I's nose any critically ill patient receiving diuretics Endo: Sliding scale insulin with Accu-Cheks to maintain euglycemia Renal: Creatinine currently within normal limits Monitor urine output accurate I's and O's Heme: Continue ferrous sulfate 325 mg by mouth twice a day ID: Monitor for infection FEN: Replace electrolytes as clinically indicated MSK: Gait imbalance disorder Left upper extremity contracture Access - Right IJ CVL Prophylaxis - GI - pantoprazole - DVT - SCDs/Apixaban will provide DVT prophylaxis Palliative care has been consulted to help with further transition of care, recommendations appreciated. Unfortunately, she is very ill and at baseline has had a significant CVA years ago but her heart is poor with a low EF plus her valvular problems and pulmonary HTN. She is still needing Levophed. She is not making progress now with weaning off her vent nor waking up to follow commands even without sedation (2) CHF exacerbation ICD Codes: I50.9 - Heart failure, unspecified Status: Acute (3) Diabetes ICD Codes: E11.9 - Diabetes Status: Chronic (4) Cardiomyopathy ICD Codes: I42.9 - Cardiomyopathy Status: Chronic (5) History of right MCA stroke ICD Codes: Z86.73 - History of right MCA stroke Status: Chronic (6) Seizures ICD Codes: R56.9 - Unspecified convulsions Status: Chronic (7) Nutrition, metabolism, and development symptoms ICD Codes: R63.8 - Nutrition, metabolism, and development symptoms Status: Acute Problem Qualifiers (1) CHF exacerbation: Qualified Codes: I50.9 - Heart failure, unspecified (2) Diabetes: Aarti Frank MD Mar 17, 2017 11:52
[2017-03-17] MEDS ORDERED: Vancomycin Consult Pharmacy 1 EA OTHER SCH (14:30)
--- NOTE | 2017-03-17 14:35 | HHI.CCPN ---
Subjective Remarks/Hospital Course 51 yr old AA F here date of admission 03/09/2017. Date of consultation 2016. 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 Her left upper extremity contracted,, seizures, T2DM, and CHF(EF currently 25%), she was originally presented to the ED at [facility] on 2016 with a two- day history of shortness of breath positive orthopnea. Positive wheezing. Positive cough frothy sputum. Re Etcher is Dr. Miguel. In the ED, noted to have CT brain which showed no signs intracranial process. She is admitted under the [facility] service. She is evaluated Dr. Cruz cardiology - rec - IV diuresis Strict I&O Daily Weight Telemetry monitoring Low salt diet Cont ASA, Coreg, Digoxin, Statin, Eliquis Today, patient was to be discharged to an extended care facility when she finishes the short of breath and unresponsive. [facility] was called and the patient was transferred from 1320. She had no IV access. Central line placement was performed patient was orotracheally intubated without complication. Noted at frothy secretions upon intubation CTA brain/neck and CT head revealed no acute intracranial findings/stenosis. 03/14: Noted likely seizure activity in EEG. Patient placed on low-dose norepinephrine overnight. We'll change sedatives. Start on Midazolam instead of propofol. Check CVP. Start bowel regimen and tube feeding. 03/15: Afebrile. Remains on norepinephrine at 8 mg/m. Tolerating tube feeding. CVP between 9 and 12. 03/16: Norepinephrine drip down to 4 mics grams per minute. Diuresing. Tolerating tube feeding. Arousable but not really following commands off sedation. Subjective 03/17: Off all sedation. Not following commands. Apneic on spontaneous breathing trial. Tolerating tube feeding. One bowel movement. Objective Vital Signs Date Time Temp Pulse Resp B/P (MAP) Pulse Ox O2 Delivery O2 Flow Rate FiO2 03/17/17 12:00 97.7 73 15 116/73 (87) 100 03/17/17 12:00 40 03/15/17 07:45 Ventilator 03/13/17 12:00 15.00 Intake and Output 03/17/17 03/17/17 03/18/17 08:00 16:00 00:00 Intake Total 478.3 ml Output Total 675 ml Balance -196.7 ml Result Diagram: 03/17/17 0435 03/17/17 0435 Other Results Microbiology Date/Time Source Procedure Growth Status 03/15/17 19:41 Blood Peripheral Aerobic Blood Culture - Preliminary NO GROWTH IN 2 DAYS Resulted 03/15/17 19:41 Blood Peripheral Anaerobic Blood Culture - Preliminary NO GROWTH IN 2 DAYS Resulted 03/15/17 22:20 Sputum Endotracheal Gram Stain - Final Resulted 03/15/17 22:20 Sputum Culture - Preliminary S. Aureus Mrsa Resulted Imaging Last Impressions Chest X-Ray 03/16/17 0600 Signed Impressions: Service Date/Time: Thursday, March 16, 2017 02:07 - CONCLUSION: 1. Bilateral mostly basilar airspace disease. Cardiomegaly. Support apparatus in good position. Sam Cruz MD Head CT 03/13/17 1345 Signed Impressions: Service Date/Time: Monday, March 13, 2017 13:43 - CONCLUSION: 1. Old area of infarct involving the right MCA distribution. 2. Colpocephalic dilation of the ventricular system. 3. Stable examination compared to previous dated 10/23/16. 4. Postcraniotomy changes within the skull. Warner Pritchard MD Neck CTA 03/13/17 0000 Signed Impressions: Service Date/Time: Monday, March 13, 2017 13:43 - CONCLUSION: 1. No evidence of hemodynamic significant lesion. There is 0%% stenosis bilaterally Georges Hannon MD Head CTA 03/13/17 0000 Signed Impressions: Service Date/Time: Monday, March 13, 2017 13:43 - CONCLUSION: 1. Unremarkable CT angiography of the brain. Georges Hannon MD Liver Ultrasound 03/12/17 0000 Signed Impressions: Service Date/Time: Sunday, March 12, 2017 15:55 - CONCLUSION: 1. Gallbladder wall thickening and pericholecystic fluid without stones. Cholecystitis is not excluded. Radionuclide imaging is recommended for further evaluation if clinically indicated. Georges Hannon MD Objective Remarks GENERAL: This is a 51 yo female critically ill currently orotracheally intubated SKIN: Cool and dry HEAD: Atraumatic. Normocephalic. EYES: Pupils equal and round about 3 mm bilaterally and reactive. No scleral icterus. No injection or drainage. ENT: No nasal bleeding or discharge. Mucous membranes pink and moist. Orotracheally intubated NECK: Trachea midline. +JVD. Right IJ is clean dry and intact CARDIOVASCULAR: Regular rate and rhythm. S1, S2 no S4. Possible S3. 2/6 systolic murmur left lower sternal border RESPIRATORY: Coarse crackles appreciable bilaterally. Positive inspiratory and expiratory wheeze. GASTROINTESTINAL: Abdomen soft, non-tender, nondistended. Hypoactive bowel sounds MUSCULOSKELETAL: Extremities without noted in peripheral edema. No obvious deformities. NEUROLOGICAL: Positive gag. Positive corneal reflex. Currently not withdrawing to pain. Vascular Central Line Catheter: Yes Assessment to: Continue Date of Insertion: Mar 13, 2017 Line: Central Venous Catheter Side: Right Location: Internal, Jugular A/P Assessment and Plan Neuro/Psych: History of right MCA CVA with left arm and didn't balance disorder Seizure disorder NOS Dementia disorder NOS Patient is currently off midazolaml/fentanyl for sedation/analgesia while intubated Goal of RASS -2 Daily sedation vacation Continue lacosamide 100 mg twice a day, phenobarbital 32.4 mill grams twice a day, oxcarbazepine 1200 mg Cannot have MRI due to ICD placement Evaluate by Dr. Marcos Neurology. Not a candidate for thrombolytic due to current anticoagulant use EEG [id number] - Abnormal EEG because of right frontotemporal frequent sharp and spike type of discharges which have an epileptiform appearance. No ictal pattern. There is bi-hemisphere slowing compatible with bilateral abnormalities though the slowing might also be all due to sedation. Artificially though the bilateral slowing might be all due to sedation. Seizure precautions Continued Namenda 10 mg twice a day Resp: Acute upper Respiratory failure likely secondary to CHF exacerbation ACV 15/500/5/5/40 Ventilator bundle Albuterol ipratropium aerosols every 6 hours and albuterol aerosols every 2 hours. Dyspnea Spontaneous breathing trials daily Apneic on spontaneous breathing trial currently CV: Chronic systolic heart failure ejection fraction 15-20% Hypertension Dyslipidemia Echocardiogram 03/20 revealed EF 20%. LA dilation. Moderate MR/TR. PaP 67 mmHg. Small pericardial Effusion.. Repeat echocardiogram revealed EF less than 20%. Atrial dilatation. Pulmonary she pressures greater than 70. No signs. Currently on digoxin 0.125 mg by mouth daily, recheck level in a.m. Continue furosemide 60 mg IV twice a day. Spironolactone 25 mg by mouth daily for congestive heart failure. 1 dose Zaroxolyn given 03/16 Daily atorvastatin 80 mg by mouth daily for dyslipidemia being held due to elevated LFTs Evaluated by Dr. Cruz in this hospitalization. Her ophthalmology technician Dr. Miguel Continue aspirin 81 mg by mouth daily GI: Hypoalbuminemia Elevated LFTs Currently on Glucerna 1.5 goal 50 cc an hour. Dietary recommends vital 1.5 goal 45 cc an hour Lansoprazole 30 mg for GI prophylaxis Docusate sodium for bowel regimen Liver ultrasound showed pericholecystic fluid. Cannot rule out cholecystitis. HIDA scan is been ordered. : Hinson catheter will be placed for accurate I's nose any critically ill patient receiving diuretics Endo: Slding scale insulin with Accu-Cheks to maintain euglycemia Renal: Creatinine currently within normal limits Monitor urine output accurate I's and O's Heme: History of anemia Continue ferrous sulfate 325 mg by mouth twice a day ID: MRSA sputum Monitor for infection Blood cultures 2, no growth. Sputum with MRSA Start piperacillin/tazobactam and vancomycin day 110/14 FEN: Replace electrolytes as clinically indicated MSK: Gait imbalance disorder Left upper extremity contracture PT evaluate and treat Access - Right IJ CVL placed 03/13 Prophylaxis - GI -lansoprazole - DVT - SCDs/Apixaban will provide DVT prophylaxis Critical Care: The total critical care time was 35 minutes. Time to perform other separately billable procedures was not included in the critical care time. Owen Tim MD Mar 17, 2017 14:35
[2017-03-17] MEDS: PIPERACIL-TAZO 4.5 GM PREMIX 100 ML IV SCH ×2 (15:02→21:16)
[2017-03-17] MEDS: VANCOMYCIN 1,000 MG/NS 250 ML IV SCH ×2 (15:03)
[2017-03-17] MEDS ORDERED: INSULIN DETEMIR 100 UNITS/ML VIAL SQ SCH (21:00)
[2017-03-17] MEDS: DOCUSATE SODIUM 100 MG/10 ML UDC OG-TUBE SCH (21:17)
[2017-03-18] VITALS (18 sets, daily range): BP systolic 97–153; BP diastolic 57–85; PULSE 59–97; RESP 15–16; TEMP 97.5–98.8; O2SAT 96–100
[2017-03-18] MEDS: PIPERACIL-TAZO 4.5 GM PREMIX 100 ML IV SCH ×4 (02:17→20:30)
[2017-03-18] MEDS: RESP: ALBUTEROL 2.5 MG/IPRATROPIUM 0.5 MG NEB (SCH) NEB ×4 (03:03→21:10)
[2017-03-18] MEDS: VANCOMYCIN 1,000 MG/NS 250 ML IV SCH ×4 (03:10→16:16)
[2017-03-18] MEDS: INSULIN NovoLIN REGULAR SUPPLEMENTAL SCALE SQ SCH ×6 (03:49→20:00)
[2017-03-18 03:50] LABS: HEMATOCRIT 36.2 % (35.0-46.0); MEAN CELL VOLUME 77.3 FL (80.0-100.0); MEAN CORPUSCULAR HEMOGLOBIN 25.4 PG (27.0-34.0); MEAN CORPUSCULAR HGB CONC 32.8 % (32.0-36.0); PLATELET COUNT 190 TH/MM3 (150-450); RED BLOOD COUNT 4.68 MIL/MM3 (4.00-5.30); RED CELL DISTRIBUTION WIDTH 15.8 % (11.6-17.2); REVIEW FLAG FINAL; WHITE BLOOD COUNT 10.5 TH/MM3 (4.0-11.0)
[2017-03-18 04:24] LABS: ALT (GPT) 122 U/L (10-53); ANION GAP 10 MEQ/L (5-15); AST (GOT) 117 U/L (15-37); BICARBONATE 28.5 MEQ/L (21.0-32.0); BLOOD UREA NITROGEN 26 MG/DL (7-18); CHLORIDE 98 MEQ/L (98-107); GLOMERULAR FILTRATION RATE 113 ML/MIN (>89); POTASSIUM 3.5 MEQ/L (3.5-5.1); SODIUM (NA) 136 MEQ/L (136-145)
[2017-03-18 04:28] LABS: ALKALINE PHOSPHATASE 281 U/L (45-117); PHENOBARBITAL 21.1 MCG/ML (15.0-40.0); TOTAL BILIRUBIN ADULT 0.4 MG/DL (0.2-1.0)
[2017-03-18] MEDS: ARTIFICIAL TEARS OPTH SOLN 15 ML BTL EACH EYE SCH ×3 (05:11→20:31)
[2017-03-18] MEDS: HYDROCORTISONE SOD SUCCINATE 100 MG VIAL IV PUSH SCH ×3 (05:13→20:31)
[2017-03-18] MEDS: CHLORHEXIDINE 0.12% (ORAL KIT) 15 ML CUP MT SCH ×2 (08:00→20:28)
[2017-03-18] MEDS: FOLIC ACID 1 MG TAB PO SCH (08:42)
[2017-03-18] MEDS: NOREPINEPHRINE 4 MG/D5W 250 ML IV PRN (08:42)
[2017-03-18] MEDS: LACOSAMIDE 100 MG TAB PO SCH ×2 (08:42→20:29)
[2017-03-18] MEDS: FERROUS FUMARATE 325 MG TAB (106 MG ELEMENTAL IRON) PO SCH ×2 (08:42→17:06)
[2017-03-18] MEDS: OXcarbazepine 600 MG TAB PO SCH ×2 (08:42→20:28)
[2017-03-18] MEDS: PHENobarbital 32.4 MG TAB PO SCH ×2 (08:42→20:29)
[2017-03-18] MEDS: FUROSEMIDE 40 MG/4 ML VIAL IV PUSH SCH ×2 (08:42→17:06)
[2017-03-18] MEDS: LANSOPRAZOLE SOLUTAB 30 MG TAB NG SCH (08:43)
[2017-03-18] MEDS: ASPIRIN EC 81 MG TABEC PO SCH (08:43)
[2017-03-18] MEDS: DOCUSATE SODIUM 100 MG/10 ML UDC OG-TUBE SCH ×2 (08:43→20:29)
[2017-03-18] MEDS: DIGOXIN 0.125 MG TAB PO SCH (08:43)
[2017-03-18] MEDS: APIXABAN 5 MG TABLET PO SCH ×2 (08:43→21:35)
[2017-03-18] MEDS: MEMANTINE HCL 10 MG TAB PO SCH ×2 (08:43→20:29)
[2017-03-18] MEDS: SODIUM CHLORIDE 0.9% FLUSH 10 ML FLUSH IV FLUSH SCH ×3 (08:44→20:30)
[2017-03-18] MEDS: SPIRONOLACTONE 25 MG TAB PO SCH (08:45)
[2017-03-18] MEDS: THIAMINE HCL 100 MG TAB PO SCH (08:45)
[2017-03-18] MEDS: CARBAMIDE PEROXIDE 6.5% OTIC SOLN 15 ML BTL EACH EAR SCH ×2 (08:46→20:31)
--- NOTE | 2017-03-18 09:43 | HHI.FPPN ---
Subjective Remarks Patient seen and examined this morning. Currently intubated. She is off sedation but she is not awake or following commands. Temperature 97.8, pulse 75 , respiratory rate 15, blood pressure 112/64, pulse ox 100%. Intubation is set at 15/50/5/40. Patient was found be positive and endotracheal tube for MRSA, she's been placed on droplet precautions and started on vancomycin. (Troy Mars MD, R3) Objective Vitals Vital Signs Date Time Temp Pulse Resp B/P (MAP) Pulse Ox O2 Delivery O2 Flow Rate FiO2 03/18/17 08:59 100 40 03/18/17 08:42 76 112/65 03/18/17 08:00 97.8 75 16 112/64 (80) 100 03/18/17 08:00 73 03/18/17 08:00 40 03/18/17 06:00 59 03/18/17 06:00 59 97/57 (70) 03/18/17 04:09 100 40 03/18/17 04:00 40 03/18/17 04:00 74 03/18/17 04:00 97.5 74 15 113/74 (87) 100 03/18/17 02:00 76 03/18/17 00:00 40 03/18/17 00:00 70 03/18/17 00:00 97.9 70 15 113/71 (85) 100 03/17/17 23:46 100 40 03/17/17 22:00 80 03/17/17 21:20 100 40 03/17/17 20:00 78 03/17/17 20:00 98.1 78 15 125/93 (104) 100 03/17/17 20:00 40 03/17/17 18:16 100 40 03/17/17 18:00 75 03/17/17 18:00 82 117/73 (88) 03/17/17 16:00 40 03/17/17 16:00 97.5 77 15 105/61 (76) 100 03/17/17 16:00 78 03/17/17 14:00 82 03/17/17 12:00 97.7 73 15 116/73 (87) 100 03/17/17 12:00 100 40 03/17/17 12:00 74 03/17/17 12:00 40 03/17/17 10:00 76 I/O 03/17/17 03/17/17 03/17/17 03/18/17 03/18/17 03/18/17 07:00 15:00 23:00 07:00 15:00 23:00 Intake Total 478.3 ml 1076 ml 933.2 ml Output Total 675 ml 2000 ml 975 ml Balance -196.7 ml -924 ml -41.8 ml IV Total 135.3 ml 800 ml 401.2 ml Tube Feeding 283 ml 472 ml Tube Irrigant 60 ml 60 ml Other 276 ml Output Urine Total 675 ml 1900 ml 975 ml Gastric Drainage Total 100 ml # Bowel Movements 1 1 (Troy Mars MD, R3) Result Diagram: 03/18/1731403/18/17314 Imaging Last Impressions Chest X-Ray 03/16/17 0600 Signed Impressions: Service Date/Time: Thursday, March 16, 2017 02:07 - CONCLUSION: 1. Bilateral mostly basilar airspace disease. Cardiomegaly. Support apparatus in good position. Sam Cruz MD Head CT 03/13/17 1345 Signed Impressions: Service Date/Time: Monday, March 13, 2017 13:43 - CONCLUSION: 1. Old area of infarct involving the right MCA distribution. 2. Colpocephalic dilation of the ventricular system. 3. Stable examination compared to previous dated 10/23/16. 4. Postcraniotomy changes within the skull. Warner Pritchard MD Neck CTA 03/13/17 0000 Signed Impressions: Service Date/Time: Monday, March 13, 2017 13:43 - CONCLUSION: 1. No evidence of hemodynamic significant lesion. There is 0%% stenosis bilaterally Georges Hannon MD Head CTA 03/13/17 0000 Signed Impressions: Service Date/Time: Monday, March 13, 2017 13:43 - CONCLUSION: 1. Unremarkable CT angiography of the brain. Georges Hannon MD Liver Ultrasound 03/12/17 0000 Signed Impressions: Service Date/Time: Sunday, March 12, 2017 15:55 - CONCLUSION: 1. Gallbladder wall thickening and pericholecystic fluid without stones. Cholecystitis is not excluded. Radionuclide imaging is recommended for further evaluation if clinically indicated. Georges Hannon MD Objective Remarks GENERAL: thin lady, lying in bed intubated. Unable to follow commands. Opened her eyes. temporal wasting SKIN: No rashes, ecchymoses or lesions. Cool and dry. HEAD: Atraumatic. Normocephalic. possible disconjugate gaze EYES: R pupil sluggish to react to light as compared to the L pupil, EOMI ENT: TMs were hard to visualize due to wax on admission NECK: Supple, nontender, no meningeal signs. No JVD or LAD. CARDIOVASCULAR: Regular rate and rhythm with murmur no gallops, or rubs. RESPIRATORY: rales in b/l bases. GASTROINTESTINAL: Abdomen soft, non-tender, nondistended. No hepato-splenomegaly , or palpable masses. No guarding. No hepato-jugular reflex. MUSCULOSKELETAL: No edema in lower extremities. Trace edema in left upper extremity. NEUROLOGICAL: intubated. Cranial nerves II through XII grossly intact prior to this episode of worsening, now unable to assess.Patient kept left hand grasped into a fist at baseline with contracture. now unable to participate in Neuro exam. no obvious seizure activity Medications and IVs Current Medications Medications (Trade) Dose Ordered Sig/Curtis Route Start Time Stop Time Status Last Admin (Eliquis) 5 mg BID PO 03/09/17 09:00 03/18/17 08:43 (Ecotrin Ec) 81 mg DAILY PO 03/09/17 09:00 03/15/17 08:59 (Lipitor) 80 mg HS PO 03/09/17 21:00 Future Hold 03/16/17 20:21 (Coreg) 6.25 mg BID PO 03/09/17 09:00 Future Hold 03/15/17 08:59 (Lanoxin) 0.125 mg DAILY PO 03/09/17 09:00 03/18/17 08:43 (Folate) 1 mg DAILY PO 03/09/17 09:00 03/18/17 08:42 (Vimpat) 200 mg BID PO 03/09/17 09:00 03/18/17 08:42 (Namenda) 10 mg BID PO 03/09/17 09:00 03/18/17 08:43 (PHENobarbital) 32.4 mg BID PO 03/09/17 09:00 03/18/17 08:42 (Aldactone) 25 mg DAILY PO 03/09/17 09:00 03/18/17 08:45 (Hemocyte) 325 mg BIDPC PO 03/09/17 09:00 03/18/17 08:42 (Vitamin B1) 200 mg DAILY PO 03/09/17 09:00 03/18/17 08:45 (NS Flush) 2 ml UNSCH PRN IV FLUSH 03/09/17 02:30 (NS Flush) 2 ml BID IV FLUSH 03/09/17 09:00 03/18/17 08:44 (Tylenol) 650 mg Q4H PRN PO 03/09/17 02:30 (D50w (Vial) Inj) 50 ml UNSCH PRN IV PUSH 03/09/17 02:30 03/13/17 17:09 (Glucagon Inj) 1 mg UNSCH PRN OTHER 03/09/17 02:30 (Debrox 6.5% Otic) 5 drop Q12HR EACH EAR 03/09/17 09:00 03/18/17 08:46 (Clear Eyes Redness Relief 0.012% Opth Soln) 1 drop QID PRN EACH EYE 03/09/17 03:00 03/14/17 07:58 (Chapstick) 1 applic UNSCH PRN TOPICAL 03/09/17 03:00 03/14/17 07:57 (Zofran Inj) 4 mg Q6HR PRN IV PUSH 03/09/17 03:15 (Drisdol) 50,000 units Q7D PO 03/09/17 14:00 03/16/17 13:05 (NS Flush) DAILY IV FLUSH 03/14/17 09:00 03/18/17 08:44 (NS Flush) UNSCH PRN IV FLUSH 03/13/17 13:15 (Peridex 0.12% Liq) 15 ml BID@08,20 MT 03/13/17 20:00 03/18/17 08:00 Fentanyl Citrate 250 ml @ 5 mls/hr TITRATE PRN IV 03/13/17 13:30 03/16/17 03:16 (Albuterol Neb) 2.5 mg Q2HR NEB PRN NEB 03/13/17 16:00 Norepinephrine Bitartrate 250 ml @ 7.5 mls/hr TITRATE PRN IV 03/14/17 03:15 03/18/17 08:42 Midazolam HCl 100 ml @ 2 mls/hr TITRATE PRN IV 03/14/17 12:45 03/14/17 13:26 (Prevacid Odt) 30 mg DAILY NG 03/15/17 09:00 03/18/17 08:43 (Tears Naturale Opth Soln) 1 drop Q8HR EACH EYE 03/14/17 14:00 03/18/17 05:11 (Trileptal) 1,200 mg BID PO 03/14/17 21:00 03/18/17 08:42 (NovoLIN R SUPPLEMENTAL SCALE) 1 Q4HR SQ 03/15/17 16:00 03/18/17 08:46 (Lasix Inj) 60 mg BID@09,18 IV PUSH 03/16/17 18:00 03/18/17 08:42 (SoluCORTEF INJ) 100 mg Q8HR IV PUSH 03/16/17 14:30 03/18/17 05:13 (Levemir Inj) 5 units HS SQ 03/17/17 21:00 03/17/17 21:18 (Duoneb Neb) 1 ampule Q6HR NEB NEB 03/17/17 16:00 03/18/17 08:56 Piperacillin Sod/ Tazobactam Sod 100 ml @ 200 mls/hr Q6H IV 03/17/17 15:00 03/18/17 08:41 Pharmacy Profile Note 0 ml @ 0 mls/hr UNSCH OTHER 03/17/17 14:30 (Colace Liq) 100 mg Q12HR OG-TUBE 03/17/17 21:00 03/18/17 08:43 Miscellaneous Information SPECIFIC LAB TO BE DRAWN:VANCO DATE TO... ONCE ONCE .XX 03/19/17 03:45 03/19/17 03:46 Vancomycin HCl 1000 mg/Sodium Chloride 250 ml @ 250 mls/hr Q12H IV 03/17/17 16:00 03/18/17 03:10 (Troy Mars MD, R3) Date of Insertion: Mar 13, 2017 Line: Central Venous Catheter Side: Right Location: Internal, Jugular (Troy Mars MD, R3) A/P Assessment and Plan 51 yr old F admitted for acute on chronic CHF exacerbation. Patient with acute respiratory failure resulting in intubation at this time. Not showing improvement over time so far, unfortunately Discharge Planning Acute respiratory failure resulting in intubation. Patient has been transferred to the ICU, discharge to be determined with improvement of current medical condition PT consult- PT at rehab she will need rehab at D/C as she is weak and a fall risk. her daughter is deciding on where to go per case management notes (Troy Mars MD, R3) Attending Attestation Patient seen and examined. Case reviewed and discussed with the resident team. Agree with plan of care as discussed with me and documented in the resident note. it is very concerning that she is not waking up off sedation (Aarti Frank MD) Problem List: (1) Respiratory failure requiring intubation ICD Codes: J96.90 - Respiratory failure, unspecified, unspecified whether with hypoxia or hypercapnia Status: Acute Plan: Neuro/Psych: History of right MCA CVA with left arm and poor balance disorder Seizure disorder NOS Dementia disorder NOS Goal of RA SS -2 Off sedation but she is not waking up back to her baseline Continue lactulose 100 mg twice a day CT brain, CT angiogram brain and neck: Unremarkable Cannot have MRI due to ICD placement Not a candidate for thrombolytic due to current anticoagulant use EEG: Seizure focus activity, sharps in right frontal region. Repeated EEG plan per Neuro Phenobarbital 32.4 mg twice a day Oxcarbazepine 1.2 milligrams twice a day Seizure precautions Continued Namenda 10 mg twice a day for underlying cognitive dysfunction Resp: Acute upper Respiratory failure ACV 15/50/5/40 Ventilator bundle Albuterol ipratropium aerosols every 6 hours and albuterol aerosols every 2 hours. Dyspnea Spontaneous breathing trials daily Most recent breathing trial patient was apneic ID: Sputum culture positive for MRSA Continue vancomycin 1 g twice a day Continue Zosyn 4.5 g every 6 hours CV: Chronic systolic heart failure ejection fraction 15-20% Hypertension Dyslipidemia Echocardiogram 03/20 revealed EF 20%. LA dilation. Moderate MR/TR. PaP 67 mmHg. Small pericardial Effusion. Currently on digoxin 0.125 mg by mouth daily, Continue furosemide 40 mg twice a day. Spironolactone 25 mg by mouth daily for congestive heart failure Daily atorvastatin 80 mg by mouth daily for dyslipidemia Evaluated by Dr. Cruz in this hospitalization. Her special effects person Dr. Myriam Continue aspirin 81 mg by mouth daily GI: Patient is currently nothing by mouth except will give glucerna as she is diabetic per NG Pantoprazole for GI prophylaxis Docusate sodium for bowel regimen : Hinson catheter will be placed for accurate I's nose any critically ill patient receiving diuretics Endo: Sliding scale insulin with Accu-Cheks to maintain euglycemia Renal: Creatinine currently within normal limits Monitor urine output accurate I's and O's Heme: Continue ferrous sulfate 325 mg by mouth twice a day ID: Monitor for infection FEN: Replace electrolytes as clinically indicated MSK: Gait imbalance disorder Left upper extremity contracture Access - Right IJ CVL Prophylaxis - GI - pantoprazole - DVT - SCDs/Apixaban will provide DVT prophylaxis (2) CHF exacerbation ICD Codes: I50.9 - Heart failure, unspecified Status: Acute (3) Diabetes ICD Codes: E11.9 - Diabetes Status: Chronic (4) Cardiomyopathy ICD Codes: I42.9 - Cardiomyopathy Status: Chronic (5) History of right MCA stroke ICD Codes: Z86.73 - History of right MCA stroke Status: Chronic (6) Seizures ICD Codes: R56.9 - Unspecified convulsions Status: Chronic (7) Nutrition, metabolism, and development symptoms ICD Codes: R63.8 - Nutrition, metabolism, and development symptoms Status: Acute (Troy Mars MD, R3) Problem Qualifiers (1) CHF exacerbation: Qualified Codes: I50.9 - Heart failure, unspecified (2) Diabetes: Troy Mars MD, R3 Mar 18, 2017 09:43 Aarti Frank MD Mar 18, 2017 13:06
--- NOTE | 2017-03-18 10:03 | HHI.FPPN ---
Addendum to progress note ADDENDUM Reason for addendum: Additonal documentation Additional information Off Service Note Patient was admitted on 03/09/17 for acute on chronic congestive heart failure. She was diuresed during this hospitalization and was slowly progressively improving. She has a history of a CVA and at baseline difficulty with following commands. She is about to be discharged to [facility] facility when she had acute respiratory failure. She has a pacemaker in place MRI cannot be done. She was intubated and transferred to the ICU. She has been off sedation for several days now and has not had any improvement in her mental status. She has been continuing to fail her breathing trials. Palliative care has been consulted, and anticipate eventual transition to hospice. Currently daughter wishes to continue aggressive treatment. Troy Mars MD, R3 Mar 18, 2017 10:03
[2017-03-18] MEDS: INSULIN DETEMIR 100 UNITS/ML VIAL SQ SCH ×2 (10:47→20:32)
--- NOTE | 2017-03-18 13:11 | HHI.CCPN ---
Subjective Remarks/Hospital Course 51 yr old AA F here date of admission 03/09/2017. Date of consultation 2016. 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 Her left upper extremity contracted,, seizures, T2DM, and CHF(EF currently 25%), she was originally presented to the ED at [facility] on 2016 with a two- day history of shortness of breath positive orthopnea. Positive wheezing. Positive cough frothy sputum. Used Car Manager is Dr. Miguel. In the ED, noted to have CT brain which showed no signs intracranial process. She is admitted under the [facility] service. She is evaluated Dr. Cruz cardiology - rec - IV diuresis Strict I&O Daily Weight Telemetry monitoring Low salt diet Cont ASA, Coreg, Digoxin, Statin, Eliquis Today, patient was to be discharged to an extended care facility when she finishes the short of breath and unresponsive. [facility] was called and the patient was transferred from 1320. She had no IV access. Central line placement was performed patient was orotracheally intubated without complication. Noted at frothy secretions upon intubation CTA brain/neck and CT head revealed no acute intracranial findings/stenosis. 03/14: Noted likely seizure activity in EEG. Patient placed on low-dose norepinephrine overnight. We'll change sedatives. Start on Midazolam instead of propofol. Check CVP. Start bowel regimen and tube feeding. 03/15: Afebrile. Remains on norepinephrine at 8 mg/m. Tolerating tube feeding. CVP between 9 and 12. 03/16: Norepinephrine drip down to 4 mics grams per minute. Diuresing. Tolerating tube feeding. Arousable but not really following commands off sedation. Subjective 03/17: Off all sedation. Not following commands. Apneic on spontaneous breathing trial. Tolerating tube feeding. One bowel movement. 03/18: Patient noted to have spontaneous eye opening, does not track, not following commands. Norepinephrine currently at 2 mcgs/min Objective Vital Signs Date Time Temp Pulse Resp B/P (MAP) Pulse Ox O2 Delivery O2 Flow Rate FiO2 03/18/17 11:30 100 40 03/18/17 10:00 66 03/18/17 08:42 112/65 03/18/17 08:00 97.8 16 03/15/17 07:45 Ventilator Intake and Output 03/18/17 03/18/17 03/19/17 08:00 16:00 00:00 Intake Total 933.2 ml Output Total 975 ml Balance -41.8 ml Result Diagram: 03/18/17 0315 03/18/17 0315 Other Results Microbiology Date/Time Source Procedure Growth Status 03/15/17 22:20 Sputum Endotracheal Gram Stain - Final Complete 03/15/17 22:20 Sputum Culture - Final S. Aureus Mrsa Complete Imaging Last Impressions Chest X-Ray 03/16/17 0600 Signed Impressions: Service Date/Time: Thursday, March 16, 2017 02:07 - CONCLUSION: 1. Bilateral mostly basilar airspace disease. Cardiomegaly. Support apparatus in good position. Sam Cruz MD Head CT 03/13/17 1345 Signed Impressions: Service Date/Time: Monday, March 13, 2017 13:43 - CONCLUSION: 1. Old area of infarct involving the right MCA distribution. 2. Colpocephalic dilation of the ventricular system. 3. Stable examination compared to previous dated 10/23/16. 4. Postcraniotomy changes within the skull. Warner Pritchard MD Neck CTA 03/13/17 0000 Signed Impressions: Service Date/Time: Monday, March 13, 2017 13:43 - CONCLUSION: 1. No evidence of hemodynamic significant lesion. There is 0%% stenosis bilaterally Georges Hannon MD Head CTA 03/13/17 0000 Signed Impressions: Service Date/Time: Monday, March 13, 2017 13:43 - CONCLUSION: 1. Unremarkable CT angiography of the brain. Georges Hannon MD Liver Ultrasound 03/12/17 0000 Signed Impressions: Service Date/Time: Sunday, March 12, 2017 15:55 - CONCLUSION: 1. Gallbladder wall thickening and pericholecystic fluid without stones. Cholecystitis is not excluded. Radionuclide imaging is recommended for further evaluation if clinically indicated. Georges Hannon MD Objective Remarks GENERAL: This is a 51 yo female critically ill currently orotracheally intubated SKIN: Cool and dry HEAD: Atraumatic. Normocephalic. EYES: Pupils equal and round about 3 mm bilaterally and reactive. No scleral icterus. No injection or drainage. ENT: No nasal bleeding or discharge. Mucous membranes pink and moist. Orotracheally intubated NECK: Trachea midline. +JVD. Right IJ is clean dry and intact CARDIOVASCULAR: Regular rate and rhythm. S1, S2 no S4. Possible S3. 2/6 systolic murmur left lower sternal border RESPIRATORY: Coarse crackles appreciable bilaterally. Positive inspiratory and expiratory wheeze. GASTROINTESTINAL: Abdomen soft, non-tender, nondistended. Hypoactive bowel sounds MUSCULOSKELETAL: Extremities without noted in peripheral edema. No obvious deformities. NEUROLOGICAL: Positive gag. Positive corneal reflex. Currently not withdrawing to pain. Date of Insertion: Mar 13, 2017 Line: Central Venous Catheter Side: Right Location: Internal, Jugular A/P Assessment and Plan Neuro/Psych: History of right MCA CVA with left arm and didn't balance disorder Seizure disorder NOS Dementia disorder NOS Patient is currently off midazolaml/fentanyl , non responsive Goal of RASS -2 Daily sedation vacation Continue lacosamide 100 mg twice a day, phenobarbital 32.4 mill grams twice a day, oxcarbazepine 1200 mg Cannot have MRI due to ICD placement Evaluate by Dr. Marcos Neurology. Not a candidate for thrombolytic due to current anticoagulant use EEG [id number] - Abnormal EEG because of right frontotemporal frequent sharp and spike type of discharges which have an epileptiform appearance. No ictal pattern. There is bi-hemisphere slowing compatible with bilateral abnormalities though the slowing might also be all due to sedation. Artificially though the bilateral slowing might be all due to sedation. Seizure precautions Continued Namenda 10 mg twice a day Resp: Acute upper Respiratory failure likely secondary to CHF exacerbation ACV 15/500/5/5/40 Ventilator bundle Albuterol ipratropium aerosols every 6 hours and albuterol aerosols every 2 hours. Dyspnea Spontaneous breathing trials daily Apneic on spontaneous breathing trial currently CV: Chronic systolic heart failure ejection fraction 15-20% Hypertension Dyslipidemia Echocardiogram 03/20 revealed EF 20%. LA dilation. Moderate MR/TR. PaP 67 mmHg. Small pericardial Effusion.. Repeat echocardiogram revealed EF less than 20%. Atrial dilatation. Pulmonary she pressures greater than 70. No signs. Currently on digoxin 0.125 mg by mouth daily, recheck level in a.m. Continue furosemide 60 mg IV twice a day. Spironolactone 25 mg by mouth daily for congestive heart failure. 1 dose Zaroxolyn given 03/16 Daily atorvastatin 80 mg by mouth daily for dyslipidemia being held due to elevated LFTs Evaluated by Dr. Cruz in this hospitalization. Her packing checker Dr. Miguel Continue aspirin 81 mg by mouth daily GI: Hypoalbuminemia Elevated LFTs Currently on Glucerna 1.5 goal 50 cc an hour. Dietary recommends vital 1.5 goal 45 cc an hour Lansoprazole 30 mg for GI prophylaxis Docusate sodium for bowel regimen Liver ultrasound showed pericholecystic fluid. Cannot rule out cholecystitis. HIDA scan scheduled for 03/19 : Hinson catheter will be placed for accurate I's nose any critically ill patient receiving diuretics Endo: Slding scale insulin with Accu-Cheks to maintain euglycemia Renal: Creatinine currently within normal limits Monitor urine output accurate I's and O's Heme: History of anemia Continue ferrous sulfate 325 mg by mouth twice a day ID: MRSA sputum Monitor for infection Blood cultures 2, no growth. Sputum with MRSA Start piperacillin/tazobactam and vancomycin day 110/14 FEN: Replace electrolytes as clinically indicated MSK: Gait imbalance disorder Left upper extremity contracture PT evaluate and treat Access - Right IJ CVL placed 03/13 Prophylaxis - GI -lansoprazole - DVT - SCDs/Apixaban will provide DVT prophylaxis Critical Care time 30 minutes Physician Odette Holliday MD Mar 18, 2017 13:11
[2017-03-18] MEDS ORDERED: BISACODYL 10 MG SUPP RECTAL PRN (13:15)
[2017-03-19] VITALS (19 sets, daily range): BP systolic 110–121; BP diastolic 61–79; PULSE 66–97; RESP 15–23; TEMP 97.9–99.7; O2SAT 97–100
[2017-03-19] MEDS: RESP: ALBUTEROL 2.5 MG/IPRATROPIUM 0.5 MG NEB (SCH) NEB ×4 (03:31→20:45)
[2017-03-19] MEDS: PIPERACIL-TAZO 4.5 GM PREMIX 100 ML IV SCH ×2 (03:39→08:02)
[2017-03-19 03:44] LABS: AUTOMATED NEUTROPHIL # 9.4 TH/MM3 (1.8-7.7); BASOPHIL % 0.4 % (0.0-2.0); HEMATOCRIT 36.9 % (35.0-46.0); HEMO FLAGS DIFF FINAL; LYMPH % 4.8 % (9.0-44.0); LYMPHOCYTE # 0.5 TH/MM3 (1.0-4.8); MEAN CELL VOLUME 77.6 FL (80.0-100.0); MEAN CORPUSCULAR HEMOGLOBIN 25.3 PG (27.0-34.0); MEAN CORPUSCULAR HGB CONC 32.6 % (32.0-36.0); MONO % 8.1 % (0.0-8.0); NEUT % 86.7 % (16.0-70.0); PLATELET COUNT 227 TH/MM3 (150-450); RED BLOOD COUNT 4.76 MIL/MM3 (4.00-5.30); RED CELL DISTRIBUTION WIDTH 15.9 % (11.6-17.2); WHITE BLOOD COUNT 10.9 TH/MM3 (4.0-11.0)
[2017-03-19] MEDS ORDERED: PHARMACY ORDERED LAB ONE (03:45)
[2017-03-19 04:00] LABS: ALT (GPT) 123 U/L (10-53); ANION GAP 7 MEQ/L (5-15); AST (GOT) 119 U/L (15-37); BICARBONATE 30.7 MEQ/L (21.0-32.0); BLOOD UREA NITROGEN 31 MG/DL (7-18); CHLORIDE 101 MEQ/L (98-107); GLOMERULAR FILTRATION RATE 121 ML/MIN (>89); POTASSIUM 3.2 MEQ/L (3.5-5.1); SODIUM (NA) 139 MEQ/L (136-145)
[2017-03-19] MEDS: INSULIN NovoLIN REGULAR SUPPLEMENTAL SCALE SQ SCH ×6 (04:00→20:00)
[2017-03-19 04:02] LABS: ALKALINE PHOSPHATASE 246 U/L (45-117); TOTAL BILIRUBIN ADULT 0.4 MG/DL (0.2-1.0)
[2017-03-19] MEDS: VANCOMYCIN 1,000 MG/NS 250 ML IV SCH ×2 (04:30)
[2017-03-19] MEDS: ARTIFICIAL TEARS OPTH SOLN 15 ML BTL EACH EYE SCH ×3 (05:49→22:00)
[2017-03-19] MEDS: HYDROCORTISONE SOD SUCCINATE 100 MG VIAL IV PUSH SCH ×3 (05:49→23:06)
[2017-03-19] MEDS: CHLORHEXIDINE 0.12% (ORAL KIT) 15 ML CUP MT SCH ×2 (07:32→20:00)
[2017-03-19] MEDS: CARBAMIDE PEROXIDE 6.5% OTIC SOLN 15 ML BTL EACH EAR SCH ×2 (07:33→21:00)
[2017-03-19] MEDS: SODIUM CHLORIDE 0.9% FLUSH 10 ML FLUSH IV FLUSH SCH ×3 (07:33→23:08)
[2017-03-19] MEDS: OXcarbazepine 600 MG TAB PO SCH ×2 (07:59→23:07)
[2017-03-19] MEDS: THIAMINE HCL 100 MG TAB PO SCH (07:59)
[2017-03-19] MEDS: SPIRONOLACTONE 25 MG TAB PO SCH (08:00)
[2017-03-19] MEDS: DOCUSATE SODIUM 100 MG/10 ML UDC OG-TUBE SCH ×2 (08:00→23:06)
[2017-03-19] MEDS: LACOSAMIDE 100 MG TAB PO SCH ×2 (08:00→23:07)
[2017-03-19] MEDS: APIXABAN 5 MG TABLET PO SCH ×2 (08:00→23:07)
[2017-03-19] MEDS: MEMANTINE HCL 10 MG TAB PO SCH ×2 (08:00→23:07)
[2017-03-19] MEDS: ASPIRIN 81 MG CHEW TAB CHEW SCH (08:00)
[2017-03-19] MEDS: LANSOPRAZOLE SOLUTAB 30 MG TAB NG SCH (08:00)
[2017-03-19] MEDS: FERROUS FUMARATE 325 MG TAB (106 MG ELEMENTAL IRON) PO SCH ×2 (08:01→17:15)
[2017-03-19] MEDS: DIGOXIN 0.125 MG TAB PO SCH (08:01)
[2017-03-19] MEDS: FOLIC ACID 1 MG TAB PO SCH (08:01)
[2017-03-19] MEDS: PHENobarbital 32.4 MG TAB PO SCH ×2 (08:01→23:07)
[2017-03-19] MEDS: FUROSEMIDE 40 MG/4 ML VIAL IV PUSH SCH ×2 (08:02→17:15)
[2017-03-19] MEDS: INSULIN DETEMIR 100 UNITS/ML VIAL SQ SCH ×2 (08:02→23:09)
[2017-03-19] MEDS: fentaNYL DRIP 250 ML IV PRN (09:18)
--- NOTE | 2017-03-19 11:39 | HHI.FPPN ---
Subjective Remarks She is moving her right arm this morning. She is not tracking with her eyes. She is nonverbal. Her eyes are open and she appears alert. She is not following commands, although she did move her thumb on her left hand when spoken to. (Angel Rodriguez MD R3) Objective Vitals Vital Signs Date Time Temp Pulse Resp B/P (MAP) Pulse Ox O2 Delivery O2 Flow Rate FiO2 03/19/17 10:00 68 03/19/17 09:00 100 40 03/19/17 08:00 81 03/19/17 08:00 40 03/19/17 08:00 98.6 81 15 121/75 (90) 100 03/19/17 06:00 67 110/61 (77) 03/19/17 06:00 67 110/61 03/19/17 06:00 67 03/19/17 04:00 85 03/19/17 04:00 98.6 85 16 117/69 (85) 100 03/19/17 04:00 40 03/19/17 03:30 100 40 03/19/17 02:00 74 03/19/17 00:20 98 40 03/19/17 00:00 40 03/19/17 00:00 98.6 84 15 120/75 (90) 100 03/19/17 00:00 97 03/18/17 22:00 91 03/18/17 21:11 100 40 03/18/17 20:00 98.8 97 15 115/66 (82) 100 03/18/17 20:00 40 03/18/17 20:00 97 03/18/17 18:00 94 03/18/17 18:00 59 123/69 (87) 03/18/17 16:00 85 03/18/17 16:00 40 03/18/17 16:00 98.8 84 16 118/66 (83) 100 03/18/17 15:50 100 40 03/18/17 14:37 100 40 03/18/17 14:00 71 03/18/17 12:00 40 03/18/17 12:00 72 03/18/17 12:00 97.9 80 15 153/85 (107) 96 I/O 03/18/17 03/18/17 03/18/17 03/19/17 03/19/17 03/19/17 07:00 15:00 23:00 07:00 15:00 23:00 Intake Total 933.2 ml 1700 ml 519 ml 341 ml Output Total 975 ml 1050 ml 600 ml Balance -41.8 ml 650 ml -81 ml 341 ml IV Total 401.2 ml 1010 ml 459 ml 341 ml Tube Feeding 472 ml 690 ml Tube Irrigant 60 ml 60 ml Output Urine Total 975 ml 950 ml 600 ml Gastric Drainage Total 100 ml # Bowel Movements 1 0 (Angel Rodriguez MD R3) Result Diagram: 03/19/17 0326 03/19/17 0326 Objective Remarks GENERAL: Eyes open, appears alert, moving right arm, not tracking with eyes, not following commands. SKIN: No obvious lesions HEAD: Normocephalic and atraumatic. EYES: Unable to assess EOMI as she is not tracking, no conjunctivitis present NECK: Supple, nontender. Trachea midline. CARDIOVASCULAR: Regular rate and rhythm with murmur no gallops, or rubs. RESPIRATORY: Clear to auscultation anteriorly. GASTROINTESTINAL: Abdomen soft, non-tender, nondistended. MUSCULOSKELETAL: No edema in lower extremities. No calf tenderness apparent. NEUROLOGICAL: Left hand contracted, moving right arm. Eyes open, appears alert, not tracking with eyes. Not following commands. (Angel Rodriguez MD R3) Date of Insertion: Mar 13, 2017 Line: Central Venous Catheter Side: Right Location: Internal, Jugular (Angel Rodriguez MD R3) A/P Assessment and Plan 51 yr old F admitted for acute CHF exacerbation. Patient with acute respiratory failure resulting in intubation and transfer to ICU. Discharge Planning Acute respiratory failure resulting in intubation. Patient has been transferred to the ICU. (Angel Rodriguez MD R3) Attending Attestation Patient seen and examined. Case reviewed and discussed with the resident team. Agree with plan of care as discussed with me and documented in the resident note. she is moving her right arm spontaneously today which is a definite improvement compared to yesterday when she did not move at all when I saw her. She does open her eyes but does not focus on anything. hopefully she can do better with her CPAP. (Aarti Frank MD) Problem List: (1) Respiratory failure requiring intubation ICD Codes: J96.90 - Respiratory failure, unspecified, unspecified whether with hypoxia or hypercapnia Status: Acute Plan: Neuro/Psych: History of right MCA CVA with left arm and poor balance disorder Seizure disorder NOS Dementia disorder NOS Off sedation but not following commands Continue lacosamide 100 mg bid, phenobarbital 32.4 mg bid, oxcarbazepine 1200 mg qday for possible seizure activity CT brain, CT angiogram brain and neck: Unremarkable Cannot have MRI due to ICD placement Not a candidate for thrombolytic due to current anticoagulant use Neurology is on board EEG: Seizure focus activity, sharp and spike discharges in right frontal region. Seizure precautions Namenda 10 mg twice a day for cognitive dysfunction Resp: Acute respiratory failure secondary to CHF exacerbation Currently on mechanical ventilation Albuterol ipratropium every 6 hours and albuterol every 2 hours PRN. Spontaneous breathing trials daily, failed CPAP due to apnea ID: Sputum culture positive for MRSA Follow blood cultures Continue vancomycin 1 g twice a day Continue Zosyn 4.5 g every 6 hours CV: Chronic systolic heart failure ejection fraction 15-20% Hypertension Dyslipidemia Echocardiogram 03/20 revealed EF 20%. LA dilation. Moderate MR/TR. PaP 67 mmHg. Small pericardial Effusion. Currently on digoxin 0.125 mg by mouth daily, monitor levels Continue furosemide 40 mg twice a day. Spironolactone 25 mg by mouth daily for congestive heart failure Daily atorvastatin 80 mg by mouth daily held due to elevated LFT's. Evaluated by Dr. Cruz in this hospitalization. Her course developer is Dr. Miguel Continue aspirin 81 mg by mouth daily GI: Elevated LFT's Hypoalbuminemia Tube feedings per dietary. PPI for GI prophylaxis Docusate sodium PRN for bowel regimen HIDA scan today given elevated LFT;s and liver ultrasound showing possible cholecystitis : Hinson catheter will be place for accurate I's and O's with diuretics Endo: Sliding scale insulin with Accu-Cheks Levemir 5 units bid SoluCortef 100 mg q8hrs Renal: Monitor renal function Monitor urine output accurate I's and O's Heme: Continue ferrous fumarate 325 mg twice a day ID: Monitor for infection FEN: Replace electrolytes as needed MSK: Gait imbalance disorder Left upper extremity contracture Access - Right IJ CVL Prophylaxis - GI - Lansoprazole 30 mg - DVT - SCDs/Apixaban 5 mg bid (2) CHF exacerbation ICD Codes: I50.9 - Heart failure, unspecified Status: Acute (3) Diabetes ICD Codes: E11.9 - Diabetes Status: Chronic (4) Cardiomyopathy ICD Codes: I42.9 - Cardiomyopathy Status: Chronic (5) History of right MCA stroke ICD Codes: Z86.73 - History of right MCA stroke Status: Chronic (6) Seizures ICD Codes: R56.9 - Unspecified convulsions Status: Chronic (7) Nutrition, metabolism, and development symptoms ICD Codes: R63.8 - Nutrition, metabolism, and development symptoms Status: Acute (Angel Rodriguez MD R3) Problem Qualifiers (1) CHF exacerbation: Qualified Codes: I50.9 - Heart failure, unspecified (2) Diabetes: Angel Rodriguez MD R3 Mar 19, 2017 11:39 Aarti Frank MD Mar 19, 2017 12:32
--- NOTE | 2017-03-19 12:29 | RADRPT ---
EXAM DATE/TIME: 03/19/2017 09:49 This report includes an Addendum and supersedes previous reports for this exam. [facility] COMPARISON: No previous studies available for comparison. INDICATIONS : Abdominal pain. DOSE: 4.1 mCi Tc99m Mebrofenin IV MEDICAL HISTORY : Congestive hearrt failure. Hypertension. Stroke. SURGICAL HISTORY : Hysterectomy. Craniotomy. ENCOUNTER: Initial ACUITY: 1 day PAIN SCALE: 3/10 LOCATION: Right upper quadrant TECHNIQUE: Following the intravenous administration of radiotracer, dynamic sequential images wer e performed with continuous acquisition. FINDINGS: There is prompt extraction of radiotracer activity seen in the gallbladder and common duct in 5 minut es. There is no activity in the small bowel suggesting singular dysfunction. This can be seen with na rcotic use as well. Delayed films will be obtained. CONCLUSION: Negative for cystic duct obstruction. There is no activity in the small bowel. Delaye d films will be obtained. Kashmir Pritchard MD FACR on March 19, 2017 at 12:25 Board Certified Radiologist. This report was verified electronically. ADDENDUM: A 24-hour delayed film continues to demonstrate tracer activity in the gallbladder. However, there is now tracer activity noted in the GI tract. There has been normal washout of tracer activity from the liver parenchyma. Peter Moreno MD on March 20, 2017 at 9:58 Board Certified Radiologist. This report was verified electronically.
--- NOTE | 2017-03-19 13:55 | HHI.CCPN ---
Subjective Remarks/Hospital Course 51 yr old AA F here date of admission 03/09/2017. Date of consultation 2016. 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 Her left upper extremity contracted,, seizures, T2DM, and CHF(EF currently 25%), she was originally presented to the ED at [facility] on 2016 with a two- day history of shortness of breath positive orthopnea. Positive wheezing. Positive cough frothy sputum. Ct Mri Technologist is Dr. Miguel. In the ED, noted to have CT brain which showed no signs intracranial process. She is admitted under the [facility] service. She is evaluated Dr. Cruz cardiology - rec - IV diuresis Strict I&O Daily Weight Telemetry monitoring Low salt diet Cont ASA, Coreg, Digoxin, Statin, Eliquis Today, patient was to be discharged to an extended care facility when she finishes the short of breath and unresponsive. [facility] was called and the patient was transferred from 1320. She had no IV access. Central line placement was performed patient was orotracheally intubated without complication. Noted at frothy secretions upon intubation CTA brain/neck and CT head revealed no acute intracranial findings/stenosis. 03/14: Noted likely seizure activity in EEG. Patient placed on low-dose norepinephrine overnight. We'll change sedatives. Start on Midazolam instead of propofol. Check CVP. Start bowel regimen and tube feeding. 03/15: Afebrile. Remains on norepinephrine at 8 mg/m. Tolerating tube feeding. CVP between 9 and 12. 03/16: Norepinephrine drip down to 4 mics grams per minute. Diuresing. Tolerating tube feeding. Arousable but not really following commands off sedation. 03/17: Off all sedation. Not following commands. Apneic on spontaneous breathing trial. Tolerating tube feeding. One bowel movement. 03/18: Patient noted to have spontaneous eye opening, does not track, not following commands. Norepinephrine currently at 2 mcgs/min Subjective 03/19: slightly more awake. sputum growing MRSA. still remains on very small dose of norepinephrine. still failing CPAP trials for apnea. Objective Vital Signs Date Time Temp Pulse Resp B/P (MAP) Pulse Ox O2 Delivery O2 Flow Rate FiO2 03/19/17 12:15 100 40 03/19/17 12:00 97.9 70 15 120/79 (93) 03/15/17 07:45 Ventilator Intake and Output 03/19/17 03/19/17 03/19/17 07:59 15:59 23:59 Intake Total 519 ml 341 ml Output Total 600 ml Balance -81 ml 341 ml Result Diagram: 03/19/17 0326 03/19/17 0326 Imaging Last Impressions Chest X-Ray 03/16/17 0600 Signed Impressions: Service Date/Time: Thursday, March 16, 2017 02:07 - CONCLUSION: 1. Bilateral mostly basilar airspace disease. Cardiomegaly. Support apparatus in good position. Sam Cruz MD Head CT 03/13/17 1345 Signed Impressions: Service Date/Time: Monday, March 13, 2017 13:43 - CONCLUSION: 1. Old area of infarct involving the right MCA distribution. 2. Colpocephalic dilation of the ventricular system. 3. Stable examination compared to previous dated 10/23/16. 4. Postcraniotomy changes within the skull. Warner Pritchard MD Neck CTA 03/13/17 0000 Signed Impressions: Service Date/Time: Monday, March 13, 2017 13:43 - CONCLUSION: 1. No evidence of hemodynamic significant lesion. There is 0%% stenosis bilaterally Georges Hannon MD Head CTA 03/13/17 0000 Signed Impressions: Service Date/Time: Monday, March 13, 2017 13:43 - CONCLUSION: 1. Unremarkable CT angiography of the brain. Georges Hannon MD Liver Ultrasound 03/12/17 0000 Signed Impressions: Service Date/Time: Sunday, March 12, 2017 15:55 - CONCLUSION: 1. Gallbladder wall thickening and pericholecystic fluid without stones. Cholecystitis is not excluded. Radionuclide imaging is recommended for further evaluation if clinically indicated. Georges Hannon MD Objective Remarks GENERAL: This is a 51 yo female critically ill currently orotracheally intubated SKIN: Cool and dry HEAD: Atraumatic. Normocephalic. EYES: Pupils equal and round about 3 mm bilaterally and reactive. No scleral icterus. No injection or drainage. ENT: No nasal bleeding or discharge. Mucous membranes pink and moist. Orotracheally intubated NECK: Trachea midline. +JVD. Right IJ is clean dry and intact CARDIOVASCULAR: Regular rate and rhythm. RESPIRATORY: equal chest rise. full support assist control ventilation. fio2 40% . GASTROINTESTINAL: Abdomen soft, non-tender, nondistended. Hypoactive bowel sounds MUSCULOSKELETAL: Extremities without noted in peripheral edema. No obvious deformities. NEUROLOGICAL: Positive gag. Positive corneal reflex. Currently not withdrawing to pain. opens eyes to voice. does not track. Date of Insertion: Mar 13, 2017 Line: Central Venous Catheter Side: Right Location: Internal, Jugular A/P Assessment and Plan Assessment: 51yF with prior CVA and severe dilated cardiomyopathy and volume overload admitted for acute metabolic encephalopathy, acute hypoxic respiratory failure and shock. these all persist and are off pathway. will resend ammonia to see if this is a contributing factor in her encephalopathy. continue forced diuresis and add additional diamox for her contraction alkalosis. overall if she does not rapidly improve, would be a candidate for early tracheostomy for early mobility. Remains critically ill and off pathway, in shock on vasopressors and failing multiple trials of decreasing vent support. Neuro/Psych: History of right MCA CVA with left arm and didn't balance disorder Seizure disorder NOS Dementia disorder NOS Patient is currently off midazolaml , non responsive on low-dose fentanyl for vent synchrony. Goal of RASS -2 Daily sedation vacation Continue lacosamide 100 mg twice a day, phenobarbital 32.4 mill grams twice a day, oxcarbazepine 1200 mg Cannot have MRI due to ICD placement Evaluate by Dr. Marcos Neurology. Not a candidate for thrombolytic due to current anticoagulant use EEG oxcygvs64/11 - Abnormal EEG because of right frontotemporal frequent sharp and spike type of discharges which have an epileptiform appearance. No ictal pattern. There is bi-hemisphere slowing compatible with bilateral abnormalities though the slowing might also be all due to sedation. Artificially though the bilateral slowing might be all due to sedation. Seizure precautions Continued Namenda 10 mg twice a day add provigil 200mg daily resend ammonia level today. Resp: Acute Hypoxic Respiratory failure likely secondary to Systolic CHF exacerbation MRSA HCAP Pneumonia Ventilator bundle Albuterol ipratropium aerosols every 6 hours and albuterol aerosols every 2 hours. Dyspnea Spontaneous breathing trials daily, still failing for apnea. Apneic on spontaneous breathing trial currently CV: Chronic systolic heart failure ejection fraction 15-20% Systolic CHF exacerbation Hypertension Dyslipidemia Echocardiogram 03/20 revealed EF 20%. LA dilation. Moderate MR/TR. PaP 67 mmHg. Small pericardial Effusion.. Repeat echocardiogram revealed EF less than 20%. Atrial dilatation. Pulmonary she pressures greater than 70. No signs. Currently on digoxin 0.125 mg by mouth daily, recheck level in a.m. Continue furosemide 60 mg IV twice a day. Spironolactone 25 mg by mouth daily for congestive heart failure. 1 dose Zaroxolyn given 03/16 Daily atorvastatin 80 mg by mouth daily for dyslipidemia being held due to elevated LFTs Evaluated by Dr. Cruz in this hospitalization. Her forest ecologist Dr. Miguel Continue aspirin 81 mg by mouth daily GI: Hypoalbuminemia Elevated LFTs Acute protein calorie malnutrition- moderate Metabolic alkalosis Currently on Glucerna 1.5 goal 50 cc an hour. Dietary recommends vital 1.5 goal 45 cc an hour Lansoprazole 30 mg for GI prophylaxis Docusate sodium for bowel regimen Liver ultrasound showed pericholecystic fluid. Cannot rule out cholecystitis. HIDA scan scheduled for 03/19, prelim negative. f/u ammonia diamox 500mg iv q8h x 3 doses for alkalosis. : Hinson catheter will remain for accurate I's nose any critically ill patient receiving diuretics Endo: Relative Adrenal Insufficiency Slding scale insulin with Accu-Cheks to maintain euglycemia continue hydrocortisone 100mg iv q8h until patient is off vasopressors. Renal: Creatinine currently within normal limits Monitor urine output accurate I's and O's Heme: History of anemia Continue ferrous sulfate 325 mg by mouth twice a day ID: MRSA sputum Monitor for infection Blood cultures 2, no growth. Sputum with MRSA continue vancomycin. stop zosyn (48h negative cultures). continue full 7 day course for MRSA pneumonia. FEN: Replace electrolytes as clinically indicated MSK: Gait imbalance disorder Left upper extremity contracture PT evaluate and treat Access - Right IJ CVL placed 03/13 Prophylaxis - GI -lansoprazole - DVT - SCDs/Apixaban will provide DVT prophylaxis Critical Care time 35 minutes, exclusive of separately billable procedures. Ramesh Castorena MD Mar 19, 2017 13:54
[2017-03-19] MEDS: MODAFINIL 200 MG TAB PO SCH (15:37)
[2017-03-19] MEDS: VANCOMYCIN INJ 900 MG in SODIUM CHLOR 0.9% 250 ML INJ 250 ML IV SCH (16:38)
[2017-03-19] MEDS ORDERED: MAGNESIUM OXIDE 400 MG TAB PO PRN (17:00)
[2017-03-19] MEDS ORDERED: POTASSIUM CHLOR 20 MEQ PREMIX 100 ML IV PRN (17:00)
[2017-03-19] MEDS ORDERED: POTASSIUM PHOSPHATE INJ 30 MMOL in SODIUM CHLOR 0.9% 250 ML INJ 250 ML IV PRN (17:00)
[2017-03-19] MEDS ORDERED: MAGNESIUM SULFATE INJ 2 GM in SODIUM CHLORIDE 0.9% INJ 96 ML IV PRN (17:00)
[2017-03-19] MEDS ORDERED: MAGNESIUM SULFATE INJ 4 GM in SODIUM CHLORIDE 0.9% INJ 92 ML IV PRN (17:00)
[2017-03-19] MEDS ORDERED: POTASSIUM PHOSPHATE MONOBASIC 500 MG TAB PO/TUBE PRN (17:00)
[2017-03-19] MEDS ORDERED: POTASSIUM PHOSPHATE MONOBASIC 500 MG TAB PO PRN (17:00)
[2017-03-19] MEDS ORDERED: SODIUM PHOSPHATE INJ 30 MMOL in SODIUM CHLOR 0.9% 250 ML INJ 240 ML IV PRN (17:00)
[2017-03-19] MEDS ORDERED: POTASSIUM CHLOR 40 MEQ PREMIX 100 ML IV PRN (17:00)
--- NOTE | 2017-03-19 17:03 | HHI.HCPN ---
Reason for visit a. To assist with evaluation and management of symptoms including: Dyspnea , encephalopathy b. To assist medical decision maker(s) with: better understanding of current medical conditions; weighing benefits/burdens of medical treatment options; making medical treatment decisions. . Subjective/Interval History INTERVAL NOTE: The patient remains quite encephalopathic, on the ventilator. She opens her eyes and looks a bit more awake, but she still does not respond, does not follow commands, does not track. She remains afebrile. . Family/friend interactions Unable to reach daughter today . Advance Directives Living Will: Never completed Health Care Surrogate: Never completed Durable Power of Cosmetics And Toiletries Salesperson: Never completed Objective Vital Signs Date Time Temp Pulse Resp B/P (MAP) Pulse Ox O2 Delivery O2 Flow Rate FiO2 03/19/17 16:00 98.1 66 15 119/68 (85) 100 03/19/17 16:00 66 03/19/17 16:00 40 03/19/17 15:11 100 40 03/19/17 14:00 68 03/19/17 12:15 100 40 03/19/17 12:00 40 03/19/17 12:00 97.9 70 15 120/79 (93) 100 03/19/17 12:00 70 03/19/17 10:00 68 03/19/17 09:50 100 50 03/19/17 09:00 100 40 03/19/17 08:00 81 03/19/17 08:00 40 03/19/17 08:00 98.6 81 15 121/75 (90) 100 03/19/17 06:00 67 110/61 (77) 03/19/17 06:00 67 110/61 03/19/17 06:00 67 03/19/17 04:00 85 03/19/17 04:00 98.6 85 16 117/69 (85) 100 03/19/17 04:00 40 03/19/17 03:30 100 40 03/19/17 02:00 74 03/19/17 00:20 98 40 03/19/17 00:00 40 03/19/17 00:00 98.6 84 15 120/75 (90) 100 03/19/17 00:00 97 03/18/17 22:00 91 03/18/17 21:11 100 40 03/18/17 20:00 98.8 97 15 115/66 (82) 100 03/18/17 20:00 40 03/18/17 20:00 97 03/18/17 18:00 94 03/18/17 18:00 59 123/69 (87) Intake & Output 03/19/17 03/19/17 07:00 19:00 Intake Total 619 ml 341 ml Output Total 600 ml Balance 19 ml 341 ml IV Total 559 ml 341 ml Tube Irrigant 60 ml Output Urine Total 600 ml # Bowel Movements 0 Physical Exam CONSTITUTIONAL/GENERAL: This is an adequately nourished patient, quite encephalopathic, in the [facility], intubated. HEAD: Atraumatic. Some deformity still present from craniotomies on the right side of her skull. EYES: Pupils equal and round and reactive. No scleral icterus. No injection or drainage. Fundi not examined. CARDIOVASCULAR: Regular rate and rhythm, grade 2 systolic murmur. No JVD. Peripheral pulses quite diminished in the feet/ankles. RESPIRATORY/CHEST: Symmetric, unlabored respirations on the ventilator. Scattered rhonchi bilateral GASTROINTESTINAL: Abdomen soft, nondistended. No hepato-splenomegaly, or palpable masses. No guarding. Bowel sounds present. GENITOURINARY: Without palpable bladder distension. Hinson catheter in place. MUSCULOSKELETAL: Extremities without clubbing, cyanosis, or edema. No mottling or clubbing. Flexion contractures involving the left arm, wrist, fingers. NEUROLOGICAL: Severely encephalopathic; opens eyes to painful stimuli but does not track. Does not respond to light touch or verbal stim, does not follow simple commands. PSYCHIATRIC: Difficult to evaluate due to clinical condition . Diagnostic Tests Laboratory Laboratory Tests Test 03/17/17 04:35 03/18/17 03:15 03/19/17 03:26 03/19/17 15:45 White Blood Count 11.1 TH/MM3 (4.0-11.0) 10.5 TH/MM3 (4.0-11.0) 10.9 TH/MM3 (4.0-11.0) Red Blood Count 4.59 MIL/MM3 (4.00-5.30) 4.68 MIL/MM3 (4.00-5.30) 4.76 MIL/MM3 (4.00-5.30) Hemoglobin 11.5 GM/DL (11.6-15.3) 11.9 GM/DL (11.6-15.3) 12.0 GM/DL (11.6-15.3) Hematocrit 35.9 % (35.0-46.0) 36.2 % (35.0-46.0) 36.9 % (35.0-46.0) Mean Corpuscular Volume 78.2 FL (80.0-100.0) 77.3 FL (80.0-100.0) 77.6 FL (80.0-100.0) Mean Corpuscular Hemoglobin 25.0 PG (27.0-34.0) 25.4 PG (27.0-34.0) 25.3 PG (27.0-34.0) Mean Corpuscular Hemoglobin Concent 31.9 % (32.0-36.0) 32.8 % (32.0-36.0) 32.6 % (32.0-36.0) Red Cell Distribution Width 15.8 % (11.6-17.2) 15.8 % (11.6-17.2) 15.9 % (11.6-17.2) Platelet Count 176 TH/MM3 (150-450) 190 TH/MM3 (150-450) 227 TH/MM3 (150-450) Mean Platelet Volume 9.3 FL (7.0-11.0) 9.5 FL (7.0-11.0) 9.0 FL (7.0-11.0) Neutrophils (%) (Auto) 92.5 % (16.0-70.0) 86.7 % (16.0-70.0) Lymphocytes (%) (Auto) 2.9 % (9.0-44.0) 4.8 % (9.0-44.0) Monocytes (%) (Auto) 4.5 % (0.0-8.0) 8.1 % (0.0-8.0) Eosinophils (%) (Auto) 0.0 % (0.0-4.0) 0.0 % (0.0-4.0) Basophils (%) (Auto) 0.1 % (0.0-2.0) 0.4 % (0.0-2.0) Neutrophils # (Auto) 10.2 TH/MM3 (1.8-7.7) 9.4 TH/MM3 (1.8-7.7) Lymphocytes # (Auto) 0.3 TH/MM3 (1.0-4.8) 0.5 TH/MM3 (1.0-4.8) Monocytes # (Auto) 0.5 TH/MM3 (0-0.9) 0.9 TH/MM3 (0-0.9) Eosinophils # (Auto) 0.0 TH/MM3 (0-0.4) 0.0 TH/MM3 (0-0.4) Basophils # (Auto) 0.0 TH/MM3 (0-0.2) 0.0 TH/MM3 (0-0.2) CBC Comment DIFF FINAL DIFF FINAL Differential Comment Blood Urea Nitrogen 17 MG/DL (7-18) 26 MG/DL (7-18) 31 MG/DL (7-18) Creatinine 0.51 MG/DL (0.50-1.00) 0.67 MG/DL (0.50-1.00) 0.63 MG/DL (0.50-1.00) Random Glucose 211 MG/DL (74-106) 217 MG/DL (74-106) 148 MG/DL (74-106) Total Protein 6.8 GM/DL (6.4-8.2) 6.7 GM/DL (6.4-8.2) 6.8 GM/DL (6.4-8.2) Albumin 2.1 GM/DL (3.4-5.0) 1.9 GM/DL (3.4-5.0) 2.1 GM/DL (3.4-5.0) Calcium Level 8.1 MG/DL (8.5-10.1) 8.2 MG/DL (8.5-10.1) 7.9 MG/DL (8.5-10.1) Phosphorus Level 2.4 MG/DL (2.5-4.9) Magnesium Level 2.1 MG/DL (1.5-2.5) Alkaline Phosphatase 252 U/L (45-117) 281 U/L (45-117) 246 U/L (45-117) Aspartate Amino Transf (AST/SGOT) 138 U/L (15-37) 117 U/L (15-37) 119 U/L (15-37) Alanine Aminotransferase (ALT/SGPT) 132 U/L (10-53) 122 U/L (10-53) 123 U/L (10-53) Total Bilirubin 0.8 MG/DL (0.2-1.0) 0.4 MG/DL (0.2-1.0) 0.4 MG/DL (0.2-1.0) Sodium Level 134 MEQ/L (136-145) 136 MEQ/L (136-145) 139 MEQ/L (136-145) Potassium Level 3.7 MEQ/L (3.5-5.1) 3.5 MEQ/L (3.5-5.1) 3.2 MEQ/L (3.5-5.1) Chloride Level 100 MEQ/L (98-107) 98 MEQ/L (98-107) 101 MEQ/L (98-107) Carbon Dioxide Level 26.3 MEQ/L (21.0-32.0) 28.5 MEQ/L (21.0-32.0) 30.7 MEQ/L (21.0-32.0) Anion Gap 8 MEQ/L (5-15) 10 MEQ/L (5-15) 7 MEQ/L (5-15) Estimat Glomerular Filtration Rate 154 ML/MIN (>89) 113 ML/MIN (>89) 121 ML/MIN (>89) Digoxin Level 1.0 NG/ML (0.8-2.0) Phenobarbital Level 21.1 MCG/ML (15.0-40.0) Vancomycin Level Trough 20.1 MCG/ML (5.0-10.0) Ammonia 18 MCMOL/L (11-32) Result Diagram: 03/19/17 0326 03/19/17 0326 Procedures INTUBATION 03/13/17 Central line 03/13/17 . Assessment and Plan Disease Oriented Problem List: (1) respiratory failure Comment: Protecting the patient's airway because of the encephalopathy (2) encephalopathy Comment: Could be multifactorial, concern is for ongoing seizure activity.. (3) end-stage heart disease, with cardiomyopathy, CHF, cor pulmonale, EF 15-20% (4) acute ischemic CVA 2013, with left-sided weakness and left arm contractures (5) seizures since 2013 Comment: Persistently shows seizure activity on EEG is (6) diabetes (7) sepsis and respiratory failure June 2016 (8) history of vascular dementia (9) atrial fibrillation (10) anxiety (11) depression (12) hypothyroidism (13) hypertension (14) GERD Symptom Scale: (1) Seizure 0-10 Scale: Unable to quantify Comment: Since stroke in 2013; persistent seizure activity on EEG (2) dyspnea 0-10 Scale: Unable to quantify (3) encephalopathy 0-10 Scale: Unable to quantify Pertinent Non-Medical Issues 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 Lives with her daughter (only child). Spiritual: Jillian and spirituality have been very important for the patient, and she has been a member of a [employer] in recent years. The patient's daughter DOES believe the patient would want electric blasting cap assembler visits and prayer. Legal: The patient lacks capacity for decision-making, and it seems unlikely that she will regain that capacity. Her daughter is functioning as the healthcare proxy decision-maker. Ethical issues impacting care: None . Important Contacts Daughter: Colten Foote [phone] . Prognosis The patient's prognosis is poor. She has underlying end-stage heart disease, and now has a severe encephalopathy of undetermined etiology and respiratory failure. She has had multiple recent hospitalizations and will remain at risk for frequent and serious complications due to her debility and frequent hospital visits. She would be appropriate for hospice services if the goals become comfort oriented. . Code Status: Full Code Plan * FULL CODE * DECISION-MAKING: The patient lacks capacity for decision-making, and it seems unlikely that she will regain that capacity. Her daughter is functioning as the healthcare proxy decision-maker. * GOALS: The patient's daughter has had conversations with the patient over the last couple years about goals and wishes. The goals remain aggressive at this time, but the patient's daughter would not want to keep the patient on artificial life support long-term if the encephalopathy and brain function do not significantly improve. We will readdress the goals as time passes and the patient's condition evolves. * SYMPTOMS: With the persistent seizure activity on EEG, it is hard to tell if some of this encephalopathy represents persistent postictal state; neurology is adjusting anti-seizure meds. There is no obvious pain. The patient remains intubated to protect her airway, but is not obviously dyspneic. * The patient's daughter Colten is a reservoir engineering manager at the [employer] in the [employer]; I will again try to contact her on Sunday to resume the conversation about goals and to discuss how the patient's status/condition is evolving. * Palliative Care will continue to follow the patient during this hospitalization. . Time Spent Total Floor Time (mins): 29 Face to Face Time (mins): 14 >50% Counseling/Coord of Care: Yes (d/w RN) Attestation To help prompt me to consider important information that might be impacting today's encounter and assessment, information from prior notes written by myself or my colleagues may have been "brought forward" into today's note. My signature on this note, however, is an attestation that I personally performed the exam, history, and/or decision-making noted today, and, unless otherwise indicated, the interactions with patient, family, and staff as well as the review of records all occurred today. I also attest that the listed assessment and stated plan reflect my best clinical judgment today based on the combination of historical information, prior notes, and today's exam/ interactions. When time spent is documented, it refers only to time spent today by the signer, or if indicated, combined time spent today by collaborating physician/nurse practitioner. Lelia Eugene MD Mar 19, 2017 17:03
[2017-03-19] MEDS: POTASSIUM CHLOR 40 MEQ PREMIX 100 ML IV PRN (17:22)
--- NOTE | 2017-03-19 18:16 | HHI.PR ---
Subjective Remarks no sz by nursing Objective Vital Signs Date Time Temp Pulse Resp B/P (MAP) Pulse Ox O2 Delivery O2 Flow Rate FiO2 03/19/17 16:00 98.1 66 15 119/68 (85) 100 03/19/17 16:00 66 03/19/17 16:00 40 03/19/17 15:11 100 40 03/19/17 14:00 68 03/19/17 12:15 100 40 03/19/17 12:00 40 03/19/17 12:00 97.9 70 15 120/79 (93) 100 03/19/17 12:00 70 03/19/17 10:00 68 03/19/17 09:50 100 50 03/19/17 09:00 100 40 03/19/17 08:00 81 03/19/17 08:00 40 03/19/17 08:00 98.6 81 15 121/75 (90) 100 03/19/17 06:00 67 110/61 (77) 03/19/17 06:00 67 110/61 03/19/17 06:00 67 03/19/17 04:00 85 03/19/17 04:00 98.6 85 16 117/69 (85) 100 03/19/17 04:00 40 03/19/17 03:30 100 40 03/19/17 02:00 74 03/19/17 00:20 98 40 03/19/17 00:00 40 03/19/17 00:00 98.6 84 15 120/75 (90) 100 03/19/17 00:00 97 03/18/17 22:00 91 03/18/17 21:11 100 40 03/18/17 20:00 98.8 97 15 115/66 (82) 100 03/18/17 20:00 40 03/18/17 20:00 97 I/O 03/18/17 03/18/17 03/18/17 03/19/17 03/19/17 03/19/17 07:00 15:00 23:00 07:00 15:00 23:00 Intake Total 933.2 ml 1700 ml 519 ml 341 ml Output Total 975 ml 1050 ml 600 ml Balance -41.8 ml 650 ml -81 ml 341 ml IV Total 401.2 ml 1010 ml 459 ml 341 ml Tube Feeding 472 ml 690 ml Tube Irrigant 60 ml 60 ml Output Urine Total 975 ml 950 ml 600 ml Gastric Drainage Total 100 ml # Bowel Movements 1 0 Result Diagram: 03/19/176 03/19/17325 Objective Remarks off sedatives rxt to threat well not follow commands ? fist left hand eyes open track a little? moves r hand Assessment and Plan Assessment and Plan imp eeg r sz focus acitve and a hx of these on mult eeg in past we can inc her pbarb the sharps in r frontal region have been resistant to meds in past on vimpat 200 bid pbarb 32.5 2 am 1 pm trileptal 1200 bid level pend eeg today a little better on sunday will recheck lft up and down and up down plan is try and keep off sedatives looks some better Georges Marcos MD Mar 19, 2017 18:16
[2017-03-20] VITALS (16 sets, daily range): BP systolic 93–118; BP diastolic 59–74; PULSE 58–111; RESP 15–20; TEMP 97.2–98.3; O2SAT 100
[2017-03-20] MEDS: POTASSIUM CHLOR 20 MEQ PREMIX 100 ML IV PRN ×2 (00:18→06:53)
[2017-03-20] MEDS: RESP: ALBUTEROL 2.5 MG/IPRATROPIUM 0.5 MG NEB (SCH) NEB ×3 (03:11→16:03)
[2017-03-20] MEDS: INSULIN NovoLIN REGULAR SUPPLEMENTAL SCALE SQ SCH ×5 (04:00→16:00)
[2017-03-20 04:40] LABS: HEMATOCRIT 37.4 % (35.0-46.0); MEAN CELL VOLUME 77.7 FL (80.0-100.0); MEAN CORPUSCULAR HEMOGLOBIN 25.2 PG (27.0-34.0); MEAN CORPUSCULAR HGB CONC 32.4 % (32.0-36.0); PLATELET COUNT 214 TH/MM3 (150-450); RED BLOOD COUNT 4.82 MIL/MM3 (4.00-5.30); REVIEW FLAG FINAL
[2017-03-20 05:21] LABS: BICARBONATE 22.3 MEQ/L (21.0-32.0)
[2017-03-20 05:59] LABS: POTASSIUM 2.9 MEQ/L (3.5-5.1)
[2017-03-20] MEDS: ARTIFICIAL TEARS OPTH SOLN 15 ML BTL EACH EYE SCH ×2 (06:00→12:55)
[2017-03-20] MEDS: VANCOMYCIN INJ 900 MG in SODIUM CHLOR 0.9% 250 ML INJ 250 ML IV SCH ×2 (06:07→17:39)
[2017-03-20] MEDS: HYDROCORTISONE SOD SUCCINATE 100 MG VIAL IV PUSH SCH ×2 (06:08→13:04)
[2017-03-20] MEDS: CHLORHEXIDINE 0.12% (ORAL KIT) 15 ML CUP MT SCH (07:22)
[2017-03-20] MEDS: FUROSEMIDE 40 MG/4 ML VIAL IV PUSH SCH ×2 (07:40→17:39)
[2017-03-20] MEDS: APIXABAN 5 MG TABLET PO SCH (07:40)
[2017-03-20] MEDS: DOCUSATE SODIUM 100 MG/10 ML UDC OG-TUBE SCH (07:40)
[2017-03-20] MEDS: OXcarbazepine 600 MG TAB PO SCH (07:41)
[2017-03-20] MEDS: FERROUS FUMARATE 325 MG TAB (106 MG ELEMENTAL IRON) PO SCH ×2 (07:41→17:35)
[2017-03-20] MEDS: MODAFINIL 200 MG TAB PO SCH (07:41)
[2017-03-20] MEDS: FOLIC ACID 1 MG TAB PO SCH (07:41)
[2017-03-20] MEDS: DIGOXIN 0.125 MG TAB PO SCH (07:41)
[2017-03-20] MEDS: ASPIRIN 81 MG CHEW TAB CHEW SCH (07:41)
[2017-03-20] MEDS: MEMANTINE HCL 10 MG TAB PO SCH (07:42)
[2017-03-20] MEDS: LACOSAMIDE 100 MG TAB PO SCH (07:42)
[2017-03-20] MEDS: PHENobarbital 32.4 MG TAB PO SCH (07:42)
[2017-03-20] MEDS: LANSOPRAZOLE SOLUTAB 30 MG TAB NG SCH (07:42)
[2017-03-20] MEDS: THIAMINE HCL 100 MG TAB PO SCH (07:42)
[2017-03-20] MEDS: CARBAMIDE PEROXIDE 6.5% OTIC SOLN 15 ML BTL EACH EAR SCH (07:43)
[2017-03-20] MEDS: SODIUM CHLORIDE 0.9% FLUSH 10 ML FLUSH IV FLUSH SCH ×2 (07:43→07:44)
[2017-03-20] MEDS: SPIRONOLACTONE 25 MG TAB PO SCH (07:43)
[2017-03-20] MEDS: INSULIN DETEMIR 100 UNITS/ML VIAL SQ SCH (07:44)
[2017-03-20] MEDS: POTASSIUM CHLOR 40 MEQ PREMIX 100 ML IV PRN (09:27)
--- NOTE | 2017-03-20 12:12 | HHI.FPPN ---
Subjective Remarks No acute events overnight. She is somewhat more sedated this morning. She opens eyes spontaneously. She is nonverbal and not tracking with her eyes. She remains on mechanical ventilation. She is off pressors now. (Angel Rodriguez MD R3) Objective Vitals Vital Signs Date Time Temp Pulse Resp B/P (MAP) Pulse Ox O2 Delivery O2 Flow Rate FiO2 03/20/17 11:00 100 40 03/20/17 10:00 72 03/20/17 09:45 100 100 03/20/17 08:00 97.2 72 18 108/70 (83) 100 03/20/17 08:00 40 03/20/17 08:00 74 03/20/17 07:40 40 03/20/17 07:34 100 40 03/20/17 06:00 67 03/20/17 06:00 95/59 (71) 03/20/17 04:00 75 03/20/17 04:00 40 03/20/17 04:00 97.7 67 20 118/73 (88) 100 03/20/17 03:00 100 40 03/20/17 02:00 58 03/20/17 00:30 100 40 03/20/17 00:00 97.8 111 15 93/60 (71) 100 03/20/17 00:00 40 03/20/17 00:00 67 03/19/17 22:00 67 03/19/17 21:09 100 40 03/19/17 20:00 40 03/19/17 20:00 99.7 93 23 118/66 (83) 97 03/19/17 18:00 67 110/61 (77) 03/19/17 18:00 75 03/19/17 16:00 98.1 66 15 119/68 (85) 100 03/19/17 16:00 66 03/19/17 16:00 40 03/19/17 15:11 100 40 03/19/17 14:00 68 03/19/17 12:15 100 40 I/O 03/19/17 03/19/17 03/19/17 03/20/17 03/20/17 03/20/17 07:00 15:00 23:00 07:00 15:00 23:00 Intake Total 519 ml 341 ml 0 ml Output Total 600 ml 1600 ml 700 ml Balance -81 ml 341 ml -1600 ml -700 ml Intake Oral 0 ml IV Total 459 ml 341 ml Tube Irrigant 60 ml Output Urine Total 600 ml 1600 ml 700 ml Stool Total 0 ml # Bowel Movements 0 0 (Angel Rodriguez MD R3) Result Diagram: 03/20/170 03/20/17 0410 Imaging Last 72 hours Impressions Hepatobiliary Scan Nuclear Medicine 03/19/17 0000 Signed Impressions: Service Date/Time: Sunday, March 19, 2017 09:49 - CONCLUSION: Negative for cystic duct obstruction. There is no activity in the small bowel. Delayed films will be obtained. Kashmir Pritchard MD FACRADDENDUM: A 24-hour delayed film continues to demonstrate tracer activity in the gallbladder. However, there is now tracer activity noted in the GI tract. There has been normal washout of tracer activity from the liver parenchyma. Peter Moreno MD Objective Remarks GENERAL: Opens eyes spontaneously, not tracking with eyes, not following commands. SKIN: No obvious lesions HEAD: Normocephalic and atraumatic. EYES: Unable to assess EOMI as she is not tracking, no conjunctivitis present NECK: Supple, nontender. Trachea midline. CARDIOVASCULAR: Regular rate and rhythm with murmur no gallops, or rubs. RESPIRATORY: Clear to auscultation anteriorly. Mechanically ventilated. GASTROINTESTINAL: Abdomen soft, non-tender, nondistended. MUSCULOSKELETAL: No edema in lower extremities. No calf tenderness apparent. NEUROLOGICAL: Left hand contracted, moving right arm. Eyes open, appears alert, not tracking with eyes. Not following commands. (Angel Rodriguez MD R3) Date of Insertion: Mar 13, 2017 Line: Central Venous Catheter Side: Right Location: Internal, Jugular (Angel Rodriguez MD R3) A/P Assessment and Plan 51 yr old F admitted for acute CHF exacerbation. Patient with acute respiratory failure resulting in intubation and transfer to ICU. Discharge Planning Acute respiratory failure resulting in intubation. Patient has been transferred to the ICU. Plan is to hopefully transfer to [facility] which is a ventilator rehab facility. (Angel Rodriguez MD R3) Attending Attestation Patient seen and examined. Case reviewed and discussed with the resident team. Agree with plan of care as discussed with me and documented in the resident note. she is extremely ill and will require time and work to get improvement. her daughter wants aggressive care and [facility] has agreed to take her. they have the facility and will be able to maximize her functioning (Aarti Frakn MD) Problem List: (1) Respiratory failure requiring intubation ICD Codes: J96.90 - Respiratory failure, unspecified, unspecified whether with hypoxia or hypercapnia Status: Acute Plan: Neuro/Psych: History of right MCA CVA with left arm and poor balance disorder Seizure disorder NOS Dementia disorder NOS Off sedation but not following commands Continue lacosamide 100 mg bid, phenobarbital 32.4 mg bid, oxcarbazepine 1200 mg qday for possible seizure activity CT brain, CT angiogram brain and neck: Unremarkable Cannot have MRI due to ICD placement Not a candidate for thrombolytic due to current anticoagulant use Neurology is on board EEG: Seizure focus activity, sharp and spike discharges in right frontal region. Seizure precautions Namenda 10 mg twice a day for cognitive dysfunction Palliative care on board. Prognosis difficult to determine at this time. Goals remain aggressive at this time. Goal is to keep her off sedatives to improve neurological function Resp: Acute respiratory failure secondary to CHF exacerbation Currently on mechanical ventilation Albuterol ipratropium every 6 hours and albuterol every 2 hours PRN. Spontaneous breathing trials daily, failed CPAP due to apnea ID: Sputum culture positive for MRSA Follow blood cultures Continue vancomycin 1 g twice a day Continue Zosyn 4.5 g every 6 hours CV: Chronic systolic heart failure ejection fraction 15-20% Hypertension Dyslipidemia Echocardiogram 03/20 revealed EF 20%. LA dilation. Moderate MR/TR. PaP 67 mmHg. Small pericardial Effusion. Currently on digoxin 0.125 mg by mouth daily, monitor levels Continue furosemide 40 mg twice a day. Spironolactone 25 mg by mouth daily for congestive heart failure Daily atorvastatin 80 mg by mouth daily held due to elevated LFT's. Evaluated by Dr. Cruz in this hospitalization. Her bander and cellophaner machine helper is Dr. Miguel Continue aspirin 81 mg by mouth daily GI: Elevated LFT's Hypoalbuminemia Tube feedings per dietary. PPI for GI prophylaxis Docusate sodium PRN for bowel regimen HIDA scan today given elevated LFT;s and liver ultrasound showing possible cholecystitis : Hinson catheter will be place for accurate I's and O's with diuretics Endo: Sliding scale insulin with Accu-Cheks Levemir 5 units bid SoluCortef 100 mg q8hrs Renal: Monitor renal function Monitor urine output accurate I's and O's Heme: Continue ferrous fumarate 325 mg twice a day ID: Monitor for infection FEN: Replace electrolytes as needed MSK: Gait imbalance disorder Left upper extremity contracture Access - Right IJ CVL Prophylaxis - GI - Lansoprazole 30 mg - DVT - SCDs/Apixaban 5 mg bid (2) CHF exacerbation ICD Codes: I50.9 - Heart failure, unspecified Status: Acute (3) Diabetes ICD Codes: E11.9 - Diabetes Status: Chronic (4) Cardiomyopathy ICD Codes: I42.9 - Cardiomyopathy Status: Chronic (5) History of right MCA stroke ICD Codes: Z86.73 - History of right MCA stroke Status: Chronic (6) Seizures ICD Codes: R56.9 - Unspecified convulsions Status: Chronic (7) Nutrition, metabolism, and development symptoms ICD Codes: R63.8 - Nutrition, metabolism, and development symptoms Status: Acute (Angel Rodriguez MD R3) Problem Qualifiers (1) CHF exacerbation: Qualified Codes: I50.9 - Heart failure, unspecified (2) Diabetes: Angel Rodriguez MD R3 Mar 20, 2017 12:12 Aarti Frank MD Mar 21, 2017 13:08
--- NOTE | 2017-03-20 14:40 | HHI.CCPN ---
Subjective Remarks/Hospital Course 51 yr old AA F here date of admission 03/09/2017. Date of consultation 2016. 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 Her left upper extremity contracted,, seizures, T2DM, and CHF(EF currently 25%), she was originally presented to the ED at [facility] on 2016 with a two- day history of shortness of breath positive orthopnea. Positive wheezing. Positive cough frothy sputum. Dairy Clerk is Dr. Miguel. In the ED, noted to have CT brain which showed no signs intracranial process. She is admitted under the [facility] service. She is evaluated Dr. Cruz cardiology - rec - IV diuresis Strict I&O Daily Weight Telemetry monitoring Low salt diet Cont ASA, Coreg, Digoxin, Statin, Eliquis Today, patient was to be discharged to an extended care facility when she finishes the short of breath and unresponsive. [facility] was called and the patient was transferred from 1320. She had no IV access. Central line placement was performed patient was orotracheally intubated without complication. Noted at frothy secretions upon intubation CTA brain/neck and CT head revealed no acute intracranial findings/stenosis. 03/14: Noted likely seizure activity in EEG. Patient placed on low-dose norepinephrine overnight. We'll change sedatives. Start on Midazolam instead of propofol. Check CVP. Start bowel regimen and tube feeding. 03/15: Afebrile. Remains on norepinephrine at 8 mg/m. Tolerating tube feeding. CVP between 9 and 12. 03/16: Norepinephrine drip down to 4 mics grams per minute. Diuresing. Tolerating tube feeding. Arousable but not really following commands off sedation. 03/17: Off all sedation. Not following commands. Apneic on spontaneous breathing trial. Tolerating tube feeding. One bowel movement. 03/18: Patient noted to have spontaneous eye opening, does not track, not following commands. Norepinephrine currently at 2 mcgs/min 03/19: slightly more awake. sputum growing MRSA. still remains on very small dose of norepinephrine. still failing CPAP trials for apnea. Subjective 03/20: little improvement in neuro exam today. wbc downtrending. on appropriate therapy for MRSA pneumonia. stable for transfer to LTAC today. Objective Vital Signs Date Time Temp Pulse Resp B/P (MAP) Pulse Ox O2 Delivery O2 Flow Rate FiO2 03/20/17 14:00 78 03/20/17 12:00 40 03/20/17 12:00 97.8 15 117/74 (88) 100 Intake and Output 03/20/17 03/20/17 03/21/17 08:00 16:00 00:00 Intake Total 0 ml Output Total 700 ml Balance -700 ml Result Diagram: 03/20/17 0410 03/20/17 0410 Imaging Last Impressions Chest X-Ray 03/16/17 0600 Signed Impressions: Service Date/Time: Thursday, March 16, 2017 02:07 - CONCLUSION: 1. Bilateral mostly basilar airspace disease. Cardiomegaly. Support apparatus in good position. Sam Cruz MD Head CT 03/13/17 1345 Signed Impressions: Service Date/Time: Monday, March 13, 2017 13:43 - CONCLUSION: 1. Old area of infarct involving the right MCA distribution. 2. Colpocephalic dilation of the ventricular system. 3. Stable examination compared to previous dated 10/23/16. 4. Postcraniotomy changes within the skull. Warner Pritchard MD Neck CTA 03/13/17 0000 Signed Impressions: Service Date/Time: Monday, March 13, 2017 13:43 - CONCLUSION: 1. No evidence of hemodynamic significant lesion. There is 0%% stenosis bilaterally Georges Hannon MD Head CTA 03/13/17 0000 Signed Impressions: Service Date/Time: Monday, March 13, 2017 13:43 - CONCLUSION: 1. Unremarkable CT angiography of the brain. Georges Hannon MD Liver Ultrasound 03/12/17 0000 Signed Impressions: Service Date/Time: Sunday, March 12, 2017 15:55 - CONCLUSION: 1. Gallbladder wall thickening and pericholecystic fluid without stones. Cholecystitis is not excluded. Radionuclide imaging is recommended for further evaluation if clinically indicated. Georges Hannon MD Objective Remarks GENERAL: This is a 51 yo female critically ill currently orotracheally intubated SKIN: Cool and dry HEAD: Atraumatic. Normocephalic. EYES: Pupils equal and round about 3 mm bilaterally and reactive. No scleral icterus. No injection or drainage. ENT: No nasal bleeding or discharge. Mucous membranes pink and moist. Orotracheally intubated NECK: Trachea midline. +JVD. Right IJ is clean dry and intact CARDIOVASCULAR: Regular rate and rhythm. RESPIRATORY: equal chest rise. full support assist control ventilation. fio2 40% . GASTROINTESTINAL: Abdomen soft, non-tender, nondistended. Hypoactive bowel sounds MUSCULOSKELETAL: Extremities without noted in peripheral edema. No obvious deformities. NEUROLOGICAL: Positive gag. Positive corneal reflex. Currently not withdrawing to pain. opens eyes to voice. does not track. Date of Insertion: Mar 13, 2017 Line: Central Venous Catheter Side: Right Location: Internal, Jugular A/P Assessment and Plan Assessment: 51yF with prior CVA and severe dilated cardiomyopathy and volume overload admitted for acute metabolic encephalopathy. will need ongoing long vent-wean. stable for LTAC. out of shock today. still with hypoxemic respiratory failure. Neuro/Psych: History of right MCA CVA with left arm and didn't balance disorder Seizure disorder NOS Dementia disorder NOS Patient is currently off midazolaml , non responsive on low-dose fentanyl for vent synchrony. Goal of RASS -2 Daily sedation vacation Continue lacosamide 100 mg twice a day, phenobarbital 32.4 mill grams twice a day, oxcarbazepine 1200 mg Cannot have MRI due to ICD placement Evaluate by Dr. Marcos Neurology. Not a candidate for thrombolytic due to current anticoagulant use EEG [id number] - Abnormal EEG because of right frontotemporal frequent sharp and spike type of discharges which have an epileptiform appearance. No ictal pattern. There is bi-hemisphere slowing compatible with bilateral abnormalities though the slowing might also be all due to sedation. Artificially though the bilateral slowing might be all due to sedation. Seizure precautions Continued Namenda 10 mg twice a day provigil 200mg daily Resp: Acute Hypoxic Respiratory failure likely secondary to Systolic CHF exacerbation MRSA HCAP Pneumonia Ventilator bundle Albuterol ipratropium aerosols every 6 hours and albuterol aerosols every 2 hours. Dyspnea Spontaneous breathing trials daily, still failing for apnea. Apneic on spontaneous breathing trial currently CV: Chronic systolic heart failure ejection fraction 15-20% Systolic CHF exacerbation Hypertension Dyslipidemia Echocardiogram 03/20 revealed EF 20%. LA dilation. Moderate MR/TR. PaP 67 mmHg. Small pericardial Effusion.. Repeat echocardiogram revealed EF less than 20%. Atrial dilatation. Pulmonary she pressures greater than 70. No signs. Currently on digoxin 0.125 mg by mouth daily, recheck level in a.m. Continue furosemide 60 mg IV twice a day. Spironolactone 25 mg by mouth daily for congestive heart failure. 1 dose Zaroxolyn given 03/16 Daily atorvastatin 80 mg by mouth daily for dyslipidemia being held due to elevated LFTs Evaluated by Dr. Cruz in this hospitalization. 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 Miguel Continue aspirin 81 mg by mouth daily GI: Hypoalbuminemia Elevated LFTs Acute protein calorie malnutrition- moderate Metabolic alkalosis Currently on Glucerna 1.5 goal 50 cc an hour. Dietary recommends vital 1.5 goal 45 cc an hour Lansoprazole 30 mg for GI prophylaxis Docusate sodium for bowel regimen Liver ultrasound showed pericholecystic fluid. Cannot rule out cholecystitis. HIDA scan scheduled for 03/19, prelim negative. f/u ammonia diamox 500mg iv q8h x 3 doses for alkalosis. : Hinson catheter will remain for accurate I's nose any critically ill patient receiving diuretics Endo: Relative Adrenal Insufficiency Slding scale insulin with Accu-Cheks to maintain euglycemia continue hydrocortisone 100mg iv q8h until patient is off vasopressors. Renal: Creatinine currently within normal limits Monitor urine output accurate I's and O's Heme: History of anemia Continue ferrous sulfate 325 mg by mouth twice a day ID: MRSA sputum Monitor for infection Blood cultures 2, no growth. Sputum with MRSA continue vancomycin. stop zosyn (48h negative cultures). continue full 7 day course for MRSA pneumonia. FEN: Replace electrolytes as clinically indicated MSK: Gait imbalance disorder Left upper extremity contracture PT evaluate and treat Access - Right IJ CVL placed 03/13 Prophylaxis - GI -lansoprazole - DVT - SCDs/Apixaban will provide DVT prophylaxis Ramesh Castorena MD Mar 20, 2017 14:40
--- NOTE | 2017-03-20 16:21 | HHI.HCPN ---
Reason for visit a. To assist with evaluation and management of symptoms including: Dyspnea , encephalopathy b. To assist medical decision maker(s) with: better understanding of current medical conditions; weighing benefits/burdens of medical treatment options; making medical treatment decisions. . Subjective/Interval History INTERVAL NOTE: The patient remains quite encephalopathic, on the ventilator, and I do not see any apparent improvements. She opens her eyes at times, but she still does not respond, does not follow commands, does not track. She remains afebrile. Arrangements have been made for her to be transferred to an LTAC this evening. . Family/friend interactions Unable to reach her daughter on 2 attempts today, messages left . Advance Directives Living Will: Never completed Health Care Surrogate: Never completed Durable Power of Cook Ship: Never completed Objective Vital Signs Date Time Temp Pulse Resp B/P (MAP) Pulse Ox O2 Delivery O2 Flow Rate FiO2 03/20/17 15:43 100 40 03/20/17 14:00 78 03/20/17 12:00 73 03/20/17 12:00 40 03/20/17 12:00 97.8 82 15 117/74 (88) 100 03/20/17 11:00 100 40 03/20/17 10:00 72 03/20/17 09:45 100 100 03/20/17 08:00 97.2 72 18 108/70 (83) 100 03/20/17 08:00 40 03/20/17 08:00 74 03/20/17 07:40 40 03/20/17 07:34 100 40 03/20/17 06:00 67 03/20/17 06:00 95/59 (71) 03/20/17 04:00 75 03/20/17 04:00 40 03/20/17 04:00 97.7 67 20 118/73 (88) 100 03/20/17 03:00 100 40 03/20/17 02:00 58 03/20/17 00:30 100 40 03/20/17 00:00 97.8 111 15 93/60 (71) 100 03/20/17 00:00 40 03/20/17 00:00 67 03/19/17 22:00 67 03/19/17 21:09 100 40 03/19/17 20:00 40 03/19/17 20:00 99.7 93 23 118/66 (83) 97 10/16/17 18:00 67 110/61 (77) 03/19/17 18:00 75 Intake & Output 03/20/17 03/20/17 07:00 19:00 Intake Total 0 ml Output Total 700 ml Balance -700 ml Intake Oral 0 ml Output Urine Total 700 ml Stool Total 0 ml Physical Exam CONSTITUTIONAL/GENERAL: This is an adequately nourished patient, quite encephalopathic, in the ISC, intubated. HEAD: Atraumatic. Some deformity still present from craniotomies on the right side of her skull. EYES: Pupils equal and round and reactive. CARDIOVASCULAR: Regular rate and rhythm, grade 2 systolic murmur. No JVD. Peripheral pulses quite diminished in the feet/ankles. RESPIRATORY/CHEST: Symmetric, unlabored respirations on the ventilator. Scattered rhonchi bilateral GASTROINTESTINAL: Abdomen soft, nondistended. No hepato-splenomegaly, or palpable masses. No guarding. Bowel sounds present. MUSCULOSKELETAL: Extremities without clubbing, cyanosis, or edema. No mottling or clubbing. Flexion contractures involving the left arm, wrist, fingers. NEUROLOGICAL: Severely encephalopathic; opens eyes to painful stimuli but does not track. Does not respond to light touch or verbal stim, does not follow simple commands. PSYCHIATRIC: Difficult to evaluate due to clinical condition . Diagnostic Tests Laboratory Laboratory Tests Test 03/18/17 03:15 03/19/17 03:26 03/19/17 15:45 03/19/17 22:00 White Blood Count 10.5 TH/MM3 (4.0-11.0) 10.9 TH/MM3 (4.0-11.0) Red Blood Count 4.68 MIL/MM3 (4.00-5.30) 4.76 MIL/MM3 (4.00-5.30) Hemoglobin 11.9 GM/DL (11.6-15.3) 12.0 GM/DL (11.6-15.3) Hematocrit 36.2 % (35.0-46.0) 36.9 % (35.0-46.0) Mean Corpuscular Volume 77.3 FL (80.0-100.0) 77.6 FL (80.0-100.0) Mean Corpuscular Hemoglobin 25.4 PG (27.0-34.0) 25.3 PG (27.0-34.0) Mean Corpuscular Hemoglobin Concent 32.8 % (32.0-36.0) 32.6 % (32.0-36.0) Red Cell Distribution Width 15.8 % (11.6-17.2) 15.9 % (11.6-17.2) Platelet Count 190 TH/MM3 (150-450) 227 TH/MM3 (150-450) Mean Platelet Volume 9.5 FL (7.0-11.0) 9.0 FL (7.0-11.0) Blood Urea Nitrogen 26 MG/DL (7-18) 31 MG/DL (7-18) Creatinine 0.67 MG/DL (0.50-1.00) 0.63 MG/DL (0.50-1.00) Random Glucose 217 MG/DL (74-106) 148 MG/DL (74-106) Total Protein 6.7 GM/DL (6.4-8.2) 6.8 GM/DL (6.4-8.2) Albumin 1.9 GM/DL (3.4-5.0) 2.1 GM/DL (3.4-5.0) Calcium Level 8.2 MG/DL (8.5-10.1) 7.9 MG/DL (8.5-10.1) Alkaline Phosphatase 281 U/L (45-117) 246 U/L (45-117) Aspartate Amino Transf (AST/SGOT) 117 U/L (15-37) 119 U/L (15-37) Alanine Aminotransferase (ALT/SGPT) 122 U/L (10-53) 123 U/L (10-53) Total Bilirubin 0.4 MG/DL (0.2-1.0) 0.4 MG/DL (0.2-1.0) Sodium Level 136 MEQ/L (136-145) 139 MEQ/L (136-145) Potassium Level 3.5 MEQ/L (3.5-5.1) 3.2 MEQ/L (3.5-5.1) 3.1 MEQ/L (3.5-5.1) Chloride Level 98 MEQ/L (98-107) 101 MEQ/L (98-107) Carbon Dioxide Level 28.5 MEQ/L (21.0-32.0) 30.7 MEQ/L (21.0-32.0) Anion Gap 10 MEQ/L (5-15) 7 MEQ/L (5-15) Estimat Glomerular Filtration Rate 113 ML/MIN (>89) 121 ML/MIN (>89) Digoxin Level 1.0 NG/ML (0.8-2.0) Phenobarbital Level 21.1 MCG/ML (15.0-40.0) Neutrophils (%) (Auto) 86.7 % (16.0-70.0) Lymphocytes (%) (Auto) 4.8 % (9.0-44.0) Monocytes (%) (Auto) 8.1 % (0.0-8.0) Eosinophils (%) (Auto) 0.0 % (0.0-4.0) Basophils (%) (Auto) 0.4 % (0.0-2.0) Neutrophils # (Auto) 9.4 TH/MM3 (1.8-7.7) Lymphocytes # (Auto) 0.5 TH/MM3 (1.0-4.8) Monocytes # (Auto) 0.9 TH/MM3 (0-0.9) Eosinophils # (Auto) 0.0 TH/MM3 (0-0.4) Basophils # (Auto) 0.0 TH/MM3 (0-0.2) CBC Comment DIFF FINAL Differential Comment Vancomycin Level Trough 20.1 MCG/ML (5.0-10.0) Ammonia 18 MCMOL/L (11-32) Test 03/20/17 04:10 White Blood Count 8.0 TH/MM3 (4.0-11.0) Red Blood Count 4.82 MIL/MM3 (4.00-5.30) Hemoglobin 12.1 GM/DL (11.6-15.3) Hematocrit 37.4 % (35.0-46.0) Mean Corpuscular Volume 77.7 FL (80.0-100.0) Mean Corpuscular Hemoglobin 25.2 PG (27.0-34.0) Mean Corpuscular Hemoglobin Concent 32.4 % (32.0-36.0) Red Cell Distribution Width 16.0 % (11.6-17.2) Platelet Count 214 TH/MM3 (150-450) Mean Platelet Volume 9.3 FL (7.0-11.0) Blood Urea Nitrogen 25 MG/DL (7-18) Creatinine 0.60 MG/DL (0.50-1.00) Random Glucose 123 MG/DL (74-106) Calcium Level 8.4 MG/DL (8.5-10.1) Sodium Level 139 MEQ/L (136-145) Potassium Level 2.9 MEQ/L (3.5-5.1) Chloride Level 105 MEQ/L (98-107) Carbon Dioxide Level 22.3 MEQ/L (21.0-32.0) Anion Gap 12 MEQ/L (5-15) Estimat Glomerular Filtration Rate 128 ML/MIN (>89) Result Diagram: 03/20/17 0410 03/20/17 0410 Imaging Last Impressions Hepatobiliary Scan Nuclear Medicine 03/19/17 0000 Signed Impressions: Service Date/Time: Sunday, March 19, 2017 09:49 - CONCLUSION: Negative for cystic duct obstruction. There is no activity in the small bowel. Delayed films will be obtained. Kashmir Pritchard MD FACRADDENDUM: A 24-hour delayed film continues to demonstrate tracer activity in the gallbladder. However, there is now tracer activity noted in the GI tract. There has been normal washout of tracer activity from the liver parenchyma. Peter Moreno MD Chest X-Ray 03/16/17 0600 Signed Impressions: Service Date/Time: Thursday, March 16, 2017 02:07 - CONCLUSION: 1. Bilateral mostly basilar airspace disease. Cardiomegaly. Support apparatus in good position. Sam Cruz MD Head CT 03/13/17 1345 Signed Impressions: Service Date/Time: Monday, March 13, 2017 13:43 - CONCLUSION: 1. Old area of infarct involving the right MCA distribution. 2. Colpocephalic dilation of the ventricular system. 3. Stable examination compared to previous dated 10/23/16. 4. Postcraniotomy changes within the skull. Warner Pritchard MD Neck CTA 03/13/17 0000 Signed Impressions: Service Date/Time: Monday, March 13, 2017 13:43 - CONCLUSION: 1. No evidence of hemodynamic significant lesion. There is 0%% stenosis bilaterally Georges Hannon MD Head CTA 03/13/17 0000 Signed Impressions: Service Date/Time: Monday, March 13, 2017 13:43 - CONCLUSION: 1. Unremarkable CT angiography of the brain. Georges Hannon MD Liver Ultrasound 03/12/17 0000 Signed Impressions: Service Date/Time: Sunday, March 12, 2017 15:55 - CONCLUSION: 1. Gallbladder wall thickening and pericholecystic fluid without stones. Cholecystitis is not excluded. Radionuclide imaging is recommended for further evaluation if clinically indicated. Georges Hannon MD Procedures INTUBATION 03/13/17 Central line 03/13/17 . Assessment and Plan Disease Oriented Problem List: (1) respiratory failure Comment: Protecting the patient's airway because of the encephalopathy (2) encephalopathy Comment: Could be multifactorial, concern is for ongoing seizure activity.. (3) end-stage heart disease, with cardiomyopathy, CHF, cor pulmonale, EF 15-20% (4) acute ischemic CVA 2013, with left-sided weakness and left arm contractures (5) seizures since 2013 Comment: Persistently shows seizure activity on EEG is (6) diabetes (7) sepsis and respiratory failure June 2016 (8) history of vascular dementia (9) atrial fibrillation (10) anxiety (11) depression (12) hypothyroidism (13) hypertension (14) GERD Symptom Scale: (1) Seizure 0-10 Scale: Unable to quantify Comment: Since stroke in 2013; persistent seizure activity on EEG (2) dyspnea 0-10 Scale: Unable to quantify (3) encephalopathy 0-10 Scale: Unable to quantify Pertinent Non-Medical Issues 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 Lives with her daughter (only child). Spiritual: Jillian and spirituality have been very important for the patient, and she has been a member of a [employer] y[employer]ism in recent years. The patient's daughter DOES believe the patient would want migrant leader visits and prayer. Legal: The patient lacks capacity for decision-making, and it seems unlikely that she will regain that capacity. Her daughter is functioning as the healthcare proxy decision-maker. Ethical issues impacting care: None . Important Contacts Daughter: Colten Foote [phone] . Prognosis The patient's prognosis is poor. She has underlying end-stage heart disease, and now has a severe encephalopathy of undetermined etiology and respiratory failure. She has had multiple recent hospitalizations and will remain at risk for frequent and serious complications due to her debility and frequent hospital visits. She would be appropriate for hospice services if the goals become comfort oriented. . Code Status: Full Code Plan * FULL CODE * DECISION-MAKING: The patient lacks capacity for decision-making, and it seems unlikely that she will regain that capacity. Her daughter is functioning as the healthcare proxy decision-maker. * GOALS: The patient's daughter has had conversations with the patient over the last couple years about goals and wishes. The goals remain aggressive, but the patient's daughter says she would not want to keep the patient on artificial life support long-term if the encephalopathy and brain function do not significantly improve. * SYMPTOMS: With the persistent seizure activity on EEG, it is hard to tell if some of this encephalopathy represents persistent postictal state; neurology is adjusting anti-seizure meds. There is no obvious pain. The patient remains intubated to protect her airway, but is not obviously dyspneic. * The patient is being transferred to the LTAC this evening . Time Spent Total Floor Time (mins): 28 Face to Face Time (mins): 11 >50% Counseling/Coord of Care: Yes (d/w RN) Attestation To help prompt me to consider important information that might be impacting today's encounter and assessment, information from prior notes written by myself or my colleagues may have been "brought forward" into today's note. My signature on this note, however, is an attestation that I personally performed the exam, history, and/or decision-making noted today, and, unless otherwise indicated, the interactions with patient, family, and staff as well as the review of records all occurred today. I also attest that the listed assessment and stated plan reflect my best clinical judgment today based on the combination of historical information, prior notes, and today's exam/ interactions. When time spent is documented, it refers only to time spent today by the signer, or if indicated, combined time spent today by collaborating physician/nurse practitioner. Lelia Eugene MD Mar 20, 2017 16:21
[2017-03-21] MEDS ORDERED: PHARMACY ORDERED LAB ONE (04:45)
--- NOTE | 2017-03-21 12:59 | HHI.DS ---
Discharge Summary Admission Date Mar 09, 2017 at 13:58 Discharge Date: Mar 20, 2017 Admitting Diagnosis CHF, dyspnea, hypoxia 88% room air, vertigo, AMS (1) Respiratory failure requiring intubation Diagnosis: Principal Plan: Neuro/Psych: History of right MCA CVA with left arm and poor balance disorder Seizure disorder NOS Dementia disorder NOS Off sedation but not following commands Continue lacosamide 100 mg bid, phenobarbital 32.4 mg bid, oxcarbazepine 1200 mg qday for possible seizure activity CT brain, CT angiogram brain and neck: Unremarkable Cannot have MRI due to ICD placement Not a candidate for thrombolytic due to current anticoagulant use Neurology is on board EEG: Seizure focus activity, sharp and spike discharges in right frontal region. Seizure precautions Namenda 10 mg twice a day for cognitive dysfunction Palliative care on board. Prognosis difficult to determine at this time. Goals remain aggressive at this time. Goal is to keep her off sedatives to improve neurological function Resp: Acute respiratory failure secondary to CHF exacerbation Currently on mechanical ventilation Albuterol ipratropium every 6 hours and albuterol every 2 hours PRN. Spontaneous breathing trials daily, failed CPAP due to apnea ID: Sputum culture positive for MRSA Follow blood cultures Continue vancomycin 1 g twice a day Continue Zosyn 4.5 g every 6 hours CV: Chronic systolic heart failure ejection fraction 15-20% Hypertension Dyslipidemia Echocardiogram 03/20 revealed EF 20%. LA dilation. Moderate MR/TR. PaP 67 mmHg. Small pericardial Effusion. Currently on digoxin 0.125 mg by mouth daily, monitor levels Continue furosemide 40 mg twice a day. Spironolactone 25 mg by mouth daily for congestive heart failure Daily atorvastatin 80 mg by mouth daily held due to elevated LFT's. Evaluated by Dr. Cruz in this hospitalization. Her application administrator is Dr. Miguel Continue aspirin 81 mg by mouth daily GI: Elevated LFT's Hypoalbuminemia Tube feedings per dietary. PPI for GI prophylaxis Docusate sodium PRN for bowel regimen HIDA scan today given elevated LFT;s and liver ultrasound showing possible cholecystitis : Hinson catheter will be place for accurate I's and O's with diuretics Endo: Sliding scale insulin with Accu-Cheks Levemir 5 units bid SoluCortef 100 mg q8hrs Renal: Monitor renal function Monitor urine output accurate I's and O's Heme: Continue ferrous fumarate 325 mg twice a day ID: Monitor for infection FEN: Replace electrolytes as needed MSK: Gait imbalance disorder Left upper extremity contracture Access - Right IJ CVL Prophylaxis - GI - Lansoprazole 30 mg - DVT - SCDs/Apixaban 5 mg bid ICD Codes: J96.90 - Respiratory failure, unspecified, unspecified whether with hypoxia or hypercapnia Status: Acute (2) CHF exacerbation Diagnosis: Principal ICD Codes: I50.9 - Heart failure, unspecified Status: Acute (3) Diabetes Diagnosis: Secondary ICD Codes: E11.9 - Diabetes Status: Chronic (4) Cardiomyopathy Diagnosis: Secondary ICD Codes: I42.9 - Cardiomyopathy Status: Chronic (5) History of right MCA stroke Diagnosis: Secondary ICD Codes: Z86.73 - History of right MCA stroke Status: Chronic (6) Seizures Diagnosis: Secondary ICD Codes: R56.9 - Unspecified convulsions Status: Chronic (7) Nutrition, metabolism, and development symptoms Diagnosis: Secondary ICD Codes: R63.8 - Nutrition, metabolism, and development symptoms Status: Acute Brief History 51 yr old F w/ PMHx of R CVA w/ residual left-sided weakness, seizures, T2DM, and CHF(EF 15-20% from Echo 04/19/16), brought to the ED by daughter for 2 day hx of worsening SOB. Daughter is the primary progressive care nurse and provides all of the history. Reports that patient was complaining of fatigue and frequent, intermittent, worsening SOB that began 2 days ago. She was unable to breath while lying flat and "felt as if she was drowning." Daughter noticed audible wheezing and slight swelling of patient's left arm. Daughter became concerned and brought mom to ED. Patient also complains of a NINO that resolved with Tylenol and mild non-productive cough. Denies swelling in lower extremities, CP , N/V, vision changes, abdominal pain, weight loss, fevers, chills, and night sweats. Discotheque Dancer is Dr. Anaya. Also reports that patient has had some recent hearing changes. Daughter states that it takes a couple of times of calling mom's name to get mom to focus. In the ED, states that her mom had altered mental status. Patient had a "moment in which she was calling for help because she felt like she was falling and needed to "hold." Episode lasted 30-40min. Sates that she's had this happened before in the past. Head CT was ordered by ED physician to rule out intracranial hemorrhage as the patient is on Eliquis. Head CT was negative for acute intracranial abnormality. CBC/BMP: 03/20/1740903/20/17409 Significant Findings Laboratory Tests Test 03/19/17 03:26 03/19/17 15:45 03/19/17 22:00 03/20/17 04:10 Mean Corpuscular Volume 77.6 FL (80.0-100.0) 77.7 FL (80.0-100.0) Mean Corpuscular Hemoglobin 25.3 PG (27.0-34.0) 25.2 PG (27.0-34.0) Neutrophils (%) (Auto) 86.7 % (16.0-70.0) Lymphocytes (%) (Auto) 4.8 % (9.0-44.0) Monocytes (%) (Auto) 8.1 % (0.0-8.0) Neutrophils # (Auto) 9.4 TH/MM3 (1.8-7.7) Lymphocytes # (Auto) 0.5 TH/MM3 (1.0-4.8) Blood Urea Nitrogen 31 MG/DL (7-18) 25 MG/DL (7-18) Random Glucose 148 MG/DL (74-106) 123 MG/DL (74-106) Albumin 2.1 GM/DL (3.4-5.0) Calcium Level 7.9 MG/DL (8.5-10.1) 8.4 MG/DL (8.5-10.1) Alkaline Phosphatase 246 U/L (45-117) Aspartate Amino Transf (AST/SGOT) 119 U/L (15-37) Alanine Aminotransferase (ALT/SGPT) 123 U/L (10-53) Potassium Level 3.2 MEQ/L (3.5-5.1) 3.1 MEQ/L (3.5-5.1) 2.9 MEQ/L (3.5-5.1) Vancomycin Level Trough 20.1 MCG/ML (5.0-10.0) PE at Discharge GENERAL: Opens eyes spontaneously, not tracking with eyes, not following commands. SKIN: No obvious lesions HEAD: Normocephalic and atraumatic. EYES: Unable to assess EOMI as she is not tracking, no conjunctivitis present NECK: Supple, nontender. Trachea midline. CARDIOVASCULAR: Regular rate and rhythm with murmur no gallops, or rubs. RESPIRATORY: Clear to auscultation anteriorly. Mechanically ventilated. GASTROINTESTINAL: Abdomen soft, non-tender, nondistended. MUSCULOSKELETAL: No edema in lower extremities. No calf tenderness apparent. NEUROLOGICAL: Left hand contracted, moving right arm. Eyes open, appears alert, not tracking with eyes. Not following commands. Hospital Course 51 year old female with a history of right CVA with residual left sided weakness , seizures, type 2 diabetes, severe CHF with EF of 15-20%, was brought to the hospital by her daughter on 03/09/17 for dyspnea. She was initially treated for CHF exacerbation with DuoNebs, Lasix, and fluid/salt restriction. She had initial improvement, but on 03/13/17 she became diaphoretic and tachypneic. She started to have difficulty talking and was not acting her normal self. She was requiring oxygen via mask. She was transferred to the ICU, critical care was consulted, and she was intubated and mechanically ventilated. She was noted to have frothy secretions at the time. A stat CT of the brain and neck revealed no acute intracranial process. MRI is contraindicated given pacemaker/ICD. On subsequent days, she failed CPAP trials. She was found to have MRSA in her sputum and was treated with vancomycin IV, with plan for a 7 days course. She was awake and alert, but not tracking with her eyes and not responding to simple commands, despite weaning off sedatives. Neurology was consulted. She was given Lacosamide, phenobarbital, and oxcarbazepine for seizure activity seen on EEG. It is suspected she has either an acute CVA not seen on CT scan or continues to have seizures. She will be transferred to a intermediate teacher ventilator rehab facility at [facility]. Pt Condition on Discharge: Stable Discharge Disposition: Disch to Another Hospital Discharge Instructions DIET: Follow Instructions for: On Tube Feeding Fluid Restrictions: 1.5 Activities you can perform: Regular-No Restrictions Follow up Referrals: Cardiology - 1 Week with Henry Quispe MD PCP Follow-up - 1 Week with Lorraine Galeano MD R3 Continued Medications: Apixaban (Eliquis) 5 Mg Tab 5 MG PO BID for Blood Clot Prevention, #60 TAB [address] (Aspirin 81) 81 Mg Tabdr 81 MG PO DAILY, TAB 0 Refills Atorvastatin (Lipitor) 80 Mg Tab 80 MG PO HS for Cholesterol Management, #30 TAB 3 Refills Carvedilol (Coreg) 6.25 Mg Tab 6.25 MG PO BID, #60 TAB 3 Refills Digoxin (Digoxin) 0.125 Mg Tab 0.125 MG PO DAILY for cardiomyopathy, #30 TAB [address] (Ferrous Sulfate DR) 325 Mg Tabdr 325 MG PO BID for Nutritional Supplement Folic Acid (Folic Acid) 400 Mcg Tab 400 MCG PO DAILY for Nutritional Supplement, TAB 0 Refills Furosemide (Lasix) 40 Mg Tab 40 MG PO BID@ for Dyspnea, #60 TAB 3 Refills Lacosamide (Vimpat) 200 Mg Tab 200 MG PO BID for Control Seizures, #60 TAB 0 Refills Memantine (Memantine) 10 Mg Tab 10 MG PO BID for Alzheimer's Dementia, #60 TAB 2 Refills Metformin (Metformin) 500 Mg Tab 500 MG PO BIDPC for Blood Sugar Management, #60 TAB 4 Refills With meals Oxcarbazepine (Trileptal) 300 Mg Tab 600 MG PO BID for Seizure Control, #60 TAB 0 Refills Pantoprazole (Pantoprazole) 40 Mg Tab 40 MG PO DAILY for Reflux, #90 TAB 0 Refills Phenobarbital (Phenobarbital) 32.4 Mg Tab 32.4 MG PO BID for Control Seizures, #60 TAB 3 Refills Spironolactone (Spironolactone) 25 Mg Tab 25 MG PO DAILY, #30 TAB 3 Refills Thiamine (Vitamin B-1) 250 Mg Tab 250 MG PO DAILY for Nutritional Supplement, TAB 0 Refills Angel Rodriguez MD R3 Mar 21, 2017 12:59
== END 2017-03-20 20:14 | DRG 291 ==
LOC: NEPE 21:58 → NEDA 03-09 02:02 → UNDOADMIN 03-09 02:02 → NEDA 03-09 02:22 → INTOOBSV 03-09 02:22 → NEPFCDU 03-09 03:19 → OBSVTOIN 03-09 13:58 → N05A 03-10 19:35 → N03B 03-13 12:30
PROVIDERS: ADMIT Family Medicine; ATTEND Family Medicine
PROC: 5A1955Z Respiratory Ventilation, Greater than 96 Consecutive Hours (ICD-10-PCS; principal; 2017-03-13)
PROC: 0DH67UZ Insertion of Feeding Device into Stomach, Via Natural or Artificial Opening (ICD-10-PCS; 2017-03-13)
PROC: 0BH17EZ Insertion of Endotracheal Airway into Trachea, Via Natural or Artificial Opening (ICD-10-PCS; 2017-03-13)
PROC: 05HM33Z Insertion of Infusion Device into Right Internal Jugular Vein, Percutaneous Approach (ICD-10-PCS; 2017-03-13)
DX: I11.0 Hypertensive heart disease with heart failure (principal); G93.41 Metabolic encephalopathy; J96.01 Acute respiratory failure with hypoxia; R57.9 Shock, unspecified; J15.212 Pneumonia due to Methicillin resistant Staphylococcus aureus; E87.3 Alkalosis; I31.3 Pericardial effusion (noninflammatory); E27.40 Unspecified adrenocortical insufficiency; E44.0 Moderate protein-calorie malnutrition; J44.0 Chronic obstructive pulmonary disease with (acute) lower respiratory infection; I69.354 Hemiplegia and hemiparesis following cerebral infarction affecting left non-dominant side; I50.23 Acute on chronic systolic (congestive) heart failure; E11.9 Type 2 diabetes mellitus without complications; D50.9 Iron deficiency anemia, unspecified; I42.0 Dilated cardiomyopathy; I48.91 Unspecified atrial fibrillation; G40.909 Epilepsy, unspecified, not intractable, without status epilepticus; I50.84 End stage heart failure; G93.89 Other specified disorders of brain; F01.50 Vascular dementia, unspecified severity, without behavioral disturbance, psychotic disturbance, mood disturbance, and anxiety; I25.5 Ischemic cardiomyopathy; Z95.810 Presence of automatic (implantable) cardiac defibrillator; Z83.3 Family history of diabetes mellitus; Z80.1 Family history of malignant neoplasm of trachea, bronchus and lung; Z82.49 Family history of ischemic heart disease and other diseases of the circulatory system; I44.0 Atrioventricular block, first degree; Z79.84 Long term (current) use of oral hypoglycemic drugs; E78.5 Hyperlipidemia, unspecified; I08.1 Rheumatic disorders of both mitral and tricuspid valves; R26.89 Other abnormalities of gait and mobility; M24.542 Contracture, left hand; Z51.5 Encounter for palliative care; I27.81 Cor pulmonale (chronic); F32.9 Major depressive disorder, single episode, unspecified; F41.9 Anxiety disorder, unspecified; E03.9 Hypothyroidism, unspecified; K21.9 Gastro-esophageal reflux disease without esophagitis; Z74.01 Bed confinement status; I27.29 Other secondary pulmonary hypertension
CPT/HCPCS: 31500; 36556; 36600; 70450; 70496; 70498; 71010; 76705; 76937; 78226; 80048; 80053; 80162; 80183; 80184; 80202; 81001; 82140; 82306; 82533; 82550; 82805; 82948; 83036; 83605; 83735; 83880; 84100; 84132; 84155; 84443; 84484; 84702; 85007; 85025; 85027; 85384; 85610; 85730; 86403; 86850; 86900; 86901; 87040; 87070; 87147; 87186; 87205; 93005; 93306; 94002; 94003; 94640; 94664; 95819; 96365; 96367; 96375; A9537; G8987-GP; G8988-GP; J0456; J0696; J1120; J1720; J1815; J1940; J2250; J2543; J3010; J3370; J3475; J3480; J7030; J7050; P9612; Q9967